=== PATIENT | female | born 1960 | race Caucasian/White ===

== ENCOUNTER → 2019-08-31 14:43 | Outpatient (BNVA) | payer MEDICARE, SELFPAY | PROVIDERS: Family Provider Registered Nurse; PCP Registered Nurse; Visit Provider Nurse Practitioner | DX: G89.29 Other chronic pain (principal); M47.812 Spondylosis without myelopathy or radiculopathy, cervical region; M47.897 Other spondylosis, lumbosacral region; M79.7 Fibromyalgia; F17.210 Nicotine dependence, cigarettes, uncomplicated; Z79.891 Long term (current) use of opiate analgesic | CPT/HCPCS: 99214 ==

== ENCOUNTER → 2019-09-08 10:35 | Outpatient (BNVA) | payer MEDICARE, SELFPAY | PROVIDERS: Family Provider Registered Nurse; PCP Registered Nurse; Referring Provider Registered Nurse; Visit Provider Otolaryngology | DX: R13.10 Dysphagia, unspecified (principal); R49.0 Dysphonia; R05 Cough; F17.210 Nicotine dependence, cigarettes, uncomplicated | CPT/HCPCS: 31575; 99214 ==

== ENCOUNTER 2019-09-13 06:22 | Day surgery (SDC) | payer MEDICARE, SELFPAY ==
[2019-09-10 13:58] VITALS: BMI 29.2
[2019-09-13] VITALS (8 sets, daily range): BP systolic 87–117; BP diastolic 39–74; PULSE 90–111; RESP 17–22; TEMP 36.3–37.2; O2SAT 92–99
--- NOTE | 2019-09-13 07:03 | PM.HPUD ---
H&P update H&P Update: DATE OF SURGERY/PROCEDURE: 09/13/19 DATE H&P PERFORMED: 08/31/19 H&P UPDATE INFORMATION: H&P completed within last 30 days and No changes to prior documentation PLANNED PROCEDURE: Operation Date: 09/13/19 08:00 Proposed Procedures p EGD(Not Applicable) - Terrell Mckeon MD s Bronchoscopy(Not Applicable) - Terrell Mckeon MD s Direct Laryngoscopy(Not Applicable) - Terrell Mckeon MD Full H&P Perinent History: Medical/Surgical History: Medical History (Updated 09/09/19 @ 08:29 by Terrell Mckeon MD) Chronic bilateral low back pain (Chronic) Fibromyalgia (Chronic) Long-term use of high-risk medication (Chronic) Neck pain (Chronic) Other spondylosis, lumbosacral region (Chronic) Smoker (Chronic) Spondylosis without myelopathy or radiculopathy, cervical region (Chronic) Family History: Family History (Updated 08/30/19 @ 14:50 by Bethanie Sanabria LPN) Other Diabetes Heart disease Denies family history of Anesthesia complication Bleeding disorder Social History: Social History Smoking and tobacco status: current every day smoker cigarettes Packs smoked per day: 1 Alcohol intake: never
[2019-09-13 07:07] LABS: Glucose Point of Care 99 mg/dL (70-110)
[2019-09-13] MEDS: sodium chloride 0.9% 1,000 ML 30 ML IV (07:26)
--- NOTE | 2019-09-13 08:36 | PM.OP ---
Operative Report Date of procedure: 09/13/19 Pre-op Diagnosis: Cough, dysphagia Post-op diagnosis: same Post-op Findings: Erosive distal esophagitis at 11:00 measuring 1.5 cm in length. Thick mucoid secretions all bronchopulmonary segments normal laryngeal exam Procedure Done: Esophagogastroduodenoscopy with biopsy, flexible fiberoptic bronchoscopy of the bronchioloalveolar lavage, dilation of esophagus to 58 [place] Specimens removed/disposition: The distal esophagus, bronchoalveolar lavage for lipid-laden macrophages Surgeon: Terrell Mckeon Anesthesia: General Estimated blood loss (mL): 0 Complications: None Condition: stable Disposition: PACU Brief History: Ms. De Luna is a 59-year-old female has a 3-month history of choking this primarily for solids occasionally for liquids. She has also had heartburn and reflux and has been treated with a PPI which she is currently taking but has not been successful in alleviating her symptoms. Procedure: The patient was taken to the operating room and under satisfactory general endotracheal anesthesia the bronchoscope was introduced into the trachea. Right and left bronchopulmonary segments 1 through 10 were examined. Thick mucoid secretions were noted throughout. A BAL was performed from her right lower lobe and a lipid-laden macrophage assessment was requested. No endobronchial lesions were identified. The gastroscope was introduced into the post cricoid area the AV esophagus stomach and duodenum were examined. The exam was significant for a 1.5 cm erosion at 11:00 in the distal esophagus. The valve, gastric mucosa, and duodenal mucosa were otherwise unremarkable. A stricture was noted in the proximal esophagus. The patient was dilated with a bougie dilator to 58 F. A second look of the esophagus was undertaken after dilation no perforations were noted. The patient tolerated the procedure well and was allowed to awaken and taken to the recovery room. Postoperative care instructions and counseling were given including detailed written and verbal instructions. Once the patient verbalized understanding of these instructions and met discharge criteria she was discharged in satisfactory and stable condition.
--- NOTE | 2019-09-13 08:51 | ANES.PREANES ---
Pre-Anesthetic Assessment Pre-Anesthetic Assessment: Height/Weight: Height 1.63 m Weight 77.111 kg Temp Pulse Resp BP Pulse Ox 97.4 F L 111 H 18 117/74 94 09/13/19 06:43 09/13/19 06:43 09/13/19 06:43 09/13/19 06:43 09/13/19 06:43 Preop Diagnosis: Cough, dysphagia Proposed Procedure: Operation Date: 09/13/19 08:00 Proposed Procedures p EGD(Not Applicable) - Terrell Mckeon MD s Bronchoscopy(Not Applicable) - Terrell Mckeon MD s Direct Laryngoscopy(Not Applicable) - Terrell Mckeon MD Last intake: Intake Last Liquid Date 09/13/19 Last Liquid Time 00:00 Last Solid Date 09/13/19 Last Solid Time 00:00 Social: Social History: Tobacco and No alcohol Exam: Pre-Anes Outpt Exam: alert, oriented x 3, clear to auscultation bilaterally and regular rate & rhythm Airway: Submandibular: WNL Cervical ROM: WNL MP: 2 Dentition: Full History/ROS: No significant history except as noted Pulmonary: Pulmonary: COPD and BRANDT CV/HEM: CV/HEM: HTN : : None reported Hepatic: Hepatic: None reported GI: GI: GERD (controlled) Metabolic: Metabolic: DM, Hyperlipidemia and Thyroid Musc/skel: Musc/skel: Lower Back Pain and OA/DJD Neuropsych: Neuropsych: Anxiety, CVA (no residual symp) and Depression Anesthetic Plan: ASA status: III Anesthesia: Anesthesia Evaluation and General Risk of > 500 ml blood loss (7ml/kg in children): No Meds/Allergies Current Medications: Current Medications Generic Name Dose Route Start Last Admin Trade Name Freq PRN Reason Stop Dose Admin Sodium Chloride 1,000 mls @ 30 ml s/hr 09/13/19 06:00 09/13/19 07:26 Sodium Chloride 0.9% IV 09/14/19 05:59 30 mls/hr .Q24H [place] Administration PFSH Anesthesia PFSH: Medical History Chronic bilateral low back pain (Chronic) Fibromyalgia (Chronic) Long-term use of high-risk medication (Chronic) Neck pain (Chronic) Other spondylosis, lumbosacral region (Chronic) Smoker (Chronic) Spondylosis without myelopathy or radiculopathy, cervical region (Chronic) Family History Other Diabetes Heart disease Denies family history of Anesthesia complication Bleeding disorder Social History Smoking and tobacco status: current every day smoker cigarettes Packs smoked per day: 1 Alcohol intake: never Data Anesthesia Other Labs: Laboratory Results - last 48 hr 09/13/19 07:05 POC Glucose 99 Cardiac Studies: No Data to Display
--- NOTE | 2019-09-13 09:48 | SUR.PHASEI ---
0950 pt awakes easily on ra trial, pt taking occ ice chips still coughing frequently and strongly, vss.
[2019-09-13 10:11] LABS: Glucose Point of Care 124 mg/dL (70-110)
== END 2019-09-13 10:47 | disposition home or self-care (01) ==
PROVIDERS: Family Provider Registered Nurse; PCP Registered Nurse; Visit Provider Otolaryngology
PROC: 0DJ08ZZ Inspection of Upper Intestinal Tract, Via Natural or Artificial Opening Endoscopic (ICD-10-PCS; CPT 43235; principal; 2019-09-13 08:00)
PROC: 0BJ08ZZ Inspection of Tracheobronchial Tree, Via Natural or Artificial Opening Endoscopic (ICD-10-PCS; CPT 31622; 2019-09-13 08:00)
PROC: 0CJS8ZZ Inspection of Larynx, Via Natural or Artificial Opening Endoscopic (ICD-10-PCS; CPT 31624; 2019-09-13 08:00)
DX: K20.9 Esophagitis, unspecified (principal); J44.9 Chronic obstructive pulmonary disease, unspecified; I10 Essential (primary) hypertension; E11.9 Type 2 diabetes mellitus without complications; E78.5 Hyperlipidemia, unspecified; M19.90 Unspecified osteoarthritis, unspecified site; Z86.73 Personal history of transient ischemic attack (TIA), and cerebral infarction without residual deficits; M79.7 Fibromyalgia; F17.210 Nicotine dependence, cigarettes, uncomplicated; Z79.82 Long term (current) use of aspirin
CPT/HCPCS: 31624; 43450; 12345; 36416; 80500; 82962; 88305; 96365; J1100; J2001; J2704; J3010; J3490; J7030

== ENCOUNTER → 2019-09-20 08:35 | Outpatient (BNVA) | payer MEDICARE, SELFPAY | PROVIDERS: Family Provider Registered Nurse; PCP Registered Nurse; Visit Provider Registered Nurse | DX: E11.9 Type 2 diabetes mellitus without complications (principal); E03.9 Hypothyroidism, unspecified | CPT/HCPCS: 80053; 80061; 83036; 84443; 85025 ==

== ENCOUNTER → 2019-09-21 15:18 | Outpatient (BNVA) | payer MEDICARE, SELFPAY | PROVIDERS: Family Provider Registered Nurse; PCP Registered Nurse; Visit Provider Registered Nurse | DX: E07.9 Disorder of thyroid, unspecified (principal); E03.9 Hypothyroidism, unspecified; N39.0 Urinary tract infection, site not specified | CPT/HCPCS: 81003; 87077; 87086; 87186 ==

== ENCOUNTER → 2019-09-24 15:24 | Outpatient (BNVA) | payer MEDICARE, SELFPAY | PROVIDERS: Family Provider Registered Nurse; PCP Registered Nurse; Visit Provider Anesthesiology | DX: G89.29 Other chronic pain (principal); M47.897 Other spondylosis, lumbosacral region; M54.2 Cervicalgia; M79.651 Pain in right thigh; M79.652 Pain in left thigh; F17.210 Nicotine dependence, cigarettes, uncomplicated; Z79.891 Long term (current) use of opiate analgesic | CPT/HCPCS: 99214 ==

== ENCOUNTER → 2019-10-04 09:16 | Outpatient (BNVA) | payer MEDICARE, SELFPAY | PROVIDERS: Family Provider Registered Nurse; PCP Registered Nurse; Visit Provider Otolaryngology | DX: Z48.89 Encounter for other specified surgical aftercare (principal); G89.29 Other chronic pain; M47.897 Other spondylosis, lumbosacral region; M54.2 Cervicalgia; F17.210 Nicotine dependence, cigarettes, uncomplicated; Z79.891 Long term (current) use of opiate analgesic | CPT/HCPCS: 99213; 99214 ==

== ENCOUNTER 2019-11-03 12:49 | Emergency (ER) | payer MEDICARE, SELFPAY ==
[2019-11-03] VITALS (35 sets, daily range): BP systolic 117–138; BP diastolic 86–110; PULSE 96–100; RESP 16–24; TEMP 36.9; O2SAT 89–99; BMI 29.2
--- NOTE | 2019-11-03 13:20 | W.ED.SOB ---
HPI - SOB/Dyspnea General: Chief Complaint: Shortness of Breath/Dyspnea Stated Complaint: sob Time Seen by Provider: 11/03/19 13:20 History of Present Illness: HPI Narrative: Patient is a 59-year-old female who comes into the ED with shortness of breath. Symptoms started on October 28. Patient has a past medical history of COPD. Her cough is mostly dry but every now and then productive. Patient has prescribed COPD meds and has been taking them accordingly. Patient does have increasing shortness of breath upon exertion. Patient is not on any oxygen at home. Patient denies any fever, chills, chest pain, palpitations, abdominal pain, nausea, vomiting, diarrhea, dysuria and hematuria. Patient does have some constipation she has been struggling with for the past couple weeks. Patient denies any recent travel outside of the [facility]. [place]ies travel to [facility] Associated symptoms: Deny abdominal pain, chest pain, fever(s), nausea, orthopnea, palpitations or vomiting Review of Systems Const: Denies: fever, chills or fatigue Eyes: Denies: change in vision or eye discomfort ENMT: Denies: throat pain, painful swallowing, nasal discharge or nasal congestion Card: Reports: shortness of breath on exertion; Denies: chest pain, palpitations, edema, swelling of feet/ankles or shortness of breath when lying down Resp: Reports: shortness of breath, productive cough, non-productive cough and wheezing GI: Denies: abdominal pain, nausea, vomiting, diarrhea, constipation or blood in stool : Denies: flank pain, painful urination or blood in urine Musc: Denies: neck pain, back pain or extremity swelling Skin/Breast: Denies: rash or new lesion Neuro: Denies: headache, numbness in extremities or weakness in extremities PFS ED PFSH: Medical History Chronic bilateral low back pain COPD (chronic obstructive pulmonary disease) Fibromyalgia Hypothyroidism (acquired) Long-term use of high-risk medication Neck pain Other spondylosis, lumbosacral region Smoker Spondylosis without myelopathy or radiculopathy, cervical region Type 2 diabetes mellitus Family History Other Diabetes Heart disease Denies family history of Anesthesia complication Bleeding disorder Social History Smoking and tobacco status: current every day smoker cigarettes Packs smoked per day: 1 Alcohol intake: never Physical Exam Narrative: EXAM NARRATIVE: Patient is a 59-year-old female who is sitting on the exam bed when I enter the room. She was coughing frequently throughout the history and physical exam. Const: COMMON NORMALS: oriented x3 HENMT: COMMON NORMALS: normocephalic HEAD & SCALP: normocephalic MOUTH: oral and palatal mucosa normal THROAT: posterior oropharynx normal and uvula midline Neck/C-Spine: COMMON NORMALS: supple GENERAL: Yes normal visual inspection Resp: COMMON NORMALS: normal respiratory effort, no retractions and no use of accessory muscles AUSCULTATION: wheezes expiratory wheezes and throughout Cardio: COMMON NORMALS: regular rate, regular rhythm, S1 normal heart sound, S2 normal heart sound, no gallops, no clicks, no murmurs and peripheral pulses 2+ throughout RATE: regular rate RHYTHM: regular rhythm HEART SOUNDS: S1 normal and S2 normal PERIPHERAL PULSES: pulses 2+ throughout GI: COMMON NORMALS: normal to inspection, nondistended, normoactive bowel sounds, soft to palpation, non-tender and no masses PALPATION: Yes soft : COMMON NORMALS: Yes no CVA tenderness BLADDER/KIDNEY EXAM: Yes no CVA tenderness Back/Pelvis: COMMON NORMALS: no CVA tenderness Extremity: COMMON NORMALS: normal to inspection Neuro: COMMON NORMALS: oriented x3 and moves all extremities Skin: COMMON NORMALS: no rashes or lesions noted GENERAL SKIN EXAM: no rashes or lesions noted and dry skin Course ED course: Patient was given a DuoNeb treatment here in the ED. Before DuoNeb treatment patient had extensive expiratory wheezing throughout her lungs. After DuoNeb treatment her wheezing did improve patient reported she felt better and that she was able to breathe better. Vital Signs: Vital signs: Vital Signs Temperature 98.4 F 11/03/19 17:16 Pulse Rate 97 11/03/19 17:16 Respiratory Rate 16 11/03/19 17:16 Blood Pressure 138/98 11/03/19 17:16 Pulse Oximetry 98 11/03/19 17:16 MDM - SOB/Dyspnea Lab Data: Attestation: I reviewed the patient's lab results. Labs: Lab Results 11/03/19 11/03/19 11/03/19 Range/Units 14:25 14:25 14:25 WBC 12.9 H (4.0-10.0) 10^3/ uL RBC 4.72 (4.1-5.3) 10^6/u L Hgb 11.3 L (11.5-15.3) g/dL Hct 37.1 (37.0-47.0) % MCV 78.6 L (81-99) fL MCH 23.9 L (28.0-34.0) pg MCHC 30.5 (30.0-36.0) g/dL RDW 16.0 H (12.1-15.1) % Plt Count 509 H (130-400) 10^3/c mm MPV 9.6 (7.4-10.4) fL Neut % (Auto) 76.9 % Lymph % (Auto) 16.1 % [place] % (Auto) 4.6 % Eos % (Auto) 1.2 % Baso % (Auto) 0.5 % Neut # (Auto) 9.9 H (1.8-7.7) 10^3/u L Lymph # (Auto) 2.1 (0.8-4.8) 10^3/u L [place] # (Auto) 0.6 (0.2-0.9) 10^3/u L Eos # (Auto) 0.2 (0.0-0.8) 10^3/u L Baso # (Auto) 0.1 (0.0-0.1) 10^3/u L Nucleated RBC % (a uto) 0 % Nucleated RBCs # 0.0 /100WBC Sodium 133 L (136-145) mmol/L Potassium 4.7 (3.5-5.1) mmol/L Chloride 95 L (98-107) mmol/L Carbon Dioxide 25 (22-29) mmol/L Anion Gap 17.7 (5-19) BUN 12 (8-23) mg/dL Creatinine 0.8 (0.5-0.9) mg/dL GFR Calculation 72.9 L (90-130) mL/min Glucose 93 (65-115) mg/dL Calculated Osmolal ity 272 L (285-295) mOsm/k g Calcium 9.6 (8.5-10.5) mg/dL Total Bilirubin 0.4 (0.15-1.2) mg/dL AST 11 (0-32) U/L ALT 10 (0-33) U/L Alkaline Phosphata se 96 (35-105) IU/L Troponin T Baselin e 22 H (0-10) ng/mL Troponin T 120 Min [place] (0-10) ng/mL Delta Troponin T (0-10) ABS# Total Protein 7.2 (6.6-8.7) g/dL Albumin 3.8 (3.5-5.2) g/dL Globulin 3.4 (1.3-4.6) g/dL Influenza Type A A g (Negative) POC Influenza B Ag (Negative) 11/03/19 11/03/19 Range/Units 14:26 16:34 WBC (4.0-10.0) 10^3/ uL RBC (4.1-5.3) 10^6/u L Hgb (11.5-15.3) g/dL Hct (37.0-47.0) % MCV (81-99) fL MCH (28.0-34.0) pg MCHC (30.0-36.0) g/dL RDW (12.1-15.1) % Plt Count (130-400) 10^3/c mm MPV (7.4-10.4) fL Neut % (Auto) % Lymph % (Auto) % [place] % (Auto) % Eos % (Auto) % Baso % (Auto) % Neut # (Auto) (1.8-7.7) 10^3/u L Lymph # (Auto) (0.8-4.8) 10^3/u L [place] # (Auto) (0.2-0.9) 10^3/u L Eos # (Auto) (0.0-0.8) 10^3/u L Baso # (Auto) (0.0-0.1) 10^3/u L Nucleated RBC % (a uto) % Nucleated RBCs # /100WBC Sodium (136-145) mmol/L Potassium (3.5-5.1) mmol/L Chloride (98-107) mmol/L Carbon Dioxide (22-29) mmol/L Anion Gap (5-19) BUN (8-23) mg/dL Creatinine (0.5-0.9) mg/dL GFR Calculation (90-130) mL/min Glucose (65-115) mg/dL Calculated Osmolal ity (285-295) mOsm/k g Calcium (8.5-10.5) mg/dL Total Bilirubin (0.15-1.2) mg/dL AST (0-32) U/L ALT (0-33) U/L Alkaline Phosphata se (35-105) IU/L Troponin T Baselin e (0-10) ng/mL Troponin T 120 Min [place] 20.55 H (0-10) ng/mL Delta Troponin T -1.45 L (0-10) ABS# Total Protein (6.6-8.7) g/dL Albumin (3.5-5.2) g/dL Globulin (1.3-4.6) g/dL Influenza Type A A g Negative (Negative) POC Influenza B Ag Negative (Negative) Imaging Data^: CXR: Attestation: I personally reviewed and interpreted this imaging study as follows: Radiologist's impression: [address] [address] XRay Report Signed Patient: Tiffany Glaser Unit #: [id number] : 1960 Age/Sex: 59 / F ADM Date: 11/03/19 Loc: ER Room/Bed: Attending Dr: Ordering Provider/Ordering MD: Valeriy Henson Date of Service: 11/03/19 Procedure(s): XR chest 1V portable [id number] Accession Number(s): [id number] Report Number: [id number] WS: [id number] XR chest 1V portable [id number] REASON FOR EXAM: sob and cough FINDINGS: The cardiac silhouette is not enlarged. A large hiatal hernia is noted. Plate atelectasis left lung base. There is no pneumonia, pleural effusion, pulmonary edema, or mass effect. The hilum and apices normal. XR/XR chest 1V portable [id number] IMPRESSION: Large hiatal hernia. Dictated By: Al Greene DO Signed By: Al Greene DO Signed Date/Time: 11/03/19 1351 DD/ 1349 Discharge Plan Discharge Patient Disposition: Home, Self-Care Clinical Impression: Atelectasis of left lung COPD (chronic obstructive pulmonary disease) Qualifiers: COPD type: COPD with acute exacerbation Qualified Code(s): J44.1 - Chronic obstructive pulmonary disease with (acute) exacerbation Condition: Stable Prescriptions: New azithromycin 250 mg tablet See Rx Instructions .ROUTE .COMPLEX Qty: 6 RF: 0 prednisone 50 mg tablet 50 mg PO DAILY 5 Days RF: 0 No Action albuterol sulfate 2.5 mg /3 mL (0.083 %) solution for nebulization 2.5 mg INHALATION QID PRN (Reason: Shortness Of Breath) RF: 0 aspirin 81 mg tablet,delayed release (DR/EC) 81 mg PO DAILY RF: 0 Biofreeze (menthol) 4 % gel 1 applic TOPICAL TID PRN (Reason: Pain) RF: 0 omega-3 fatty acids [Fish Oil Concentrate] 1,000 mg capsule 1,000 mg PO BID RF: 0 fluticasone propionate [Flonase Allergy Relief] 50 mcg/actuation spray,suspension 1 spray INTRANASAL BID RF: 0 glipizide 5 mg tablet 5 mg PO BID RF: 0 metformin 500 mg tablet 500 mg PO BID RF: 0 meloxicam [Mobic] 15 mg tablet 15 mg PO DAILY RF: 0 Complete Multivitamin Tablet 1 tab PO QAM RF: 0 nystatin 100,000 unit/gram cream 1 applic TOPICAL BID PRN (Reason: Vaginal Irritation) RF: 0 tizanidine 4 mg tablet 8 mg PO Q8H PRN (Reason: Muscle Spasm) RF: 0 Tresiba FlexTouch U-100 100 unit/mL (3 mL) insulin pen 40 unit SUBCUT .HS RF: 0 triamcinolone acetonide 0.1 % ointment 1 applic TOPICAL TID RF: 0 cholecalciferol (vitamin D3) 1,000 unit capsule 1,000 unit PO DAILY RF: 0 tumeric 1 tab PO DAILY RF: 0 hydrocodone-acetaminophen 7.5-325 mg tablet 1 tab PO TID PRN (Reason: pain) 30 Days Qty: 90 RF: 0 levothyroxine 137 mcg tablet 137 mcg PO DAILY Qty: 90 RF: 3 omeprazole 20 mg capsule,delayed release(DR/EC) 20 mg PO DAILY Qty: 90 RF: 0 gabapentin 300 mg capsule 300 mg PO TID Qty: 270 RF: 0 venlafaxine 150 mg capsule,extended release 24hr 150 mg PO QAM Qty: 90 RF: 1 potassium chloride [Klor-Con M20] 20 mEq tablet,ER particles/crystals 20 meq PO DAILY Qty: 30 RF: 2 Ozempic 0.25 mg or 0.5 mg(2 mg/1.5 mL) pen injector 0.25 mg SUBCUT .WEEKLY Qty: 1.5 RF: 0 atorvastatin 20 mg tablet 20 mg PO DAILY RF: 0 clopidogrel 75 mg tablet 75 mg PO DAILY RF: 0 nortriptyline 75 mg capsule 75 mg PO DAILY RF: 0 lisinopril 30 mg tablet 30 mg PO DAILY RF: 0 montelukast 10 mg tablet 10 mg PO DAILY RF: 0 folic acid 1 mg Tablet 1 mg PO DAILY RF: 0 Discharge Orders: Discharge Order (Routine); Ordered 11/03/19 Ordered By: Valeriy Henson Referrals: Yoel Gandhi FNP [Primary Care Provider] - Discharge Diet: Regular Discharge Activity: Resume usual activity and Increase activity as tolerated Patient Instructions: Chronic Obstructive Pulmonary Disease (ED) Activity Restrictions/Additional Instructions: Follow-up with your PCP in 2 to 4 days for reevaluation. Take full course of antibiotics and steroids as prescribed. Drink plenty of fluids and stay hydrated. You can also take a Tylenol or ibuprofen for any fevers. Use all other inhalers as previously prescribed. Continue all other home meds. 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
--- NOTE | 2019-11-03 13:35 | XR_ITS ---
WS: [id number] XR chest 1V portable [id number] REASON FOR EXAM: sob and cough FINDINGS: The cardiac silhouette is not enlarged. A large hiatal hernia is noted. Plate atelectasis left lung base. There is no pneumonia, pleural effusion, pulmonary edema, or mass effect. The hilum and apices normal. XR/XR chest 1V portable [id number] IMPRESSION: Large hiatal hernia.
--- NOTE | 2019-11-03 13:37 | ECG_ITS ---
Measurements Intervals [place] Rate: 102 P: 92 NC: 230 QRS: -44 QRSD: 138 T: 75 QT: 367 QTc: 479 SINUS TACHYCARDIA WITH FIRST DEGREE AV BLOCK MARKED LEFT AXIS DEVIATION [QRS AXIS < -30] INTRAVENTRICULAR CONDUCTION DELAY [130+ ms QRS DURATION] POSSIBLE ANTERIOR MYOCARDIAL INFARCTION [30 ms Q WAVE IN V3/V4, OR R < 0.2 mV IN V4 V4 V4 V4], OF INDETERMINATE AGE No previous ECG available for comparison Electronically Signed On 11-04-2019 12:41:27 CDT by Reggie Rodrigues [email or web address] f
[2019-11-03] MEDS: ipratropium-albuterol 3 mL Neb INHALATION (14:17)
[2019-11-03 14:32] LABS: Basophils # 0.1 10^3/uL (0.0-0.1); Basophils % 0.5 %; Eosinophils # 0.2 10^3/uL (0.0-0.8); Eosinophils % 1.2 %; Hematocrit 37.1 % (37.0-47.0); Hemoglobin 11.3 g/dL (11.5-15.3); Lymphocytes # 2.1 10^3/uL (0.8-4.8); Lymphocytes % 16.1 %; Mean Corpuscular HGB Conc 30.5 g/dL (30.0-36.0); Mean Corpuscular Hemoglobin 23.9 pg (28.0-34.0); Mean Corpuscular Volume 78.6 fL (81-99); Mean Platelet Volume 9.6 fL (7.4-10.4); Monocytes # 0.6 10^3/uL (0.2-0.9); Monocytes % 4.6 %; Neutrophils # 9.9 10^3/uL (1.8-7.7); Neutrophils % 76.9 %; Nucleated Red Blood Cells % 0 %; Platelet Count 509 10^3/cmm (130-400); Red Blood Count 4.72 10^6/uL (4.1-5.3); White Blood Count 12.9 10^3/uL (4.0-10.0)
[2019-11-03 14:51] LABS: Albumin Level 3.8 g/dL (3.5-5.2); Alkaline Phosphatase 96 IU/L (35-105); Chloride 95 mmol/L (98-107); Potassium 4.7 mmol/L (3.5-5.1); Sodium 133 mmol/L (136-145); Troponin(5th) Baseline 22 ng/mL (0-10)
[2019-11-03 15:06] LABS: Influenza A by IFA Negative (Negative); Influenza B by IFA Negative (Negative)
[2019-11-03 15:10] LABS: Alanine Aminotransferase 10 U/L (0-33); Anion Gap 17.7 (5-19); Aspartate Amino Transferase 11 U/L (0-32); Blood Urea Nitrogen 12 mg/dL (8-23); Calcium 9.6 mg/dL (8.5-10.5); Carbon Dioxide 25 mmol/L (22-29); Globulin 3.4 g/dL (1.3-4.6); Glomerular Filtration Rate 72.9 mL/min (90-130); Glucose 93 mg/dL (65-115); Osmolality Calculated 272 mOsm/kg (285-295); Total Bilirubin 0.4 mg/dL (0.15-1.2); Total Protein 7.2 g/dL (6.6-8.7)
--- NOTE | 2019-11-03 15:37 | ECG_ITS ---
Measurements Intervals [place] Rate: 100 P: 83 NV: 234 QRS: -40 QRSD: 138 T: 79 QT: 377 QTc: 487 SINUS TACHYCARDIA WITH FIRST DEGREE AV BLOCK WITH OCCASIONAL VENTRICULAR PREMAT PREMATURE COMPLEXES LEFT AXIS DEVIATION [QRS AXIS < -30] INTRAVENTRICULAR CONDUCTION DELAY [130+ ms QRS DURATION] LEFT VENTRICULAR HYPERTROPHY AND ST-T CHANGE [VOLTAGE CRITERIA PLUS ST/T ABN ABNORMALITY] POSSIBLE ANTERIOR MYOCARDIAL INFARCTION , OF INDETERMINATE AGE [30 ms Q WAVE IN V3 V3/V4, OR R < 0.2 mV IN V4] No previous ECG available for comparison Electronically Signed On 11-04-2019 12:46:45 CDT by Reggie Rodrigues [id number]
[2019-11-03 16:58] LABS: Troponin 5 2HR 20.55 ng/mL (0-10)
[2019-11-03 17:04] LABS: Troponin 5 2HR Delta -1.45 ABS# (0-10)
== END 2019-11-03 17:18 | disposition home or self-care (01) ==
PROVIDERS: Emergency Provider Physician Assistant; Family Provider Registered Nurse; PCP Registered Nurse
DX: J44.9 Chronic obstructive pulmonary disease, unspecified (principal); J98.11 Atelectasis; E11.9 Type 2 diabetes mellitus without complications; E03.9 Hypothyroidism, unspecified; F17.210 Nicotine dependence, cigarettes, uncomplicated; Z79.51 Long term (current) use of inhaled steroids; Z79.84 Long term (current) use of oral hypoglycemic drugs
CPT/HCPCS: 12345; 36415; 71045; 80053; 84484; 85025; 87804; 93005; 93010; 94640; 96372; 99283; 99284; J2930

== ENCOUNTER 2019-11-17 11:18 | Inpatient (IN) | payer MEDICARE, SELFPAY ==
[2019-11-17] VITALS (10 sets, daily range): BP systolic 111–156; BP diastolic 69–106; PULSE 92–128; RESP 13–28; TEMP 36.4–37.1; O2SAT 85–96; BMI 30.9
--- NOTE | 2019-11-17 11:33 | ECG_ITS ---
Measurements Intervals [place] Rate: 96 P: 15 SC: 250 QRS: -37 QRSD: 144 T: 81 QT: 369 QTc: 469 SINUS RHYTHM WITH FIRST DEGREE AV BLOCK LEFT AXIS DEVIATION [QRS AXIS < -30] LEFT BUNDLE BRANCH BLOCK [120+ ms QRS DURATION, 80+ ms Q/S IN V1/V2, 85+ ms R IN I/aVL/V5/V6] Compared to ECG 11/03/2019 16:01:46 Left bundle-branch block now present Sinus tachycardia no longer present Intraventricular conduction delay no longer present Left ventricular hypertrophy no longer present ST (T wave) deviation no longer present Myocardial infarct finding no longer present Electronically Signed On 11-17-2019 14:02:29 CDT by Juany De Luna M.D. [email or web address]
--- NOTE | 2019-11-17 11:33 | XR_ITS ---
WS: [id number] PORTABLE CHEST HISTORY: sob COMPARISON: 11/03/2019 Hyperinflated lungs with changes of emphysema. Improved aeration since the prior study. Suspect pulmo nary fibrotic changes bilaterally. Blunting of the RIGHT costophrenic angle. Small pleural effusion o r pleural thickening. Cardiac size: Mildly enlarged cardiac silhouette. Mediastinum/Aorta: Normal mediastinum. No osseous abnormality seen. RIGHT axillary christopher dissection. XR/XR chest 1V portable [id number] IMPRESSION: 1. Chronic emphysema with slight improvement since the prior study and less in terstitial edema. 2. Small RIGHT pleural effusion versus pleural thickening.
--- NOTE | 2019-11-17 11:53 | ED_ITS ---
HPI - SOB/Dyspnea General: Chief Complaint: Shortness of Breath/Dyspnea Stated Complaint: sob Time Seen by Provider: 11/17/19 11:33 Source: patient Mode of arrival: ambulatory Limitations: no limitations History of Present Illness: HPI Narrative: 59-year-old female with a history of COPD states she was seen here 2 weeks ago and diagnosed with COPD exacerbation has been on steroids along with antibiotics. She states that she had worsening shortness of breath along with edema in her lower extremity. Patient states her dyspnea is worse with exertion. She denies any fevers or cough. Denies any vomiting or diarrhea. MD elicited complaint: shortness of breath Pertinent past history: COPD Associated symptoms: Deny abdominal pain, chest pain, fever(s), nausea or vomiting Review of Systems Const: Denies: fever, chills, body aches or change in appetite Eyes: Denies: blurry vision or eye discomfort ENMT: Denies: throat pain or dental pain Card: Denies: chest pain Resp: Reports: shortness of breath GI: Denies: abdominal pain, nausea, vomiting or diarrhea : Denies: painful urination Musc: Denies: neck pain or back pain Skin/Breast: Denies: rash Neuro: Denies: headache Psych: Denies: depression Reji/Lymph: Denies: easy bruising All/Imm: Denies: hives PFSH ED PFSH: Medical History Chronic bilateral low back pain COPD (chronic obstructive pulmonary disease) Fibromyalgia Hypothyroidism (acquired) Long-term use of high-risk medication Neck pain Other spondylosis, lumbosacral region Smoker Spondylosis without myelopathy or radiculopathy, cervical region Type 2 diabetes mellitus Family History Other Diabetes Heart disease Denies family history of Anesthesia complication Bleeding disorder Social History Smoking and tobacco status: current every day smoker cigarettes Packs smoked per day: 1 Alcohol intake: never Physical Exam Const: COMMON NORMALS: no apparent distress, oriented x3 and healthy appearing HENMT: COMMON NORMALS: normocephalic and head/scalp atraumatic HEAD & SCALP: normocephalic and atraumatic Eye: COMMON NORMALS: PERRL and EOMs intact bilaterally PUPIL: Yes PERRL Neck/C-Spine: COMMON NORMALS: full ROM and supple Chest: COMMONS NORMALS: inspection of chest normal and palpation of chest normal Resp: COMMON NORMALS: normal respiratory effort, no retractions, no use of accessory muscles and clear to auscultation bilaterally AUSCULTATION: clear to auscultation bilaterally Cardio: COMMON NORMALS: regular rate, regular rhythm and no murmurs RATE: regular rate RHYTHM: regular rhythm GI: COMMON NORMALS: normal to inspection, nondistended, normoactive bowel s ounds, soft to palpation, non-tender and no masses PALPATION: Yes soft Extremity: COMMON NORMALS: normal to inspection and full ROM OTHER: edema to bilateral extremities Neuro: COMMON NORMALS: oriented x3, moves all extremities and no focal motor deficits Psych: COMMON NORMALS: mental status grossly normal, thought process normal and cooperative THOUGHT PROCESS: normal thought process Skin: COMMON NORMALS: no rashes or lesions noted and no wounds GENERAL SKIN EXAM: no rashes or lesions noted Course Vital Signs: Vital signs: Vital Signs Temperature 97.5 F L 11/17/19 11:20 Pulse Rate 95 11/17/19 11:20 Respiratory Rate 18 11/17/19 11:20 Blood Pressure 111/70 11/17/19 11:20 Pulse Oximetry 96 11/17/19 11:20 MDM - SOB/Dyspnea MDM Narrative: Medical decision making narrative: Patient presents here with shortness of breath with edema along with elevated BNP. Patient has no known history of congestive heart failure and I spoke to hospitalist and will admit for further work-up and diuresis. Patient has been stable while here. Lab Data: Labs: Lab Results 11/17/19 11/17/19 11/17/19 Range/Units 11:58 11:58 11:58 WBC 14.4 H (4.0-10.0) 10^3/ uL RBC 4.55 (4.1-5.3) 10^6/u L Hgb 10.4 L (11.5-15.3) g/dL Hct 35.1 L (37.0-47.0) % MCV 77.1 L (81-99) fL MCH 22.9 L (28.0-34.0) pg MCHC 29.6 L (30.0-36.0) g/dL RDW 17.2 H (12.1-15.1) % Plt Count 433 H (130-400) 10^3/c mm MPV 9.8 (7.4-10.4) fL Neut % (Auto) 80.2 % Lymph % (Auto) 11.8 % Hickman % (Auto) 4.5 % Eos % (Auto) 2.2 % Baso % (Auto) 0.7 % Neut # (Auto) 11.5 H (1.8-7.7) 10^3/u L Lymph # (Auto) 1.7 (0.8-4.8) 10^3/u L Hickman # (Auto) 0.7 (0.2-0.9) 10^3/u L Eos # (Auto) 0.3 (0.0-0.8) 10^3/u L Baso # (Auto) 0.1 (0.0-0.1) 10^3/u L Nucleated RBC % (a uto) 0.2 % Nucleated RBCs # 0.0 /100WBC D-Dimer (0-0.59) ug/mIFE U Sodium 126 L (136-145) mmol/L Potassium 4.9 (3.5-5.1) mmol/L Chloride 91 L (98-107) mmol/L Carbon Dioxide 25 (22-29) mmol/L Anion Gap 14.9 (5-19) BUN 13 (8-23) mg/dL Creatinine 0.8 (0.5-0.9) mg/dL GFR Calculation 72.9 L (90-130) mL/min Glucose 198 H (65-115) mg/dL Calculated Osmolal ity 264 L (285-295) mOsm/k g Calcium 9.2 (8.5-10.5) mg/dL Total Bilirubin 0.4 (0.15-1.2) mg/dL AST 5 (0-32) U/L ALT 8 (0-33) U/L Alkaline Phosphata se 94 (35-105) IU/L Troponin T Baselin e 27 H (0-10) ng/mL Troponin T 120 Min [place] (0-10) ng/mL Delta Troponin T (0-10) ABS# NT-Pro-B Natriuret Pep 5367 H (0-125) pg/mL Total Protein 6.7 (6.6-8.7) g/dL Albumin 3.3 L (3.5-5.2) g/dL Globulin 3.4 (1.3-4.6) g/dL Procalcitonin (0-0.5) ng/mL Urine Color (Yellow) Urine Appearance (CLEAR) Urine pH (5-7) Ur Specific Gravit y (1.005-1.030) Urine Protein (Negative) Urine Glucose (UA) (Normal) Urine Ketones (Negative) Urine Blood (Negative) Urine Nitrate (Negative) Urine Bilirubin (NEGATIVE) Urine Urobilinogen (Negative) mg/dL Ur Leukocyte Lainey ase (Negative) 11/17/19 11/17/19 11/17/19 Range/Units 11:58 11:58 13:52 WBC (4.0-10.0) 10^3/ uL RBC (4.1-5.3) 10^6/u L Hgb (11.5-15.3) g/dL Hct (37.0-47.0) % MCV (81-99) fL MCH (28.0-34.0) pg MCHC (30.0-36.0) g/dL RDW (12.1-15.1) % Plt Count (130-400) 10^3/c mm MPV (7.4-10.4) fL Neut % (Auto) % Lymph % (Auto) % Hickman % (Auto) % Eos % (Auto) % Baso % (Auto) % Neut # (Auto) (1.8-7.7) 10^3/u L Lymph # (Auto) (0.8-4.8) 10^3/u L Hickman # (Auto) (0.2-0.9) 10^3/u L Eos # (Auto) (0.0-0.8) 10^3/u L Baso # (Auto) (0.0-0.1) 10^3/u L Nucleated RBC % (a uto) % Nucleated RBCs # /100WBC D-Dimer 1.18 H (0-0.59) ug/mIFE U Sodium (136-145) mmol/L Potassium (3.5-5.1) mmol/L Chloride (98-107) mmol/L Carbon Dioxide (22-29) mmol/L Anion Gap (5-19) BUN (8-23) mg/dL Creatinine (0.5-0.9) mg/dL GFR Calculation (90-130) mL/min Glucose (65-115) mg/dL Calculated Osmolal ity (285-295) mOsm/k g Calcium (8.5-10.5) mg/dL Total Bilirubin (0.15-1.2) mg/dL AST (0-32) U/L ALT (0-33) U/L Alkaline Phosphata se (35-105) IU/L Troponin T Baselin e (0-10) ng/mL Troponin T 120 Min [place] 23.98 H (0-10) ng/mL Delta Troponin T -3.02 L (0-10) ABS# NT-Pro-B Natriuret Pep (0-125) pg/mL Total Protein (6.6-8.7) g/dL Albumin (3.5-5.2) g/dL Globulin (1.3-4.6) g/dL Procalcitonin 0.07 (0-0.5) ng/mL Urine Color (Yellow) Urine Appearance (CLEAR) Urine pH (5-7) Ur Specific Gravit y (1.005-1.030) Urine Protein (Negative) Urine Glucose (UA) (Normal) Urine Ketones (Negative) Urine Blood (Negative) Urine Nitrate (Negative) Urine Bilirubin (NEGATIVE) Urine Urobilinogen (Negative) mg/dL Ur Leukocyte Lainey ase (Negative) 11/17/19 Range/Units 14:13 WBC (4.0-10.0) 10^3/ uL RBC (4.1-5.3) 10^6/u L Hgb (11.5-15.3) g/dL Hct (37.0-47.0) % MCV (81-99) fL MCH (28.0-34.0) pg MCHC (30.0-36.0) g/dL RDW (12.1-15.1) % Plt Count (130-400) 10^3/c mm MPV (7.4-10.4) fL Neut % (Auto) % Lymph % (Auto) % Hickman % (Auto) % Eos % (Auto) % Baso % (Auto) % Neut # (Auto) (1.8-7.7) 10^3/u L Lymph # (Auto) (0.8-4.8) 10^3/u L Hickman # (Auto) (0.2-0.9) 10^3/u L Eos # (Auto) (0.0-0.8) 10^3/u L Baso # (Auto) (0.0-0.1) 10^3/u L Nucleated RBC % (a uto) % Nucleated RBCs # /100WBC D-Dimer (0-0.59) ug/mIFE U Sodium (136-145) mmol/L Potassium (3.5-5.1) mmol/L Chloride (98-107) mmol/L Carbon Dioxide (22-29) mmol/L Anion Gap (5-19) BUN (8-23) mg/dL Creatinine (0.5-0.9) mg/dL GFR Calculation (90-130) mL/min Glucose (65-115) mg/dL Calculated Osmolal ity (285-295) mOsm/k g Calcium (8.5-10.5) mg/dL Total Bilirubin (0.15-1.2) mg/dL AST (0-32) U/L ALT (0-33) U/L Alkaline Phosphata se (35-105) IU/L Troponin T Baselin e (0-10) ng/mL Troponin T 120 Min [place] (0-10) ng/mL Delta Troponin T (0-10) ABS# NT-Pro-B Natriuret Pep (0-125) pg/mL Total Protein (6.6-8.7) g/dL Albumin (3.5-5.2) g/dL Globulin (1.3-4.6) g/dL Procalcitonin (0-0.5) ng/mL Urine Color Yellow (Yellow) Urine Appearance Clear (CLEAR) Urine pH 6 (5-7) Ur Specific Gravit y 1.005 (1.005-1.030) Urine Protein 1+ H (Negative) Urine Glucose (UA) Norm (Normal) Urine Ketones Negative (Negative) Urine Blood Neg (Negative) Urine Nitrate Negative (Negative) Urine Bilirubin Neg (NEGATIVE) Urine Urobilinogen 1 H (Negative) mg/dL Ur Leukocyte Lainey ase Negative (Negative) Imaging Data^: CXR: Attestation: I personally reviewed and interpreted this imaging study as follows: Radiologist's impression: [facility] [address] [address] XRay Report Signed Patient: Tiffany Glaser Unit #: [id number] : 1960 Age/Sex: 59 / F ADM Date: 11/17/19 Loc: ER Room/Bed: Attending Dr: Ordering Provider/Ordering MD: Nereida Zuniga MD Date of Service: 11/17/19 Procedure(s): XR chest 1V portable [id number] Accession Number(s): [id number] Report Number: [id number] WS: [id number] PORTABLE CHEST HISTORY: sob COMPARISON: 11/03/2019 Hyperinflated lungs with changes of emphysema. Improved aeration since the prior study. Suspect pulmonary fibrotic changes bilaterally. Blunting of the RIGHT costophrenic angle. Small pleural effusion or pleural thickening. Cardiac size: Mildly enlarged cardiac silhouette. Mediastinum/Aorta: Normal mediastinum. No osseous abnormality seen. RIGHT axillary christopher dissection. XR/XR chest 1V portable [id number] IMPRESSION: 1. Chronic emphysema with slight improvement since the prior study and less interstitial edema. 2. Small RIGHT pleural effusion versus pleural thickening. EKG Data^: EKG 1: Attestation: I personally reviewed and interpreted this EKG as follows: EKG Interpretation Date: 11/17/19 EKG interpretation time: 11:47 Interpretation: nsr hr [address] or t wave abnormalities qrs 142 qtc 433 Discharge Plan Discharge Patient Disposition: Admitted As Inpatient Clinical Impression: Congestive heart failure Qualifiers: Heart failure type: unspecified Heart failure chronicity: acute Qualified Code(s): I50.9 - Heart failure, unspecified Condition: Stable Referrals: Yoel Gandhi FNP [Primary Care Provider] - Coding Level of Care Code ED Staff Psychologist for Chg Fwd Exam Comprehensive
[2019-11-17 12:13] LABS: Basophils # 0.1 10^3/uL (0.0-0.1); Basophils % 0.7 %; Eosinophils # 0.3 10^3/uL (0.0-0.8); Eosinophils % 2.2 %; Hematocrit 35.1 % (37.0-47.0); Hemoglobin 10.4 g/dL (11.5-15.3); Lymphocytes # 1.7 10^3/uL (0.8-4.8); Lymphocytes % 11.8 %; Mean Corpuscular HGB Conc 29.6 g/dL (30.0-36.0); Mean Corpuscular Hemoglobin 22.9 pg (28.0-34.0); Mean Corpuscular Volume 77.1 fL (81-99); Mean Platelet Volume 9.8 fL (7.4-10.4); Monocytes # 0.7 10^3/uL (0.2-0.9); Monocytes % 4.5 %; Neutrophils # 11.5 10^3/uL (1.8-7.7); Neutrophils % 80.2 %; Nucleated Red Blood Cells % 0.2 %; Platelet Count 433 10^3/cmm (130-400); Red Blood Count 4.55 10^6/uL (4.1-5.3); Red Cell Distribution Width 17.2 % (12.1-15.1); White Blood Count 14.4 10^3/uL (4.0-10.0)
--- NOTE | 2019-11-17 12:35 | PC.NURSE ---
x ray to room around 1200
[2019-11-17 12:36] LABS: Alanine Aminotransferase 8 U/L (0-33); Albumin Level 3.3 g/dL (3.5-5.2); Alkaline Phosphatase 94 IU/L (35-105); Anion Gap 14.9 (5-19); Blood Urea Nitrogen 13 mg/dL (8-23); Calcium 9.2 mg/dL (8.5-10.5); Carbon Dioxide 25 mmol/L (22-29); Chloride 91 mmol/L (98-107); Globulin 3.4 g/dL (1.3-4.6); Glomerular Filtration Rate 72.9 mL/min (90-130); Glucose 198 mg/dL (65-115); NT Pro B Type Natriuretic Pept 5367 pg/mL (0-125); Osmolality Calculated 264 mOsm/kg (285-295); Potassium 4.9 mmol/L (3.5-5.1); Sodium 126 mmol/L (136-145); Total Bilirubin 0.4 mg/dL (0.15-1.2); Total Protein 6.7 g/dL (6.6-8.7)
[2019-11-17 12:44] LABS: Aspartate Amino Transferase 5 U/L (0-32)
--- NOTE | 2019-11-17 12:47 | ECG_ITS ---
Measurements Intervals [place] Rate: 96 P: 11 [place]: 251 QRS: -37 QRSD: 142 T: 84 QT: 380 QTc: 480 SINUS RHYTHM WITH FIRST DEGREE AV BLOCK MARKED LEFT AXIS DEVIATION LEFT BUNDLE BRANCH BLOCK Compared to ECG 11/03/2019 16:01:46 Left bundle-branch block now present Sinus tachycardia no longer present Intraventricular conduction delay no longer present Left ventricular hypertrophy no longer present ST (T wave) deviation no longer present Myocardial infarct finding no longer present Electronically Signed On 11-17-2019 22:01:58 CDT by Juany De Luna M.D. [email or web address]
--- NOTE | 2019-11-17 12:49 | USCV_ITS ---
Tiffany Glaser Age: 59 Gender: F : 1960 Exam Date: 11/17/2019 15:03 Ordering Phys: Nereida Zuniga MD Technologist: Edna Ibrahim [place] [facility] [place] sob BP: / HR: 91 Rhythm: Sinus Technical Quality: Adequate MEASUREMENTS (Male / Female) Normal Values 2D ECHO LV Diastolic Diameter PLAX 5.3 cm 4.2 - 5.9 / 3.9 - 5.3 cm LV Systolic Diameter PLAX 4.8 cm LV Chamber Size 3.7 cm IVS Diastolic Thickness 1.2 cm 0.6 - 1.0 / 0.6 - 0.9 cm IVS Systolic Thickness 1.3 cm LVPW Diastolic Thickness 1.5 cm 0.6 - 1.0 / 0.6 - 0.9 cm LVPW Systolic Thickness 2.2 cm RV Chamber Size 3.0 cm LVOT Diameter 2.0 cm LV Ejection Fraction 2D Teich 20.1 % LV Ejection Fraction MOD 2C 41.1 % LV Ejection Fraction 2C AL 39.6 % LA Diameter 4.2 cm LA Width 3.6 cm LA Height 5.6 cm RA Width 4.3 cm RA Height 5.5 cm Aorta at Sinotubular Diameter 2.7 cm M-MODE LV Diastolic Diameter MM 4.8 cm 4.2 - 5.9 / 3.9 - 5.3 cm LV Systolic Diameter MM 3.6 cm LV Ejection Fraction MM Teich 51.4 % IVS Diastolic Thickness MM 1.4 cm 0.6 - 1.0 / 0.6 - 0.9 cm IVS Systolic Thickness MM 1.6 cm LVPW Diastolic Thickness MM 1.6 cm 0.6 - 1.0 / 0.6 - 0.9 cm LVPW Systolic Thickness MM 2.2 cm RV Diastolic Diameter MM 2.5 cm Aortic Annulus Diameter 3.3 cm LA Ao Ratio MM 1.3 MV E Point Septal Separation 1.4 cm DOPPLER AV Peak Velocity 109.0 cm/s LVOT Peak Velocity 53.0 cm/s AV Area Cont Eq vti 2.2 cm squared AV Area Cont Eq pk 1.6 cm squared MV Area PHT 4.5 cm squared Mitral E to A Ratio 1.8 MV E' Velocity 11.0 cm/s Mitral E to MV E' Ratio 12.4 Mitral E to LV E' Lateral Ratio 10.5 Mitral E to LV E' Septal Ratio 15.0 TR Peak Velocity 227.8 cm/s TR Peak Gradient 20.7 mmHg TR Mean Velocity 147.4 cm/s TR Mean Gradient 10.6 mmHg TR Velocity Time Integral 57.1 cm TV Peak E Velocity 83.0 cm/s Right Atrial Pressure 3.0 mmHg Pulmonary Artery Systolic Pressu 23.8 mmHg PV Peak Velocity 69.0 cm/s RV Acceleration Time 0.1 s RV Ejection Time 0.3 s RV AcT/ET 0.3 FINDINGS Left Ventricle Moderately increased left ventricular cavity size. Severely decreased left ventricular systolic function. Global left ventricular hypokinesis. Left ventricular ejection fraction is estimated at 25 %. Grade III/IV diastolic dysfunction (restrictive filling pattern), severely elevated filling pressures. Right Ventricle The right ventricle is normal in size and function. Right Atrium The right atrium is normal in size. Left Atrium Moderately increased left atrial size. Mitral Valve Mildly thickened mitral valve. No mitral valve stenosis. Mild mitral valve regurgitation. Aortic Valve Structurally normal aortic valve without significant sclerosis or stenosis. There is no aortic regurgitation. Tricuspid Valve Moderate tricuspid valve regurgitation. Pulmonic Valve Structurally normal pulmonic valve without significant stenosis. There is no pulmonic regurgitation. Pericardium Normal pericardium without effusion. Aorta Normal ascending aorta dimension. CONCLUSIONS 1-Moderately increased left ventricular cavity size. Severely decreased left ventricular systolic function. Global left ventricular hypokinesis. Left ventricular ejection fraction is estimated at 25 %. Grade III/IV diastolic dysfunction (restrictive filling pattern), severely elevated filling pressures. 2-Moderately increased left atrial size. 3-Mildly thickened mitral valve. No mitral valve stenosis. Mild mitral valve regurgitation. 4-Moderate tricuspid valve regurgitation. 5-Right atrial pressure is around 5 mm of mercury. 6-when compared to the prior echocardiogram dated 06/20/2014, left ventricle function has reduced from normal 65% to severe 25% now. Milla Rodrigues MD (Electronically Signed) Final Date: 18 November 2019 11:33 S
[2019-11-17 13:13] LABS: Troponin(5th) Baseline 27 ng/mL (0-10)
[2019-11-17] MEDS: FUROsemide 10 mg/mL SDV 10mL 60 MG IVP (13:28)
--- NOTE | 2019-11-17 13:47 | CT_ITS ---
WS: [id number] CT CHEST ANGIOGRAPHY WITH REFORMATS HISTORY: r/o pe, COPD, PNA TECHNIQUE: Contiguous axial images are obtained through the chest during arterial injection of intrav enous contrast. Images are reconstructed to evaluate the pulmonary arteries. MIP imaging also reviewe d. All CT scans at [facility] use at least one of these dose optimization techniques: aut omated exposure control; mA and/or kV adjustment per patient size (includes targeted exams where dose is matched to clinical indication); or iterative reconstruction. CONTRAST: Omnipaque 350; 95 mL IV. DLP: 560.0 mGy.cm COMPARISON: None available. Very good opacification of the pulmonary arteries. No filling defects or pulmonary emboli. Pulmonary artery size is equal to the aorta. Normal size thoracic aorta. Moderate enlargement the heart. Most s ignificant enlargement involves the LEFT ventricle. No pericardial effusion. Small bilateral pleural effusions. Mild haziness and mosaic attenuation throughout the lungs. Probably due to fluid overload and emphysema. No discrete nodules. Subsegmental atelectasis in the RIGHT middle lobe. Mediastinal and hilar lymphadenopathy. The largest lymph nodes in the anterior mediastinum adjacent t o the aorta measures 4.7 x 1.8 cm. There is a central calcification. There are additional enlarged RI GHT paratracheal, aortopulmonary and subcarinal lymph nodes. RIGHT hilar lymph node measures 1.3 cm. Liver appears enlarged but incompletely visualized. Mild hepatic steatosis. LEFT adrenal nodule low-a ttenuation consistent with an adenoma. Mild diffuse anasarca. CT/CT angio chest PE protcl [id number] IMPRESSION: 1. No pulmonary embolism. 2. Small bilateral pleural effusions, RIGHT greater than LEFT. 3. Mediastinal and hilar adenopathy. May be reactive adenopathy or benign seco ndary to granulomatous disease. Metastatic adenopathy should also be considered . 4. Subsegmental atelectasis RIGHT middle lobe and mild interstitial edema. 5. Marked enlargement of the LEFT ventricle.
[2019-11-17] MEDS: iohexol 350 mg/mL 100 mL Btl IV (14:16)
[2019-11-17 14:18] LABS: Troponin 5 2HR 23.98 ng/mL (0-10)
[2019-11-17 14:24] LABS: Troponin 5 2HR Delta -3.02 ABS# (0-10)
[2019-11-17 14:26] LABS: D Dimer 1.18 ug/mIFEU (0-0.59)
[2019-11-17 14:42] LABS: Procalcitonin 0.07 ng/mL (0-0.5)
[2019-11-17 14:43] LABS: Add Urine Microscopic? YES; Bilirubin Urine Neg (NEGATIVE); Blood Urine Neg (Negative); Glucose Urine UA Norm (Normal); Ketones Urine Negative (Negative); Leukocyte Esterase Urine Negative (Negative); Nitrate Urine Negative (Negative); Protein Urine 1+ (Negative); Specific Gravity, Urine 1.005 (1.005-1.030); Urine Appearance Clear (CLEAR); Urine Color Yellow (Yellow); Urobilinogen Urine 1 mg/dL (Negative); pH Urine 6 (5-7)
[2019-11-17 14:47] LABS: Potassium, Radom Urine 28 mmol/L; Urine Random Chloride 60 mmol/L; Urine Random Sodium 44 mmol/L
--- NOTE | 2019-11-17 14:47 | ECG_ITS ---
Measurements Intervals [place] Rate: 96 P: 11 [place]: 251 QRS: -37 QRSD: 142 T: 84 QT: 380 QTc: 480 SINUS RHYTHM WITH FIRST DEGREE AV BLOCK WITH OCCASIONAL VENTRICULAR PREMATURE COMPLEXES MARKED LEFT AXIS DEVIATION [QRS AXIS < -30] LEFT BUNDLE BRANCH BLOCK Compared to ECG 11/03/2019 16:01:46 Left bundle-branch block now present Sinus tachycardia no longer present Intraventricular conduction delay no longer present Left ventricular hypertrophy no longer present ST (T wave) deviation no longer present Myocardial infarct finding no longer present Electronically Signed On 11-17-2019 22:07:12 CDT by Juany De Luna M.D. [email or web address]
[2019-11-17 14:53] LABS: Iron 19 ug/dL (37-145); Percent Saturation 5.4 % (20-50); Total Iron Binding Capacity 348 mcg/dl; Unsaturated Iron Binding 329 ug/dL (112-347)
[2019-11-17 14:57] LABS: WBC Urine 0-4 /hpf (0-5)
[2019-11-17 14:58] LABS: Add Urine Culture? No; Bacteria Urine TRACE; Squamous Epithelial Cell Urine 0-4 (0-5)
--- NOTE | 2019-11-17 15:56 | PC.NURSE ---
covid swab collected
[2019-11-17 16:35] LABS: Influenza A by IFA Negative (Negative); Influenza B by IFA Negative (Negative)
--- NOTE | 2019-11-17 17:35 | P.HP_ITS ---
Providers/Chief Complaint Primary Care Provider: JOSH Montes Chief Complaint: sob History of Present Illness Tiffany Glaser is a 59 year old female with past medical history of hypertension, hyperlipidemia, CVA in 2014, type 2 diabetes mellitus, hypothyroidism who presented to the ER today complaining of acute shortness of b reath which is been progressively getting worse over last 14 days. Shortness of breath gets worse on exertion and on lying down. Patient has been having orthopnea and PND for last 4 to 5 days. Symptoms are also associated with central chest pressure for last 2 days. Chest pressure does not get worse on exertion or on lying down. At baseline she is able to walk up to a block without having any difficulty in breathing or chest pain but has not been able to do it for last 2 weeks. Symptoms are associated with cough with mild expectoration. Sputum production is not foul-smelling or bloodstained. At present even going to the restroom makes her out of breath and she looks tachypneic at rest. Symptoms are all associated with lower limb swelling which has been increasing for last 1 month. Patient denies having any flulike symptoms, nausea, vomiting, fever, sick contacts or recent travels. She stays at home with her . In last 2 months she has been complaining of hoarseness of voice for which she has gone under work-up with Dr. Mckeon and she recently had EGD with biopsy done. Diagnostic work-up in the ER showed x-ray with cardiomegaly, EKG asked per my interpretation showed LBBB though normal sinus rhythm, blood work showed leukocytosis and an elevated proBNP. Review of Systems Const: Denies: fever, chills, body aches, change in appetite, malaise, night sweats, diaphoresis, change in sleep pattern, daytime sleepiness or snoring Eyes: Denies: change in vision, blurry vision, photophobia, eye discomfort or eye discharge ENMT: Reports: throat pain; Denies: enlarged tonsils, hoarseness, mouth pain, oral sores/lesions, dry mouth, tinnitus, nasal congestion or post nasal drip Card: Reports: edema, swelling of feet/ankles, shortness of breath on exertion and shortness of breath when lying down; Denies: chest pain, palpitations, irregular heart rhythm, lightheadedness, syncope, pre-syncope, leg pain with exertion or bluish discoloration of hands/f eet Resp: Reports: shortness of breath and productive cough; Denies: non-productive cough, wheezing, stridor, pain on inspiration, change in phlegm color, coughing up blood or chest congestion GI: Denies: abdominal pain, nausea, vomiting, vomiting blood, coffee grounds in vomit, difficulty swallowing, heartburn/indigestion, diarrhea, constipation, bloating, cramping, change in bowel habits, painful bowel movements, blood in stool or black tarry stool : Denies: flank pain, painful urination, urinary frequency, urinary urgency, urinary hesitancy, nighttime urination or blood in urine Musc: Denies: neck pain, back pain, extremity pain, joint pain, joint swelling, redness, joint stiffness or limited range of motion Neuro: Denies: headache, numbness in extremities, weakness in extremities, ch anges in sensation, lack of coordination, difficulty walking, frequent falls, dizziness, vertigo, confusion, slurred speech, difficulty communicating thoughts or seizure-like activity Psych: Denies: anxiety, depression, mood swings, panic attacks, hopelessness or irritability Endo: Denies: excessive urination, excessive thirst, tired all the time, cold intolerance, excessive sweating, flushing or heat intolerance Reji/Lymph: Denies: easy bruising or easy bleeding All/Imm: Denies: tongue swelling, facial swelling or acute wheezing Medications/Allergies Home Medications Medication Instructions Recorded Confirmed Last Taken Type budesonide-formoterol [Symbicort] 2 puff INHALATION BID 11/17/19 11/17/19 Unk nown History insulin degludec [Tresiba 40 unit SUBCUT BEDTIME 11/17/19 11/17/19 11/16/19 History FlexTouch U-100] 20 units Allergies Allergy/AdvReac Type Severity Reaction Status Date / Time No Known Allergies Allergy Verified 11/08/19 13:36 PFSH Acute PFSH: Medical History (Updated 11/17/19 @ 17:48 by Osamni Jamison MD) Breast cancer Chronic bilateral low back pain COPD (chronic obstructive pulmonary disease) Cough Dysphonia Fibromyalgia History of CVA (cerebrovascular accident) Hypertension Hypothyroidism (acquired) Long-term use of high-risk medication Neck pain Other spondylosis, lumbosacral region Smoker Spondylosis without myelopathy or radiculopathy, cervical region Type 2 diabetes mellitus Surgical History (Updated 11/17/19 @ 17:48 by Osmani Jamison MD) H/O mastectomy Family History Other Diabetes Heart disease Denies family history of Anesthesia complication Bleeding disorder Social History (Updated 11/17/19 @ 17:49 by Osmani Jamison MD) Smoking and tobacco status: current every day smoker cigarettes Packs smoked per day: 1 Alcohol intake: never Substance/Drug Use: never Household members: spouse Housing: House Vitals/I&O/Wt Last Vital Signs Temp 97.8 F 11/17/19 17:27 Pulse 94 11/17/19 17:27 Resp 16 11/17/19 17:27 BP 135/84 11/17/19 17:27 Pulse Ox 96 11/17/19 17:27 Weight last 48 hrs Weight 81.647 kg Physical Exam Narrative: EXAM NARRATIVE: General: No acute distress, AO x3 HEENT: PERRLA, pupils bilaterally equal and reactive Chest: Normal vesicular breath sounds bilaterally, bilateral fine crackles present up to the mid chest, rhonchi present in right lower lobe and middle zone, equal good air entry bilaterally CVS: S1-S2 regular, pansystolic murmur present in the apex, apex is misplaced down and out, PMI sixth intercostal space between midclavicular and anterior axillary line, S3 gallop, no rubs Abdomen: Soft, nontender, no organomegaly, bowel sounds present Neuro: No focal deficits, no facial deformity, AO x3, power 5/5 in all limbs Data : 11/17/19 11:58 11/17/19 11:58 Micro: Microbiology 11/17/19 14:15 Blood Culture - Preliminary Blood SPECIMEN COLLECTED 11/17/19 11:58 Blood Culture - Preliminary Blood SPECIMEN COLLECTED A&P Assessment and plan (1) Shortness of breath: Status: Acute (2) Congestive heart failure: Status: Acute Qualifiers: Heart failure chronicity: acute Heart failure type: unspecified Qualified Code(s): I50.9 - Heart failure, unspecified (3) Lower respiratory infection (e.g., bronchitis, pneumonia, pneumonitis, pulmonitis): Status: Acute (4) COPD (chronic obstructive pulmonary disease): Status: Chronic Qualifiers: COPD type: COPD with acute lower respiratory infection Qualified Code(s): J44.0 - Chronic obstructive pulmonary disease with (acute) lower respiratory infection (5) Type 2 diabetes mellitus: Status: Chronic (6) Hypothyroidism (acquired): Status: Chronic (7) Hypertension: Status: Acute Additional A&P Information Shortness of breath: Most likely due to acute decompensated heart failure of unknown type along with mild COPD exacerbation. Cannot rule out pneumonia given the localized lung examination along with leukocytosis. No definite consolidation on chest x-ray. Check procalcitonin, echocardiogram stat, d-dimer, CTA to rule out PE, TSH. Patient was given 60 mg IV Lasix in the ER. We will start patient on Lasix 40 mg twice daily IV. Daily weights, strict input with charting. Patricio catheter placement for strict urine output measurement. Given the localized symptoms cannot rule out consolidation. For now we will start patient on vancomycin and Zosyn at renal dosed. Patient was recently in hospital in last 1 month for endoscopic procedure. Sputum culture Gram stain, stat blood cultures. Will de-escalate antibiotics as per the culture results. If patient's white count resolves and patient remains afebrile can plan to discontinue antibiotics sooner. Patient has LBBB on the EKG which was not present on the last EKG available in the system from 2006. Cannot rule out recent ischemia or an old ischemia. Examination is concerning for cardiomegaly. Will await echocardiogram. Patient would most likely need ischemic work-up in this admission. Patient does have significant risk factors like hypertension, smoking, type 2 diabetes mellitus, history of CVA and family history of CAD. Type 2 diabetes mellitus: Start patient on insulin sliding scale at high protocol. We will convert Tresiba into glargine 4 nightly management inpatient. HbA1c. Lipid panel check tomorrow morning. Next hypothyroidism: Continue home medication of levothyroxine. Check TSH. History of CVA: Continue home medication of aspirin, Plavix, statins. COPD: Continue with duo nebs, budesonide, albuterol as needed, Flonase. Oxygen supplementation keeping saturation over 92%. No steroids as patient does not have extensive wheeze at present. Cardiac carb consistent diet. Lovenox for DVT prophylaxis Full code Attestations Medical Necessity Statement*: Admission for more than 2 midnights for shortness of breath most likely because of acute decompensated heart failure Time Spent in Patient Care: Greater than 35 minutes Coding Level of Care Code Acute Naval Architect Specialist for g Fwd Diagnoses Shortness of breath R06.02 Congestive heart failure I50.9 Heart failure chronicity: acute Heart failure type: unspecified Lower respiratory infection (e.g., bronchitis, pneumonia, pneumonitis, pulmonitis) J22 COPD (chronic obstructive pulmonary disease) J44.0 COPD type: COPD with acute lower respiratory infection Type 2 diabetes mellitus E11.9 Hypothyroidism (acquired) E03.9 Hypertension I10
[2019-11-17 18:36] LABS: Troponin 5 6HR 21.94 ng/mL (0-10)
[2019-11-17] MEDS: enoxaparin 40 mg/0.4 mL Syringe SUBCUT (18:36)
[2019-11-17] MEDS: famotidine 20 mg/2 mL INJ IVP (18:37)
[2019-11-17] MEDS: FUROsemide 10 mg/mL SDV 4mL 40 MG IVP (18:38)
[2019-11-17] MEDS: gabapentin 300 mg Capsule PO ×2 (18:38→21:20)
[2019-11-17] MEDS: fluticasone nasal spray 16gm Btl 1 SPRAY INTRANASAL (18:40)
[2019-11-17 18:45] LABS: Troponin 5 6HR Delta -5.06 ng/L (0-12)
[2019-11-17] MEDS: piperacillin-tazobactam 3.375 GM in sodium chloride 0.9% (plus) 50 ML IV (18:47)
[2019-11-17 18:52] LABS: Glucose Point of Care 102 mg/dL (70-110)
[2019-11-17 19:02] LABS: Thyroid Stimulating Hormone 5.27 uIU/mL (0.27-4.20)
[2019-11-17] MEDS: nortriptyline 25 mg Capsule 75 MG PO (20:10)
[2019-11-17 21:06] LABS: Glucose Point of Care 238 mg/dL (70-110)
[2019-11-17] MEDS: insulin glargine 100 units/1 mL 40 UNIT SUBCUT (21:20)
[2019-11-17] MEDS: ipratropium-albuterol 3 mL Neb INHALATION (21:45)
[2019-11-17] MEDS: budesonide 0.5 mg/2 mL Neb INHALATION (21:45)
[2019-11-17] MEDS: HYDROcodone-acetaminophen 7.5-325 mg Tablet 1 TAB PO (22:03)
--- NOTE | 2019-11-17 23:48 | PC.NURSE ---
Addendum entered by Tabatha Esparza RN 11/18/19 00:40: Dr. Slade ordered 5 mg Labetalol. Patient began complaining of chest pain right before Labetalol was given. At this time, patient states I am not cold anymore. Patient is no longer shakes and states I feel much better. Chest pain is gone. Heart rate is now 106 and blood pressure is 123/69. Will continue to monitor. Original Note: Dr. Slade notified of patient just receiving IV Vanc. Patient is shaking and complaining of feeling cold. Patient's heart rate is 120s ST, much higher than it was previously. Blood pressure is also higher than before at 156/106.
[2019-11-18] VITALS (14 sets, daily range): BP systolic 101–131; BP diastolic 47–84; PULSE 88–110; RESP 14–22; TEMP 36.7–37.5; O2SAT 90–96
[2019-11-18] MEDS: labetalol 5 mg/mL SDV 20mL IVP (00:03)
[2019-11-18] MEDS: piperacillin-tazobactam 3.375 GM in sodium chloride 0.9% (plus) 50 ML IV ×3 (03:07→18:13)
[2019-11-18] MEDS: ipratropium-albuterol 3 mL Neb INHALATION (03:39)
[2019-11-18 05:16] LABS: Basophils # 0.1 10^3/uL (0.0-0.1); Basophils % 0.5 %; Eosinophils # 0.1 10^3/uL (0.0-0.8); Eosinophils % 0.4 %; Hematocrit 34.1 % (37.0-47.0); Hemoglobin 10.2 g/dL (11.5-15.3); Lymphocytes # 0.6 10^3/uL (0.8-4.8); Lymphocytes % 2.8 %; Mean Corpuscular HGB Conc 29.9 g/dL (30.0-36.0); Mean Corpuscular Hemoglobin 22.5 pg (28.0-34.0); Mean Corpuscular Volume 75.3 fL (81-99); Mean Platelet Volume 9.8 fL (7.4-10.4); Monocytes # 0.3 10^3/uL (0.2-0.9); Monocytes % 1.7 %; Neutrophils # 18.5 10^3/uL (1.8-7.7); Neutrophils % 93.8 %; Nucleated Red Blood Cells % 0 %; Platelet Count 319 10^3/cmm (130-400); Red Blood Count 4.53 10^6/uL (4.1-5.3); Red Cell Distribution Width 17.2 % (12.1-15.1); White Blood Count 19.7 10^3/uL (4.0-10.0)
[2019-11-18 05:41] LABS: Alanine Aminotransferase 10 U/L (0-33); Albumin Level 3.3 g/dL (3.5-5.2); Alkaline Phosphatase 91 IU/L (35-105); Anion Gap 17.3 (5-19); Aspartate Amino Transferase 16 U/L (0-32); Blood Urea Nitrogen 15 mg/dL (8-23); Calcium 9.5 mg/dL (8.5-10.5); Carbon Dioxide 28 mmol/L (22-29); Chloride 91 mmol/L (98-107); Globulin 3.5 g/dL (1.3-4.6); Glomerular Filtration Rate 63.7 mL/min (90-130); Glucose 96 mg/dL (65-115); Osmolality Calculated 272 mOsm/kg (285-295); Potassium 3.3 mmol/L (3.5-5.1); Sodium 133 mmol/L (136-145); Total Bilirubin 0.5 mg/dL (0.15-1.2); Total Protein 6.8 g/dL (6.6-8.7)
[2019-11-18] MEDS: famotidine 20 mg/2 mL INJ IVP ×2 (05:49→18:13)
[2019-11-18] MEDS: FUROsemide 10 mg/mL SDV 4mL 40 MG IVP ×2 (05:49→18:13)
[2019-11-18] MEDS: venlafaxine ER (24HR) 150 mg Capsule PO (05:49)
[2019-11-18 05:55] LABS: Estmated Average Glucose 171; Hemoglobin A1C 7.6 % (4.0-6.0)
[2019-11-18 06:29] LABS: Glucose Point of Care 111 mg/dL (70-110)
[2019-11-18 06:29] LABS: Chol HDL Ratio 4.21 mg/dL (0.0-4.40); Cholesterol 101 mg/dL (0-200); HDL Cholesterol 24 mg/dL (60-100); LDL Cholesterol Calculated 61 mg/dL (50-129); Triglycerides 78 mg/dL (0-150); VLDL Cholestrol Calculation 16 mg/dL (0-30)
[2019-11-18 08:27] LABS: Free T4 Free Thyroxine 1.48 ng/dL (0.82-1.77); T3 Free 1.9 PG/ML (2.0-4.4)
--- NOTE | 2019-11-18 08:29 | PC.NURSE ---
Per Dr. Jamison, hold morning dose of lisinopril 30 mg for BP of 101/47.
[2019-11-18] MEDS: aspirin 81 mg EC Tablet PO (09:13)
[2019-11-18] MEDS: gabapentin 300 mg Capsule PO ×3 (09:13→21:21)
[2019-11-18] MEDS: montelukast sodium 10 mg Tablet PO (09:13)
[2019-11-18] MEDS: clopidogrel 75 mg Tablet PO (09:14)
[2019-11-18] MEDS: folic acid 1 mg Tablet PO (09:14)
[2019-11-18] MEDS: fluticasone nasal spray 16gm Btl 1 SPRAY INTRANASAL ×2 (09:14→18:14)
[2019-11-18] MEDS: ferrous gluconate 324 mg Tablet PO ×2 (09:14→18:13)
[2019-11-18] MEDS: atorvastatin 40 mg Tablet 20 MG PO (09:14)
[2019-11-18] MEDS: albuterol 8 gm MDI 2 PUFF INHALATION ×3 (10:52→20:51)
--- NOTE | 2019-11-18 11:13 | P.PN_ITS ---
Subjective Subjective: Interval history: No acute events overnight. Patient has remained hemodynamically stable, afebrile. On examination patient is little lethargic but AO x3. Have requested for a stat ABG. Labs noted. Documented net 4.5 L negative. Vitals/I&O/Wt Last Vital Signs Temp 98.0 F 11/18/19 10:55 Pulse 89 11/18/19 10:55 Resp 22 H 11/18/19 10:55 BP 123/72 11/18/19 10:55 Pulse Ox 92 11/18/19 10:55 11/17/19 11/18/19 11/18/19 22:59 06:59 14:59 Intake Total 50 / 50 320 / 370 50 / 50 Output Total 3450 / 3450 1000 / 4450 Balance -3400 / -3400 -680 / -4080 50 / 50 Weight last 48 hrs Weight 90.718 kg Weight 90.718 kg Weight 81.647 kg Physical Exam Narrative: EXAM NARRATIVE: General: No acute distress, AO x3 HEENT: PERRLA, pupils bilaterally equal and reactive Chest: Normal vesicular breath sounds bilaterally, bilateral fine crackles present up to the mid chest, rhonchi present in right lower lobe and middle zone, equal good air entry bilaterally CVS: S1-S2 regular, pansystolic murmur present in the apex, apex is misplaced down and out, PMI sixth intercostal space between midclavicular and anterior axillary line, S3 gallop, no rubs Abdomen: Soft, nontender, no organomegaly, bowel sounds present Neuro: No focal deficits, no facial deformity, AO x3, power 5/5 in all limbs Urinary Catheter Management^: Patricio: Cath Placed During This Visit: yes Reason for Continuing Indwelling Catheter: Other Urinary Catheter Date of Insertion: 11/17/19 Urinary Catheter Time of Insertion: 18:32 Data : 11/18/19 04:20 11/18/19 04:20 Micro: Microbiology 11/17/19 16:50 Gram Stain - Final Sputum - Expectorated Sputum 11/17/19 14:15 Blood Culture - Preliminary Blood SPECIMEN COLLECTED 11/17/19 11:58 Blood Culture - Preliminary Blood SPECIMEN COLLECTED A&P Assessment and plan (1) Shortness of breath: Status: Acute (2) Congestive heart failure: Status: Acute Qualifiers: Heart failure chronicity: acute Heart failure type: unspecified Qualified Code(s): I50.9 - Heart failure, unspecified (3) Lower respiratory infection (e.g., bronchitis, pneumonia, pneumonitis, pulmonitis): Status: Acute (4) COPD (chronic obstructive pulmonary disease): Status: Chronic Qualifiers: COPD type: COPD with acute lower respiratory infection Qualified Code(s): J44.0 - Chronic obstructive pulmonary disease with (acute) lower respiratory infection (5) Type 2 diabetes mellitus: Status: Chronic (6) Hypothyroidism (acquired): Status: Chronic (7) Hypertension: Status: Acute Additional A&P Information Shortness of breath: Most likely due to acute decompensated heart failure of unknown type along with mild COPD exacerbation. Cannot rule out pneumonia given the localized lung examination along with leukocytosis. No definite consolidation on chest x-ray. C/w Lasix 40 mg twice daily IV. Daily weights, strict input with charting. Echocardiogram results appreciated. Shows dilated LV with severe LV dysfunction EF of 25% and grade 3 diastolic dysfunction along with global hypokinesia and moderate TR. Given acute change in the echocardiogram since last time and new LBBB as comparing the EKG from 2006 along with patient significant risk factors of hypertension, smoking, type 2 diabetes mellitus, history of CVA and family history of CAD cannot rule out ischemic cardiomyopathy. Once patient stabilizes patient would most likely need ischemic work-up with a stress test. Given worsening leukocytosis will continue on vancomycin and Zosyn both at renal dose. Will de-escalate as per the blood culture and sputum culture results. If patient's leukocytosis continues to worsen will have to think about possible empyema given the pleural effusion. For now pleural effusion is most likely secondary to congestive heart failure. Type 2 diabetes mellitus: Blood sugars well controlled. Continue with glargine at 40 units nightly and insulin sliding scale at high- dose protocol. HbA1c and lipid panel results appreciated. Hypothyroidism: Continue home medication of levothyroxine. TSH elevated will check free T3 and T4. History of CVA: Continue home medication of aspirin, Plavix, statins. COPD: Continue with duo nebs, budesonide, albuterol as needed, Flonase. Oxygen supplementation keeping saturation over 92%. No steroids as patient does not have extensive wheeze at present. Stat ABG results not suggestive of hypercapnia. Potassium repleted. Cardiac carb consistent diet. Lovenox for DVT prophylaxis Full code Attestations Medical Necessity Statement*: CHF, POssible ischemic cardiomyopathy Time Spent in Patient Care: Greater than 35 minutes Coding Level of Care Code Acute Dulite Machine Bluer for Chg Fwd Diagnoses Shortness of breath R06.02 Congestive heart failure I50.9 Heart failure chronicity: acute Heart failure type: unspecified Lower respiratory infection (e.g., bronchitis, pneumonia, pneumonitis, pulmonitis) J22 COPD (chronic obstructive pulmonary disease) J44.0 COPD type: COPD with acute lower respiratory infection Type 2 diabetes mellitus E11.9 Hypothyroidism (acquired) E03.9 Hypertension I10
[2019-11-18 11:27] LABS: Glucose Point of Care 160 mg/dL (70-110)
[2019-11-18 13:42] LABS: ABG PCO2 47.9 mmHg (35-45); ABG PH Result 7.44 (7.35-7.45); Arterial Blood Gas Hematocrit 30.7 % (37-47); Base Excess ABG 7.6 mmol/L (-2.0-2.0); Blood Gas Allen Test Pos; Blood Gas Sample Site Radial, left; Blood Gas Sample Type Arterial; Carboxyhemoglobin 0.7 %THgb (0.4-20.1); HCO3 ABG 32.7 mmol/L (22-26); HGB O2 Sat 93.9 % (95-100); Ionized Calcium Level - ABG 1.2 mmol/L (1.1-1.4); Methemoglobin 0.9 % (0.4-1.5); Oxygen Device NC; Oxygen Saturation ABG 95.4; PO2 ABG 94.5 mmHg (80.0-100.0); Potassium Level - ABG 3.2 mmol/L (3.5-5.0)
[2019-11-18 17:38] LABS: Glucose Point of Care 131 mg/dL (70-110)
--- NOTE | 2019-11-18 18:15 | CTR_ITS ---
PROCEDURE INFORMATION: Exam: CT Head Without Contrast Exam date and time: 11/18/2019 6:22 PM Age: 59 years old Clinical indication: Altered mental status/memory loss and weakness, facial; Additional info: R/O stroke, h/o stroke TECHNIQUE: Imaging protocol: Computed tomography of the head without contrast. Total DLP: 715.28 mGy-cm Radiation optimization: All CT scans at this facility use at least one of these dose optimization techniques: automated exposure control; mA and/or kV adjustment per patient size (includes targeted exams where dose is matched to clinical indication); or iterative reconstruction. COMPARISON: CT head wo con* [id number] 06/19/2014 6:46 PM FINDINGS: Brain: There are global involutional changes of the brain which are in keeping with the patient's age. Periventricular hypodensities are nonspecific but most likely reflect chronic microvascular ischemic disease. Old lacunar infarcts bilaterally, stable. There is no evidence of intracranial hemorrhage. No abnormal extra-axial fluid collections are identified. No mass effect or midline shift is seen. Ventricles: Normal. No ventriculomegaly. Bones/joints: Unremarkable. No acute fracture. Sinuses: The visualized sinuses are unremarkable. Mastoid air cells: There is no mastoid effusion detected. Soft tissues: Unremarkable. CT/CT head wo con* [id number] IMPRESSION: No acute intracranial pathology demonstrated by CT. Radiation Dose CTDIVOL = (mGy): DLP = 715.28 (mGy-cm)
[2019-11-18] MEDS: enoxaparin 40 mg/0.4 mL Syringe SUBCUT (18:18)
--- NOTE | 2019-11-18 21:12 | PC.NURSE ---
Patient transferred to [facility] room 258 at 1930 due to decreased census on CSU. Patient agreeable to move. No distress observed.
[2019-11-18] MEDS: nortriptyline 25 mg Capsule 75 MG PO (21:21)
[2019-11-18] MEDS: insulin glargine 100 units/1 mL 40 UNIT SUBCUT (21:22)
[2019-11-18 21:25] LABS: Glucose Point of Care 218 mg/dL (70-110)
[2019-11-18] MEDS: HYDROcodone-acetaminophen 7.5-325 mg Tablet 1 TAB PO (22:27)
[2019-11-19] VITALS (13 sets, daily range): BP systolic 125–153; BP diastolic 72–85; PULSE 85–105; RESP 16–20; TEMP 36.4–37.4; O2SAT 90–97
--- NOTE | 2019-11-19 01:33 | PC.NURSE ---
Patient reports feeling much better. Patient is currently on room air with no c/o of increased SOB. Patient is able to ambulate with standby assist. No other distresses observed. Instructed patient regarding need for continued diuretics and antibiotics. Patient verbalized complete understanding.
[2019-11-19] MEDS: piperacillin-tazobactam 3.375 GM in sodium chloride 0.9% (plus) 50 ML IV ×3 (02:41→17:55)
[2019-11-19] MEDS: albuterol 8 gm MDI 2 PUFF INHALATION ×4 (04:11→21:10)
[2019-11-19] MEDS: FUROsemide 10 mg/mL SDV 4mL 40 MG IVP ×2 (05:19→17:55)
[2019-11-19] MEDS: famotidine 20 mg/2 mL INJ IVP ×2 (05:19→17:55)
[2019-11-19] MEDS: venlafaxine ER (24HR) 150 mg Capsule PO (05:19)
[2019-11-19 06:49] LABS: Glucose Point of Care 114 mg/dL (70-110)
[2019-11-19 07:40] LABS: Coronavirus Lab Test PTC SEE COMMENTS
[2019-11-19] MEDS: ferrous gluconate 324 mg Tablet PO ×2 (09:35→17:55)
[2019-11-19] MEDS: atorvastatin 40 mg Tablet 20 MG PO (09:36)
[2019-11-19] MEDS: clopidogrel 75 mg Tablet PO (09:36)
[2019-11-19] MEDS: aspirin 81 mg EC Tablet PO (09:36)
[2019-11-19] MEDS: folic acid 1 mg Tablet PO (09:37)
[2019-11-19] MEDS: fluticasone nasal spray 16gm Btl 1 SPRAY INTRANASAL ×2 (09:37→17:56)
[2019-11-19] MEDS: gabapentin 300 mg Capsule PO ×3 (09:51→22:04)
[2019-11-19] MEDS: montelukast sodium 10 mg Tablet PO (09:52)
[2019-11-19 10:20] LABS: Coronavirus Lab Test PTC NOT DETECTED
[2019-11-19 10:40] LABS: Basophils # 0.1 10^3/uL (0.0-0.1); Basophils % 0.9 %; Eosinophils # 0.2 10^3/uL (0.0-0.8); Eosinophils % 2.8 %; Hematocrit 41.6 % (37.0-47.0); Hemoglobin 12.5 g/dL (11.5-15.3); Lymphocytes % 13.6 %; Mean Corpuscular Hemoglobin 22.6 pg (28.0-34.0); Mean Corpuscular Volume 75.4 fL (81-99); Mean Platelet Volume 10.4 fL (7.4-10.4); Monocytes # 0.6 10^3/uL (0.2-0.9); Monocytes % 7.4 %; Neutrophils # 5.6 10^3/uL (1.8-7.7); Neutrophils % 74.5 %; Nucleated Red Blood Cells % 0 %; Platelet Count 289 10^3/cmm (130-400); Red Blood Count 5.52 10^6/uL (4.1-5.3); White Blood Count 7.5 10^3/uL (4.0-10.0)
[2019-11-19 10:57] LABS: Glucose Point of Care 211 mg/dL (70-110)
[2019-11-19 11:03] LABS: Alanine Aminotransferase 13 U/L (0-33); Albumin Level 3.7 g/dL (3.5-5.2); Alkaline Phosphatase 100 IU/L (35-105); Anion Gap 21.7 (5-19); Blood Urea Nitrogen 10 mg/dL (8-23); Calcium 10.4 mg/dL (8.5-10.5); Carbon Dioxide 28 mmol/L (22-29); Chloride 89 mmol/L (98-107); Globulin 3.8 g/dL (1.3-4.6); Glomerular Filtration Rate 56.4 mL/min (90-130); Glucose 188 mg/dL (65-115); Osmolality Calculated 281 mOsm/kg (285-295); Potassium 3.7 mmol/L (3.5-5.1); Sodium 135 mmol/L (136-145); Total Bilirubin 0.6 mg/dL (0.15-1.2); Total Protein 7.5 g/dL (6.6-8.7)
[2019-11-19 11:05] LABS: Aspartate Amino Transferase 27 U/L (0-32)
--- NOTE | 2019-11-19 13:17 | PM.PN ---
Subjective Subjective: Interval history: She says she is coughing more, but is now able to cough up more phlegm. Overall is feeling perhaps tiny bit better compared to admission. Vitals/I&O/Wt Last Vital Signs Temp 99.3 F 11/19/19 08:00 Pulse 92 11/19/19 08:20 Resp 18 11/19/19 08:15 BP 132/79 11/19/19 08:00 Pulse Ox 97 11/19/19 08:15 11/18/19 11/19/19 11/19/19 22:59 06:59 14:59 Intake Total 907.708 / 1197.708 92.292 / 1290.000 Output Total 1700 / 2700 950 / 3650 1550 / 1550 Balance -792.292 / -1502.292 -857.708 / -2360.000 -1550 / -1550 Weight last 48 hrs Weight 84.731 kg Weight 90.718 kg Weight 90.718 kg Physical Exam Const: COMMON NORMALS: no apparent distress and oriented x3 HENMT: COMMON NORMALS: oropharynx normal Neck/C-Spine: COMMON NORMALS: no JVD Resp: COMMON NORMALS: normal respiratory effort AUSCULTATION: rhonchi Cardio: COMMON NORMALS: no JVD, regular rhythm, S1 normal heart sound, S2 normal heart sound and no murmurs RHYTHM: regular rhythm HEART SOUNDS: S1 normal and S2 normal GI: COMMON NORMALS: normal to inspection, nondistended, normoactive bowel sounds, soft to palpation and non-tender PALPATION: Yes soft Extremity: COMMON NORMALS: no joint enlargement GENERAL: Yes edema (2+) Neuro: COMMON NORMALS: oriented x3 and moves all extremities Skin: COMMON NORMALS: no rashes or lesions noted GENERAL SKIN EXAM: no rashes or lesions noted Urinary Catheter Management^: Patricio: Cath Placed During This Visit: yes Reason for Continuing Indwelling Catheter: Other Urinary Catheter Date of Insertion: 11/17/19 Urinary Catheter Time of Insertion: 18:32 Data : 11/19/19 10:00 11/19/19 10:00 Micro: Microbiology 11/17/19 16:50 Gram Stain - Final Sputum - Expectorated Sputum Sputum Culture - Preliminary 11/17/19 14:15 Blood Culture - Preliminary Blood NEGATIVE TO DATE 11/17/19 11:58 Blood Culture - Preliminary Blood NEGATIVE TO DATE 11/17/19 15:55 MRSA Culture - Final Nose A&P Assessment and plan (1) Shortness of breath: Intermittently on 2 L nasal cannula. Was not wearing it while I was in the room. Saturations in the low 90s. Subjectively reports is feeling perhaps a tiny bit better compared to admission. COVID-19 testing negative. She is coughing, currently bringing up more phlegm. Suspected secondary to pneumonia. Overall shortness of breath due to pneumonia, acute systolic and diastolic CHF. Also noted lymphadenopathy in the chest, which she says several years ago had a biopsy done for in [place]. Reports no malignancy was found at that time. At this time continue antibiotics, continue diuretic. Discussed with her that given acute decline in ejection fraction, and risk factors would benefit from risk stratification for coronary disease which may be considered on inpatient or outpatient basis depending on how she is feeling. Discussed with her it is unavailable over the weekend. She is agreeable with plan for medical treatment at this time with further stress testing depending on her condition within the next few days. Status: Acute (2) Congestive heart failure: Continue diuresis. Is in negative balance. EF 25%. Would benefit from additional evaluation by stress testing. Assessment for [employer]. Status: Acute Qualifiers: Heart failure chronicity: acute Heart failure type: unspecified Qualified Code(s): I50.9 - Heart failure, unspecified (3) Lower respiratory infection (e.g., bronchitis, pneumonia, pneumonitis, pulmonitis): Conitnue antibiotic at this time. MRSA PCR negative. Leukocytosis resolved. Status: Acute (4) COPD (chronic obstructive pulmonary disease): Mild exacerbation, with cough, productive of phlegm. Continue inhaled steroids. Not currently receiving systemic steroid. Antibiotic as above. Continue breathing treatments. Monitor for symptoms of wheezing. Does have some rhonchi on exam. Status: Chronic Qualifiers: COPD type: COPD with acute lower respiratory infection Qualified Code(s): J44.0 - Chronic obstructive pulmonary disease with (acute) lower respiratory infection (5) Type 2 diabetes mellitus: Continue insulin at this time. Status: Chronic (6) Hypothyroidism (acquired): Go up slightly to 150 mcg on levothyroxine dose. Outpatient TSH follow-up will be needed. Status: Chronic (7) Hypertension: Blood pressures variable, mostly at goal. Status: Acute Additional A&P Information History of CVA: Continue home medication of aspirin, Plavix, statins. Hypokalemia repleted. Hyponatremia improved. Attestations Medical Necessity Statement*: Continue admission for management of hypoxia, pneumonia, acute systolic and diastolic CHF, with underlying coronary disease. Coding Level of Care Code Acute Unarmed Security Officer for [facility] Fwd Exam Comprehensive Diagnoses Shortness of breath R06.02 Congestive heart failure I50.9 Heart failure chronicity: acute Heart failure type: unspecified Lower respiratory infection (e.g., bronchitis, pneumonia, pneumonitis, pulmonitis) J22 COPD (chronic obstructive pulmonary disease) J44.0 COPD type: COPD with acute lower respiratory infection Type 2 diabetes mellitus E11.9 Hypothyroidism (acquired) E03.9 Hypertension I10
[2019-11-19] MEDS: HYDROcodone-acetaminophen 7.5-325 mg Tablet 1 TAB PO ×2 (13:25→22:04)
[2019-11-19 17:10] LABS: Glucose Point of Care 145 mg/dL (70-110)
[2019-11-19] MEDS: enoxaparin 40 mg/0.4 mL Syringe SUBCUT (17:55)
--- NOTE | 2019-11-19 18:44 | PM.CONSULT ---
Providers/Reason For Consult Consulting Physican/Specialty*: Cardiology Reason for Consult*: New onset of systolic heart failure Shortness of breath Abnormal EKG Attending Physician: Sudarshan Aldrich Primary Care Provider: JOSH Montes History of Present Illness History of Present Illness Tiffany Glaser is a 59 year old female Past medical history significant for continuous tobacco abuse hypertension hyperlipidemia diabetes mellitus presented to the hospital with worsening of shortness of breath cough sputum PND orthopnea lower extremity edema. She was treated for COPD exacerbation and heart failure with IV Lasix. In the last couple of days she has diuresed more than 8 L started feeling much better. Covid 19 test was negative. Echocardiogram showed severely depressed LV function which is new and 25% with global hypokinesis. There was moderate tricuspid valve regurgitation and mild mitral valve regurgitation. It is the reason we have been asked to come and see patient. Patient denies any history of Coronary artery disease stress test or angiogram. Currently she thinks she is breathing better still has some chest tightness. Review of Systems Const: Denies: fever, chills, body aches, change in appetite, malaise, night sweats, diaphoresis, change in sleep pattern, daytime sleepiness or snoring Eyes: Denies: change in vision, blurry vision, photophobia, eye discomfort or eye discharge ENMT: Reports: throat pain; Denies: enlarged tonsils, hoarseness, mouth pain, oral sores/lesions, dental pain, dry mouth, tinnitus, nasal congestion or post nasal drip Card: Reports: edema, swelling of feet/ankles, shortness of breath on exertion and shortness of breath when lying down; Denies: chest pain, palpitations, irregular heart rhythm, lightheadedness, syncope, pre-syncope, leg pain with exertion or bluish discoloration of hands/feet Resp: Reports: shortness of breath and productive cough; Denies: non-productive cough, wheezing, stridor, pain on inspiration, change in phlegm color, coughing up blood or chest congestion GI: Denies: abdominal pain, nausea, vomiting, vomiting blood, coffee grounds in vomit, difficulty swallowing, heartburn/indigestion, diarrhea, constipation, bloating, cramping, change in bowel habits, painful bowel movements, blood in stool or black tarry stool : Denies: flank pain, painful urination, urinary frequency, urinary urgency, urinary hesitancy, nighttime urination or blood in urine Musc: Denies: neck pain, back pain, extremity pain, joint pain, joint swelling, redness, joint stiffness or limited range of motion Skin/Breast: Denies: rash Neuro: Denies: headache, numbness in extremities, weakness in extremities, changes in sensation, lack of coordination, difficulty walking, frequent falls, dizziness, vertigo, confusion, slurred speech, difficulty communicating thoughts or seizure-like activity Psych: Denies: anxiety, depression, mood swings, panic attacks, hopelessness or irritability Endo: Denies: excessive urination, excessive thirst, tired all the time, cold intolerance, excessive sweating, flushing or heat intolerance Reji/Lymph: Denies: easy bruising or easy bleeding All/Imm: Denies: hives, tongue swelling, facial swelling or acute wheezing Meds/Allergies Home Medications and Allergies Home Medications Medication Instructions Recorded Confirmed Type albuterol sulfate 2.5 mg INHALATION QID PRN 08/30/19 11/17/19 History aspirin 81 mg tablet,delayed 81 mg PO DAILY 08/30/19 11/17/19 History release fluticasone propionate 50 1 spray INTRANASAL BID 08/30/19 11/17/19 History mcg/actuation nasal spray,suspension glipizide 5 mg tablet 5 mg PO BID 08/30/19 11/17/19 History meloxicam 15 mg tablet 15 mg PO DAILY 08/30/19 11/17/19 History menthol 4 % topical gel 1 applic TOPICAL TID PRN 08/30/19 11/17/19 History metformin 500 mg tablet 500 mg PO BID 08/30/19 11/17/19 History multivitamin,[id number]-dtua-[id number] 1 tab PO QAM 08/30/19 11/17/19 History nystatin 100,000 unit/gram topical 1 applic TOPICAL BID PRN 08/30/19 11/17/19 History cream omega-3 fatty acids 1,000 mg 1,000 mg PO BID 08/30/19 11/17/19 History capsule tizanidine 4 mg tablet 8 mg PO Q8H PRN tab 08/30/19 11/17/19 History triamcinolone acetonide 0.1 % 1 applic TOPICAL TID PRN 08/30/19 11/17/19 History topical ointment omeprazole 20 mg capsule,delayed 20 mg PO DAILY #90 cap 09/06/19 11/17/19 Rx release tumeric 1 tab PO DAILY 09/08/19 11/17/19 History folic acid 1 mg PO DAILY 09/13/19 11/17/19 History gabapentin 300 mg capsule 300 mg PO TID #270 cap 09/16/19 11/17/19 Rx levothyroxine 137 mcg tablet 137 mcg PO DAILY #90 tab 09/21/19 11/17/19 Rx hydrocodone 7.5 mg-acetaminophen 1 tab PO TID PRN 30 Days #90 tab 09/24/19 11/17/19 Rx 325 mg tablet venlafaxine 150 mg 150 mg PO QAM #90 cap 09/27/19 11/17/19 Rx capsule,extended release 24 hr potassium chloride 20 mEq 20 meq PO DAILY #30 tab 10/11/19 11/17/19 Rx tablet,extended release(part/cryst) atorvastatin 20 mg PO DAILY 11/03/19 11/17/19 History clopidogrel 75 mg PO DAILY 11/03/19 11/17/19 History lisinopril 30 mg PO DAILY 11/03/19 11/17/19 History montelukast 10 mg PO DAILY 11/03/19 11/17/19 History nortriptyline 75 mg PO BEDTIME 11/03/19 11/17/19 History semaglutide 0.25 mg SUBCUT .WEEKLY #1.5 ml 11/15/19 11/17/19 Rx budesonide-formoterol [Symbicort] 2 puff INHALATION BID 11/17/19 11/17/19 History insulin degludec [Tresiba 40 unit SUBCUT BEDTIME 11/17/19 11/17/19 History FlexTouch U-100] Allergies Allergy/AdvReac Type Severity Reaction Status Date / Time No Known Allergies Allergy Verified 11/08/19 13:36 Current Medications Current Medications Generic Name Dose Route Start Last Admin Trade Name Freq PRN Reason Stop Dose Admin Hydrocodone Bitart/Acetaminophen 1 tab 11/18/19 08:46 11/19/19 13:25 Empire 7.5-325 Mg PO 1 tab TID PRN Administration pain Albuterol Sulfate 2 puff 11/18/19 09:00 11/19/19 14:44 Ventolin INHALATION 2 puff Q6H.RESPIRATORY [place] Administration Aspirin 81 mg 11/18/19 09:00 11/19/19 09:36 Aspirin Ec PO 81 mg DAILY [place] Administration Atorvastatin Calcium 20 mg 11/18/19 09:00 11/19/19 09:36 Lipitor PO 20 mg DAILY [place] Administration Clopidogrel Bisulfate 75 mg 11/18/19 09:00 11/19/19 09:36 Plavix PO 75 mg DAILY [place] Administration Enoxaparin Sodium 40 mg 11/19/19 17:55 11/19/19 17:55 Lovenox SUBCUT 40 mg Q24H [place] Administration Famotidine 20 mg 11/18/19 18:00 11/19/19 17:55 Pepcid Inj IVP 20 mg Q12H [place] Administration Ferrous Gluconate 324 mg 11/18/19 09:00 11/19/19 17:55 Ferrous Gluconate PO 324 mg BIDWM [place] Administration Fluticasone Propionate 1 spray 11/18/19 09:00 11/19/19 17:56 Flonase INTRANASAL 1 spray BID [place] Administration Folic Acid 1 mg 11/18/19 09:00 11/19/19 09:37 Folic Acid PO 1 mg DAILY [place] Administration Furosemide 40 mg 11/18/19 18:00 11/19/19 17:55 Lasix IVP 40 mg Q12H [place] Administration Gabapentin 300 mg 11/18/19 09:00 11/19/19 15:57 Neurontin PO 300 mg TID [place] Administration Piperacillin Sod/Tazobactam 50 mls @ 12.5 mls/hr 11/18/19 11:00 11/19/19 17:55 Sod 3.375 gm/ Sodium Chloride IV 12.5 mls/hr Q8H [place] Administration Insulin Aspart 0 unit 11/18/19 12:00 11/19/19 17:56 Novolog SUBCUT 6 unit WM&BEDTIME [facility] Administration Protocol Insulin Glargine 40 unit 11/17/19 21:00 11/18/19 21:22 Lantus SUBCUT 40 unit BEDTIME [place] Administration Lisinopril 30 mg 11/18/19 09:00 11/18/19 08:58 Prinivil PO Not Given DAILY [place] Montelukast Sodium 10 mg 11/18/19 09:00 11/19/19 09:52 Singulair PO 10 mg DAILY [place] Administration Nortriptyline HCl 75 mg 11/18/19 21:00 11/18/19 21:21 Pamelor PO 75 mg BEDTIME [place] Administration Potassium Chloride 40 meq 11/18/19 18:15 11/19/19 09:52 Klor-Con 10 PO 40 meq DAILY [place] Administration Venlafaxine HCl 150 mg 11/18/19 06:00 11/19/19 05:19 Effexor Xr PO 150 mg QAM [place] Administration PFSH Acute PFSH: Medical History (Updated 11/19/19 @ 18:59 by Milla Rodrigues MD) Breast cancer Chronic bilateral low back pain COPD (chronic obstructive pulmonary disease) Cough Dysphonia Fibromyalgia History of CVA (cerebrovascular accident) Hypertension Hypothyroidism (acquired) Long-term use of high-risk medication Neck pain Other spondylosis, lumbosacral region Spondylosis without myelopathy or radiculopathy, cervical region Type 2 diabetes mellitus Surgical History H/O mastectomy Family History Other Diabetes Heart disease Denies family history of Anesthesia complication Bleeding disorder Social History Smoking and tobacco status: current every day smoker cigarettes Packs smoked per day: 1 Alcohol intake: never Substance/Drug Use: never Household members: spouse Housing: House Dietary Habits: Current diet type/program: regular Caffeine: No Vitals/I&O/Wt Last Vital Signs Temp 98.4 F 11/19/19 15:41 Pulse 102 H 11/19/19 15:41 Resp 18 11/19/19 15:41 BP 125/72 11/19/19 15:41 Pulse Ox 94 11/19/19 15:41 11/19/19 11/19/19 11/19/19 06:59 14:59 22:59 Intake Total 92.292 / 1290.000 840 / 840 410 / 1250 Output Total 950 / 3650 3000 / 3000 Balance -857.708 / -2360.000 -2160 / -2160 410 / -1750 Weight last 48 hrs Weight 186 lb 12.8 oz Weight 200 lb Weight 200 lb Physical Exam Narrative: EXAM NARRATIVE: GENERAL: Patient is alert, awake and oriented x3. NECK: No jugular vein distension. HEENT: No cyanosis. No icterus. No pallor. HEART: Regular S1 and S2 with gallop. LUNGS: Clear to auscultate bilaterally. CENTRAL NERVOUS SYSTEM: Grossly nonfocal. EXTREMITIES: Lower extremities with 1+ edema bilaterally. Pulses palpable in the lower extremities, both dorsalis pedis and posterior tibial. Urinary Catheter Management^: Patricio: Cath Placed During This Visit: yes Reason for Continuing Indwelling Catheter: Other Urinary Catheter Date of Insertion: 11/17/19 Urinary Catheter Time of Insertion: 18:32 Data Labs: Other Labs: SINUS RHYTHM WITH FIRST DEGREE AV BLOCK WITH OCCASIONAL VENTRICULAR PREMATURE COMPLEXES MARKED LEFT AXIS DEVIATION [QRS AXIS < -30] LEFT BUNDLE BRANCH BLOCK Compared to ECG 11/03/2019 16:01:46 Left bundle-branch block now present Sinus tachycardia no longer present Intraventricular conduction delay no longer present Left ventricular hypertrophy no longer present ST (T wave) deviation no longer present Myocardial infarct finding no longer present Micro: Micro: Microbiology 11/17/19 16:50 Gram Stain - Final Sputum - Expector ated Sputum Sputum Culture - P reliminary 11/17/19 14:15 Blood Culture - Pr eliminary Blood NEGATIVE TO RACHEL E 11/17/19 11:58 Blood Culture - Pr eliminary Blood NEGATIVE TO RACHEL E A&P Assessment and plan (1) Congestive heart failure: Patient has new onset of systolic heart failure with severe LV dysfunction. She has been diuresed adequately however still has some decompensated complain. Continue IV Lasix 40 mg twice a day with goal of -1.5 L. Once euvolemic we'll switch her to by mouth Lasix.. Aldactone will also be added.Carvedilol to the regimen will be added. Once euvolemic we will decide regarding left heart catheterization versus stress test since nowadays due to COVID elective angiograms and procedures has been postponed. She may will be needing lifevest. We willAssessment for that. Status: Acute Qualifiers: Heart failure chronicity: acute Heart failure type: systolic Qualified Code(s): I50.21 - Acute systolic (congestive) heart failure (2) Hypertension: Well controlled, With the addition of Coreg and Aldactone it will further improved Status: Acute Qualifiers: Hypertension type: essential hypertension Qualified Code(s): I10 - Essential (primary) hypertension (3) Type 2 diabetes mellitus: As per medicine Status: Chronic (4) Lower respiratory infection (e.g., bronchitis, pneumonia, pneumonitis, pulmonitis): As per medicine continue antibiotics Status: Acute (5) LV dysfunction: Patient has new LV dysfunction with severely depressed ejection fraction etiology ischemic versus nonischemic, as an outpatient will ask for left heart catheterization or stress test. Status: Acute Consult Attestations Medical Necessity Statement: Patient Requires continuation of hospitalization for above defined. 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
[2019-11-19 21:00] LABS: Glucose Point of Care 134 mg/dL (70-110)
[2019-11-19] MEDS: budesonide 0.5 mg/2 mL Neb 0.25 MG INHALATION (21:09)
[2019-11-19] MEDS: nortriptyline 25 mg Capsule 75 MG PO (22:03)
[2019-11-20] VITALS (12 sets, daily range): BP systolic 112–140; BP diastolic 67–89; PULSE 85–103; RESP 12–23; TEMP 36.4–37.1; O2SAT 90–98
--- NOTE | 2019-11-20 00:47 | PC.NURSE ---
Late entry: at 2200 patient refused her Lantus 40units due to her blood glucose was 134. Will continue to monitor.
[2019-11-20] MEDS: piperacillin-tazobactam 3.375 GM in sodium chloride 0.9% (plus) 50 ML IV (02:56)
[2019-11-20] MEDS: albuterol 8 gm MDI 2 PUFF INHALATION ×4 (03:05→20:10)
[2019-11-20 05:09] LABS: Basophils # 0.1 10^3/uL (0.0-0.1); Basophils % 0.7 %; Eosinophils # 0.2 10^3/uL (0.0-0.8); Eosinophils % 2.4 %; Hematocrit 35.2 % (37.0-47.0); Hemoglobin 10.8 g/dL (11.5-15.3); Lymphocytes # 1.5 10^3/uL (0.8-4.8); Lymphocytes % 20.5 %; Mean Corpuscular HGB Conc 30.7 g/dL (30.0-36.0); Mean Corpuscular Hemoglobin 22.9 pg (28.0-34.0); Mean Corpuscular Volume 74.6 fL (81-99); Mean Platelet Volume 10.5 fL (7.4-10.4); Monocytes # 0.9 10^3/uL (0.2-0.9); Monocytes % 11.3 %; Neutrophils # 4.8 10^3/uL (1.8-7.7); Neutrophils % 64.4 %; Nucleated Red Blood Cells % 0 %; Platelet Count 244 10^3/cmm (130-400); Red Blood Count 4.72 10^6/uL (4.1-5.3); Red Cell Distribution Width 17.4 % (12.1-15.1); White Blood Count 7.5 10^3/uL (4.0-10.0)
[2019-11-20 05:12] LABS: Anion Gap 16.2 (5-19); Blood Urea Nitrogen 12 mg/dL (8-23); Calcium 9.8 mg/dL (8.5-10.5); Carbon Dioxide 30 mmol/L (22-29); Chloride 90 mmol/L (98-107); Glomerular Filtration Rate 45.7 mL/min (90-130); Glucose 148 mg/dL (65-115); Osmolality Calculated 275 mOsm/kg (285-295); Potassium 3.2 mmol/L (3.5-5.1); Sodium 133 mmol/L (136-145)
[2019-11-20] MEDS: FUROsemide 10 mg/mL SDV 4mL 40 MG IVP ×2 (06:08→17:52)
[2019-11-20] MEDS: famotidine 20 mg/2 mL INJ IVP ×2 (06:09→17:52)
[2019-11-20] MEDS: venlafaxine ER (24HR) 150 mg Capsule PO (06:09)
[2019-11-20 06:18] LABS: Glucose Point of Care 152 mg/dL (70-110)
[2019-11-20] MEDS: montelukast sodium 10 mg Tablet PO (08:43)
[2019-11-20] MEDS: gabapentin 300 mg Capsule PO ×3 (08:43→20:33)
[2019-11-20] MEDS: carvedilol 3.125 mg Tablet PO ×2 (08:43→17:52)
[2019-11-20] MEDS: clopidogrel 75 mg Tablet PO (08:43)
[2019-11-20] MEDS: spironolactone 25 mg Tablet 12.5 MG PO (08:43)
[2019-11-20] MEDS: atorvastatin 40 mg Tablet 20 MG PO (08:43)
[2019-11-20] MEDS: ferrous gluconate 324 mg Tablet PO ×2 (08:43→17:52)
[2019-11-20] MEDS: aspirin 81 mg EC Tablet PO (08:43)
[2019-11-20] MEDS: folic acid 1 mg Tablet PO (08:44)
[2019-11-20] MEDS: levothyroxine 150 mcg Tablet PO (08:44)
[2019-11-20] MEDS: fluticasone nasal spray 16gm Btl 1 SPRAY INTRANASAL ×2 (08:44→17:51)
[2019-11-20] MEDS: budesonide 0.5 mg/2 mL Neb 0.25 MG INHALATION ×2 (09:10→20:10)
--- NOTE | 2019-11-20 09:57 | PC.SOCIAL ---
Pg 2 IMM Called pt & explained to her via phone, Pg 2 IMM. Pt verbally understands. No questions voiced. Signed, dated, & timed then place a copy in the chart.
[2019-11-20 11:41] LABS: Glucose Point of Care 180 mg/dL (70-110)
--- NOTE | 2019-11-20 13:15 | P.PN_ITS ---
Subjective Subjective: Interval history: She is doing all right, feeling about the same. Denies any new changes. Denies any chest pain. Vitals/I&O/Wt Last Vital Signs Temp 98.7 F 11/20/19 12:00 Pulse 101 H 11/20/19 12:00 Resp 17 11/20/19 12:00 BP 112/67 11/20/19 12:00 Pulse Ox 97 11/20/19 12:00 11/19/19 11/20/19 11/20/19 22:59 06:59 14:59 Intake Total 410 / 1250 550 / 1800 360 / 360 Output Total 1850 / 4850 1950 / 1950 Balance 410 / -1750 -1300 / -3050 -1590 / -1590 Weight last 48 hrs Weight 79.379 kg Weight 84.731 kg Physical Exam Const: COMMON NORMALS: no apparent distress and oriented x3 HENMT: COMMON NORMALS: oropharynx normal Neck/C-Spine: COMMON NORMALS: no JVD Resp: COMMON NORMALS: normal respiratory effort AUSCULTATION: rhonchi (Better) Cardio: COMMON NORMALS: no JVD, regular rhythm, S1 normal heart sound, S2 normal heart sound and no murmurs RHYTHM: regular rhythm HEART SOUNDS: S1 normal and S2 normal GI: COMMON NORMALS: normal to inspection, nondistended, normoactive bowel sounds, soft to palpation and non-tender PALPATION: Yes soft Extremity: COMMON NORMALS: no joint enlargement GENERAL: Yes edema (1+, improving) Neuro: COMMON NORMALS: oriented x3 and moves all extremities Skin: COMMON NORMALS: no rashes or lesions noted GENERAL SKIN EXAM: no rashes or lesions noted Urinary Catheter Management^: Patricio: Cath Placed During This Visit: yes Reason for Continuing Indwelling Catheter: Other Urinary Catheter Date of Insertion: 11/17/19 Urinary Catheter Time of Insertion: 18:32 Data : 11/20/19 04:36 11/20/19 04:36 Micro: Microbiology 11/17/19 16:50 Gram Stain - Final Sputum - Expectorated Sputum Sputum Culture - Final A&P Assessment and plan (1) Shortness of breath: Dyspnea with hypoxia due to multifactorial reasons. Appears to be improving. Objectively has been able to wean down to room air, at least at rest. Will need home O2 evaluation prior to discharge. Diuresing well. Appreciate cardiology changes to diuretics. Plans for additio nal evaluation by coronary angiography per cardiology depending on diuresis and her overall condition. COVID-19 testing negative. She is coughing, currently bringing up more phlegm. Suspected secondary to pneumonia. Overall shortness of breath due to pneumonia, acute systolic and diastolic CHF. Also noted lymphadenopathy in the chest, which she says several years ago had a biopsy done for in [place]. Reports no malignancy was found at that time. Switch antibiotic to PO levaquin. Status: Acute (2) Congestive heart failure: Diuresing well. Edema improving. Coming down to room air. EF 25%. Would benefit from additional evaluation by stress testing vs angiography. Assessment for LifeVest. Status: Acute Qualifiers: Heart failure chronicity: acute Heart failure type: systolic Qualified Code(s): I50.21 - Acute systolic (congestive) heart failure (3) Lower respiratory infection (e.g., bronchitis, pneumonia, pneumonitis, pulmonitis): Conitnue antibiotic at this time. MRSA PCR negative. Leukocytosis resolved. Status: Acute (4) COPD (chronic obstructive pulmonary disease): Mild exacerbation, with cough, productive of phlegm. Continue inhaled steroids. Not currently receiving systemic steroid. Antibiotic as above. Continue breathing treatments. Monitor for symptoms of wheezing. Does have some rhonchi on exam which are improving. Status: Chronic Qualifiers: COPD type: COPD with acute lower respiratory infection Qualified Co de(s): J44.0 - Chronic obstructive pulmonary disease with (acute) lower respiratory infection (5) Type 2 diabetes mellitus: Continue insulin at this time. Status: Chronic (6) Hypothyroidism (acquired): Go up slightly to 150 mcg on levothyroxine dose. Outpatient TSH follow-up will be needed. Status: Chronic (7) Hypertension: Blood pressures variable, mostly at goal. Status: Acute Qualifiers: Hypertension type: essential hypertension Qualified Code(s): I10 - Essential (primary) hypertension Additional A&P Information History of CVA: Continue home medication of aspirin, Plavix, statins. Hypokalemia repleted. Hyponatremia improved. Attestations Medical Necessity Statement*: Continue admission for assessment of management of CHF, suspected CAD, pneumonia. 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
--- NOTE | 2019-11-20 15:54 | P.PN_ITS ---
Subjective Subjective: Interval history: Patient says she continues to feel better. She continues to diurese better Vitals/I&O/Wt Last Vital Signs Temp 98.7 F 11/20/19 12:00 Pulse 87 11/20/19 14:37 Resp 18 11/20/19 14:37 BP 112/67 11/20/19 12:00 Pulse Ox 91 11/20/19 14:37 11/20/19 11/20/19 11/20/19 06:59 14:59 22:59 Intake Total 550 / 1800 360 / 360 Output Total 1850 / 4850 1950 / 1950 Balance -1300 / -3050 -1590 / -1590 Weight last 48 hrs Weight 175 lb Weight 186 lb 12.8 oz Physical Exam Narrative: EXAM NARRATIVE: GENERAL: Patient is alert, awake and oriented x3. NECK: No jugular vein distension. HEENT: No cyanosis. No icterus. No pallor. HEART: Regular S1 and S2 with gallop. LUNGS: Clear to auscultate bilaterally. CENTRAL NERVOUS SYSTEM: Grossly nonfocal. EXTREMITIES: Lower extremities without edema bilaterally. Urinary Catheter Management^: Patricio: Cath Placed During This Visit: yes Reason for Continuing Indwelling Catheter: Other Urinary Catheter Date of Insertion: 11/17/19 Urinary Catheter Time of Insertion: 18:32 Data : 11/20/19 04:36 11/20/19 04:36 Micro: Microbiology 11/17/19 16:50 Gram Stain - Final Sputum - Expectorated Sputum Sputum Culture - Final A&P Assessment and plan (1) Congestive heart failure: Patient continues to diurese well. Started on Coreg and eelectron. Continue IV diuresis still in decompensated state Status: Acute Qualifiers: Heart failure chronicity: acute Heart failure type: systolic Qualified Code(s): I50.21 - Acute systolic (congestive) heart failure (2) Hypertension: Well controlled, Continue current regimen Status: Acute Qualifiers: Hypertension type: essential hypertension Qualified Code(s): I10 - Essential (primary) hypertension (3) Type 2 diabetes mellitus: As per medicine Status: Chronic (4) Lower respiratory infection (e.g., bronchitis, pneumonia, pneumonitis, pulmonitis): As per medicine continue antibiotics Status: Acute (5) LV dysfunction: Patient has new LV dysfunction with severely depressed ejection fraction etiology ischemic versus nonischemic, as an outpatient will ask for left heart catheterization or stress test. 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
[2019-11-20 16:38] LABS: Glucose Point of Care 158 mg/dL (70-110)
[2019-11-20] MEDS: enoxaparin 40 mg/0.4 mL Syringe SUBCUT (17:52)
[2019-11-20 20:16] LABS: Glucose Point of Care 124 mg/dL (70-110)
[2019-11-20] MEDS: nortriptyline 25 mg Capsule 75 MG PO (20:33)
[2019-11-20] MEDS: HYDROcodone-acetaminophen 7.5-325 mg Tablet 1 TAB PO (20:33)
--- NOTE | 2019-11-20 21:39 | PC.NURSE ---
Patient blood sugar was 124. Patient refused her Lantus 40units. Will continue to monitor.
[2019-11-21] VITALS (11 sets, daily range): BP systolic 93–129; BP diastolic 60–83; PULSE 82–100; RESP 13–20; TEMP 36.2–37.1; O2SAT 92–99; BMI 29.2
[2019-11-21] MEDS: albuterol 8 gm MDI 2 PUFF INHALATION ×4 (03:26→20:03)
[2019-11-21 05:20] LABS: Anion Gap 17.3 (5-19); Blood Urea Nitrogen 21 mg/dL (8-23); Calcium 9.9 mg/dL (8.5-10.5); Carbon Dioxide 30 mmol/L (22-29); Chloride 90 mmol/L (98-107); Glomerular Filtration Rate 56.4 mL/min (90-130); Glucose 134 mg/dL (65-115); Osmolality Calculated 277 mOsm/kg (285-295); Potassium 3.3 mmol/L (3.5-5.1); Sodium 134 mmol/L (136-145)
[2019-11-21] MEDS: levoFLOXacin 750 mg Tablet PO (05:35)
[2019-11-21] MEDS: venlafaxine ER (24HR) 150 mg Capsule PO (05:36)
[2019-11-21] MEDS: FUROsemide 10 mg/mL SDV 4mL 40 MG IVP (05:36)
[2019-11-21 05:38] LABS: Basophils # 0.1 10^3/uL (0.0-0.1); Eosinophils # 0.3 10^3/uL (0.0-0.8); Eosinophils % 3.7 %; Hematocrit 37.5 % (37.0-47.0); Hemoglobin 11.3 g/dL (11.5-15.3); Lymphocytes # 2.1 10^3/uL (0.8-4.8); Lymphocytes % 27.1 %; Mean Corpuscular HGB Conc 30.1 g/dL (30.0-36.0); Mean Corpuscular Hemoglobin 22.4 pg (28.0-34.0); Mean Corpuscular Volume 74.4 fL (81-99); Mean Platelet Volume 10.6 fL (7.4-10.4); Monocytes # 0.7 10^3/uL (0.2-0.9); Monocytes % 8.9 %; Neutrophils # 4.6 10^3/uL (1.8-7.7); Neutrophils % 58.5 %; Nucleated Red Blood Cells % 0 %; Platelet Count 260 10^3/cmm (130-400); Red Blood Count 5.04 10^6/uL (4.1-5.3); Red Cell Distribution Width 17.6 % (12.1-15.1); White Blood Count 7.9 10^3/uL (4.0-10.0)
[2019-11-21 06:21] LABS: Glucose Point of Care 125 mg/dL (70-110)
[2019-11-21] MEDS: budesonide 0.5 mg/2 mL Neb 0.25 MG INHALATION ×2 (08:18→20:05)
--- NOTE | 2019-11-21 08:20 | PC.NURSE ---
Katarina blanco for breathing treatment
[2019-11-21] MEDS: aspirin 81 mg EC Tablet PO (08:59)
[2019-11-21] MEDS: clopidogrel 75 mg Tablet PO (09:00)
[2019-11-21] MEDS: levothyroxine 150 mcg Tablet PO (09:00)
[2019-11-21] MEDS: spironolactone 25 mg Tablet 12.5 MG PO (09:00)
[2019-11-21] MEDS: gabapentin 300 mg Capsule PO ×3 (09:00→21:15)
[2019-11-21] MEDS: atorvastatin 40 mg Tablet 20 MG PO (09:00)
[2019-11-21] MEDS: carvedilol 3.125 mg Tablet PO ×2 (09:00→17:08)
[2019-11-21] MEDS: famotidine 20 mg Tablet PO ×2 (09:00→17:07)
[2019-11-21] MEDS: montelukast sodium 10 mg Tablet PO (09:00)
[2019-11-21] MEDS: ferrous gluconate 324 mg Tablet PO ×2 (09:01→17:07)
[2019-11-21] MEDS: folic acid 1 mg Tablet PO (09:01)
[2019-11-21] MEDS: fluticasone nasal spray 16gm Btl 1 SPRAY INTRANASAL ×2 (09:06→17:08)
[2019-11-21 11:47] LABS: Glucose Point of Care 173 mg/dL (70-110)
[2019-11-21] MEDS: HYDROcodone-acetaminophen 7.5-325 mg Tablet 1 TAB PO ×2 (13:35→21:15)
--- NOTE | 2019-11-21 16:36 | P.PN_ITS ---
Subjective Subjective: Interval history: She says she is feeling very well. Denies any chest pain. Edema continues to improve and is almost gone. Vitals/I&O/Wt Last Vital Signs Temp 98.2 F 11/21/19 16:00 Pulse 94 11/21/19 16:00 Resp 18 11/21/19 16:00 BP 113/75 11/21/19 16:00 Pulse Ox 95 11/21/19 16:00 11/21/19 11/21/19 11/21/19 06:59 14:59 22:59 Intake Total 400 / 1120 480 / 480 Output Total 2000 / 4550 1300 / 1300 200 / 1500 Balance -1600 / -3430 -820 / -820 -200 / -1020 Weight last 48 hrs Weight 77.111 kg Weight 79.379 kg Physical Exam Const: COMMON NORMALS: no apparent distress and oriented x3 HENMT: COMMON NORMALS: oropharynx normal Neck/C-Spine: COMMON NORMALS: no JVD Resp: COMMON NORMALS: normal respiratory effort AUSCULTATION: rhonchi (Resolved) Cardio: COMMON NORMALS: no JVD, regular rhythm, S1 normal heart sound, S2 normal heart sound and no murmurs RHYTHM: regular rhythm HEART SOUNDS: S1 normal and S2 normal GI: COMMON NORMALS: normal to inspection, nondistended, normoactive bowel sounds, soft to palpation and non-tender PALPATION: Yes soft Extremity: COMMON NORMALS: no joint enlargement GENERAL: Yes edema (Resolving) Neuro: COMMON NORMALS: oriented x3 and moves all extremities Skin: COMMON NORMALS: no rashes or lesions noted GENERAL SKIN EXAM: no rashes or lesions noted Urinary Catheter Management^: Patricio: Cath Placed During This Visit: yes, but has since been removed by the nurse Reason for Continuing Indwelling Catheter: Accurate Measurement of Urinary Output in Critically Ill Patients Urinary Catheter Date of Insertion: 11/17/19 Urinary Catheter Time of Insertion: 18:32 Date Urinary Catheter Removed: 11/21/19 Time Urinary Catheter Discontinued: 16:10 Data : 11/21/19 04:18 11/21/19 04:18 A&P Assessment and plan (1) Shortness of breath: She is breathing better. Requiring 1 L of oxygen. Rhonchi sound better. Peripheral edema is resolving. We can remove the catheter as she would like to ambulate. We will can to transition her to oral Lasix. Plan is for likely assessment by coronary angiography tomorrow due to suspicion of coronary disease and ischemic cardiomyopathy. Dyspnea with hypoxia due to multifactorial reasons. Appears to be improving. Objectively has been able to wean down to room air, at least at rest. Will need home O2 evaluation prior to discharge. Diuresing well. Appreciate cardiology changes to diuretics. Plans for add itional evaluation by coronary angiography per cardiology depending on diuresis and her overall condition. COVID-19 testing negative. She is coughing, currently bringing up more phlegm. Suspected secondary to pneumonia. Overall shortness of breath due to pneumonia, acute systolic and diastolic CHF. Also noted lymphadenopathy in the chest, which she says several years ago had a biopsy done for in [place]. Reports no malignancy was found at that time. Switched antibiotic to PO levaquin. Status: Acute (2) Congestive heart failure: Diuresing well. Edema improving. Coming down to room air. EF 25%. Would benefit from additional evaluation by stress testing vs angiography. Fitting and education for LifeVest which cannot be done today. Status: Acute Qualifiers: Heart failure chronicity: acute Heart failure type: systolic Qualified Code(s): I50.21 - Acute systolic (congestive) heart failure (3) Lower respiratory infection (e.g., bronchitis, pneumonia, pneumonitis, pulmonitis): Conitnue antibiotic at this time. MRSA PCR negative. Leukocytosis resolved. Status: Acute (4) COPD (chronic obstructive pulmonary disease): Mild exacerbation, with cough, productive of phlegm. Continue inhaled s teroids. Not currently receiving systemic steroid. Antibiotic as above. Continue breathing treatments. Monitor for symptoms of wheezing. Rhonchi resolved. She is feeling much better. Status: Chronic Qualifiers: COPD type: COPD with acute lower respiratory infection Qualified Code(s): J44.0 - Chronic obstructive pulmonary disease with (acute) lower respiratory infection (5) Type 2 diabetes mellitus: Continue insulin at this time. Status: Chronic (6) Hypothyroidism (acquired): Go up slightly to 150 mcg on levothyroxine dose. Outpatient TSH follow-up will be needed. Status: Chronic (7) Hypertension: Blood pressures variable, mostly at goal. Status: Acute Qualifiers: Hypertension type: essential hypertension Qualified Code(s): I10 - Essential (primary) hypertension Additional A&P Information History of CVA: Continue home medication of aspirin, Plavix, statins. Hypokalemia repleted. Hyponatremia improved. Attestations Medical Necessity Statement*: Continue admission for assessment management of coronary disease, suspected ischemic cardiomyopathy, CHF exacerbation, pneumonia, mild exacerbation of COPD. Arrangements for LifeVest. 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
[2019-11-21 16:45] LABS: Glucose Point of Care 119 mg/dL (70-110)
[2019-11-21] MEDS: FUROsemide 40 mg Tablet PO (17:07)
[2019-11-21] MEDS: enoxaparin 40 mg/0.4 mL Syringe SUBCUT (17:08)
--- NOTE | 2019-11-21 18:34 | PM.PN ---
Subjective Subjective: Interval history: Continues to feel better she is happy her leg swelling has gone away. Denies any more chest pain. Breathing better. She is able to lay flat in the bed as well Vitals/I&O/Wt Last Vital Signs Temp 98.2 F 11/21/19 16:00 Pulse 94 11/21/19 16:00 Resp 18 11/21/19 16:00 BP 113/75 11/21/19 16:00 Pulse Ox 95 11/21/19 16:00 11/21/19 11/21/19 11/21/19 06:59 14:59 22:59 Intake Total 400 / 1120 480 / 480 Output Total 2000 / 4550 1300 / 1300 200 / 1500 Balance -1600 / -3430 -820 / -820 -200 / -1020 Weight last 48 hrs Weight 170 lb Weight 175 lb Physical Exam Narrative: EXAM NARRATIVE: GENERAL: Patient is alert, awake and oriented x3. NECK: No jugular vein distension. HEENT: No cyanosis. No icterus. No pallor. HEART: Regular S1 and S2 with gallop. LUNGS: Clear to auscultate bilaterally. CENTRAL NERVOUS SYSTEM: Grossly nonfocal. EXTREMITIES: Lower extremities without edema bilaterally. Urinary Catheter Management^: Patricio: Cath Placed During This Visit: yes, but has since been removed by the nurse Reason for Continuing Indwelling Catheter: Accurate Measurement of Urinary Output in Critically Ill Patients Urinary Catheter Date of Insertion: 11/17/19 Urinary Catheter Time of Insertion: 18:32 Date Urinary Catheter Removed: 11/21/19 Time Urinary Catheter Discontinued: 16:10 Data : 11/21/19 04:18 11/21/19 04:18 Other Labs: CONCLUSIONS 1-Moderately increased left ventricular cavity size. Severely decreased left ventricular systolic function. Global left ventricular hypokinesis. Left ventricular ejection fraction is estimated at 25 %. Grade III/IV diastolic dysfunction (restrictive filling pattern), severely elevated filling pressures. 2-Moderately increased left atrial size. 3-Mildly thickened mitral valve. No mitral valve stenosis. Mild mitral valve regurgitation. 4-Moderate tricuspid valve regurgitation. 5-Right atrial pressure is around 5 mm of mercury. 6-when compared to the prior echocardiogram dated 06/20/2014, left ventricle function has reduced from normal 65% to severe 25% now. Milla Rodrigues MD (Electronically Signed) Final Date: 18 November 2019 11:33 A&P Assessment and plan (1) Congestive heart failure: Well compensated now we will switch patient to by mouth Lasix from tomorrow 40 mg once a day and Aldactone will be increased to 25 mg by mouth daily. For new onset of heart failure she may require left and right heart catheterization we will discuss tomorrow timings of it may be will bring her back In few weeks once COVID pandemic will over Status: Acute Qualifiers: Heart failure chronicity: acute Heart failure type: systolic Qualified Code(s): I50.21 - Acute systolic (congestive) heart failure (2) Hypertension: Well controlled, Continue current regimen Status: Acute Qualifiers: Hypertension type: essential hypertension Qualified Code(s): I10 - Essential (primary) hypertension (3) Type 2 diabetes mellitus: As per medicine Status: Chronic (4) Lower respiratory infection (e.g., bronchitis, pneumonia, pneumonitis, pulmonitis): As per medicine continue antibiotics Status: Acute (5) LV dysfunction: Patient has new LV dysfunction with severely depressed ejection fraction etiology ischemic versus nonischemic, It will be sorted out through either stress test or left heart catheterization, we will use LifeVest and recommend lifevest for 3 months, left ventricle ejection fraction be assessed on optimal medical regimen after that in order to decide ICD placement if needed in the future. 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
[2019-11-21 20:44] LABS: Glucose Point of Care 196 mg/dL (70-110)
[2019-11-21] MEDS: nortriptyline 25 mg Capsule 75 MG PO (21:15)
[2019-11-22] VITALS (11 sets, daily range): BP systolic 105–139; BP diastolic 71–79; PULSE 82–90; RESP 16–20; TEMP 36.7–37.1; O2SAT 93–98
[2019-11-22] MEDS: albuterol 8 gm MDI 2 PUFF INHALATION ×3 (02:26→14:17)
[2019-11-22 05:35] LABS: Basophils # 0.1 10^3/uL (0.0-0.1); Basophils % 0.9 %; Eosinophils # 0.3 10^3/uL (0.0-0.8); Eosinophils % 3.6 %; Hematocrit 37.3 % (37.0-47.0); Hemoglobin 11.2 g/dL (11.5-15.3); Lymphocytes # 2.4 10^3/uL (0.8-4.8); Lymphocytes % 28.3 %; Mean Corpuscular Hemoglobin 22.6 pg (28.0-34.0); Mean Corpuscular Volume 75.4 fL (81-99); Monocytes # 0.7 10^3/uL (0.2-0.9); Monocytes % 8.3 %; Neutrophils % 58.1 %; Nucleated Red Blood Cells % 0 %; Platelet Count 257 10^3/cmm (130-400); Red Blood Count 4.95 10^6/uL (4.1-5.3); Red Cell Distribution Width 17.4 % (12.1-15.1); White Blood Count 8.6 10^3/uL (4.0-10.0)
[2019-11-22 05:52] LABS: Anion Gap 13.4 (5-19); Blood Urea Nitrogen 28 mg/dL (8-23); Calcium 9.8 mg/dL (8.5-10.5); Carbon Dioxide 31 mmol/L (22-29); Chloride 92 mmol/L (98-107); Glomerular Filtration Rate 56.4 mL/min (90-130); Glucose 138 mg/dL (65-115); Osmolality Calculated 275 mOsm/kg (285-295); Potassium 3.4 mmol/L (3.5-5.1); Sodium 133 mmol/L (136-145)
[2019-11-22] MEDS: levoFLOXacin 750 mg Tablet PO (06:31)
[2019-11-22] MEDS: venlafaxine ER (24HR) 150 mg Capsule PO (06:31)
[2019-11-22 06:37] LABS: Glucose Point of Care 139 mg/dL (70-110)
[2019-11-22] MEDS: budesonide 0.5 mg/2 mL Neb 0.25 MG INHALATION (08:09)
[2019-11-22] MEDS: famotidine 20 mg Tablet PO ×2 (09:13→18:24)
[2019-11-22] MEDS: montelukast sodium 10 mg Tablet PO (09:13)
[2019-11-22] MEDS: gabapentin 300 mg Capsule PO ×2 (09:13→14:43)
[2019-11-22] MEDS: fluticasone nasal spray 16gm Btl 1 SPRAY INTRANASAL ×2 (09:13→18:25)
[2019-11-22] MEDS: ferrous gluconate 324 mg Tablet PO ×2 (09:14→18:24)
[2019-11-22] MEDS: atorvastatin 40 mg Tablet 20 MG PO (09:14)
[2019-11-22] MEDS: carvedilol 3.125 mg Tablet PO ×2 (09:14→18:24)
[2019-11-22] MEDS: aspirin 81 mg EC Tablet PO (09:14)
[2019-11-22] MEDS: levothyroxine 150 mcg Tablet PO (09:14)
[2019-11-22] MEDS: FUROsemide 40 mg Tablet PO (09:14)
[2019-11-22] MEDS: folic acid 1 mg Tablet PO (09:14)
[2019-11-22] MEDS: spironolactone 25 mg Tablet 12.5 MG PO (09:15)
[2019-11-22] MEDS: clopidogrel 75 mg Tablet PO (09:15)
--- NOTE | 2019-11-22 10:06 | PC.SOCIAL ---
IMM Update Pg 2 of IMM updated and copy provided to patient.
[2019-11-22 11:12] LABS: Glucose Point of Care 147 mg/dL (70-110)
--- NOTE | 2019-11-22 14:55 | PM.DCS ---
Discharge Providers Date of Admission: 11/17/19 14:15 Date of Discharge: November 22, 2019 Attending Provider at Admission: Osmani Jamison MD Attending Provider at Discharge: Sudarshan Aldrich Primary Care Provider: JOSH Montes Diagnoses at Discharge Discharge Diagnosis (1) Congestive heart failure: Status: Acute Qualifiers: Heart failure chronicity: acute Heart failure type: systolic Qualified Code(s): I50.21 - Acute systolic (congestive) heart failure (2) Hypertension: Status: Acute Qualifiers: Hypertension type: essential hypertension Qualified Code(s): I10 - Essential (primary) hypertension (3) Type 2 diabetes mellitus: Status: Chronic (4) Lower respiratory infection (e.g., bronchitis, pneumonia, pneumonitis, pulmonitis): Status: Acute (5) LV dysfunction: Status: Acute (6) Pneumonia: Status: Acute (7) Hypothyroidism (acquired): Status: Chronic Reason for Visit Reason for Visit: Reason For Visit: sob Physical Exam Urinary Catheter Management^: Patricio: Cath Placed During This Visit: yes, but has since been removed by the nurse Reason for Continuing Indwelling Catheter: Accurate Measurement of Urinary Output in Critically Ill Patients Urinary Catheter Date of Insertion: 11/17/19 Urinary Catheter Time of Insertion: 18:32 Date Urinary Catheter Removed: 11/21/19 Time Urinary Catheter Discontinued: 16:10 Discharge Data Data Completed and Pending: Completed Studies During Hospitalization Category Date Time Status CT angio chest PE protcl [id number] Urge nt Cat Scan 11/17/19 13:[address] head wo con* 7 0450 Routine Cat Scan 11/18/19 18:15 Completed XR chest 1V [place] [id number] Urgent Exams 11/17/19 11:33 Completed CV echo complete* [id number] Urgent Ultrasound 11/17/19 12:49 Completed Pending at discharge Category Date Time Status Arterial Blood Ga s Full Routine Lab 11/18/19 13:30 Results Labs from last 24 hours 11/22/19 11/22/19 11/22/19 11:07 06:26 05:17 WBC RBC Hgb Hct MCV MCH MCHC RDW Plt Count MPV Neut % (Auto) Lymph % (Auto) [place] % (Auto) Eos % (Auto) Baso % (Auto) Neut # (Auto) Lymph # (Auto) [place] # (Auto) Eos # (Auto) Baso # (Auto) Nucleated RBC % (a uto) Nucleated RBCs # Sodium 133 L Potassium 3.4 L Chloride 92 L Carbon Dioxide 31 H Anion Gap 13.4 BUN 28 H Creatinine 1.0 H GFR Calculation 56.4 L Glucose 138 H POC Glucose 147 139 Calculated Osmolal ity 275 L Calcium 9.8 11/22/19 11/21/19 11/21/19 05:17 20:36 16:40 WBC 8.6 RBC 4.95 Hgb 11.2 L Hct 37.3 MCV 75.4 L MCH 22.6 L MCHC 30.0 RDW 17.4 H Plt Count 257 MPV 10.0 Neut % (Auto) 58.1 Lymph % (Auto) 28.3 [place] % (Auto) 8.3 Eos % (Auto) 3.6 Baso % (Auto) 0.9 Neut # (Auto) 5.0 Lymph # (Auto) 2.4 [place] # (Auto) 0.7 Eos # (Auto) 0.3 Baso # (Auto) 0.1 Nucleated RBC % (a uto) 0 Nucleated RBCs # 0.0 Sodium Potassium Chloride Carbon Dioxide Anion Gap BUN Creatinine GFR Calculation Glucose POC Glucose 196 119 Calculated Osmolal ity Calcium Vitals: Last Vital Signs Temp 98.8 F 11/22/19 11:04 Pulse 89 11/22/19 14:19 Resp 16 11/22/19 14:19 BP 116/79 11/22/19 11:04 Pulse Ox 96 11/22/19 14:19 Discharge Plan Discharge Patient Disposition: Home, Self-Care Condition: Stable Prescriptions: New spironolactone 25 mg Tablet 25 mg PO DAILY Qty: 30 RF: 0 ferrous sulfate 325 mg (65 mg iron) tablet 325 mg PO EVERY OTHER DAY Qty: 15 RF: 0 levothyroxine 150 mcg Tablet 150 mcg PO DAILY Qty: 30 RF: 0 carvedilol 3.125 mg Tablet 3.125 mg PO BID Qty: 60 RF: 0 levofloxacin 750 mg Tablet 750 mg PO DAILY@0600 Qty: 3 RF: 0 furosemide 40 mg Tablet 40 mg PO DAILY Qty: 30 RF: 0 Continued albuterol sulfate 2.5 mg /3 mL (0.083 %) solution for nebulization 2.5 mg INHALATION QID PRN (Reason: Shortness Of Breath) RF: 0 aspirin 81 mg tablet,delayed release (DR/EC) 81 mg PO DAILY RF: 0 Biofreeze (menthol) 4 % gel 1 applic TOPICAL TID PRN (Reason: Pain) RF: 0 omega-3 fatty acids [Fish Oil Concentrate] 1,000 mg capsule 1,000 mg PO BID RF: 0 fluticasone propionate [Flonase Allergy Relief] 50 mcg/actuation spray,suspension 1 spray INTRANASAL BID RF: 0 glipizide 5 mg tablet 5 mg PO BID RF: 0 metformin 500 mg tablet 500 mg PO BID RF: 0 Complete Multivitamin Tablet 1 tab PO QAM RF: 0 nystatin 100,000 unit/gram cream 1 applic TOPICAL BID PRN (Reason: Vaginal Irritation) RF: 0 tizanidine 4 mg tablet 8 mg PO Q8H PRN (Reason: Muscle Spasm) RF: 0 triamcinolone acetonide 0.1 % ointment 1 applic TOPICAL TID PRN (Reason: unknown) RF: 0 tumeric 1 tab PO DAILY RF: 0 hydrocodone-acetaminophen 7.5-325 mg tablet 1 tab PO TID PRN (Reason: pain) 30 Days Qty: 90 RF: 0 omeprazole 20 mg capsule,delayed release(DR/EC) 20 mg PO DAILY Qty: 90 RF: 0 gabapentin 300 mg capsule 300 mg PO TID Qty: 270 RF: 0 venlafaxine 150 mg capsule,extended release 24hr 150 mg PO QAM Qty: 90 RF: 1 potassium chloride [Klor-Con M20] 20 mEq tablet,ER particles/crystals 20 meq PO DAILY Qty: 30 RF: 2 Ozempic 0.25 mg or 0.5 mg(2 mg/1.5 mL) pen injector 0.25 mg SUBCUT .WEEKLY Qty: 1.5 RF: 0 atorvastatin 20 mg tablet 20 mg PO DAILY RF: 0 clopidogrel 75 mg tablet 75 mg PO DAILY RF: 0 nortriptyline 75 mg capsule 75 mg PO BEDTIME RF: 0 lisinopril 30 mg tablet 30 mg PO DAILY RF: 0 montelukast 10 mg tablet 10 mg PO DAILY RF: 0 folic acid 1 mg Tablet 1 mg PO DAILY RF: 0 Tresiba FlexTouch U-100 100 unit/mL (3 mL) insulin pen 40 unit SUBCUT BEDTIME RF: 0 Symbicort 160-4.5 mcg/actuation HFA aerosol inhaler 2 puff INHALATION BID RF: 0 Discontinued meloxicam [Mobic] 15 mg tablet 15 mg PO DAILY RF: 0 levothyroxine 137 mcg tablet 137 mcg PO DAILY Qty: 90 RF: 3 Discharge Orders: Discharge Order (Routine); Ordered 11/22/19 Ordered By: Sudarshan Aldrich Referrals: Milla Rodrigues MD [Physician] - 1 week Yoel Gandhi FNP [Primary Care Provider] - 4-7 days Discharge Diet: Cardiac and Diabetic Activity Restrictions/Additional Instructions: Please await LifeVest arrangements prior to leaving the hospital. Please follow-up with Dr. Rodrigues's office regarding further investigations for the underlying cause of your heart failure as discussed with him. Please continue to maintain low-sodium cardiac diet. Continue diuretics as prescribed. If you experience worsening edema, gain more than 3 pounds in 2 days, take an extra dose of Lasix. If you start becoming dehydrated, with dry mucous membranes, dry skin, and no edema, skip Lasix dose. Follow-up with your primary care provider and Dr. Rodrigues's office regarding adjustment to diuretic therapy. Continue to monitor your blood pressures, blood glucose. Record values to discuss during your appointment. At this time you are not requiring any oxygen, however, complete the remaining days of antibiotic for pneumonia. If you experience severe shortness of breath, chest pain, or other abnormal symptoms please seek medical attention without delay. Please discuss with your primary care provider follow-up thyroid testing as your thyroid medication dose is increased slightly to 150 mcg/day. Please discuss with your primary care provider follow-up endoscopic evaluation for iron deficiency anemia which should be sought once it can be safely performed with regards to currently ongoing pandemic. Please discuss again with your primary care provider regarding lymph node enlargement in your chest to compare with prior imaging and discuss whether any repeat biopsy is necessary or not. 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
--- NOTE | 2019-11-22 15:09 | PM.PN ---
Subjective Subjective: Interval history: She denies any pain. Breathing continues to improve. She is worried to returning home with unexplained new onset congestive heart failure. Prefers to pursue additional work-up without delay. Vitals/I&O/Wt Last Vital Signs Temp 98.8 F 11/22/19 11:04 Pulse 89 11/22/19 14:19 Resp 16 11/22/19 14:19 BP 116/79 11/22/19 11:04 Pulse Ox 96 11/22/19 14:19 11/22/19 11/22/19 11/22/19 06:59 14:59 22:59 Intake Total 240 / 240 Balance 240 / 240 Weight last 48 hrs Weight 80.399 kg Weight 77.111 kg Physical Exam Const: COMMON NORMALS: no apparent distress and oriented x3 HENMT: COMMON NORMALS: oropharynx normal Neck/C-Spine: COMMON NORMALS: no JVD Resp: COMMON NORMALS: normal respiratory effort AUSCULTATION: rhonchi (Resolved) Cardio: COMMON NORMALS: no JVD, regular rhythm, S1 normal heart sound, S2 normal heart sound and no murmurs RHYTHM: regular rhythm HEART SOUNDS: S1 normal and S2 normal GI: COMMON NORMALS: normal to inspection, nondistended, normoactive bowel sounds, soft to palpation and non-tender PALPATION: Yes soft Extremity: COMMON NORMALS: no joint enlargement GENERAL: Yes edema (Resolving) Neuro: COMMON NORMALS: oriented x3 and moves all extremities Skin: COMMON NORMALS: no rashes or lesions noted GENERAL SKIN EXAM: no rashes or lesions noted Urinary Catheter Management^: Patricio: Cath Placed During This Visit: yes, but has since been removed by the nurse Reason for Continuing Indwelling Catheter: Accurate Measurement of Urinary Output in Critically Ill Patients Urinary Catheter Date of Insertion: 11/17/19 Urinary Catheter Time of Insertion: 18:32 Date Urinary Catheter Removed: 11/21/19 Time Urinary Catheter Discontinued: 16:10 Data : 11/22/19 05:17 11/22/19 05:17 Micro: Microbiology 11/17/19 14:15 Blood Culture - Final Blood NO GROWTH AFTER 5 DAYS 11/17/19 11:58 Blood Culture - Final Blood NO GROWTH AFTER 5 DAYS A&P Assessment and plan (1) Congestive heart failure: Decrease Lasix dose to daily and spironolactone dose to 25 mg as per cardiology recommendations. Diuresing well. Edema improving. Coming down to room air. EF 25%. Has had multiple discussions with cardiology regarding subsequent assessment. Given new onset severe congestive heart failure they have come to consensus that pursuing additional assessment without delay will be of benefit, currently with planned coronary geography for tomorrow. She is being set up for a LifeVest as well. Status: Acute Qualifiers: Heart failure chronicity: acute Heart failure type: systolic Qualified Code(s): I50.21 - Acute systolic (congestive) heart failure (2) Hypertension: Blood pressures variable, mostly at goal. Status: Acute Qualifiers: Hypertension type: essential hypertension Qualified Code(s): I10 - Essential (primary) hypertension (3) Type 2 diabetes mellitus: Continue insulin at this time. Status: Chronic (4) Lower respiratory infection (e.g., bronchitis, pneumonia, pneumonitis, pulmonitis): Complete antibiotic for pneumonia. MRSA PCR negative. Leukocytosis resolved. Status: Acute (5) LV dysfunction: Status: Acute (6) Pneumonia: As above. Status: Acute (7) Hypothyroidism (acquired): Increased to 150 mcg on levothyroxine dose. Outpatient TSH follow-up will be needed. Status: Chronic Additional A&P Information History of CVA: Continue home medication of aspirin, Plavix, statins. Hypokalemia repleted. Hyponatremia improved. Attestations Medical Necessity Statement*: Requires additional inpatient assessment of new onset cardiomyopathy. 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
--- NOTE | 2019-11-22 16:19 | PM.PN ---
Subjective Subjective: Interval history: Patient is doing much better she has diuresed well she is walking around leg swelling has gone down. She would like to go home. She is being fitted with lifevest Vitals/I&O/Wt Last Vital Signs Temp 98.8 F 11/22/19 11:04 Pulse 88 11/22/19 15:11 Resp 20 H 11/22/19 15:11 BP 105/71 11/22/19 15:11 Pulse Ox 98 11/22/19 15:11 11/22/19 11/22/19 11/22/19 06:59 14:59 22:59 Intake Total 240 / 240 Balance 240 / 240 Weight last 48 hrs Weight 177 lb 4 oz Weight 170 lb Physical Exam Narrative: EXAM NARRATIVE: GENERAL: Patient is alert, awake and oriented x3. NECK: No jugular vein distension. HEENT: No cyanosis. No icterus. No pallor. HEART: Regular S1 and S2 with gallop. LUNGS: Clear to auscultate bilaterally. CENTRAL NERVOUS SYSTEM: Grossly nonfocal. EXTREMITIES: Lower extremities without edema bilaterally. Urinary Catheter Management^: Patricio: Cath Placed During This Visit: yes, but has since been removed by the nurse Reason for Continuing Indwelling Catheter: Accurate Measurement of Urinary Output in Critically Ill Patients Urinary Catheter Date of Insertion: 11/17/19 Urinary Catheter Time of Insertion: 18:32 Date Urinary Catheter Removed: 11/21/19 Time Urinary Catheter Discontinued: 16:10 Data : 11/22/19 05:17 11/22/19 05:17 Micro: Microbiology 11/17/19 14:15 Blood Culture - Final Blood NO GROWTH AFTER 5 DAYS 11/17/19 11:58 Blood Culture - Final Blood NO GROWTH AFTER 5 DAYS A&P Assessment and plan (1) Congestive heart failure: Well compensated now we will switch patient to by mouth Lasix from tomorrow 40 mg once a day and Aldactone will be increased to 25 mg by mouth daily. For new onset of heart failure she may require left and right heart catheterization we will discuss tomorrow timings of it may be will bring her back In few weeks once COVID pandemic will over Patient is discharged to by mouth Lasix. She will be brought back for left and right heart catheterization after 4 weeks. We will install lifevest for dilated cardiomyopathy and 40 ejection fraction below 35% for 3 months. Optimization of medicine will be performed after which we will reassess ejection fraction. Further plan will be advised Status: Acute Qualifiers: Heart failure chronicity: acute Heart failure type: systolic Qualified Code(s): I50.21 - Acute systolic (congestive) heart failure (2) Hypertension: Well controlled, Continue current regimen Status: Acute Qualifiers: Hypertension type: essential hypertension Qualified Code(s): I10 - Essential (primary) hypertension (3) Type 2 diabetes mellitus: As per medicine Status: Chronic (4) Lower respiratory infection (e.g., bronchitis, pneumonia, pneumonitis, pulmonitis): As per medicine continue antibiotics Status: Acute (5) LV dysfunction: Patient has new LV dysfunction with severely depressed ejection fraction etiology ischemic versus nonischemic, It will be sorted out through either stress test or left heart catheterization, we will use LifeVest and recommend lifevest for 3 months, left ventricle ejection fraction be assessed on optimal medical regimen after that in order to decide ICD placement if needed in the future. Status: Acute Attestations Medical Necessity Statement*: Patient can be discharged home. Follow-up with Dr. Rodrigues in one week Coding Level of Care Code Established Pt Acute Back Digger Operator for Chg Fwd Patient Type Established History Expanded Problem Focused Exam Expanded Problem Focused Medical Decision Making Moderate Complexity Diagnoses Congestive heart failure I50.21 Heart failure chronicity: acute Heart failure type: systolic Hypertension I10 Hypertension type: essential hypertension Type 2 diabetes mellitus E11.9 Lower respiratory infection (e.g., bronchitis, pneumonia, pneumonitis, pulmonitis) J22 LV dysfunction I51.9
[2019-11-22 16:39] LABS: Glucose Point of Care 117 mg/dL (70-110)
--- NOTE | 2019-11-22 16:51 | PM.DCS ---
Discharge Providers Date of Admission: 11/17/19 14:15 Date of Discharge: November 22, 2019 Attending Provider at Admission: Osmani Jamison MD Attending Provider at Discharge: Sudarshan Aldrich Primary Care Provider: JOSH Montes Diagnoses at Discharge Discharge Diagnosis (1) Congestive heart failure: Status: Acute Qualifiers: Heart failure chronicity: acute Heart failure type: systolic Qualified Code(s): I50.21 - Acute systolic (congestive) heart failure (2) Hypertension: Status: Acute Qualifiers: Hypertension type: essential hypertension Qualified Code(s): I10 - Essential (primary) hypertension (3) Type 2 diabetes mellitus: Status: Chronic (4) Lower respiratory infection (e.g., bronchitis, pneumonia, pneumonitis, pulmonitis): Status: Acute (5) LV dysfunction: Status: Acute (6) Pneumonia: Status: Acute (7) Hypothyroidism (acquired): Status: Chronic Reason for Visit Reason for Visit: Reason For Visit: sob Hospital Course Hospital Course: Very pleasant 59-year-old lady with history of HTN, HLD, CVA in 2013, DM 2, hypothyroidism, COPD, not normally on oxygen, was admitted after presenting with shortness of breath progressing over the past 2 weeks, both on exertion as well as when lying down, with cough and mild expectoration. On assessment was found to have acute congestive heart failure and mild aspiration of COPD. Was treated with IV diuretics, inhalers, oxygen support. Zosyn and vancomycin initially, later transitioned to Levaquin for pneumonia. Was assessed for COVID-19 with testing negative. Her breathing continued to improve with treatment. On TTE found to have new diminished ejection fraction cardiomyopathy, with EF 25%, grade 3 diastolic dysfunction. Global left ventricular hypokinesis. Mild MR, moderate TR. CTA with noted marked enlargement of left ventricle, without PE, with mediastinal and hilar lymphadenopathy, subsegmental atelectasis right middle lobe and mild interstitial edema on 11/16. On discussion with her she reports lymphadenopathy is not new, previously biopsied and not found to have malignancy. This was done in [facility], and extent of lymphadenopathy at the time is not known. Discussed with her to follow-up with primary care provider regarding comparison to prior, and consideration whether repeat biopsy is necessary. Her volume status significantly improved with diuresis. She is breathing much better. Rhonchi resolved. She is no longer coughing. She is feeling much better and is eager to return home. She was assessed by cardiology, and is set up for LifeVest. Additional investigation by coronary geography to exclude ischemic cardiomyopathy was considered by cardiology, however, in light of pandemic and deferred elective procedures decision was made to follow-up with additional outpatient assessment instead while optimizing medical therapy at this time. Please continue to help her optimize risk factors for coronary disease including hypertension, diabetes, hyperlipidemia. Of note levothyroxine dose is increased slightly to 150 mcg. Please follow-up thyroid function and adjust as appropriate. Physical Exam Const: COMMON NORMALS: no apparent distress and oriented x3 HENMT: COMMON NORMALS: oropharynx normal Neck/C-Spine: COMMON NORMALS: no JVD Resp: COMMON NORMALS: normal respiratory effort AUSCULTATION: rhonchi (Resolved) Cardio: COMMON NORMALS: no JVD, regular rhythm, S1 normal heart sound, S2 normal heart sound and no murmurs RHYTHM: regular rhythm HEART SOUNDS: S1 normal and S2 normal GI: COMMON NORMALS: normal to inspection, nondistended, normoactive bowel sounds, soft to palpation and non-tender PALPATION: Yes soft Extremity: COMMON NORMALS: no joint enlargement GENERAL: Yes edema (Resolving) Neuro: COMMON NORMALS: oriented x3 and moves all extremities Skin: COMMON NORMALS: no rashes or lesions noted GENERAL SKIN EXAM: no rashes or lesions noted Urinary Catheter Management^: Patricio: Cath Placed During This Visit: yes, but has since been removed by the nurse Reason for Continuing Indwelling Catheter: Accurate Measurement of Urinary Output in Critically Ill Patients Urinary Catheter Date of Insertion: 11/17/19 Urinary Catheter Time of Insertion: 18:32 Date Urinary Catheter Removed: 11/21/19 Time Urinary Catheter Discontinued: 16:10 Discharge Data Data Completed and Pending: Completed Studies During Hospitalization Category Date Time Status CT angio chest PE protcl 13674 Urge nt Cat Scan 11/17/19 13:[address] head wo con* 7 0450 Routine Cat Scan 11/18/19 18:15 Completed XR chest 1V chacha ble 60151 Urgent Exams 11/17/19 11:33 Completed CV echo complete* [id number] Urgent Ultrasound 11/17/19 12:49 Completed Pending at discharge Category Date Time Status Arterial Blood Ga s Full Routine Lab 11/18/19 13:30 Results Labs from last 24 hours 11/22/19 11/22/19 11/22/19 16:35 11:07 06:26 WBC RBC Hgb Hct MCV MCH MCHC RDW Plt Count MPV Neut % (Auto) Lymph % (Auto) [place] % (Auto) Eos % (Auto) Baso % (Auto) Neut # (Auto) Lymph # (Auto) [place] # (Auto) Eos # (Auto) Baso # (Auto) Nucleated RBC % (a uto) Nucleated RBCs # Sodium Potassium Chloride Carbon Dioxide Anion Gap BUN Creatinine GFR Calculation Glucose POC Glucose 117 147 139 Calculated Osmolal ity Calcium 11/22/19 11/22/19 11/21/19 05:17 05:17 20:36 WBC 8.6 RBC 4.95 Hgb 11.2 L Hct 37.3 MCV 75.4 L MCH 22.6 L MCHC 30.0 RDW 17.4 H Plt Count 257 MPV 10.0 Neut % (Auto) 58.1 Lymph % (Auto) 28.3 [place] % (Auto) 8.3 Eos % (Auto) 3.6 Baso % (Auto) 0.9 Neut # (Auto) 5.0 Lymph # (Auto) 2.4 [place] # (Auto) 0.7 Eos # (Auto) 0.3 Baso # (Auto) 0.1 Nucleated RBC % (a uto) 0 Nucleated RBCs # 0.0 Sodium 133 L Potassium 3.4 L Chloride 92 L Carbon Dioxide 31 H Anion Gap 13.4 BUN 28 H Creatinine 1.0 H GFR Calculation 56.4 L Glucose 138 H POC Glucose 196 Calculated Osmolal ity 275 L Calcium 9.8 Vitals: Last Vital Signs Temp 98.8 F 11/22/19 11:04 Pulse 88 11/22/19 15:11 Resp 20 H 11/22/19 15:11 BP 105/71 11/22/19 15:11 Pulse Ox 98 11/22/19 15:11 Discharge Plan Discharge Patient Disposition: Home, Self-Care Condition: Stable Prescriptions: New spironolactone 25 mg Tablet 25 mg PO DAILY Qty: 30 RF: 0 carvedilol 3.125 mg Tablet 3.125 mg PO BID Qty: 60 RF: 0 levothyroxine 150 mcg Tablet 150 mcg PO DAILY Qty: 30 RF: 0 levofloxacin 750 mg Tablet 750 mg PO DAILY@0600 Qty: 3 RF: 0 furosemide 40 mg Tablet 40 mg PO DAILY Qty: 30 RF: 0 ferrous sulfate 325 mg (65 mg iron) tablet 325 mg PO EVERY OTHER DAY Qty: 15 RF: 0 Continued albuterol sulfate 2.5 mg /3 mL (0.083 %) solution for nebulization 2.5 mg INHALATION QID PRN (Reason: Shortness Of Breath) RF: 0 aspirin 81 mg tablet,delayed release (DR/EC) 81 mg PO DAILY RF: 0 Biofreeze (menthol) 4 % gel 1 applic TOPICAL TID PRN (Reason: Pain) RF: 0 omega-3 fatty acids [Fish Oil Concentrate] 1,000 mg capsule 1,000 mg PO BID RF: 0 fluticasone propionate [Flonase Allergy Relief] 50 mcg/actuation spray,suspension 1 spray INTRANASAL BID RF: 0 glipizide 5 mg tablet 5 mg PO BID RF: 0 metformin 500 mg tablet 500 mg PO BID RF: 0 Complete Multivitamin Tablet 1 tab PO QAM RF: 0 nystatin 100,000 unit/gram cream 1 applic TOPICAL BID PRN (Reason: Vaginal Irritation) RF: 0 tizanidine 4 mg tablet 8 mg PO Q8H PRN (Reason: Muscle Spasm) RF: 0 triamcinolone acetonide 0.1 % ointment 1 applic TOPICAL TID PRN (Reason: unknown) RF: 0 tumeric 1 tab PO DAILY RF: 0 hydrocodone-acetaminophen 7.5-325 mg tablet 1 tab PO TID PRN (Reason: pain) 30 Days Qty: 90 RF: 0 omeprazole 20 mg capsule,delayed release(DR/EC) 20 mg PO DAILY Qty: 90 RF: 0 gabapentin 300 mg capsule 300 mg PO TID Qty: 270 RF: 0 venlafaxine 150 mg capsule,extended release 24hr 150 mg PO QAM Qty: 90 RF: 1 potassium chloride [Klor-Con M20] 20 mEq tablet,ER particles/crystals 20 meq PO DAILY Qty: 30 RF: 2 Ozempic 0.25 mg or 0.5 mg(2 mg/1.5 mL) pen injector 0.25 mg SUBCUT .WEEKLY Qty: 1.5 RF: 0 atorvastatin 20 mg tablet 20 mg PO DAILY RF: 0 clopidogrel 75 mg tablet 75 mg PO DAILY RF: 0 nortriptyline 75 mg capsule 75 mg PO BEDTIME RF: 0 lisinopril 30 mg tablet 30 mg PO DAILY RF: 0 montelukast 10 mg tablet 10 mg PO DAILY RF: 0 folic acid 1 mg Tablet 1 mg PO DAILY RF: 0 Tresiba FlexTouch U-100 100 unit/mL (3 mL) insulin pen 40 unit SUBCUT BEDTIME RF: 0 Symbicort 160-4.5 mcg/actuation HFA aerosol inhaler 2 puff INHALATION BID RF: 0 Discontinued meloxicam [Mobic] 15 mg tablet 15 mg PO DAILY RF: 0 levothyroxine 137 mcg tablet 137 mcg PO DAILY Qty: 90 RF: 3 Discharge Orders: Discharge Order (Routine); Ordered 11/22/19 Ordered By: Sudarshan Aldrich Referrals: Milla Rodrigues MD [Physician] - 12/08/19 1:30 pm Yoel Gandhi FNP [Primary Care Provider] - 12/13/19 10:00 am Discharge Diet: Cardiac and Diabetic Discharge Activity: Increase activity as tolerated Patient Instructions: COPD, Type 2 Diabetes, Spironolactone (By mouth), Furosemide (By mouth), Levofloxacin (By mouth), Carvedilol (By mouth), Ascorbic Acid/Cyanocobalamin/Ferrous Fumarate (By mouth), Congestive Heart Failure, Hypertension, Community-acquired Pneumonia (DC), Dyspnea (GEN), COPD Stoplight Activity Restrictions/Additional Instructions: Please await LifeVest arrangements prior to leaving the hospital. Please follow-up with Dr. Rodrigues's office regarding further investigations for the underlying cause of your heart failure as discussed with him. Please continue to maintain low-sodium cardiac diet. Continue diuretics as prescribed. If you experience worsening edema, gain more than 3 pounds in 2 days, take an extra dose of Lasix. If you start becoming dehydrated, with dry mucous membranes, dry skin, and no edema, skip Lasix dose. Follow-up with your primary care provider and Dr. Rodrigues's office regarding adjustment to diuretic therapy. Continue to monitor your blood pressures, blood glucose. Record values to discuss during your appointment. At this time you are not requiring any oxygen, however, complete the remaining days of antibiotic for pneumonia. If you experience severe shortness of breath, chest pain, or other abnormal symptoms please seek medical attention without delay. Please discuss with your primary care provider follow-up thyroid testing as your thyroid medication dose is increased slightly to 150 mcg/day. Please discuss with your primary care provider follow-up endoscopic evaluation for iron deficiency anemia which should be sought once it can be safely performed with regards to currently ongoing pandemic. Please discuss again with your primary care provider regarding lymph node enlargement in your chest to compare with prior imaging and discuss whether any repeat biopsy is necessary or not. Discharge Attestations Time Spent in Discharge Care*: greater than 30 min Quality Metrics Clinical Quality Measures During this hospital stay, did patient experience: None Coding Level of Care Code Acute Renal Dietitian for Chg Fwd Diagnoses Congestive heart failure I50.21 Heart failure chronicity: acute Heart failure type: systolic Hypertension I10 Hypertension type: essential hypertension Type 2 diabetes mellitus E11.9 Lower respiratory infection (e.g., bronchitis, pneumonia, pneumonitis, pulmonitis) J22 LV dysfunction I51.9 Pneumonia J18.9 Hypothyroidism (acquired) E03.9
== END 2019-11-22 19:00 | disposition home or self-care (01) | DRG 291 ==
LOC: ER 14:52 → CSU 17:35 → MEDSURG 11-18 20:03 → CSU 11-19 19:21 → MEDSURG 11-21 10:57
PROVIDERS: Admitting Provider Student in an Organized Health Care Education/Training Program; Emergency Provider Emergency Medicine; Family Provider Registered Nurse; PCP Registered Nurse; Visit Provider Internal Medicine
DX: I11.0 Hypertensive heart disease with heart failure (principal); J18.9 Pneumonia, unspecified organism; I50.21 Acute systolic (congestive) heart failure; J44.1 Chronic obstructive pulmonary disease with (acute) exacerbation; J44.0 Chronic obstructive pulmonary disease with (acute) lower respiratory infection; E11.9 Type 2 diabetes mellitus without complications; E03.9 Hypothyroidism, unspecified; Z86.73 Personal history of transient ischemic attack (TIA), and cerebral infarction without residual deficits; Z79.82 Long term (current) use of aspirin; Z79.84 Long term (current) use of oral hypoglycemic drugs; Z79.02 Long term (current) use of antithrombotics/antiplatelets; G89.29 Other chronic pain; M54.5 Low back pain; Z85.3 Personal history of malignant neoplasm of breast; M79.7 Fibromyalgia; F17.210 Nicotine dependence, cigarettes, uncomplicated; I44.7 Left bundle-branch block, unspecified; E78.5 Hyperlipidemia, unspecified; I07.1 Rheumatic tricuspid insufficiency; I34.0 Nonrheumatic mitral (valve) insufficiency
CPT/HCPCS: 12345; 36415; 36416; 36600; 51702; 70450; 71045; 71275; 80048; 80051; 80053; 80061; 81001; 82436; 82810; 82962; 83036; 83540; 83550; 83880; 83986; 84133; 84145; 84300; 84439; 84443; 84481; 84484; 85025; 85378; 87040; 87070; 87205; 87635; 87641; 87804; 93005; 93306; 94640; 94664; 96372; 96375; 99284; J1650; J1815; J1940; J2543; J3370; J3490; J3535; J7050; J7626; Q9967

== ENCOUNTER 2019-12-27 17:26 | Observation (INO) | payer MEDICARE, SELFPAY ==
[2019-12-27] VITALS (12 sets, daily range): BP systolic 116–134; BP diastolic 76–95; PULSE 84–97; RESP 16–20; TEMP 36.6–36.8; O2SAT 91–96; BMI 30.5
--- NOTE | 2019-12-27 08:30 | XACV_ITS ---
Ht: 163 cm Wt: 81 kg BSA: 1.94 m2 Gender: Female : 1960 Any Known Allergies: No known allergies Exam Priority: Routine Procedure(s): Procedure Description: Diagnostic procedure Procedure Description: Left Heart Catheterization Procedure Description: Left ventriculography Procedure Description: Coronary Angiography Diagnostic Cath Status: Elective Diagnostic Findings LM has 0% stenosis. LAD has 0% stenosis. CX has 0% stenosis. mRCA: Mild 30% stenosis, CLAY: 3 flow. Coronary angiography shows right dominance. Conclusions There is mild coronary artery disease with one vessel disease. All winston are hypokinetic. Moderate left ventricular systolic dysfunction. Ejection fraction of 30%. Indication for left heart cath: New onset of heart failure , LV dysfunction , severely depressed LV function. Recommendations Continue current medical management and risk factor modification. Diagnostic RX Recommendation: medical therapy and/or counseling Ventriculography Ejection Fraction: 30.0 % Pressures Phase:Rest AO : 120 mmHg / 67 mmHg ( 86 mmHg ) @ 5:20:00 AM 146 mmHg / 84 mmHg ( 107 mmHg ) @ 5:30:00 AM 142 mmHg / 82 mmHg ( 103 mmHg ) @ 5:30:00 AM LV : 132 mmHg / 7 mmHg / @ 5:29:00 AM 137 mmHg / 13 mmHg / @ 5:30:00 AM 139 mmHg / 14 mmHg / @ 5:30:00 AM Valves Phase:DefaultPhase AV : 0.0 mmHg @ 10:53:56 AM AV Mean Gradient: 0.0 mmHg @ 10:53:56 AM Clinical Evaluation EBL: 5mL-10mL Procedural Details Procedure Consent Obtained. Current Diagnosis : Chest Pain. Pre-Procedure Time Out. Identified patient by full name and date of as verbalized by the patient/guarantor. Does the consent match the physician's order: Yes. Accurate & Complete Informed Consent: Yes. Inpatient/Outpatient History & Physical on Chart: Yes. If H&P is completed, is and addenduem needed: No; If yes, is the addendum complete: N/A. Visualize and Verify Site with Patient/Guarantor: N/A. Relevant Radiology Images available: Yes. Pre-op teaching completed and patient verbalized understanding. The risks, benefits, and alternatives of sedation and/or procedure were discussed by physician. The patient agrees to continue. Procedure started. [facility] Clinical Fraility Score: 3: Managing Well. Correct patient, site and procedure confirmed by cath team. PERRLA. Strong, equal hand automation qtp tester bilaterally. Lungs clear x 5 lobes. IV Site on Arrival: 20 gauge in the left anticubital. IV Fluids: 0.9% NaCl at KVO. 0 mL infused prior to laborer sawmill. Oxygen started at 2liters/min via nasal canula. bilateral groins was prepped with chloroprep then draped in the usual sterile fashion. Baseline sample Acquired. HR: 92 BPM. Pre Procedural Pulses: bilateral dorsalis pedis was Doppled. Pre Procedural Pulses: bilateral posterior tibial was Doppled. Physician notified. Physician arrived. Patient's family unavailable. Agriculture Extension Specialist Indications: LV Dysfunction. Chest Pain Symptom Assessment: Typical Angina Symptoms. Physician scrubbed in. Immediate Pre-Procedure Time Out. Correct Patient: Yes; Correct Procedure: Yes; Correct Site: Yes; Correct Patient Position: Yes; Correct Supplies: Yes; Dried Flammable Prep: Yes; Blood Products Available: N/A;. Lidocaine 1% infiltrated to the right groin. Arterial access obtained. A 5 bengali JL4 catheter in over wire. Multiple views taken of left coronary artery. Catheter removed over the standard wire. A 5 bengali JR4 catheter in over wire. Multiple views taken of right coronary artery. A 5 bengali Angled Pig catheter in over wire. EDP Sample taken: LV Off; HR: 89 BPM; SpO2: 99%. EDP Sample taken: LV 132/7,24; HR: 88 BPM; SpO2: 99%. EDP Sample taken: LV 137/13,27; HR: 89 BPM; SpO2: 99%. Pullback taken: LV 139/14,28; AO 146/84(107); Mean: 0mmHg, Peak to Peak: 0mmHg, SEP: 6sec/min; HR: 81 BPM; SpO2: 99%. LV gram performed in FREEMAN @ 10 mL/second for a total of 30 mL. A Right femoral angiogram was performed to determine safe placement of closure device. Physician scrubbed out. Sheath(s) removed and manual pressure held until hemostasis was achieved. Sterile 4x4 and Op-site applied to the puncture site. No oozing or hematoma noted. Post sheath removal instructions were given and the patient verbalized understanding. Post Procedure: Pulses reassessed and unchanged. PERRLA. Strong, equal hand automation qtp tester bilaterally. No VTE prophylaxis required. Medication's Wasted: Lidocaine 1% = 10 mL. Medication's Wasted: Heparin = 1000 units. Medication's Wasted: Fentanyl = 50 mg. Total IV fluids: 37.9 mL. Contrast type used: Visipaque 320 mgI/mL, 500 mL bottle. Post-op diagnosis: Normal Coronaries. Complications: None. Estimated blood loss: 5mL-10mL. Procedure completed. Patient transferred by stretcher to CPRU. A Manual Compression was successful obtaining hemostatsis at the Right Femoral artery insertion site. Vital chart was stopped. Site: Right Femoral artery Sheath Size: 6 Fr Hemostasis Method: Manual Compression Hemostasis Success: Successful Procedure Medications Start: 10:06 AM Stop: 10:06 AM Medication: Versed Amount: 1 mg Route: I.V. Start: 10:07 AM Stop: 10:07 AM Medication: Fentanyl Amount: 50 mcg Route: I.V. Start: 10:17 AM Stop: 10:17 AM Medication: Versed Amount: 1 mg Route: I.V. I, the attending physician, have reviewed and verified all procedure medications. Yes, all medications given per verbal order History/Risk Factors Hypertension: Yes Dyslipidemia: Yes Diabetic Therapy: Oral Peripheral Arterial Disease (PAD): No Myocardial Infarction (NV): Yes Obesity: No Renal Disease: No Tobacco Use: Current/Recent(w/in 1 year) Prior Interventions PCI: No CABG: No Valve Surgery: No Report Signatures Finalized by:Milla Rodrigues MD on 01/08/2020 6:36:06 PM
[2019-12-27] MEDS: diphenhydrAMINE 50 mg Capsule PO (08:53)
[2019-12-27 09:24] LABS: Basophils # 0.1 10^3/uL (0.0-0.1); Basophils % 0.7 %; Eosinophils # 0.4 10^3/uL (0.0-0.8); Eosinophils % 2.6 %; Hematocrit 44.2 % (37.0-47.0); Hemoglobin 13.2 g/dL (11.5-15.3); Lymphocytes # 2.4 10^3/uL (0.8-4.8); Mean Corpuscular HGB Conc 29.9 g/dL (30.0-36.0); Mean Corpuscular Hemoglobin 23.3 pg (28.0-34.0); Mean Platelet Volume 9.9 fL (7.4-10.4); Monocytes # 0.8 10^3/uL (0.2-0.9); Monocytes % 4.9 %; Neutrophils # 12.2 10^3/uL (1.8-7.7); Neutrophils % 76.1 %; Nucleated Red Blood Cells % 0 %; Platelet Count 393 10^3/cmm (130-400); Red Blood Count 5.67 10^6/uL (4.1-5.3); Red Cell Distribution Width 23.3 % (12.1-15.1)
--- NOTE | 2019-12-27 09:38 | SUR.PREOP ---
WBC WBC ELEVATION AT 16. DR PRADO NOTIFIED. NO NEW ORDERS AT THIS TIME. AWAITING BMP.
[2019-12-27 09:39] LABS: Anion Gap 18.3 (5-19); Blood Urea Nitrogen 18 mg/dL (8-23); Calcium 9.8 mg/dL (8.5-10.5); Carbon Dioxide 25 mmol/L (22-29); Chloride 93 mmol/L (98-107); Glomerular Filtration Rate 63.7 mL/min (90-130); Glucose 125 mg/dL (65-115); INR 0.99 (0.8-1.2); Osmolality Calculated 272 mOsm/kg (285-295); Potassium 4.3 mmol/L (3.5-5.1); Sodium 132 mmol/L (136-145)
[2019-12-27] MEDS: sodium chloride 0.9% 1,000 ML 75 ML IV (11:00)
--- NOTE | 2019-12-27 11:00 | SUR.PHASEI ---
POST CATH NOTE Patient returned from labor expediter status post cardiac catheterization via the right femoral approach. See post cath flowsheet for details of assessment. Call light withing easy reach. IV patent- 0.9% NS as 75 ml/hr as ordered. Informed to call for needs.
--- NOTE | 2019-12-27 14:36 | SUR.PHASEI ---
TRANSFER/REPORT OFF Patient transferred to [address] [place] [address] at this time via bed. Report off to Zhanna DIOR. No change in right groin assessment from initial assessment.
--- NOTE | 2019-12-27 14:45 | PC.NURSE ---
PATIENT TRANSFERRED TO ROOM VIA BED WITH CCL RN ; VSS ; PATIENT IV PATENT ; RIGHT GROIN SITE DRESSING CLEAN DRY INTACT WITH NO BLEEDING OR HEMATOMA NOTED ; DISTAL PULSES PRESENT
--- NOTE | 2019-12-27 16:46 | ECG_ITS ---
Measurements Intervals Newman Rate: 96 P: -26 MS: 253 QRS: -46 QRSD: 125 T: 83 QT: 377 QTc: 478 SINUS RHYTHM WITH FIRST DEGREE AV BLOCK Left atrial enlargement MARKED LEFT AXIS DEVIATION [QRS AXIS < -30] POSSIBLE ANTERIOR MYOCARDIAL INFARCTION [30 ms Q WAVE IN V3/V4, OR R < 0.2 mV IN V4], OF INDETERMINATE AGE Compared to ECG 11/17/2019 13:21:12 Myocardial infarct finding now present Left bundle-branch block no longer present Electronically Signed On 12-27-2019 18:47:52 CDT by Dewayne Muller M.D. [email or web address]
[2019-12-27] MEDS: carvedilol 3.125 mg Tablet PO (17:54)
--- NOTE | 2019-12-27 18:28 | PC.NURSE ---
PATIENT GIVEN DISCHARGE INSTRUCTIONS AND VERBALIZED UNDERSTANDING ; VSS ; RIGHT GROIN SITE DRESSING C/D/I WITH DISTAL PULSES PRESENT ; PATIENT DENIES ANY CP OR SOB AT THIS TIME ; PATIENT TO POV VIA WHEELCHAIR
--- NOTE | 2020-01-19 18:25 | W.PM.OPSUD ---
Surgery/Procedure H&P Update DATE OF PROCEDURE: 12/27/19 DATE H&P PERFORMED: 12/08/19 H&P UPDATE INFORMATION: I have reviewed H&P completed within last 30 days, I have examined patient prior to procedure and No changes to prior documentation PREOP DIAGNOSIS: Cough, dysphagia PLANNED PROCEDURE: Operation Date: 12/27/19 08:30 Proposed Procedures p Cardiac Catheterization(Left) - Milla Rodrigues MD PATIENT REASSESSED PRIOR TO SEDATION, WITH NO CHANGE NOTED: Yes PHYSICAL EXAM: alert, oriented x 3, clear to auscultation bilaterally and regular rate & rhythm AIRWAY EVAL/ANESTHESIA PLAN: normal airway, see other exam findings and ASA II
== END 2019-12-27 18:33 | disposition home or self-care (01) ==
LOC: MEDSURG 17:26
PROVIDERS: Admitting Provider Internal Medicine Cardiovascular Disease; Family Provider Registered Nurse; PCP Registered Nurse; Visit Provider Internal Medicine Cardiovascular Disease
DX: I44.0 Atrioventricular block, first degree (principal); E78.5 Hyperlipidemia, unspecified; Z79.82 Long term (current) use of aspirin; J44.9 Chronic obstructive pulmonary disease, unspecified; Z86.73 Personal history of transient ischemic attack (TIA), and cerebral infarction without residual deficits; I25.2 Old myocardial infarction; Z79.899 Other long term (current) drug therapy; E11.9 Type 2 diabetes mellitus without complications; Z79.4 Long term (current) use of insulin; Z82.49 Family history of ischemic heart disease and other diseases of the circulatory system; Z83.3 Family history of diabetes mellitus; F17.210 Nicotine dependence, cigarettes, uncomplicated; I11.0 Hypertensive heart disease with heart failure; I50.9 Heart failure, unspecified
CPT/HCPCS: 12345; 36415; 80048; 85025; 85610; 93005; 93452; 96360; 96361; C1769; C1887; C1894; G0378; J1644; J2001; J2250; J3010; J7030; Q0163; Q9967

== ENCOUNTER → 2020-01-04 10:16 | Outpatient (BNVA) | payer MEDICARE, SELFPAY | PROVIDERS: Family Provider Registered Nurse; PCP Registered Nurse; Visit Provider Nurse Practitioner Family | DX: I51.9 Heart disease, unspecified (principal); I50.21 Acute systolic (congestive) heart failure | CPT/HCPCS: 80048 ==

== ENCOUNTER → 2020-01-28 09:47 | Outpatient (BNVA) | payer MEDICARE, SELFPAY | PROVIDERS: Family Provider Registered Nurse; PCP Registered Nurse; Visit Provider Nurse Practitioner | DX: G89.29 Other chronic pain (principal); M54.5 Low back pain; M54.2 Cervicalgia; M79.7 Fibromyalgia; F17.210 Nicotine dependence, cigarettes, uncomplicated; Z79.891 Long term (current) use of opiate analgesic; Z71.6 Tobacco abuse counseling | CPT/HCPCS: 99214 ==

== ENCOUNTER 2020-03-06 12:41 | Outpatient (CLI) | payer MEDICARE, SELFPAY ==
--- NOTE | 2020-03-06 12:45 | USCV_ITS ---
Tiffany Glaser Age: 59 Gender: F : 1960 Exam Date: 03/06/2020 13:17 Ordering Phys: Melissa Painter Technologist: Edna Ibrahim Exam Location: [facility] – [place] Indication: CARDIOMYOPATHY BP: / HR: 88 Rhythm: Technical Quality: Adequate MEASUREMENTS (Male / Female) Normal Values 2D ECHO LV Diastolic Diameter PLAX 5.1 cm 4.2 - 5.9 / 3.9 - 5.3 cm LV Systolic Diameter PLAX 5.1 cm LV Chamber Size 4.4 cm IVS Diastolic Thickness 1.2 cm 0.6 - 1.0 / 0.6 - 0.9 cm IVS Systolic Thickness 1.2 cm LVPW Diastolic Thickness 1.3 cm 0.6 - 1.0 / 0.6 - 0.9 cm LVPW Systolic Thickness 1.6 cm RV Chamber Size 2.1 cm LVOT Diameter 2.0 cm LV Ejection Fraction 2D Teich 0.4 % LV Ejection Fraction MOD 2C 27.5 % LV Ejection Fraction 2C AL 28.1 % LA Diameter 3.6 cm LA Width 2.5 cm LA Height 3.9 cm RA Width 2.3 cm RA Height 3.6 cm Aorta at Sinotubular Diameter 2.8 cm M-MODE LV Diastolic Diameter MM 5.7 cm 4.2 - 5.9 / 3.9 - 5.3 cm LV Systolic Diameter MM 5.1 cm LV Ejection Fraction MM Teich 22.2 % IVS Diastolic Thickness MM 1.1 cm 0.6 - 1.0 / 0.6 - 0.9 cm IVS Systolic Thickness MM 1.1 cm LVPW Diastolic Thickness MM 1.1 cm 0.6 - 1.0 / 0.6 - 0.9 cm LVPW Systolic Thickness MM 1.4 cm RV Diastolic Diameter MM 1.8 cm Aortic Annulus Diameter 2.8 cm LA Ao Ratio MM 1.3 MV E Point Septal Separation 1.5 cm DOPPLER AV Peak Velocity 109.0 cm/s LVOT Peak Velocity 46.0 cm/s AV Area Cont Eq vti 1.4 cm squared AV Area Cont Eq pk 1.4 cm squared MV Area PHT 10.5 cm squared MV E' Velocity 7.0 cm/s Mitral E to MV E' Ratio 11.7 Mitral E to LV E' Lateral Ratio 12.4 Mitral E to LV E' Septal Ratio 11.3 TR Peak Velocity 189.6 cm/s TR Peak Gradient 14.4 mmHg TR Mean Velocity 118.8 cm/s TR Mean Gradient 6.5 mmHg TR Velocity Time Integral 37.1 cm TV Peak E Velocity 64.0 cm/s Right Atrial Pressure 3.0 mmHg Pulmonary Artery Systolic Pressu 17.4 mmHg PV Peak Velocity 53.0 cm/s RV Acceleration Time 0.1 s RV Ejection Time 0.3 s RV AcT/ET 0.4 FINDINGS Left Ventricle Severely increased left ventricular cavity size. Severely decreased left ventricular systolic function. Left ventricular ejection fraction is estimated at 25 %. Grade III/IV diastolic dysfunction (restrictive filling pattern), severely elevated filling pressures. Right Ventricle The right ventricle is normal in size and function. Right Atrium The right atrium is normal in size. Left Atrium Moderately increased left atrial size. Mitral Valve Moderately thickened mitral valve. No mitral valve stenosis. No mitral valve regurgitation. Aortic Valve Aortic valve sclerosis without stenosis or regurgitation. Tricuspid Valve Structurally normal tricuspid valve without significant stenosis or regurgitation. Pulmonary artery systolic pressure is normal. Pulmonic Valve Structurally normal pulmonic valve without significant stenosis. There is no pulmonic regurgitation. Pericardium Normal pericardium without effusion. Aorta Normal ascending aorta dimension. CONCLUSIONS 1-Severely increased left ventricular cavity size. Severely decreased left ventricular systolic function. Left ventricular ejection fraction is estimated at 25 %. Grade III/IV diastolic dysfunction (restrictive filling pattern), severely elevated filling pressures. 2-Moderately increased left atrial size. 3-Moderately thickened mitral valve. No mitral valve stenosis. No mitral valve regurgitation. 4-Aortic valve sclerosis without stenosis or regurgitation. 5-Structurally normal tricuspid valve without significant stenosis or regurgitation. Pulmonary artery systolic pressure is normal. 6-There is no pericardial effusion. 7-Pulmonary artery systolic pressure is within normal limits. 8-When compared to the prior echocardiogram dated 11/16/2013 there is no significant change. Milla Rodrigues MD (Electronically Signed) Final Date: 09 March 2020 20:54 S
== END 2020-03-06 12:42 | disposition home or self-care (01) ==
LOC: RAD 12:45
PROVIDERS: PCP Registered Nurse; Visit Provider Nurse Practitioner Family
DX: I42.9 Cardiomyopathy, unspecified (principal); I05.9 Rheumatic mitral valve disease, unspecified; I35.8 Other nonrheumatic aortic valve disorders
CPT/HCPCS: 93306

== ENCOUNTER → 2020-03-21 14:01 | Outpatient (BNVA) | payer MEDICARE, SELFPAY | PROVIDERS: PCP Registered Nurse; Visit Provider Registered Nurse | DX: D64.9 Anemia, unspecified (principal); R29.6 Repeated falls; F17.200 Nicotine dependence, unspecified, uncomplicated; I67.9 Cerebrovascular disease, unspecified; M54.2 Cervicalgia; R42 Dizziness and giddiness; W19.XXXA Unspecified fall, initial encounter; Z86.73 Personal history of transient ischemic attack (TIA), and cerebral infarction without residual deficits | CPT/HCPCS: 81000 ==

== ENCOUNTER → 2020-04-14 10:21 | Outpatient (BNVA) | payer MEDICARE, SELFPAY | PROVIDERS: Family Provider Registered Nurse; PCP Registered Nurse; Visit Provider Anesthesiology | DX: G89.29 Other chronic pain (principal); M54.41 Lumbago with sciatica, right side; M54.42 Lumbago with sciatica, left side; M47.897 Other spondylosis, lumbosacral region; M47.812 Spondylosis without myelopathy or radiculopathy, cervical region; F17.210 Nicotine dependence, cigarettes, uncomplicated; Z79.891 Long term (current) use of opiate analgesic; Z71.6 Tobacco abuse counseling | CPT/HCPCS: 99214 ==

== ENCOUNTER 2020-04-19 11:49 | Observation (INO) | payer MEDICARE, SELFPAY ==
[2020-04-17 11:45] LABS: Basophils # 0.1 10^3/uL (0.0-0.1); Basophils % 0.9 %; Eosinophils # 0.3 10^3/uL (0.0-0.8); Eosinophils % 2.4 %; Hematocrit 44.7 % (37.0-47.0); Hemoglobin 14.4 g/dL (11.5-15.3); Lymphocytes # 2.3 10^3/uL (0.8-4.8); Lymphocytes % 16.4 %; Mean Corpuscular HGB Conc 32.2 g/dL (30.0-36.0); Mean Corpuscular Hemoglobin 27.6 pg (28.0-34.0); Mean Corpuscular Volume 85.8 fL (81-99); Mean Platelet Volume 10.5 fL (7.4-10.4); Monocytes # 0.7 10^3/uL (0.2-0.9); Monocytes % 5.3 %; Neutrophils # 10.04 10^3/uL (1.8-7.7); Nucleated Red Blood Cells % 0 %; Platelet Count 319 10^3/cmm (130-400); Red Blood Count 5.21 10^6/uL (4.1-5.3); White Blood Count 13.8 10^3/uL (4.0-10.0)
--- NOTE | 2020-04-17 11:49 | P.ANESASSM_ITS ---
Pre-Anesthetic Assessment Pre-Anesthetic Assessment: Height/Weight: Height 1.63 m Weight 79.379 kg Preop Diagnosis: Cardiomyopathy Proposed Procedure: Operation Date: 04/19/20 07:00 Proposed Procedures p Defibrillator Placement(Not Applicable) - Zac Arguello MD Familial anesthetic complications: None Social: Social History: Tobacco Exam: Pre-Anes Outpt Exam: alert, oriented x 3, clear to auscultation bilaterally and regular rate & rhythm Airway: Cervical ROM: WNL MP: 4 Dentition: False Pulmonary: Pulmonary: Asthma and COPD (Unable to tell me how much she wears (flow rate)) CV/HEM: CV/HEM: HTN and SC Comments: cardiomyopathy GI: GI: GERD Musc/skel: Musc/skel: Fibromyalgia Neuropsych: Neuropsych: CVA (6 months ago) Anesthetic Plan: ASA status: 4 Anesthesia: MAC Risk of > 500 ml blood loss (7ml/kg in children): No PFSH Anesthesia PFSH: Medical History Breast cancer CHF (congestive heart failure) Chronic bilateral low back pain COPD (chronic obstructive pulmonary disease) Cough Dysphonia Fibromyalgia History of CVA (cerebrovascular accident) History of SC (myocardial infarction) Hypertension Hypotension Hypothyroidism (acquired) Long-term use of high-risk medication Neck pain Other spondylosis, lumbosacral region Pneumonia Recurrent falls Spondylosis without myelopathy or radiculopathy, cervical region Type 2 diabetes mellitus Surgical History H/O mastectomy S/P cholecystectomy S/P hernia surgery S/P hysterectomy S/P knee surgery Bilateral Family History Other Diabetes Heart disease Denies family history of Anesthesia complication Bleeding disorder Social History Smoking and tobacco status: current every day smoker cigarettes Packs smoked per day: 0.5 Years cigarettes smoked: 30 Alcohol intake: never Household members: spouse Housing: House Data Anesthesia CBC & Chem 7: 04/17/20 11:23 04/17/20 11:23 Other Labs: Laboratory Results - last 48 hr 04/17/20 11:23 WBC 13.8 H RBC 5.21 Hgb 14.4 Hct 44.7 MCV 85.8 MCH 27.6 L MCHC 32.2 RDW 17.0 H Plt Count 319 MPV 10.5 H Neut % (Auto) 73.0 Lymph % (Auto) 16.4 Nicholas % (Auto) 5.3 Eos % (Auto) 2.4 Baso % (Auto) 0.9 Neut # (Auto) 10.04 H Lymph # (Auto) 2.3 Nicholas # (Auto) 0.7 Eos # (Auto) 0.3 Baso # (Auto) 0.1 Nucleated RBC % (auto) 0 Nucleated RBCs # 0.0 Cardiac Studies: 2 No Data to Display
[2020-04-17 13:16] LABS: Anion Gap 16.4 (5-19); Blood Urea Nitrogen 19 mg/dL (8-23); Calcium 10.3 mg/dL (8.5-10.5); Carbon Dioxide 25 mmol/L (22-29); Chloride 94 mmol/L (98-107); Glomerular Filtration Rate 56.4 mL/min (90-130); Glucose 242 mg/dL (65-115); Osmolality Calculated 274 mOsm/kg (285-295); Potassium 5.4 mmol/L (3.5-5.1); Sodium 130 mmol/L (136-145)
[2020-04-17 15:17] LABS: Add Urine Microscopic? YES; Bilirubin Urine Neg (NEGATIVE); Blood Urine Neg (Negative); Glucose Urine UA Norm (Normal); Ketones Urine Negative (Negative); Leukocyte Esterase Urine 1+ (Negative); Nitrate Urine Negative (Negative); Protein Urine Neg (Negative); Specific Gravity, Urine 1.015 (1.005-1.030); Urine Appearance Hazy (CLEAR); Urine Color Yellow (Yellow); Urobilinogen Urine Norm (Negative); pH Urine 5 (5-7)
[2020-04-17 15:18] LABS: Add Urine Culture? Yes; Bacteria Urine 4+; RBC Urine 0-4 /hpf (0-2); Squamous Epithelial Cell Urine 0-4 (0-5)
[2020-04-18 15:25] LABS: Coronavirus Lab Test PTC Negative
[2020-04-19] VITALS (21 sets, daily range): BP systolic 114–171; BP diastolic 72–142; PULSE 75–106; RESP 10–25; TEMP 36.3–36.8; O2SAT 91–98
--- NOTE | 2020-04-19 | SCC_ITS ---
Procedure Done: Single-lead AICD implantation 66.3 seconds of fluoroscopic guidance, for a cumulative dose of 15.39 mGy, was provided to Dr. Arguello by the radiology department. C-arm images of the chest were saved for the patient's permanent record. [facility]
--- NOTE | 2020-04-19 07:43 | SC_ITS ---
WS: [id number] C-ARM RADIOGRAPHS CHEST; 2 IMAGES HISTORY: AICD implantation COMPARISON: None available. Intraoperative imaging during cardiac pacer placement. SC/C-arm FL for Pacemaker IMPRESSION: Intraoperative imaging during cardiac pacer placement.
[2020-04-19] MEDS: sodium chloride 0.9% 1,000 ML 30 ML IV (08:04)
--- NOTE | 2020-04-19 08:21 | P.ANESUD_ITS ---
Pre-Anesthetic Update Pre-Anesthetic Assessment: Date of Surgery/Procedure: 04/19/20 Preop Rocío gnosis: Cough, dysphagia Proposed Procedure: Operation Date: 04/19/20 09:00 Proposed Procedures p Defibrillator Placement(Not Applicable) - Zac Arguello MD Any changes to Pre-Anesthetic Assessment?: No Last Intake: Intake Last Liquid Date 04/18/20 Last Liquid Time 23:00 Last Solid Date 04/18/20 Last Solid Time 20:00 Labs Last 48hrs: Laboratory Results - last 48 hr 04/17/20 04/17/20 04/17/20 10:46 11:23 11:23 WBC 13.8 H RBC 5.21 Hgb 14.4 Hct 44.7 MCV 85.8 MCH 27.6 L MCHC 32.2 RDW 17.0 H Plt Count 319 MPV 10.5 H Neut % (Auto) 73.0 Lymph % (Auto) 16.4 Dubois % (Auto) 5.3 Eos % (Auto) 2.4 Baso % (Auto) 0.9 Neut # (Auto) 10.04 H Lymph # (Auto) 2.3 Dubois # (Auto) 0.7 Eos # (Auto) 0.3 Baso # (Auto) 0.1 Nucleated RBC % (a uto) 0 Nucleated RBCs # 0.0 PT 12.40 INR 0.90 Sodium Potassium Chloride Carbon Dioxide Anion Gap BUN Creatinine GFR Calculation Glucose Calculated Osmolal ity Calcium Urine Color Yellow Urine Appearance Hazy A Urine pH 5 Ur Specific Gravit y 1.015 Urine Protein Neg Urine Glucose (UA) Norm Urine Ketones Negative Urine Blood Neg Urine Nitrate Negative Urine Bilirubin Neg Urine Urobilinogen Norm Ur Leukocyte Lainey ase 1+ H Urine RBC 0-4 H Urine WBC 10-15 H Ur Squamous Epith Cells 0-4 H Amorphous Sediment Not Reportable Urine Bacteria 4+ H Nasal/Oral COVID-1 9 PCR Blood Type Rho(D) Type Antibody Screen 04/17/20 04/17/20 04/17/20 11:23 11:23 11:23 WBC RBC Hgb Hct MCV MCH MCHC RDW Plt Count MPV Neut % (Auto) Lymph % (Auto) Dubois % (Auto) Eos % (Auto) Baso % (Auto) Neut # (Auto) Lymph # (Auto) Dubois # (Auto) Eos # (Auto) Baso # (Auto) Nucleated RBC % (a uto) Nucleated RBCs # PT INR Sodium 130 L Potassium 5.4 H Chloride 94 L Carbon Dioxide 25 Anion Gap 16.4 BUN 19 Creatinine 1.0 H GFR Calculation 56.4 L Glucose 242 H Calculated Osmolal ity 274 L Calcium 10.3 Urine Color Urine Appearance Urine pH Ur Specific Gravit y Urine Protein Urine Glucose (UA) Urine Ketones Urine Blood Urine Nitrate Urine Bilirubin Urine Urobilinogen Ur Leukocyte Lainey ase Urine RBC Urine WBC Ur Squamous Epith Cells Amorphous Sediment Urine Bacteria Nasal/Oral COVID-1 9 PCR Negative Blood Type A Positive Rho(D) Type Positive Antibody Screen Negative Vitals: Temperature 97.4 F L 04/19/20 07:44 Temperature Source Temporal Artery S can 04/19/20 07:44 Pulse Rate 106 H 04/19/20 07:44 Respiratory Rate 18 04/19/20 07:44 Blood Pressure 114/72 04/19/20 07:44 Blood Pressure Ofe n 86 04/19/20 07:44 Pulse Oximetry 97 04/19/20 07:44 Oxygen Delivery Me thod 04/19/20 07:44 Exam: Pre-Anes Outpt Exam: alert, oriented x 3, clear to auscultation bilaterally and regular rate & rhythm Additional Exam Findings (including area of procedure): B/L wheezes - will give albuterol preop Other Pertinent Information: Other Pertinent Information: Echo shows Ejection fraction of 25-30%. Cath shows minimal CAD Cardiac Studies: No Data to Display
--- NOTE | 2020-04-19 08:38 | W.PM.OPSUD ---
Surgery/Procedure H&P Update DATE OF PROCEDURE: April 19, 2020 DATE H&P PERFORMED: 03/30/20 H&P UPDATE INFORMATION: I have reviewed H&P completed within last 30 days, I have examined patient prior to procedure and No changes to prior documentation PREOP DIAGNOSIS: Cardiomyopathy, ejection fraction 25% PRIMARY INDICATION FOR PROCEDURE: Cardiomyopathy with reduced ejection fraction of 25% PLANNED PROCEDURE: Operation Date: 04/19/20 09:00 Proposed Procedures p Defibrillator Placement(Not Applicable) - Zac Arguello MD
[2020-04-19] MEDS: lidocaine 1% INJ 20 mL SUBCUT (09:33)
[2020-04-19] MEDS: ceFAZolin 1,000 mg SDV 1000 MG IRRIGATION (09:36)
--- NOTE | 2020-04-19 09:48 | SUR.OPER ---
Called and notified him of start of surgery.
--- NOTE | 2020-04-19 10:58 | SUR.PHASEI ---
1056 PATIENT TO PACU FROM OR. RR EVEN AND UNLABORED. PRESSURE DRESSING TO LEFT CHEST, CDI.
[2020-04-19] MEDS: fentaNYL 50 mcg/mL INJ 2mL IVP ×2 (11:05→11:26)
--- NOTE | 2020-04-19 11:10 | PM.OP ---
Operative Report Date of procedure: April 19, 2020 Pre-op Diagnosis: Cardiomyopathy, ejection fraction 25% Post-op diagnosis: same Procedure Done: Single-lead AICD implantation Specimens removed/disposition: None Pathology: none sent Surgeon: Zac Arguello Anesthesia: MAC and Local Complications: None Condition: stable Disposition: PACU Brief History: 59-year-old female with a severe cardiomyopathy with a ejection fraction of 25%. Single-lead AICD implantation is been recommended by cardiology as prophylaxis from arrhythmia. Rationale, details risk of the procedure were carefully discussed with Ms. Glaser. Appropriate consents have been provided for review and signature. Procedure: Procedure: Ms. Glaser was taken to the OR suite and placed in the supine position over a shoulder roll. She received conscious sedation with continuous anesthesia monitoring. Her entire chest was sterilely prepped and draped. 1% lidocaine was infiltrated in the left subclavicular region. Due to her substantial anterior chest wall tissue, I elected to use a hand-held ultrasound to assess for location of the left subclavian vein given her prior history of Port-A-Cath. The vein easily collapse with inspiration and therefore we provided volume loading with 500 cc saline. Utilizing handheld ultrasound, introducer needle was inserted into the subclavian vein while in Trendelenburg position, utilizing modified seldinger technique, a guidewire was placed in the left subclavian vein. This was confirmed in position by fluoroscopy. Next, after infiltration with lidocaine, a subcutaneous pocket was created beginning from the exit point of the guidewire and extending laterally and inferiorly. Cautery was utilized to create the pocket just above the pectoralis musculature. Hemostasis was confirmed. An antibiotic-soaked sponge was placed in the wound. A dilator and tear-away sheath was placed over the guidewire and advanced under fluoroscopy. Guidewire and dilator were removed. Next using a combination of curved and straight stylettes, the right ventricular lead was placed in position by fluoroscopy. The distal screw was extended. Interrogation was then performed confirming appropriate parameters. The tear-away sheath was then removed and the ventricular lead was sewn to the floor of the subcutaneous pocket. Pacing generator was brought into the field, and after confirmation of hemostasis in the subcutaneous pocket, the lead was connected to the generator with appropriate capture. The entire system was interrogated by fluoroscopy. Lead and generator were secured in the pocket. Sponge and needle count was correct. The wound was then closed in 2 layers of 3-0 Vicryl suture. Skin was reapproximated in a subcuticular manner with 4-0 Monocryl suture. A pressure dressing was applied. The left arm was placed in a sling. Ms. Glaser had equal breath sounds bilaterally. She was then transferred to the PACU, where chest x-ray was performed and revealed appropriate lead placement and no evidence for pneumothorax. She will be transferred to the [facility] as outpatient in a bed for observation overnight and reinterrogation of her system tomorrow morning. Following are the specifics of this system: Right ventricular lead is 55 cm and model 6935M. Serial number [id number] Ventricular lead had sensing of 5.5 mV with an impedance of 513 ohms. Threshold was 0.75 V [place] ([employer]) AICD generator: Model # [id number] Serial #[id number]
--- NOTE | 2020-04-19 11:13 | XRR_ITS ---
PROCEDURE INFORMATION: Exam: XR Chest, 1 View Exam date and time: 04/19/2020 11:19 AM Age: 59 years old Clinical indication: Device placement; Cardiac defibrillator placementor adjustment; Patient HX: Defib placement; Additional info: Def placement TECHNIQUE: Imaging protocol: XR of the chest Views: 1 view. COMPARISON: CR XR chest 1V portable [id number] 11/17/2019 11:58 AM FINDINGS: Tubes, catheters and devices: Cardiac defibrillator in the left anterior chest . Lungs: Left lower lobe interstitial congestion. No consolidation. Pleural space: Unremarkable. No pleural effusion. No pneumothorax. Heart/Mediastinum: Unremarkable. No cardiomegaly. Bones/joints: Unremarkable. Soft tissues: Metallic surgical clips seen in the right axilla soft tissues and in the right lower lobe. XR/XR chest 1V portable [id number] IMPRESSION: 1. No acute findings. 2. Cardiac defibrillator in the chest as noted 3. Surgical clips right axilla and chest wall
--- NOTE | 2020-04-19 11:17 | PM.PACU ---
PACU note Post-Anesthesia Exam: awake and vital signs stable (On 2 L NC) Disposition: admitted (TO CSU)
[2020-04-19] MEDS: labetalol 5 mg/mL SDV 20mL 10 MG IVP (11:28)
[2020-04-19] MEDS: labetalol 5 mg/mL SDV 20mL IVP (11:38)
--- NOTE | 2020-04-19 11:54 | SUR.PHASEI ---
1145 PATIENT TO CSU. PAIN IMPROVED. DENIES NAUSEA, TOLERATING ICE CHIPS. PRESSURE DRESSING TO LEFT CHEST, CDI WITH IMMOBILIZER IN PLACE. PATIENT AMBULATORY FROM [facility] TO BED. GAIT STEADY.
--- NOTE | 2020-04-19 12:00 | PC.NURSE ---
patient to unit from Pacu patient alert oriented and in stable condition pressure dressing in place as well as immobilizer
[2020-04-19 12:15] LABS: Glucose Point of Care 195 mg/dL (70-110)
[2020-04-19] MEDS: spironolactone 25 mg Tablet PO (12:57)
--- NOTE | 2020-04-19 13:00 | PC.NURSE ---
Dr Arguello at bedside to check on patient, immobilizer removed with instructions given to maintain arm below a 45 degree angle for the next few days patient verbalized understanding.
[2020-04-19] MEDS: gabapentin 300 mg Capsule PO ×2 (14:05→21:33)
[2020-04-19] MEDS: potassium chloride ER 10 mEq Tablet 20 MEQ PO (14:05)
[2020-04-19] MEDS: ferrous sulfate EC 325 mg Tablet PO (14:05)
[2020-04-19 16:26] LABS: Glucose Point of Care 187 mg/dL (70-110)
[2020-04-19] MEDS: HYDROcodone-acetaminophen 7.5-325 mg Tablet 1 TAB PO (18:24)
--- NOTE | 2020-04-19 20:06 | PC.NURSE ---
Patient does not have any complaints at this time. Patient educated on post-pacemaker activity restrictions and verbalized understanding. Patient educated to ask for pain mediation when needed. Left chest dressing/site WNL. Will monitior.
[2020-04-19 21:10] LABS: Glucose Point of Care 182 mg/dL (70-110)
[2020-04-19] MEDS: montelukast sodium 10 mg Tablet PO (21:33)
[2020-04-19] MEDS: nortriptyline 25 mg Capsule 75 MG PO (21:33)
--- NOTE | 2020-04-19 21:37 | PC.NURSE ---
Patient is refusing to wear SCDs at this time. Patient states that they make her legs cramps. Patient education on need/use for SCDs.
[2020-04-19] MEDS: oxyCODONE-APAP 5-325 mg Tablet 1 TAB PO (23:56)
--- NOTE | 2020-04-20 00:15 | PC.NURSE ---
Left chest site WNL. VSS. PRN pain medication given per patient request. Will monitor.
--- NOTE | 2020-04-20 02:00 | PC.NURSE ---
Patient is currently resting with eyes closed. Will monitor.
[2020-04-20 04:07] VITALS: BP 136/92; PULSE 120; RESP 22; TEMP 36.8; O2SAT 91
--- NOTE | 2020-04-20 05:54 | P.DS_ITS ---
Discharge Providers Date of Admission: 04/19/20 11:49 Date of Discharge: April 20, 2020 Attending Provider at Admission: Zac Arguello MD Attending Provider at Discharge: Zac Arguello MD Primary Care Provider: JOSH Montes Diagnoses at Discharge Discharge Diagnosis (1) Status post internal cardiac defibrillator procedure: Status: Acute Reason for Visit Reason for Visit: defibrillator placement Hospital Course Discharge Summary: Ms. Glaser is a 59-year-old female referred to our service by Dr. Rodrigues due to severe cardiomyopathy with ejection fraction of 25%. AICD implantation was recommended for prophylaxis for malignant arrhythmia. She was initially evaluated as an outpatient electively admitted on April 19 where she underwent single lead AICD implantation. Postop day, she is done very well. Device interrogation this morning is normal. Surgical site is clean and dry. No substantial swelling. Minimal discomfort. She is eager for discharge to home. She will be discharged today in stable condition with scheduled follow-up in the heart care clinic in 1 week. At the time of discharge she is stable. Physical Exam Chest: COMMONS NORMALS: normal inspection of the chest (No substantial swelling at defibrillator insertion site. Surgical dressings clean and dry. Only mild incisional discomfort.) Resp: COMMON NORMALS: normal respiratory effort and clear to auscultation bilaterally EFFORT & INSPECTION: Yes able to speak in complete sentences and Yes symmetric chest movement AUSCULTATION: clear to auscultation bilaterally Cardio: COMMON NORMALS: regular rate, regular rhythm and No murmurs present (Cardio) RATE: regular rate RHYTHM: regular rhythm Extremity: COMMON NORMALS: no clubbing, cyanosis or edema Discharge Data Data Completed and Pending: Completed Studies During Hospitalization Category Date Time Status XR chest 1V chacha ble [id number] Routine Exams 04/19/20 11:13 Completed Labs from last 24 hours 04/19/20 04/19/20 04/19/20 19:53 16:12 12:11 POC Glucose 182 187 195 Vitals: Last Vital Signs Temp 98.2 F 04/20/20 04:07 Pulse 120 H 04/20/20 04:07 Resp 22 H 04/20/20 04:07 BP 136/92 04/20/20 04:07 Pulse Ox 91 04/20/20 04:07 Discharge Plan Discharge Patient Disposition: Home Condition: Stable Prescriptions: Continued hydrocodone-acetaminophen 7.5-325 mg tablet 1 tab PO TID PRN (Reason: pain) 30 Days Qty: 90 RF: 0 albuterol sulfate 2.5 mg /3 mL (0.083 %) solution for nebulization 2.5 mg INHALATION QID PRN (Reason: Shortness Of Breath) RF: 0 aspirin 81 mg tablet,delayed release (DR/EC) 81 mg PO DAILY RF: 0 Biofreeze (menthol) 4 % gel 1 applic TOPICAL TID PRN (Reason: Pain) RF: 0 omega-3 fatty acids [Fish Oil Concentrate] 1,000 mg capsule 1,000 mg PO BID RF: 0 fluticasone propionate [Flonase Allergy Relief] 50 mcg/actuation spray,suspension 1 spray INTRANASAL BID RF: 0 Complete Multivitamin Tablet 1 tab PO QAM RF: 0 nystatin 100,000 unit/gram cream 1 applic TOPICAL BID PRN (Reason: Vaginal Irritation) RF: 0 tumeric capsule 1 tab PO DAILY RF: 0 tizanidine 4 mg tablet 8 mg PO Q8H PRN (Reason: Muscle Spasm) Qty: 180 RF: 1 nortriptyline 75 mg capsule 75 mg PO BEDTIME Qty: 90 RF: 1 ferrous sulfate 325 mg (65 mg iron) tablet See Rx Instructions .ROUTE .COMPLEX Qty: 15 RF: 5 clopidogrel 75 mg tablet 75 mg PO DAILY Qty: 90 RF: 1 furosemide 40 mg tablet 40 mg PO DAILY Qty: 90 RF: 3 levothyroxine 150 mcg tablet See Rx Instructions .ROUTE .COMPLEX Qty: 90 RF: 0 triamcinolone acetonide 0.1 % ointment 1 applic TOPICAL TID PRN (Reason: unknown) Qty: 30 RF: 0 atorvastatin 20 mg tablet 20 mg PO DAILY Qty: 90 RF: 0 semaglutide [Ozempic] 0.25 mg or 0.5 mg(2 mg/1.5 mL) pen injector See Rx Instructions .ROUTE .COMPLEX Qty: 1.5 RF: 0 omeprazole 20 mg capsule,delayed release(DR/EC) See Rx Instructions .ROUTE .COMPLEX Qty: 90 RF: 0 gabapentin 300 mg capsule See Rx Instructions .ROUTE .COMPLEX Qty: 270 RF: 0 spironolactone 25 mg tablet See Rx Instructions .ROUTE .COMPLEX Qty: 90 RF: 0 lisinopril 10 mg tablet 10 mg PO DAILY Qty: 90 RF: 3 venlafaxine 150 mg capsule,extended release 24hr See Rx Instructions .ROUTE .COMPLEX Qty: 90 RF: 0 potassium chloride 20 mEq tablet,ER particles/crystals See Rx Instructions .ROUTE .COMPLEX Qty: 90 RF: 0 metformin 500 mg tablet See Rx Instructions .ROUTE .COMPLEX Qty: 120 RF: 0 glipizide 5 mg tablet See Rx Instructions .ROUTE .COMPLEX Qty: 120 RF: 0 montelukast 10 mg tablet See Rx Instructions .ROUTE .COMPLEX Qty: 90 RF: 0 insulin degludec [Tresiba FlexTouch U-100] 100 unit/mL (3 mL) insulin pen See Rx Instructions .ROUTE .COMPLEX 60 Days Qty: 3 RF: 0 folic acid 1 mg Tablet 1 mg PO DAILY RF: 0 budesonide-formoterol [Symbicort] 160-4.5 mcg/actuation HFA aerosol inhaler 2 puff INHALATION BID RF: 0 levofloxacin [Levaquin] 500 mg tablet 500 mg PO DAILY Qty: 5 RF: 0 Discharge Orders: Discharge Order (Routine); Ordered 04/20/20 Ordered By: Zac Arguello Referrals: [facility] [Provider Group] - 04/28/20 (Pacemaker clinic) Discharge Diet: Usual diet Discharge Activity: Limit activity as instructed Activity Restrictions/Additional Instructions: Right raise left hand above eye level for 5 days May remove bandage tomorrow or Friday, then begin daily showers. No swimming or tub baths x2 weeks. May cover incision to prevent irritation from clothing or bra strap. Report any redness, swelling, drainage, increased pain, or fever. Discharge Attestations Time Spent in Discharge Care*: less than 30 min Specific Discharge Activities: Specific discharge activities: educating patient, discussing with pcp/other providers, discussing with watch case polisher/social workers/dc planners, documenting/other paperwork and evaluating patient/reviewing data Status at Discharge: Cognitive status at discharge: cognitively intact , Functional status at discharge: independent ambulation Overall status at discharge: patient is back to baseline Quality Metrics Clinical Quality Measures During this hospital stay, did patient experience: None Coding Level of Care Code Acute [employer] Team Member for Zaki Mares Diagnoses Status post internal cardiac defibrillator procedure Z95.810
[2020-04-20 06:46] LABS: Glucose Point of Care 258 mg/dL (70-110)
[2020-04-20 07:13] VITALS: BP 119/71; PULSE 96; RESP 15; TEMP 36.8; O2SAT 90
[2020-04-20] MEDS: lisinopril 10 mg Tablet PO (08:18)
[2020-04-20] MEDS: pantoprazole DR 40 mg Tablet PO (08:18)
[2020-04-20] MEDS: levothyroxine 150 mcg Tablet PO (08:18)
[2020-04-20] MEDS: multivitamin therapeutic Tablet 1 TAB PO (08:18)
[2020-04-20] MEDS: FUROsemide 40 mg Tablet PO (08:18)
[2020-04-20] MEDS: levoFLOXacin 500 mg Tablet PO (08:18)
[2020-04-20] MEDS: gabapentin 300 mg Capsule PO (08:19)
[2020-04-20] MEDS: atorvastatin 40 mg Tablet 20 MG PO (08:19)
[2020-04-20] MEDS: spironolactone 25 mg Tablet PO (08:19)
[2020-04-20] MEDS: venlafaxine ER (24HR) 150 mg Capsule PO (08:19)
[2020-04-20] MEDS: folic acid 1 mg Tablet PO (08:19)
[2020-04-20 08:39] VITALS: PULSE 90; RESP 18; O2SAT 95
--- NOTE | 2020-04-20 08:57 | ANE.PACU2 ---
Inpatient post-anesthesia follow up: Airway intact: Yes Vital signs: Temperature 98.3 F Pulse Rate 90 Respiratory Rate 18 Blood Pressure 119/71 Pulse Oximetry 95 Oxygen Delivery Me thod [ Nasal Cannula Current Rate & Del erin] Oxygen Delivery Me thod Room Air Oxygen Flow Rate [ Current Rate 2 & Delivery] Oxygen Flow Rate 2 Fraction of Inspir ed Oxygen Hydration adequate: Yes Nausea and vomiting: No Pain level: 6 Mental status: Baseline
[2020-04-20 09:10] VITALS: BP 119/71; PULSE 90; RESP 18; TEMP 36.8; O2SAT 95
--- NOTE | 2020-04-20 09:32 | PC.NURSE ---
discharge instructions provided and explained, patient educated on new medications as well as activity restrictions. Patient informed of follow up appointment and educated on the importance to follow up with providers for continued care. Patient verbalized understanding of all instructions and education provided. Iv discontinued cath in tact min bleeding noted, bandage placed. Patient educated on s/s of infection in both iv site as well as surgical incision, understanding verbalized. Patient sitting up in chair awaiting family to arrive to take her home.
--- NOTE | 2020-04-20 09:47 | PC.NURSE ---
patient discharged home at this time self care, discharge instructions and all belongings in hand patient assisted to wheel chair and accompanied by staff to private vehicle to meet spouse. patient alert oriented and in stable condition.
== END 2020-04-20 09:49 | disposition home or self-care (01) ==
LOC: CSU 11:50
PROVIDERS: Admitting Provider Thoracic Surgery (Cardiothoracic Vascular Surgery); PCP Registered Nurse; Visit Provider Thoracic Surgery (Cardiothoracic Vascular Surgery)
PROC: 0JH608Z Insertion of Defibrillator Generator into Chest Subcutaneous Tissue and Fascia, Open Approach (ICD-10-PCS; CPT 33249; principal; 2020-04-19 09:00)
DX: I42.8 Other cardiomyopathies (principal); I11.0 Hypertensive heart disease with heart failure; I50.21 Acute systolic (congestive) heart failure; J44.9 Chronic obstructive pulmonary disease, unspecified; I25.2 Old myocardial infarction; E11.9 Type 2 diabetes mellitus without complications; Z79.891 Long term (current) use of opiate analgesic; F17.210 Nicotine dependence, cigarettes, uncomplicated; Z79.82 Long term (current) use of aspirin; Z79.84 Long term (current) use of oral hypoglycemic drugs; Z86.73 Personal history of transient ischemic attack (TIA), and cerebral infarction without residual deficits
CPT/HCPCS: 33249; 12345; 36415; 36416; 71045; 76000; 80048; 81001; 82962; 85025; 85610; 86850; 86900; 87077; 87086; 87186; 87635; 94640; 96365; 96366; 96372; C1722; G0378; J0690; J1815; J2250; J2704; J3010; J3490; J7030; J7611

== ENCOUNTER → 2020-04-26 10:36 | Outpatient (BNVA) | payer MEDICARE, SELFPAY | PROVIDERS: PCP Registered Nurse; Visit Provider Registered Nurse | DX: E78.5 Hyperlipidemia, unspecified (principal); I10 Essential (primary) hypertension; E03.9 Hypothyroidism, unspecified; E11.9 Type 2 diabetes mellitus without complications; Z79.899 Other long term (current) drug therapy | CPT/HCPCS: 80053; 80061; 81000; 83036; 84443; 85025 ==

== ENCOUNTER 2020-04-27 12:02 | Observation (INO) | payer MEDICARE, SELFPAY ==
[2020-04-27] VITALS (19 sets, daily range): BP systolic 66–179; BP diastolic 35–87; PULSE 72–90; RESP 12–18; TEMP 36.6–36.8; O2SAT 90–97; BMI 30.5
--- NOTE | 2020-04-27 12:06 | XR_ITS ---
WS: [id number] Portable AP upright chest, 04/27/2020 Clinical Data: chest pain Comparison: Portable chest, 04/19/2020. Findings: No nodules, masses or effusions are seen. The heart is normal. The pulmonary vascularity is not increased. No pneumonia or pneumothorax is seen. The pacemaker and generator are in good positio n. There is a left pleural pericardial fat pad or cyst. There are clips in the right axilla and right hilum from surgery. Monitor leads are on the chest wall. XR/XR chest 1V portable [id number] Impression: No acute cardiopulmonary disease is seen.
[2020-04-27 12:59] LABS: Basophils # 0.2 10^3/uL (0.0-0.1); Basophils % 1.1 %; Eosinophils # 0.4 10^3/uL (0.0-0.8); Eosinophils % 2.9 %; Hematocrit 46.1 % (37.0-47.0); Lymphocytes # 2.3 10^3/uL (0.8-4.8); Lymphocytes % 15.7 %; Mean Corpuscular HGB Conc 32.5 g/dL (30.0-36.0); Mean Corpuscular Hemoglobin 28.7 pg (28.0-34.0); Mean Corpuscular Volume 88.1 fL (81-99); Monocytes # 0.8 10^3/uL (0.2-0.9); Monocytes % 5.2 %; Neutrophils # 10.54 10^3/uL (1.8-7.7); Neutrophils % 71.6 %; Nucleated Red Blood Cells % 0 %; Platelet Count 284 10^3/cmm (130-400); Red Blood Count 5.23 10^6/uL (4.1-5.3); Red Cell Distribution Width 16.7 % (12.1-15.1); White Blood Count 14.7 10^3/uL (4.0-10.0)
[2020-04-27 13:02] LABS: INR 0.87 (0.8-1.2)
[2020-04-27 13:05] LABS: D Dimer 1.21 ug/mIFEU (0-0.59)
[2020-04-27 13:17] LABS: Lipase 14 U/L (13-60); Magnesium 1.7 mg/dL (1.7-2.3); NT Pro B Type Natriuretic Pept 1160 pg/mL (0-125)
[2020-04-27 13:41] LABS: Procalcitonin 0.05 ng/mL (0-0.5)
[2020-04-27] MEDS: sodium chloride 0.9% 1,000 ML 999 ML IV (13:51)
--- NOTE | 2020-04-27 14:02 | PC.NURSE ---
Patient drowsy with blood pressure of 66/45, not able to get urine sample at this time.
[2020-04-27 14:03] LABS: Glucose Point of Care 130 mg/dL (70-110)
[2020-04-27 15:10] LABS: Add Urine Microscopic? NO
[2020-04-27 15:14] LABS: Bilirubin Urine Neg (Negative); Blood Urine Neg (Negative); Glucose Urine UA Norm (Normal); Ketones Urine Negative (Negative); Leukocyte Esterase Urine Negative (Negative); Nitrate Urine Negative (Negative); Protein Urine Neg (Negative); Urine Appearance Clear (CLEAR); Urine Color Straw (Yellow); Urobilinogen Urine Norm (Negative)
[2020-04-27 16:14] LABS: Alanine Aminotransferase 14 U/L (0-33); Albumin Level 3.9 g/dL (3.5-5.2); Alkaline Phosphatase 96 IU/L (35-105); Anion Gap 15.6 (5-19); Aspartate Amino Transferase 18 U/L (0-32); Blood Urea Nitrogen 29 mg/dL (8-23); Calcium 9.8 mg/dL (8.5-10.5); Carbon Dioxide 24 mmol/L (22-29); Chloride 99 mmol/L (98-107); Globulin 3.5 g/dL (1.3-4.6); Glomerular Filtration Rate 38.2 mL/min (90-130); Glucose 94 mg/dL (65-115); Osmolality Calculated 273 mOsm/kg (285-295); Potassium 5.6 mmol/L (3.5-5.1); Sodium 133 mmol/L (136-145); Total Bilirubin 0.2 mg/dL (0.15-1.2); Total Protein 7.4 g/dL (6.6-8.7)
[2020-04-27 16:18] LABS: Creatinine Clr Calc Pharmacy 43.3781
--- NOTE | 2020-04-27 16:27 | CTR_ITS ---
PROCEDURE INFORMATION: Exam: CT Angiography Chest With Contrast Exam date and time: 04/27/2020 4:47 PM Age: 59 years old Clinical indication: Shortness of breath; Prior surgery; Surgery type: Mastectomy, pacemaker, gb; Additional info: Syncope, SOB TECHNIQUE: Imaging protocol: Computed tomographic angiography of the chest with intravenous contrast. 3D rendering (Not supervised by radiologist): MIP and/or 3D reconstructed images were created by the technologist. Radiation optimization: All CT scans at this facility use at least one of these dose optimization techniques: automated exposure control; mA and/or kV adjustment per patient size (includes targeted exams where dose is matched to clinical indication); or iterative reconstruction. Contrast material: VISI 320; Contrast volume: 68 ml; Contrast route: INTRAVENOUS (IV); COMPARISON: CT angio chest PE protcl [id number] 11/17/2019 2:11 PM RADIATION DOSE METRICS: Total DLP (mGy-cm): 648.28 FINDINGS: Pulmonary arteries: Normal. No pulmonary emboli. Aorta: Unremarkable. No aortic aneurysm. No aortic dissection. Lungs: Calcified granulomas in both lungs. Centrilobular emphysema. Mild dependent atelectasis. No lung consolidation. Pleural space: Unremarkable. No pneumothorax. No pleural effusion. Heart: Unremarkable. No cardiomegaly. No pericardial effusion. Lymph nodes: Bulky mediastinal and bilateral hilar lymph nodes are unchanged. Multiple calcified mediastinal and hilar lymph nodes. Calcified retroperitoneal lymph nodes. Gallbladder and bile ducts: Cholecystectomy. Spleen: Calcified granulomas in the spleen. Bones/joints: Unremarkable. No acute fracture. Soft tissues: Unremarkable. CT/CT angio chest PE protcl [id number] IMPRESSION: 1. No evidence for pulmonary embolus. 2. Stable enlarged mediastinal and hilar lymph nodes are most likely reactive or inflammatory. A neoplastic process cannot be excluded. 3. Old granulomatous disease. Radiation Dose CTDIVOL = (mGy): DLP = 648.28 (mGy-cm)
[2020-04-27] MEDS: iodixanol 320 mg/mL 100mL Btl IV (16:59)
--- NOTE | 2020-04-27 19:48 | ED_ITS ---
HPI - Weakness General: Chief complaint: Weakness Stated complaint: low bp Time Seen by Provider: 04/27/20 12:06 History of Present Illness: HPI Narrative: This patient is a 59-year-old female who presents today with dizziness and low blood pressure. She has been feeling this way for the past several days. She feels very lightheaded and her notes that she seems confused and slow to answer questions. She had a pacemaker and defibrillator placed earlier this week and has felt like this to some degree since then. She saw her doctor yesterday and said she was doing okay at that time. Her doctor had decreased her blood pressure medicine because of low blood pressure previously. She said she has not had any increase in her Lasix. She feels like she is urinating as much as normal. She also has a history of diabetes and hypothyroidism. They defibrillator was placed due to poor function of her left ventricle, per the patient. She had a near syncopal episode today and her said she has had several like that. She denies chest pain. She has not had much shortness of breath and denies orthopnea. MD Complaint: generalized weakness and lack of energy Onset (ago): day(s) (3) Duration: intermittent and progressively worsening Location: generalized Associated symptoms: Reports syncope (Near syncope); Denies chills, easy bruising, fever(s), headache(s), nausea or vomiting Review of Systems General: Reports: 10 or more systems reviewed and unremarkable except in HPI and below Const: Reports: fatigue; Denies: fever(s), chills or malaise Eyes: Denies: change in vision ENMT: Denies: odynophagia Card: Reports: syncope (Near syncope) Resp: Denies: dyspnea, productive cough or non-productive cough GI: Denies: abdominal pain, nausea or vomiting : Denies: flank pain or difficulty voiding Musc: Denies: neck pain or back pain Skin/Breast: Denies: rash Neuro: Denies: headache(s), numbness in extremities or weakness in extremities Reji/Lymph: Denies: easy bruising or easy bleeding [facility] ED PFSH: Medical History Breast cancer CHF (congestive heart failure) Chronic bilateral low back pain COPD (chronic obstructive pulmonary disease) Cough Dysphonia Fibromyalgia History of CVA (cerebrovascular accident) History of VT (myocardial infarction) Hypertension Hypotension Hypothyroidism (acquired) Long-term use of high-risk medication Neck pain Other spondylosis, lumbosacral region Pneumonia Recurrent falls Spondylosis without myelopathy or radiculopathy, cervical region Type 2 diabetes mellitus Surgical History H/O mastectomy S/P cholecystectomy S/P hernia surgery S/P hysterectomy S/P knee surgery Bilateral Status post internal cardiac defibrillator procedure -done on 04/19/[address] Arguello Family History Other Diabetes Heart disease Denies family history of Anesthesia complication Bleeding disorder Social History Smoking and tobacco status: current every day smoker cigarettes Packs smoked per day: 0.5 Years cigarettes smoked: 30 Alcohol intake: never Household members: spouse Housing: House Physical Exam Const: COMMON NORMALS: patient oriented x3 and no limitations GENERAL APPEARANCE: cooperative and lethargic ORIENTATION/CONSCIOUSNESS: Yes lethargic HENMT: HEAD & SCALP: normal to inspection FACE & SINUS: normal facial exam Eye: GENERAL EYE: appearance normal, both eyes and all related structures Neck/C-Spine: COMMON NORMALS: supple, no meningeal signs and no JVD Chest: COMMONS NORMALS: normal inspection of the chest Resp: COMMON NORMALS: normal respiratory effort, No use of accessory muscles and clear to auscultation bilaterally AUSCULTATION: clear to auscultation bilaterally Cardio: COMMON NORMALS: no JVD, regular rate, regular rhythm and No murmurs present (Cardio) RATE: regular rate RHYTHM: regular rhythm GI: COMMON NORMALS: Normal to inspection, nondistended, normoactive bowel sounds present, Soft to palpation and non-tender INSPECTION: Yes normal to inspection AUSCULTATION: Yes normoactive bowel sounds PALPATION: Yes Soft to palpation Back/Pelvis: COMMON NORMALS: thoracic and lumbar spine normal to inspection Extremity: COMMON NORMALS: normal to inspection Neuro: COMMON NORMALS: patient oriented x3, moves all extremities, no focal motor deficits and no sensory deficits noted SENSORIUM/ORIENTATION: Yes lethargic MENINGEAL SIGNS: Yes no meningeal signs Psych: COMMON NORMALS: cooperative and normal affect APPEARANCE: Yes grossly normal MOOD & AFFECT: Yes euthymic mood THOUGHT CONTENT: Yes Normal thought content present Skin: COMMON NORMALS: no rashes or lesions noted and turgor normal GENERAL SKIN EXAM: no rashes or lesions noted and turgor normal Course ED course: This patient was fairly hypotensive and we had quite a bit of difficulty starting an IV. Once an IV was started and some fluids were given her blood pressure almost immediately normalized. She said she felt better but was still quite washed out looking and weak. She will be admitted to the hospital for further management and evaluation as well as possible adjustment of medications. Vital Signs: Vital signs: Vital Signs Temperature 98.7 F 04/28/20 13:25 Pulse Rate 99 04/28/20 14:10 Respiratory Rate 17 04/28/20 13:25 Blood Pressure 128/72 04/28/20 14:10 Pulse Oximetry 92 04/28/20 14:10 MDM - Weakness Lab Data: Labs: Lab Results 04/27/20 04/27/20 04/27/20 Range/Units 11:30 11:30 11:30 WBC 14.7 H (4.0-10.0) 10^3/ uL RBC 5.23 (4.1-5.3) 10^6/u L Hgb 15.0 (11.5-15.3) g/dL Hct 46.1 (37.0-47.0) % MCV 88.1 (81-99) fL MCH 28.7 (28.0-34.0) pg MCHC 32.5 (30.0-36.0) g/dL RDW 16.7 H (12.1-15.1) % Plt Count 284 (130-400) 10^3/c mm MPV 11.0 H (7.4-10.4) fL Neut % (Auto) 71.6 % Lymph % (Auto) 15.7 % [place] % (Auto) 5.2 % Eos % (Auto) 2.9 % Baso % (Auto) 1.1 % Neut # (Auto) 10.54 H (1.8-7.7) 10^3/u L Lymph # (Auto) 2.3 (0.8-4.8) 10^3/u L [place] # (Auto) 0.8 (0.2-0.9) 10^3/u L Eos # (Auto) 0.4 (0.0-0.8) 10^3/u L Baso # (Auto) 0.2 H (0.0-0.1) 10^3/u L Nucleated RBC % (a uto) 0 % Nucleated RBCs # 0.0 /100WBC PT 12.10 (12.1-14.9) SECO NDS INR 0.87 (0.8-1.2) D-Dimer 1.21 H (0-0.59) ug/mIFE U Sodium (136-145) mmol/L Potassium (3.5-5.1) mmol/L Chloride (98-107) mmol/L Carbon Dioxide (22-29) mmol/L Anion Gap (5-19) BUN (8-23) mg/dL Creatinine (0.5-0.9) mg/dL GFR Calculation (90-130) mL/min Glucose (65-115) mg/dL POC Glucose (70-110) mg/dL Calculated Osmolal ity (285-295) mOsm/k g Lactic Acid (0.5-2.2) mmol/L Calcium (8.5-10.5) mg/dL Magnesium 1.7 (1.7-2.3) mg/dL Total Bilirubin (0.15-1.2) mg/dL AST (0-32) U/L ALT (0-33) U/L Alkaline Phosphata se (35-105) IU/L NT-Pro-B Natriuret Pep 1160 H (0-125) pg/mL Total Protein (6.6-8.7) g/dL Albumin (3.5-5.2) g/dL Globulin (1.3-4.6) g/dL Lipase 14 (13-60) U/L Procalcitonin 0.05 (0-0.5) ng/mL Urine Color (Yellow) Urine Appearance (CLEAR) Urine pH (5-7) Ur Specific Gravit y (1.005-1.030) Urine Protein (Negative) Urine Glucose (UA) (Normal) Urine Ketones (Negative) Urine Blood (Negative) Urine Nitrate (Negative) Urine Bilirubin (Negative) Urine Urobilinogen (Negative) mg/dL Ur Leukocyte Lainey ase (Negative) Blood Type Rho(D) Type Antibody Screen 04/27/20 04/27/20 04/27/20 Range/Units 12:25 12:25 13:59 WBC (4.0-10.0) 10^3/ uL RBC (4.1-5.3) 10^6/u L Hgb (11.5-15.3) g/dL Hct (37.0-47.0) % MCV (81-99) fL MCH (28.0-34.0) pg MCHC (30.0-36.0) g/dL RDW (12.1-15.1) % Plt Count (130-400) 10^3/c mm MPV (7.4-10.4) fL Neut % (Auto) % Lymph % (Auto) % [place] % (Auto) % Eos % (Auto) % Baso % (Auto) % Neut # (Auto) (1.8-7.7) 10^3/u L Lymph # (Auto) (0.8-4.8) 10^3/u L [place] # (Auto) (0.2-0.9) 10^3/u L Eos # (Auto) (0.0-0.8) 10^3/u L Baso # (Auto) (0.0-0.1) 10^3/u L Nucleated RBC % (a uto) % Nucleated RBCs # /100WBC PT (12.1-14.9) SECO NDS INR (0.8-1.2) D-Dimer (0-0.59) ug/mIFE U Sodium (136-145) mmol/L Potassium (3.5-5.1) mmol/L Chloride (98-107) mmol/L Carbon Dioxide (22-29) mmol/L Anion Gap (5-19) BUN (8-23) mg/dL Creatinine (0.5-0.9) mg/dL GFR Calculation (90-130) mL/min Glucose (65-115) mg/dL POC Glucose 130 (70-110) mg/dL Calculated Osmolal ity (285-295) mOsm/k g Lactic Acid 2.0 (0.5-2.2) mmol/L Calcium (8.5-10.5) mg/dL Magnesium (1.7-2.3) mg/dL Total Bilirubin (0.15-1.2) mg/dL AST (0-32) U/L ALT (0-33) U/L Alkaline Phosphata se (35-105) IU/L NT-Pro-B Natriuret Pep (0-125) pg/mL Total Protein (6.6-8.7) g/dL Albumin (3.5-5.2) g/dL Globulin (1.3-4.6) g/dL Lipase (13-60) U/L Procalcitonin (0-0.5) ng/mL Urine Color (Yellow) Urine Appearance (CLEAR) Urine pH (5-7) Ur Specific Gravit y (1.005-1.030) Urine Protein (Negative) Urine Glucose (UA) (Normal) Urine Ketones (Negative) Urine Blood (Negative) Urine Nitrate (Negative) Urine Bilirubin (Negative) Urine Urobilinogen (Negative) mg/dL Ur Leukocyte Lainey ase (Negative) Blood Type A Positive Rho(D) Type Positive Antibody Screen Negative 04/27/20 04/27/20 Range/Units 15:02 15:18 WBC (4.0-10.0) 10^3/ uL RBC (4.1-5.3) 10^6/u L Hgb (11.5-15.3) g/dL Hct (37.0-47.0) % MCV (81-99) fL MCH (28.0-34.0) pg MCHC (30.0-36.0) g/dL RDW (12.1-15.1) % Plt Count (130-400) 10^3/c mm MPV (7.4-10.4) fL Neut % (Auto) % Lymph % (Auto) % [place] % (Auto) % Eos % (Auto) % Baso % (Auto) % Neut # (Auto) (1.8-7.7) 10^3/u L Lymph # (Auto) (0.8-4.8) 10^3/u L [place] # (Auto) (0.2-0.9) 10^3/u L Eos # (Auto) (0.0-0.8) 10^3/u L Baso # (Auto) (0.0-0.1) 10^3/u L Nucleated RBC % (a uto) % Nucleated RBCs # /100WBC PT (12.1-14.9) SECO NDS INR (0.8-1.2) D-Dimer (0-0.59) ug/mIFE U Sodium 133 L (136-145) mmol/L Potassium 5.6 H (3.5-5.1) mmol/L Chloride 99 (98-107) mmol/L Carbon Dioxide 24 (22-29) mmol/L Anion Gap 15.6 (5-19) BUN 29 H (8-23) mg/dL Creatinine 1.4 H (0.5-0.9) mg/dL GFR Calculation 38.2 L (90-130) mL/min Glucose 94 (65-115) mg/dL POC Glucose (70-110) mg/dL Calculated Osmolal ity 273 L (285-295) mOsm/k g Lactic Acid (0.5-2.2) mmol/L Calcium 9.8 (8.5-10.5) mg/dL Magnesium (1.7-2.3) mg/dL Total Bilirubin 0.2 (0.15-1.2) mg/dL AST 18 (0-32) U/L ALT 14 (0-33) U/L Alkaline Phosphata se 96 (35-105) IU/L NT-Pro-B Natriuret Pep (0-125) pg/mL Total Protein 7.4 (6.6-8.7) g/dL Albumin 3.9 (3.5-5.2) g/dL Globulin 3.5 (1.3-4.6) g/dL Lipase (13-60) U/L Procalcitonin (0-0.5) ng/mL Urine Color Straw (Yellow) Urine Appearance Clear (CLEAR) Urine pH 5.0 (5-7) Ur Specific Gravit y 1.010 (1.005-1.030) Urine Protein Neg (Negative) Urine Glucose (UA) Norm (Normal) Urine Ketones Negative (Negative) Urine Blood Neg (Negative) Urine Nitrate Negative (Negative) Urine Bilirubin Neg (Negative) Urine Urobilinogen Norm (Negative) mg/dL Ur Leukocyte Lainey ase Negative (Negative) Blood Type Rho(D) Type Antibody Screen Discharge Plan Discharge Admit Provider: Ke Torres Condition: Stable Discharge Orders: Discharge Order (Routine); Ordered 04/28/20 Ordered By: Jose Francois Discharge Diet: Cardiac and Diabetic Discharge Activity: Resume usual activity Discharge Date/Time: 04/27/20 21:52 Coding Level of Care Code ED [employer] Equipment [employer] for Chg Fwd Exam Comprehensive
--- NOTE | 2020-04-27 20:12 | P.HP_ITS ---
Providers/Chief Complaint Admitting Physician: Rubi Abernathy MD Primary Care Provider: JOSH Montes Chief Complaint: low bp History of Present Illness Tiffany Glaser is a 59 year old female with PMHx noted below presents from [facility] where she presented today for follow-up due to recent AICD implantation on 04/19 secondary to severe cardiomyopathy with ejection fraction of 25%. Patient reports that she has had several episodes of lightheadedness, pre- syncope, fatigue including during her appointment [facility]. She was noted to be hypotensive with blood pressure In the 90s over 50s. She continued to be hypotensive so was referred to the ER for further evaluation. During her recent admission she was treated for UTI with Levaquin and repeat urinalysis here is negative. AICD was interrogated during her visit at [facility] with no noted events. She reports having no episodes of device firing. She has had some minimal tenderness at the site of implantation but otherwise no drainage, redness, rash, fever/chills. She denies any chest discomfort or pain, increased shortness of breath, cough, changes in her urination, changes in her appetite or oral intake. She reports that she is on multiple medications for her diabetes and blood sugar typically runs below 150. She is quite somnolent during my evaluation in the ER, is present at bedside and states that she has not had anything to eat for about 29 hours. Requested Accu-Chek which is 55. Patient has just received a sandwich so we will recheck after she has had something to eat. She has received a liter of normal saline with blood pressure of 115/69 currently. Work-up shows white count of 14.7 with otherwise normal CBC, hyperkalemia with a potassium of 5.6, BUN of 29, creatinine of 1.4, BNP of 1160, chest x-ray which is unremarkable, CTA which is negative for PE, done due to noted d-dimer 1.21, the is some lymphadenopathy noted which appears to be stable though there is question of inability to exclude possible malignancy. She is currently on room air and does not appear to be in any distress. Due to recent implantation of defibrillator will request cardiology evaluation and she will require admission for telemetry monitoring and continued monitoring of her hemodynamic status. Review of Systems Const: Reports: fatigue; Denies: fever(s) or chills Eyes: Denies: change in vision ENMT: Reports: dry mouth Card: Reports: lightheadedness and pre-syncope (multiple episodes); Denies: chest pain or swelling of feet/ankles Resp: Denies: dyspnea, productive cough or non-productive cough GI: Reports: constipation (intermittent); Denies: abdominal pain, nausea, vomiting, hematemesis or hematochezia : Denies: difficulty voiding, dysuria, urinary frequency or hematuria Musc: Denies: back pain Skin/Breast: Denies: rash Neuro: Denies: numbness in extremities or weakness in extremities Psych: Denies: anxiety Medications/Allergies Home Medications Medication Instructions Recorded Confirmed Last Taken Type albuterol sulfate 2.5 mg INHALATION QID PRN 08/30/19 04/27/20 12/26/19 09:00 History aspirin 81 mg tablet,delayed 81 mg PO DAILY 08/30/19 04/27/20 04/26/20 History release multivitamin,kf-nvks-tfnryyph 1 tab PO DAILY 08/30/19 04/27/20 04/26/20 History omega-3 fatty acids 1,000 mg 1,000 mg PO BID 08/30/19 04/27/20 04/27/20 History capsule tumeric 1 tab PO DAILY 09/08/19 04/27/20 04/27/20 History folic acid 1 mg PO DAILY 09/13/19 04/27/20 04/27/20 History budesonide-formoterol [Symbicort] 2 puff INHALATION BID 11/17/19 04/27/20 04/26/20 History tizanidine 4 mg tablet 8 mg PO Q8H PRN #180 tab 01/03/20 04/27/20 04/27/20 Rx nortriptyline 75 mg capsule 75 mg PO BEDTIME #90 cap 01/28/20 04/27/20 04/26/20 Rx clopidogrel 75 mg tablet 75 mg PO DAILY #90 tab 03/21/20 04/27/20 04/27/20 Rx ferrous sulfate 325 mg (65 mg See Rx Instructions .ROUTE 03/21/20 04/27/20 04/26/20 Rx iron) tablet .COMPLEX #15 tab lisinopril 10 mg tablet 10 mg PO DAILY #90 tab 03/23/20 04/27/20 04/27/20 Rx hydrocodone 7.5 mg-acetaminophen 1 tab PO TID PRN 30 Days #90 tab 04/14/20 04/27/20 04/27/20 Rx 325 mg tablet atorvastatin 40 mg tablet 40 mg PO DAILY #90 tab 04/27/20 04/27/20 04/27/20 Rx furosemide 40 mg tablet 20 mg PO DAILY #90 tab 04/27/20 04/27/20 04/27/20 Rx gabapentin 300 mg PO TID 04/27/20 04/27/20 04/27/20 History glipizide 5 mg PO DAILY 04/27/20 04/27/20 04/27/20 History insulin degludec 100 unit/mL (3 See Rx Instructions .ROUTE 04/27/20 04/27/20 04/26/20 Rx mL) subcutaneous pen .COMPLEX #3 ml levothyroxine 150 mcg PO DAILY 04/27/20 04/27/20 04/27/20 History metformin 500 mg PO BID 04/27/20 04/27/20 04/27/20 History montelukast 10 mg PO DAILY 04/27/20 04/27/20 04/27/20 History omeprazole 20 mg PO DAILY 04/27/20 04/27/20 04/27/20 History potassium chloride 20 meq PO Q2D 04/27/20 04/27/20 04/26/20 History semaglutide 0.5 mg SUBCUT .once a week 90 Days 04/27/20 04/27/20 04/19/20 Rx #1.5 ml spironolactone 25 mg PO DAILY 04/27/20 04/27/20 04/27/20 History venlafaxine 150 mg PO DAILY 04/27/20 04/27/20 04/27/20 History Allergies Allergy/AdvReac Type Severity Reaction Status Date / Time No Known Allergies Allergy Verified 04/27/20 14:48 PFSH Acute PFSH: Medical History (Updated 04/27/20 @ 21:08 by Rubi Abernathy MD) Breast cancer CHF (congestive heart failure) Chronic bilateral low back pain COPD (chronic obstructive pulmonary disease) Cough Dysphonia Fibromyalgia History of CVA (cerebrovascular accident) History of [place] (myocardial infarction) Hypertension Hypotension Hypothyroidism (acquired) Long-term use of high-risk medication Neck pain Other spondylosis, lumbosacral region Pneumonia Recurrent falls Spondylosis without myelopathy or radiculopathy, cervical region Type 2 diabetes mellitus Surgical History (Updated 04/27/20 @ 20:59 by Rubi Abernathy MD) H/O mastectomy S/P cholecystectomy S/P hernia surgery S/P hysterectomy S/P knee surgery Bilateral Status post internal cardiac defibrillator procedure -done on 04/19/[address] Arguello Family History Other Diabetes Heart disease Denies family history of Anesthesia complication Bleeding disorder Social History Smoking and tobacco status: current every day smoker cigarettes Packs smoked per day: 0.5 Years cigarettes smoked: 30 Alcohol intake: never Household members: spouse Housing: House Vitals/I&O/Wt Last Vital Signs Pulse 78 04/27/20 19:30 Resp 13 04/27/20 19:30 BP 115/69 04/27/20 19:30 Pulse Ox 94 04/27/20 19:30 Weight last 48 hrs Weight 80.739 kg Physical Exam Const: COMMON NORMALS: no acute distress and patient oriented x3 GENERAL APPEARANCE: cooperative and comfortable NUTRITIONAL APPEARANCE: overweight OTHER: -somnolent and appears fatigued HENMT: COMMON NORMALS: normocephalic, atraumatic, hearing grossly normal bilaterally and moist oral mucous membranes HEAD & SCALP: normocephalic and atraumatic Eye: COMMON NORMALS: Equal, round and reactive pupils present, EOMs intact bilaterally and conjunctivae normal CONJUNCTIVA: Yes conjunctivae normal PUPIL: Yes Equal, round and reactive pupils present Neck/C-Spine: COMMON NORMALS: full ROM GENERAL: Yes normal visual inspection and Yes trachea midline Chest: OTHER: -Site of defibrillator (L chest wall) with noted well approximated and closed incision, no noted erythema, minimal tenderness to palpation Resp: COMMON NORMALS: normal respiratory effort, No retractions, No use of accessory muscles and clear to auscultation bilaterally EFFORT & INSPECTION: Yes able to speak in complete sentences, Yes symmetric chest movement and No tachypneic AUSCULTATION: clear to auscultation bilaterally OTHER: -on RA Cardio: COMMON NORMALS: regular rate, regular rhythm, S1 normal heart sound present, S2 normal heart sound present and No murmurs present (Cardio) RATE: regular rate RHYTHM: regular rhythm HEART SOUNDS: S1 normal heart sound present and S2 normal heart sound present GI: COMMON NORMALS: Normal to inspection, nondistended, normoactive bowel sounds present, Soft to palpation and non-tender INSPECTION: Yes central obesity PALPATION: Yes Soft to palpation Extremity: COMMON NORMALS: normal to inspection, full ROM and no clubbing, cyanosis or edema; negative for no pedal edema Neuro: COMMON NORMALS: patient oriented x3, moves all extremities, no focal motor deficits and no sensory deficits noted SENSORIUM/ORIENTATION: Yes so mnolent Psych: COMMON NORMALS: mental status grossly normal, Normal thought process present, cooperative, normal affect and speech normal SPEECH: Yes normal speech THOUGHT PROCESS: Normal thought process present Skin: COMMON NORMALS: no rashes or lesions noted, no jaundice, no petechiae and no mottling GENERAL SKIN EXAM: no rashes or lesions noted Data : 04/27/20 11:30 04/27/20 15:18 A&P Assessment and plan (1) Pre-syncope: -Noted multiple events of pre-syncope even prior to placement of AICD -Device interrogated at [facility] earlier today, no events noted -Noted to be hypotensive, fluid responsive with improvement in blood pressure following 1 L normal saline bolus. We will continue very cautious hydration with close monitoring of vital signs -Telemetry monitoring -Fall precautions -Check orthostatics -Hold oral antihypertensives -Noted to be hypoglycemic with blood sugar of 55 which is likely contributing to her symptoms. Accu-Cheks, hypoglycemia precautions -Echo (02/2020): EF=25%, G3DD, moderate LA enlargement -cardiology evaluation requested given recent AICD implantation -noted leukocytosis with WBC-14.7, no clear infectious source given unremarkable CXR, UA negative, afebrile. Was treated for UTI during last admission, urine culture grew E.coli. Follow up blood cx -check baseline troponin, ECG Status: Acute (2) Status post internal cardiac defibrillator procedure: -Device interrogated at [facility] earlier today, no events noted Status: Chronic (3) Hypotension: -BP improved with IVF -close monitoring of vital signs -cautious IVF hydration due to underlying cardiomyopathy Status: Acute Qualifiers: Hypotension type: unspecified hypotension type Qualified Code(s): I95.9 - Hypotension, unspecified (4) Hypothyroidism (acquired): -TSH-8.22 -resume levothyroxine Status: Chronic (5) Type 2 diabetes mellitus: -A1c-8.9 -due to noted hypoglycemia, hold oral hypoglycemic agents and scheduled insulin -accucheks, hypoglycemia precautions, ISS -consistent carb diet as tolerated -reports BG at home runs < 150 and is on multiple meds including insulin Status: Chronic Qualifiers: 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 Diabetes mellitus complication status: with kidney complications Diabetes mellitus complication detail: with chronic kidney disease Chronic kidney disease stage: stage 3 (moderate) Qualified Code(s): E11.22 - Type 2 diabetes mellitus with diabetic chronic kidney disease; N18.3 - Chronic kidney disease, stage 3 ( moderate); Z79.4 - correction (current) use of insulin (6) COPD (chronic obstructive pulmonary disease): -on oxygen qhs -no acute exacerbation currently -continue to monitor respiratory status -supplemental oxygen as needed -CXR unremarkable -CTA negative for PE, noted stable enlarged mediastinal and hilar lymph nodes; will need f/u due to noted inability to exclude neoplastic process Status: Chronic Qualifiers: COPD type: unspecified COPD Qualified Code(s): J44.9 - Chronic obstructive pulmonary disease, unspecified (7) Congestive heart failure: -severe cardiomyopathy, EF=25%, recent AICD implantation -no acute exacerbation, monitor for this due to need for gentle IVF hydration Status: Chronic Qualifiers: Heart failure chronicity: acute Heart failure type: systolic Qualified Code(s): I50.21 - Acute systolic (congestive) heart failure (8) Hypertension: -hold oral antihypertensives due to noted hypotension -monitor vital signs Status: Chronic Qualifiers: Hypertension type: essential hypertension Qualified Code(s): I10 - Essential (primary) hypertension Additional A&P Information -YOJANA on CKD stage 3; baseline Cr less than 1; gentle IVF hydration, repeat labs in AM -Obesity: BMI-31 kg/m2 -Constipation; bowel regimen -Chronic pain, on chronic narcotics -GERD; resume PPI -Hyperkalemia; is on KCl supplementation, hold for now, repeat labs in AM -GI ppx with PPI -low risk for DVT -Dispo: home -Code status: FULL code Attestations Medical Necessity Statement*: Tiffany Glaser's hospital stay will be less than 2 midnights for telemetry monitoring, hemodynamic status monitoring given presyncope, IV fluid hydration given acute kidney injury, monitoring of blood sugar given hypoglycemia. Time Spent in Patient Care: Greater than 35 minutes (>than 50% of time spent in counselling and/or direct pt care on unit) . 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
[2020-04-27 20:35] LABS: Glucose Point of Care 55 mg/dL (70-110)
--- NOTE | 2020-04-27 21:03 | ECG_ITS ---
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 Measurements Intervals [place] Rate: 80 P: 57 DC: 247 QRS: -33 QRSD: 131 T: 59 QT: 411 QTc: 476 Interpretive Statements SINUS RHYTHM WITH FIRST DEGREE AV BLOCK POSSIBLE LEFT ATRIAL ENLARGEMENT [-0.1mV P WAVE IN V1/V2] LEFT AXIS DEVIATION [QRS AXIS < -30] INTRAVENTRICULAR CONDUCTION DELAY [130+ ms QRS DURATION] POSSIBLE LEFT VENTRICULAR HYPERTROPHY [VOLTAGE CRITERIA PLUS LAE OR QRS WIDENING] POSSIBLE ANTERIOR MYOCARDIAL INFARCTION , PROBABLY OLD [30 ms Q WAVE IN V3/V4, OR R < 0.2 mV IN V4] Compared to ECG 12/27/2019 16:53:07 Intraventricular conduction delay now present Myocardial infarct finding still present Electronically Signed On 04-28-2020 15:20:32 CDT by Ke Torres M.D. [email or web address] hospitalNeuraltus Pharmaceuticalsohio[facility].[employer]/store/[id number]
[2020-04-27 21:31] LABS: Glucose Point of Care 38 mg/dL (70-110)
[2020-04-27] MEDS: dextrose 50% syringe 50 mL 25 ML IVP (21:50)
[2020-04-27 22:12] LABS: Glucose Point of Care 47 mg/dL (70-110)
--- NOTE | 2020-04-27 22:19 | PC.NURSE ---
Patient arrived to the floor from the ED after report was received via phone. Patient is awake, alert and oriented and ambulatory. Patient's blood sugar upon arrival to room is 47. Patient was provided orange juice. Will recheck. Patient has been oriented to her room and has call light within reach. Will monitor.
[2020-04-27] MEDS: sodium chloride 0.9% 1,000 ML 50 ML IV (22:41)
[2020-04-27] MEDS: gabapentin 300 mg Capsule PO (22:41)
[2020-04-27 22:54] LABS: Troponin T (5th) Once 15 ng/L (0-10)
--- NOTE | 2020-04-28 00:01 | PC.NURSE ---
Dr. Abernathy notified me that she changed NS to dextrose fluids due to patient having low blood sugars earlier. Doctor notified that at this time patient's blood sugar is 260. Ordered to continue NS. Will monitor.
[2020-04-28 00:02] LABS: Glucose Point of Care 260 mg/dL (70-110)
--- NOTE | 2020-04-28 01:49 | PC.NURSE ---
Patient is currently resting with eyes closed. Will monitor.
--- NOTE | 2020-04-28 03:45 | PC.NURSE ---
NS currently running at 75 ml/hr per order.
[2020-04-28 04:00] VITALS: BP 105/74; PULSE 94; RESP 17; TEMP 36.8; O2SAT 97
[2020-04-28 05:47] LABS: Basophils # 0.1 10^3/uL (0.0-0.1); Basophils % 0.7 %; Eosinophils # 0.2 10^3/uL (0.0-0.8); Hematocrit 38.6 % (37.0-47.0); Hemoglobin 12.5 g/dL (11.5-15.3); Lymphocytes # 2.5 10^3/uL (0.8-4.8); Lymphocytes % 20.1 %; Mean Corpuscular HGB Conc 32.4 g/dL (30.0-36.0); Mean Corpuscular Hemoglobin 28.1 pg (28.0-34.0); Mean Corpuscular Volume 86.7 fL (81-99); Mean Platelet Volume 10.3 fL (7.4-10.4); Monocytes # 0.9 10^3/uL (0.2-0.9); Monocytes % 7.1 %; Neutrophils # 8.27 10^3/uL (1.8-7.7); Neutrophils % 67.8 %; Nucleated Red Blood Cells % 0 %; Platelet Count 213 10^3/cmm (130-400); Red Blood Count 4.45 10^6/uL (4.1-5.3); Red Cell Distribution Width 16.4 % (12.1-15.1); White Blood Count 12.2 10^3/uL (4.0-10.0)
[2020-04-28 06:08] LABS: Anion Gap 14.3 (5-19); Blood Urea Nitrogen 27 mg/dL (8-23); Calcium 9.4 mg/dL (8.5-10.5); Carbon Dioxide 23 mmol/L (22-29); Chloride 99 mmol/L (98-107); Glomerular Filtration Rate 50.5 mL/min (90-130); Glucose 113 mg/dL (65-115); Osmolality Calculated 272 mOsm/kg (285-295); Potassium 4.3 mmol/L (3.5-5.1); Sodium 132 mmol/L (136-145)
[2020-04-28 06:33] LABS: Glucose Point of Care 99 mg/dL (70-110)
--- NOTE | 2020-04-28 06:33 | PC.NURSE ---
Dr. Abernathy notified of blood glucose of 99 at this time.
[2020-04-28 08:00] VITALS: BP 138/92; PULSE 99; RESP 18; TEMP 35.6; O2SAT 94
[2020-04-28] MEDS: omega-3 fatty acids 1,000 mg Capsule 1000 MG PO (09:04)
[2020-04-28] MEDS: venlafaxine ER (24HR) 150 mg Capsule PO (09:04)
[2020-04-28] MEDS: sennosides-docusate Tablet 2 TAB PO (09:04)
[2020-04-28] MEDS: levothyroxine 150 mcg Tablet PO (09:04)
[2020-04-28] MEDS: clopidogrel 75 mg Tablet PO (09:05)
[2020-04-28] MEDS: gabapentin 300 mg Capsule PO (09:05)
[2020-04-28] MEDS: pantoprazole DR 40 mg Tablet PO (09:05)
[2020-04-28] MEDS: folic acid 1 mg Tablet PO (09:05)
[2020-04-28] MEDS: atorvastatin 40 mg Tablet PO (09:05)
[2020-04-28] MEDS: FUROsemide 20 mg Tablet PO (09:05)
--- NOTE | 2020-04-28 09:05 | PM.CONSULT ---
Providers/Reason For Consult Consulting Physican/Specialty*: Ke Torres MD/ Cardiology Reason for Consult*: Hypotension Attending Physician: Jose Francois MD Primary Care Provider: JOSH Montes History of Present Illness History of Present Illness Tiffany Glaser is a 59 year old female with PMH of HFrEF,DM,HTN, smoking, recent ICD placement was admitted after being seen in cardiology clinic. Patient complained of lightheadedness, presyncope and fatigu and was found to be hypotensive. In the ER she received IV fluids and BP improved. Her creatinine was also elevated at 1.4 on presentation that decreased to 1.1 today. Patient is on Lasix at home and her fluid intake has been low for the last few days. Patient denies any complaints of chest pain, shortness of breath or palpitations. Her blood pressure on presentation was in 90s/50s. Review of Systems General: Reports: 10 or more systems reviewed and unremarkable except in HPI and below Meds/Allergies Home Medications and Allergies Home Medications Medication Instructions Recorded Confirmed Last Taken Type albuterol sulfate 2.5 mg INHALATION QID PRN 08/30/19 04/27/20 12/26/19 09:00 History aspirin 81 mg tablet,delayed 81 mg PO DAILY 08/30/19 04/27/20 04/26/20 History release multivitamin,zd-jtmm-[id number] 1 tab PO DAILY 08/30/19 04/27/20 04/26/20 History omega-3 fatty acids 1,000 mg 1,000 mg PO BID 08/30/19 04/27/20 04/27/20 History capsule tumeric 1 tab PO DAILY 09/08/19 04/27/20 04/27/20 History folic acid 1 mg PO DAILY 09/13/19 04/27/20 04/27/20 History budesonide-formoterol [Symbicort] 2 puff INHALATION BID 11/17/19 04/27/20 04/26/20 History tizanidine 4 mg tablet 8 mg PO Q8H PRN #180 tab 01/03/20 04/27/20 04/27/20 Rx nortriptyline 75 mg capsule 75 mg PO BEDTIME #90 cap 01/28/20 04/27/20 04/26/20 Rx clopidogrel 75 mg tablet 75 mg PO DAILY #90 tab 03/21/20 04/27/20 04/27/20 Rx ferrous sulfate 325 mg (65 mg See Rx Instructions .ROUTE 03/21/20 04/27/20 04/26/20 Rx iron) tablet .COMPLEX #15 tab lisinopril 10 mg tablet 10 mg PO DAILY #90 tab 03/23/20 04/27/20 04/27/20 Rx hydrocodone 7.5 mg-acetaminophen 1 tab PO TID PRN 30 Days #90 tab 04/14/20 04/27/20 04/27/20 Rx 325 mg tablet atorvastatin 40 mg tablet 40 mg PO DAILY #90 tab 04/27/20 04/27/20 04/27/20 Rx furosemide 40 mg tablet 20 mg PO DAILY #90 tab 04/27/20 04/27/20 04/27/20 Rx gabapentin 300 mg PO TID 04/27/20 04/27/20 04/27/20 History glipizide 5 mg PO DAILY 04/27/20 04/27/20 04/27/20 History insulin degludec 100 unit/mL (3 See Rx Instructions .ROUTE 04/27/20 04/27/20 04/26/20 Rx mL) subcutaneous pen .COMPLEX #3 ml levothyroxine 150 mcg PO DAILY 04/27/20 04/27/20 04/27/20 History metformin 500 mg PO BID 04/27/20 04/27/20 04/27/20 History montelukast 10 mg PO DAILY 04/27/20 04/27/20 04/27/20 History omeprazole 20 mg PO DAILY 04/27/20 04/27/20 04/27/20 History potassium chloride 20 meq PO Q2D 04/27/20 04/27/20 04/26/20 History semaglutide 0.5 mg SUBCUT .once a week 90 Days 04/27/20 04/27/20 04/19/20 Rx #1.5 ml spironolactone 25 mg PO DAILY 04/27/20 04/27/20 04/27/20 History venlafaxine 150 mg PO DAILY 04/27/20 04/27/20 04/27/20 History Allergies Allergy/AdvReac Type Severity Reaction Status Date / Time No Known Allergies Allergy Verified 04/27/20 22:03 Current Medications Current Medications Generic Name Dose Route Start Last Admin Trade Name Freq PRN Reason Stop Dose Admin Gabapentin 300 mg 04/27/20 21:58 04/27/20 22:41 Neurontin PO 300 mg TID DAKOTA Administration Insulin Aspart 0 unit 04/27/20 21:58 04/28/20 08:34 Novolog SUBCUT Not Given WM&BEDTIME DAKOTA Protocol PFSH Acute PFSH: Medical History Breast cancer CHF (congestive heart failure) Chronic bilateral low back pain COPD (chronic obstructive pulmonary disease) Cough Dysphonia Fibromyalgia History of CVA (cerebrovascular accident) History of [place] (myocardial infarction) Hypertension Hypotension Hypothyroidism (acquired) Long-term use of high-risk medication Neck pain Other spondylosis, lumbosacral region Pneumonia Recurrent falls Spondylosis without myelopathy or radiculopathy, cervical region Type 2 diabetes mellitus Surgical History H/O mastectomy S/P cholecystectomy S/P hernia surgery S/P hysterectomy S/P knee surgery Bilateral Status post internal cardiac defibrillator procedure -done on 04/19/[address] Arguello Family History Other Diabetes Heart disease Denies family history of Anesthesia complication Bleeding disorder Social History Smoking and tobacco status: current every day smoker cigarettes Packs smoked per day: 0.5 Years cigarettes smoked: 30 Alcohol intake: never Household members: spouse Housing: House Vitals/I&O/Wt Last Vital Signs Temp 96.1 F L 04/28/20 08:00 Pulse 99 04/28/20 08:00 Resp 18 04/28/20 08:00 BP 138/92 04/28/20 08:00 Pulse Ox 94 04/28/20 08:00 04/27/20 04/28/20 04/28/20 22:59 06:59 14:59 Intake Total 656.667 / 656.667 340 / 340 Balance 656.667 / 656.667 340 / 340 Weight last 48 hrs Weight 186 lb 9.6 oz Weight 178 lb Physical Exam Const: COMMON NORMALS: patient oriented x3 HENMT: COMMON NORMALS: normocephalic, atraumatic, hearing grossly normal bilaterally and external ears normal HEAD & SCALP: normocephalic and atraumatic EXTERNAL EAR: Yes external ears normal Eye: COMMON NORMALS: no scleral icterus GENERAL EYE: appearance normal, both eyes and all related structures Chest: COMMONS NORMALS: normal inspection of the chest and normal palpation of entire chest wall CHEST: Yes Symmetrical chest wall rise Resp: COMMON NORMALS: normal respiratory effort, No retractions, No use of accessory muscles and clear to auscultation bilaterally EFFORT & INSPECTION: Yes symmetric chest movement AUSCULTATION: clear to auscultation bilaterally Cardio: COMMON NORMALS: regular rate, regular rhythm, S1 normal heart sound present, S2 normal heart sound present, No gallops present (Cardio), No murmurs present (Cardio), No rub (Cardio) and Peripheral pulses 2+ throughout RATE: regular rate RHYTHM: regular rhythm HEART SOUNDS: S1 normal heart sound present and S2 normal heart sound present PERIPHERAL PULSES: Peripheral pulses 2+ throughout GI: COMMON NORMALS: Normal to inspection, nondistended, normoactive bowel sounds present, Soft to palpation, non-tender, No hepatosplenomegaly present and no masses AUSCULTATION: Yes normoactive bowel sounds PALPATION: Yes Soft to palpation and Yes No hepatosplenomegaly present RECTAL EXAM: deferred : COMMON NORMALS: Yes no CVA tenderness BLADDER/KIDNEY EXAM: Yes no CVA tenderness Back/Pelvis: COMMON NORMALS: no CVA tenderness Extremity: COMMON NORMALS: no clubbing, cyanosis or edema and no pedal edema Neuro: COMMON NORMALS: patient oriented x3 A&P Assessment and plan (1) Hypotension: Status: Acute Qualifiers: Hypotension type: unspecified hypotension type Qualified Code(s): I95.9 - Hypotension, unspecified (2) CHF (congestive heart failure): Status: Acute (3) Pre-syncope: Status: Resolved Patient presented with hypotension, presyncopal symptoms with elevated creatinine. It is likely secondary to dehydration as IV fluids improved patient's symptoms, blood pressure and creatinine. I have discussed with patient, need to weigh herself daily and keep herself hydrated. Continue current medications with holding parameters if systolic BP is less than 100mmHg.Patient verbalized understanding. She is stable to be discharged from cardiology standpoint. Follow up with cardiology clinic. Thank you for involving us with the care of this patient. 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
[2020-04-28] MEDS: aspirin 81 mg EC Tablet PO (09:06)
[2020-04-28] MEDS: montelukast sodium 10 mg Tablet PO (09:07)
[2020-04-28] MEDS: ferrous sulfate EC 325 mg Tablet PO (09:07)
[2020-04-28] MEDS: pneumococcal (23 valent) SDV 0.5 mL IM (11:06)
--- NOTE | 2020-04-28 11:41 | PC.CHAP ---
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 Relational/Emotional Strength [] Patient feels connected with others/family/visitors/staff [] Distress [] Loneliness/isolation [] Abandonment Spirituality of Patient [] Person of Doris [] Attends Baptism of their Doris [] Believes in Prayer [] Reads Bible or Temple materials [] There are Spiritual issues to be addressed Laundry Routeman Interventions [] Prayer [] Active listening [] Non-anxious presence [] Spiritual/emotional support [] Crisis/trauma care [] Spiritual counseling [] Bereavement support [] Provided bereavement packet [] Provided Bible/devotional materials [] Provided toy/stuffed animal, coloring book to patient or family member [] Provided Communion [] Anointing/[place] [] Salvation [] Completed spiritual assessment [] Other: Impact on Illness or Injury [] Angry [] Fearful [] Anxious [] Often cries [] Exhaustion [] Unable to work [] Unable to attend islam [] Unable to walk/stand [] Unable to read [] Unable to drive [] Unable to eat/drink [] Unable to sleep [] Unable to be with family [] Patient intubated [] Other: Summary Staff was present assessing need for care elsewhere. Possible discharge soon to other care or facility. Time spent with patient 2 minutes Laundry Routeman Anne Marie Dickens
[2020-04-28 11:43] LABS: Glucose Point of Care 242 mg/dL (70-110)
[2020-04-28 12:00] VITALS: BP 155/94; PULSE 101; RESP 17; O2SAT 92
--- NOTE | 2020-04-28 13:10 | P.DS_ITS ---
Discharge Providers Date of Admission: 04/27/20 20:11 Date of Discharge: April 28, 2020 Attending Provider at Admission: Ke Torres M.D Attending Provider at Discharge: Jose Francois MD Primary Care Provider: JOSH Montes Diagnoses at Discharge Discharge Diagnosis (1) Pre-syncope: Status: Resolved (2) Status post internal cardiac defibrillator procedure: Status: Chronic Problem details: -done on 04/19/[address] Arguello (3) Hypotension: Status: Acute Qualifiers: Hypotension type: unspecified hypotension type Qualified Code(s): I95.9 - Hypotension, unspecified (4) Hypothyroidism (acquired): Status: Chronic (5) Type 2 diabetes mellitus: Status: Chronic Qualifiers: Chronic kidney disease stage: stage 3 (moderate) Diabetes mellitus complication detail: with chronic kidney disease Diabetes mellitus complication status: with kidney complications Diabetes mellitus chcf insulin use: with chcf use Qualified Code(s): E11.22 - Type 2 diabetes mellitus with diabetic chronic kidney disease; N18.3 - Chronic kidney disease, stage 3 (moderate); 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 (6) COPD (chronic obstructive pulmonary disease): Status: Chronic Qualifiers: COPD type: unspecified COPD Qualified Code(s): J44.9 - Chronic obstructive pulmonary disease, unspecified (7) Congestive heart failure: Status: Chronic Problem details: -severe cardiomyopathy, EF=25% Qualifiers: Heart failure chronicity: acute Heart failure type: systolic Qualified Code(s): I50.21 - Acute systolic (congestive) heart failure (8) Hypertension: Status: Chronic Qualifiers: Hypertension type: essential hypertension Qualified Code(s): I10 - Essential (primary) hypertension Reason for Visit Reason for Visit: low bp Hospital Course Hospital Course: Tiffany Glaser is a 59 year old female with PMHx of DM , HTN, hypothyroidism, COPD, status post ICD for cardiomyopathy Came in with chief complaint of lightheadedness and dizziness, at [facility] where she presented today for follow-up due to recent AICD implantation on 04/19 secondary to severe cardiomyopathy with ejection fraction of 25%. Patient reports that she has had several episodes of lighth eadedness, pre-syncope, fatigue including during her appointment [facility]. She was noted to be hypotensive with blood pressure In the 90s over 50s. She continued to be hypotensive so was referred to the ER for further evaluation. AICD was interrogated during her visit at [facility] with no noted events. She reports that she is on multiple medications for her diabetes and blood sugar typically runs below 150. Accu-Chek in ER showed blood glucose of 55 likely contributing to her presyncope. She received dextrose for. During this hospital stay she was adequately hydrated. Cardiology is on board. According to cardiology no acute intervention is needed at this time. She has been asked to stop 1 of her oral anti-diabetic medication (glipizide) so we will continue with insulin and metformin. She has also asked to follow with endocrine as an outpatient. She is being discharged home and comfortably condition. She will also follow cardiology as outpatient. Physical Exam Const: COMMON NORMALS: patient oriented x3 HENMT: COMMON NORMALS: normocephalic, atraumatic, hearing grossly normal bilaterally and external ears normal HEAD & SCALP: normocephalic and atraumatic EXTERNAL EAR: Yes external ears normal Eye: COMMON NORMALS: no scleral icterus GENERAL EYE: appearance normal, both eyes and all related structures Chest: COMMONS NORMALS: normal inspection of the chest and normal palpation of entire chest wall CHEST: Yes Symmetrical chest wall rise Resp: COMMON NORMALS: normal respiratory effort, No retractions, No use of accessory muscles and clear to auscultation bilaterally EFFORT & INSPECTION: Yes symmetric chest movement AUSCULTATION: clear to auscultation bilaterally Cardio: COMMON NORMALS: regular rate, regular rhythm, S1 normal heart sound present, S2 normal heart sound present, No gallops present (Cardio), No murmurs present (Cardio), No rub (Cardio) and Peripheral pulses 2+ throughout RATE: regular rate RHYTHM: regular rhythm HEART SOUNDS: S1 normal heart sound present and S2 normal heart sound present PERIPHERAL PULSES: Peripheral pulses 2+ throughout GI: COMMON NORMALS: Normal to inspection, nondistended, normoactive bowel sounds present, Soft to palpation, non-tender, No hepatosplenomegaly present and no masses AUSCULTATION: Yes normoactive bowel sounds PALPATION: Yes Soft to palpation and Yes No hepatosplenomegaly present RECTAL EXAM: deferred : COMMON NORMALS: Yes no CVA tenderness BLADDER/KIDNEY EXAM: Yes no CVA tenderness Back/Pelvis: COMMON NORMALS: no CVA tenderness Extremity: COMMON NORMALS: no clubbing, cyanosis or edema and no pedal edema Neuro: COMMON NORMALS: patient oriented x3 Discharge Data Data Completed and Pending: Completed Studies During Hospitalization Category Date Time Status CT angio chest PE protcl [id number] Urge nt Cat Scan 04/27/20 16:27 Completed XR chest 1V chacha ble [id number] Stat Exams 04/27/20 12:06 Completed Labs from last 24 hours 04/28/20 04/28/20 04/28/20 11:39 06:30 05:33 WBC RBC Hgb Hct MCV MCH MCHC RDW Plt Count MPV Neut % (Auto) Lymph % (Auto) Mcintosh % (Auto) Eos % (Auto) Baso % (Auto) Neut # (Auto) Lymph # (Auto) Mcintosh # (Auto) Eos # (Auto) Baso # (Auto) Nucleated RBC % (a uto) Nucleated RBCs # Sodium 132 L Potassium 4.3 Chloride 99 Carbon Dioxide 23 Anion Gap 14.3 BUN 27 H Creatinine 1.1 H GFR Calculation 50.5 L Glucose 113 POC Glucose 242 99 Calculated Osmolal ity 272 L Calcium 9.4 Magnesium Total Bilirubin AST ALT Alkaline Phosphata se Troponin T Gen 5 n g/L NT-Pro-B Natriuret Pep Total Protein Albumin Globulin Lipase Procalcitonin Urine Color Urine Appearance Urine pH Ur Specific Gravit y Urine Protein Urine Glucose (UA) Urine Ketones Urine Blood Urine Nitrate Urine Bilirubin Urine Urobilinogen Ur Leukocyte Aliney ase Blood Type Rho(D) Type Antibody Screen 04/28/20 04/27/20 04/27/20 05:33 23:59 22:22 WBC 12.2 H RBC 4.45 Hgb 12.5 Hct 38.6 MCV 86.7 MCH 28.1 MCHC 32.4 RDW 16.4 H Plt Count 213 MPV 10.3 Neut % (Auto) 67.8 Lymph % (Auto) 20.1 Mcintosh % (Auto) 7.1 Eos % (Auto) 2.0 Baso % (Auto) 0.7 Neut # (Auto) 8.27 H Lymph # (Auto) 2.5 Mcintosh # (Auto) 0.9 Eos # (Auto) 0.2 Baso # (Auto) 0.1 Nucleated RBC % (a uto) 0 Nucleated RBCs # 0.0 Sodium Potassium Chloride Carbon Dioxide Anion Gap BUN Creatinine GFR Calculation Glucose POC Glucose 260 Calculated Osmolal ity Calcium Magnesium Total Bilirubin AST ALT Alkaline Phosphata se Troponin T Gen 5 n g/L 15 H NT-Pro-B Natriuret Pep Total Protein Albumin Globulin Lipase Procalcitonin Urine Color Urine Appearance Urine pH Ur Specific Gravit y Urine Protein Urine Glucose (UA) Urine Ketones Urine Blood Urine Nitrate Urine Bilirubin Urine Urobilinogen Ur Leukocyte Lainey ase Blood Type Rho(D) Type Antibody Screen 04/27/20 04/27/20 04/27/20 22:06 21:28 20:33 WBC RBC Hgb Hct MCV MCH MCHC RDW Plt Count MPV Neut % (Auto) Lymph % (Auto) Mcintosh % (Auto) Eos % (Auto) Baso % (Auto) Neut # (Auto) Lymph # (Auto) Mcintosh # (Auto) Eos # (Auto) Baso # (Auto) Nucleated RBC % (a uto) Nucleated RBCs # Sodium Potassium Chloride Carbon Dioxide Anion Gap BUN Creatinine GFR Calculation Glucose POC Glucose 47 38 55 Calculated Osmolal ity Calcium Magnesium Total Bilirubin AST ALT Alkaline Phosphata se Troponin T Gen 5 n g/L NT-Pro-B Natriuret Pep Total Protein Albumin Globulin Lipase Procalcitonin Urine Color Urine Appearance Urine pH Ur Specific Gravit y Urine Protein Urine Glucose (UA) Urine Ketones Urine Blood Urine Nitrate Urine Bilirubin Urine Urobilinogen Ur Leukocyte Lainey ase Blood Type Rho(D) Type Antibody Screen 04/27/20 04/27/20 04/27/20 15:18 15:02 13:59 WBC RBC Hgb Hct MCV MCH MCHC RDW Plt Count MPV Neut % (Auto) Lymph % (Auto) Mcintosh % (Auto) Eos % (Auto) Baso % (Auto) Neut # (Auto) Lymph # (Auto) Mcintosh # (Auto) Eos # (Auto) Baso # (Auto) Nucleated RBC % (a uto) Nucleated RBCs # Sodium 133 L Potassium 5.6 H Chloride 99 Carbon Dioxide 24 Anion Gap 15.6 BUN 29 H Creatinine 1.4 H GFR Calculation 38.2 L Glucose 94 POC Glucose 130 Calculated Osmolal ity 273 L Calcium 9.8 Magnesium Total Bilirubin 0.2 AST 18 ALT 14 Alkaline Phosphata se 96 Troponin T Gen 5 n g/L NT-Pro-B Natriuret Pep Total Protein 7.4 Albumin 3.9 Globulin 3.5 Lipase Procalcitonin Urine Color Straw Urine Appearance Clear Urine pH 5.0 Ur Specific Gravit y 1.010 Urine Protein Neg Urine Glucose (UA) Norm Urine Ketones Negative Urine Blood Neg Urine Nitrate Negative Urine Bilirubin Neg Urine Urobilinogen Norm Ur Leukocyte Lainey ase Negative Blood Type Rho(D) Type Antibody Screen 04/27/20 04/27/20 12:25 11:30 WBC RBC Hgb Hct MCV MCH MCHC RDW Plt Count MPV Neut % (Auto) Lymph % (Auto) Mcintosh % (Auto) Eos % (Auto) Baso % (Auto) Neut # (Auto) Lymph # (Auto) Mcintosh # (Auto) Eos # (Auto) Baso # (Auto) Nucleated RBC % (a uto) Nucleated RBCs # Sodium Potassium Chloride Carbon Dioxide Anion Gap BUN Creatinine GFR Calculation Glucose POC Glucose Calculated Osmolal ity Calcium Magnesium 1.7 Total Bilirubin AST ALT Alkaline Phosphata se Troponin T Gen 5 n g/L NT-Pro-B Natriuret Pep 1160 H Total Protein Albumin Globulin Lipase 14 Procalcitonin 0.05 Urine Color Urine Appearance Urine pH Ur Specific Gravit y Urine Protein Urine Glucose (UA) Urine Ketones Urine Blood Urine Nitrate Urine Bilirubin Urine Urobilinogen Ur Leukocyte Lainey ase Blood Type A Positive Rho(D) Type Positive Antibody Screen Negative Vitals: Last Vital Signs Temp 96.1 F L 04/28/20 08:00 Pulse 101 H 04/28/20 12:00 Resp 17 04/28/20 12:00 BP 155/94 04/28/20 12:00 Pulse Ox 92 04/28/20 12:00 Discharge Plan Discharge Patient Disposition: Home Condition: Stable Prescriptions: Continued hydrocodone-acetaminophen 7.5-325 mg tablet 1 tab PO TID PRN (Reason: pain) 30 Days Qty: 90 RF: 0 albuterol sulfate 2.5 mg /3 mL (0.083 %) solution for nebulization 2.5 mg INHALATION QID PRN (Reason: Shortness Of Breath) RF: 0 aspirin 81 mg tablet,delayed release (DR/EC) 81 mg PO DAILY RF: 0 omega-3 fatty acids [Fish Oil Concentrate] 1,000 mg capsule 1,000 mg PO BID RF: 0 Complete Multivitamin Tablet 1 tab PO DAILY RF: 0 tumeric capsule 1 tab PO DAILY RF: 0 tizanidine 4 mg tablet 8 mg PO Q8H PRN (Reason: Muscle Spasm) Qty: 180 RF: 1 nortriptyline 75 mg capsule 75 mg PO BEDTIME Qty: 90 RF: 1 ferrous sulfate 325 mg (65 mg iron) tablet See Rx Instructions .ROUTE .COMPLEX Qty: 15 RF: 5 clopidogrel 75 mg tablet 75 mg PO DAILY Qty: 90 RF: 1 lisinopril 10 mg tablet 10 mg PO DAILY Qty: 90 RF: 3 insulin degludec [Tresiba FlexTouch U-100] 100 unit/mL (3 mL) insulin pen See Rx Instructions .ROUTE .COMPLEX Qty: 3 RF: 0 atorvastatin 40 mg tablet 40 mg PO DAILY Qty: 90 RF: 0 furosemide 40 mg tablet 20 mg PO DAILY Qty: 90 RF: 3 Ozempic 0.25 mg or 0.5 mg(2 mg/1.5 mL) pen injector 0.5 mg SUBCUT .once a week 90 Days Qty: 1.5 RF: 2 folic acid 1 mg Tablet 1 mg PO DAILY RF: 0 budesonide-formoterol [Symbicort] 160-4.5 mcg/actuation HFA aerosol inhaler 2 puff INHALATION BID RF: 0 metformin 500 mg tablet 500 mg PO BID RF: 0 venlafaxine 150 mg capsule,extended release 24hr 150 mg PO DAILY RF: 0 spironolactone 25 mg tablet 25 mg PO DAILY RF: 0 potassium chloride 20 mEq tablet,ER particles/crystals 20 meq PO Q2D RF: 0 levothyroxine 150 mcg tablet 150 mcg PO DAILY RF: 0 gabapentin 300 mg capsule 300 mg PO TID RF: 0 omeprazole 20 mg capsule,delayed release(DR/EC) 20 mg PO DAILY RF: 0 montelukast 10 mg tablet 10 mg PO DAILY RF: 0 Held glipizide 5 mg tablet 5 mg PO DAILY RF: 0 Hold Instructions: Resume on 05/05/20. Discharge Orders: Discharge Order (Routine); Ordered 04/28/20 Ordered By: Jose Francois Referrals: Yoel Gandhi FNP [Primary Care Provider] - 1 week (You have a follow up appointment with JOSH Montes on may 04 at 11:00. If you are not able to keep this appointment please call and reschedual. ) Richard Bustamante MD [Physician] - 1 week (You have an appointment with Dr Ramos on May 05 at 9:00 am If you are not able to keep this appointment please call and reschedule. ) Discharge Diet: Cardiac and Diabetic Discharge Activity: Resume usual activity Patient Instructions: Type 2 Diabetes, Syncope, Hypotension (DC) Activity Restrictions/Additional Instructions: Please follow up with endocrine provider as outpatient. Discharge Attestations Time Spent in Discharge Care*: greater than 30 min Specific Discharge Activities: Specific discharge activities: educating patient, discussing with caseworker/social workers/dc planners, documenting/other paperwork and evaluating patient/reviewing data Status at Discharge: Cognitive status at discharge: cognitively intact , Behavioral status at discharge: cooperative , Functional status at discharge: independent ambulation Quality Metrics Clinical Quality Measures During this hospital stay, did patient experience: None Coding Level of Care Code Acute Scientific Programmer Analyst for g Fwd Exam Comprehensive Diagnoses Pre-syncope R55 Status post internal cardiac defibrillator procedure Z95.810 Hypotension I95.9 Hypotension type: unspecified hypotension type Hypothyroidism (acquired) E03.9 Type 2 diabetes mellitus E11.22; N18.3; Z79.4 Chronic kidney disease stage: stage 3 (moderate) Diabetes mellitus complication detail: with chronic kidney disease Diabetes mellitus complication status: with kidney complications Diabetes mellitus chcf insulin use: with chcf use COPD (chronic obstructive pulmonary disease) J44.9 COPD type: unspecified COPD Congestive heart failure I50.21 Heart failure chronicity: acute Heart failure type: systolic Hypertension I10 Hypertension type: essential hypertension
[2020-04-28 13:25] VITALS: BP 155/94; PULSE 101; RESP 17; TEMP 37.1; O2SAT 92
--- NOTE | 2020-04-28 13:49 | PC.RESP ---
Smoking Cessation and Pulmonary rehab information to patient.
[2020-04-28 14:10] VITALS: BP 128/72; PULSE 99; O2SAT 92
--- NOTE | 2020-04-28 14:56 | PC.NURSE ---
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 Pt stated she only takes oxygen at night. Informed pt on no new meds and to continue home meds except to hold her glipizide per doctor instruction. Pt verbalizes understanding.
== END 2020-04-28 14:29 | disposition home or self-care (01) ==
LOC: ER 12:53 → CSU 20:53
PROVIDERS: Emergency Medicine; Family Medicine; Admitting Provider Internal Medicine; PCP Registered Nurse; Visit Provider Internal Medicine
DX: R55 Syncope and collapse (principal); I95.9 Hypotension, unspecified; E03.9 Hypothyroidism, unspecified; Z95.0 Presence of cardiac pacemaker; I11.0 Hypertensive heart disease with heart failure; I50.9 Heart failure, unspecified; J44.9 Chronic obstructive pulmonary disease, unspecified; Z86.73 Personal history of transient ischemic attack (TIA), and cerebral infarction without residual deficits; I25.2 Old myocardial infarction; F17.210 Nicotine dependence, cigarettes, uncomplicated; Z95.810 Presence of automatic (implantable) cardiac defibrillator; I13.0 Hypertensive heart and chronic kidney disease with heart failure and stage 1 through stage 4 chronic kidney disease, or unspecified chronic kidney disease; E11.22 Type 2 diabetes mellitus with diabetic chronic kidney disease; N18.3 Chronic kidney disease, stage 3 (moderate); Z79.4 Long term (current) use of insulin; I50.21 Acute systolic (congestive) heart failure; E66.9 Obesity, unspecified; Z68.31 Body mass index [BMI] 31.0-31.9, adult; K59.00 Constipation, unspecified; G89.29 Other chronic pain; Z79.891 Long term (current) use of opiate analgesic; K21.9 Gastro-esophageal reflux disease without esophagitis; E87.5 Hyperkalemia
CPT/HCPCS: 12345; 36415; 36416; 71045; 71275; 80048; 80053; 81003; 82962; 83605; 83690; 83735; 83880; 84145; 84484; 85025; 85378; 85610; 86850; 86900; 87040; 90471; 90732; 93005; 96365; 96366; 96372; 96375; 97110; 97161; 99283; 99285; G0378; J1815; J7030; Q9967

== ENCOUNTER → 2020-05-05 08:59 | Outpatient (BNVA) | payer MEDICARE, SELFPAY | PROVIDERS: PCP Registered Nurse; Referring Provider Internal Medicine; Visit Provider Internal Medicine | DX: E03.9 Hypothyroidism, unspecified (principal); E11.22 Type 2 diabetes mellitus with diabetic chronic kidney disease; N18.3 Chronic kidney disease, stage 3 (moderate); E11.42 Type 2 diabetes mellitus with diabetic polyneuropathy; E11.59 Type 2 diabetes mellitus with other circulatory complications; I25.10 Atherosclerotic heart disease of native coronary artery without angina pectoris; I10 Essential (primary) hypertension; E11.65 Type 2 diabetes mellitus with hyperglycemia; E78.5 Hyperlipidemia, unspecified | CPT/HCPCS: 99204 ==

== ENCOUNTER 2020-05-30 13:50 | Outpatient (CLI) | payer MEDICARE, SELFPAY | END 2020-05-30 13:51 | disposition home or self-care (01) | LOC: WOUND 13:51 | PROVIDERS: PCP Registered Nurse; Visit Provider Thoracic Surgery (Cardiothoracic Vascular Surgery) | DX: T81.31XA Disruption of external operation (surgical) wound, not elsewhere classified, initial encounter (principal); Y83.8 Other surgical procedures as the cause of abnormal reaction of the patient, or of later complication, without mention of misadventure at the time of the procedure | CPT/HCPCS: 11042; G0463 ==

== ENCOUNTER 2020-06-06 14:22 | Outpatient (CLI) | payer MEDICARE, SELFPAY | END 2020-06-06 14:23 | disposition home or self-care (01) | LOC: WOUND 14:23 | PROVIDERS: PCP Registered Nurse; Visit Provider Thoracic Surgery (Cardiothoracic Vascular Surgery) | DX: T81.31XA Disruption of external operation (surgical) wound, not elsewhere classified, initial encounter (principal); Y83.8 Other surgical procedures as the cause of abnormal reaction of the patient, or of later complication, without mention of misadventure at the time of the procedure | CPT/HCPCS: 11042; 97605 ==

== ENCOUNTER 2020-06-09 10:43 | Outpatient (CLI) | payer MEDICARE, SELFPAY | END 2020-06-09 10:44 | disposition home or self-care (01) | LOC: WOUND 10:44 | PROVIDERS: PCP Registered Nurse; Visit Provider Surgery | DX: E11.622 Type 2 diabetes mellitus with other skin ulcer (principal); L98.499 Non-pressure chronic ulcer of skin of other sites with unspecified severity | CPT/HCPCS: G0463 ==

== ENCOUNTER → 2020-06-13 12:52 | Outpatient (BNVA) | payer MEDICARE, SELFPAY | PROVIDERS: Family Provider Registered Nurse; PCP Registered Nurse; Visit Provider Anesthesiology | DX: G89.29 Other chronic pain (principal); M47.812 Spondylosis without myelopathy or radiculopathy, cervical region; M47.897 Other spondylosis, lumbosacral region; E11.42 Type 2 diabetes mellitus with diabetic polyneuropathy; F17.210 Nicotine dependence, cigarettes, uncomplicated; Z79.891 Long term (current) use of opiate analgesic | CPT/HCPCS: 99214 ==

== ENCOUNTER 2020-06-13 14:56 | Outpatient (CLI) | payer MEDICARE, SELFPAY | END 2020-06-13 14:57 | disposition home or self-care (01) | LOC: WOUND 14:57 | PROVIDERS: Family Provider Registered Nurse; PCP Registered Nurse; Visit Provider Thoracic Surgery (Cardiothoracic Vascular Surgery) | DX: T81.31XA Disruption of external operation (surgical) wound, not elsewhere classified, initial encounter (principal); Y83.8 Other surgical procedures as the cause of abnormal reaction of the patient, or of later complication, without mention of misadventure at the time of the procedure | CPT/HCPCS: 11042 ==

== ENCOUNTER 2020-06-16 13:17 | Outpatient (CLI) | payer MEDICARE, SELFPAY | END 2020-06-16 13:18 | disposition home or self-care (01) | LOC: WOUND 13:18 | PROVIDERS: Family Provider Registered Nurse; PCP Registered Nurse; Visit Provider Surgery | DX: E11.622 Type 2 diabetes mellitus with other skin ulcer (principal); L98.499 Non-pressure chronic ulcer of skin of other sites with unspecified severity | CPT/HCPCS: 97605 ==

== ENCOUNTER 2020-06-20 15:12 | Outpatient (CLI) | payer MEDICARE, SELFPAY | END 2020-06-20 15:13 | disposition home or self-care (01) | LOC: WOUND 15:13 | PROVIDERS: Family Provider Registered Nurse; PCP Registered Nurse; Visit Provider Thoracic Surgery (Cardiothoracic Vascular Surgery) | DX: T81.31XA Disruption of external operation (surgical) wound, not elsewhere classified, initial encounter (principal); Y83.8 Other surgical procedures as the cause of abnormal reaction of the patient, or of later complication, without mention of misadventure at the time of the procedure | CPT/HCPCS: 11042 ==

== ENCOUNTER 2020-06-23 15:01 | Outpatient (CLI) | payer MEDICARE, SELFPAY | END 2020-06-23 15:02 | disposition home or self-care (01) | LOC: WOUND 15:02 | PROVIDERS: Family Provider Registered Nurse; PCP Registered Nurse; Visit Provider Nurse Practitioner Family | DX: E11.622 Type 2 diabetes mellitus with other skin ulcer (principal); L98.492 Non-pressure chronic ulcer of skin of other sites with fat layer exposed | CPT/HCPCS: 97605 ==

== ENCOUNTER 2020-06-27 14:56 | Outpatient (CLI) | payer MEDICARE, SELFPAY | END 2020-06-27 14:57 | disposition home or self-care (01) | LOC: WOUND 14:57 | PROVIDERS: Family Provider Registered Nurse; PCP Registered Nurse; Visit Provider Thoracic Surgery (Cardiothoracic Vascular Surgery) | DX: T81.31XA Disruption of external operation (surgical) wound, not elsewhere classified, initial encounter (principal); Y83.8 Other surgical procedures as the cause of abnormal reaction of the patient, or of later complication, without mention of misadventure at the time of the procedure | CPT/HCPCS: 11042; 97605 ==

== ENCOUNTER 2020-06-30 10:57 | Outpatient (CLI) | payer MEDICARE, SELFPAY | END 2020-06-30 10:58 | disposition home or self-care (01) | LOC: WOUND 10:58 | PROVIDERS: Family Provider Registered Nurse; PCP Registered Nurse; Visit Provider Surgery | DX: E11.622 Type 2 diabetes mellitus with other skin ulcer (principal); L98.499 Non-pressure chronic ulcer of skin of other sites with unspecified severity | CPT/HCPCS: 97605 ==

== ENCOUNTER 2020-07-04 15:21 | Outpatient (CLI) | payer MEDICARE, SELFPAY | END 2020-07-04 15:22 | disposition home or self-care (01) | LOC: WOUND 15:22 | PROVIDERS: Family Provider Registered Nurse; PCP Registered Nurse; Visit Provider Nurse Practitioner Family | DX: T81.31XA Disruption of external operation (surgical) wound, not elsewhere classified, initial encounter (principal); Y83.8 Other surgical procedures as the cause of abnormal reaction of the patient, or of later complication, without mention of misadventure at the time of the procedure | CPT/HCPCS: 11042 ==

== ENCOUNTER 2020-07-07 08:03 | Outpatient (CLI) | payer MEDICARE, SELFPAY | END 2020-07-07 08:04 | disposition home or self-care (01) | LOC: WOUND 08:04 | PROVIDERS: Family Provider Registered Nurse; PCP Registered Nurse; Visit Provider Surgery | DX: G89.29 Other chronic pain (principal); M54.42 Lumbago with sciatica, left side; M54.41 Lumbago with sciatica, right side; M47.897 Other spondylosis, lumbosacral region; M47.812 Spondylosis without myelopathy or radiculopathy, cervical region; F17.210 Nicotine dependence, cigarettes, uncomplicated; Z79.891 Long term (current) use of opiate analgesic; Z71.6 Tobacco abuse counseling; E11.622 Type 2 diabetes mellitus with other skin ulcer; L98.499 Non-pressure chronic ulcer of skin of other sites with unspecified severity | CPT/HCPCS: 97605; 99214 ==

== ENCOUNTER 2020-07-11 15:11 | Outpatient (CLI) | payer MEDICARE, SELFPAY | END 2020-07-11 15:12 | disposition home or self-care (01) | LOC: WOUND 15:13 | PROVIDERS: Family Provider Registered Nurse; PCP Registered Nurse; Visit Provider Nurse Practitioner Family | DX: T81.31XA Disruption of external operation (surgical) wound, not elsewhere classified, initial encounter (principal); Y83.8 Other surgical procedures as the cause of abnormal reaction of the patient, or of later complication, without mention of misadventure at the time of the procedure | CPT/HCPCS: 11042 ==

== ENCOUNTER 2020-07-18 13:05 | Outpatient (CLI) | payer MEDICARE, SELFPAY | END 2020-07-18 13:06 | disposition home or self-care (01) | LOC: WOUND 13:06 | PROVIDERS: Family Provider Registered Nurse; PCP Registered Nurse; Visit Provider Thoracic Surgery (Cardiothoracic Vascular Surgery) | DX: E11.622 Type 2 diabetes mellitus with other skin ulcer (principal); L98.492 Non-pressure chronic ulcer of skin of other sites with fat layer exposed | CPT/HCPCS: 11042 ==

== ENCOUNTER → 2020-07-19 10:35 | Outpatient (BNVA) | payer MEDICARE, SELFPAY | PROVIDERS: Family Provider Registered Nurse; PCP Registered Nurse; Visit Provider Registered Nurse | DX: E11.65 Type 2 diabetes mellitus with hyperglycemia (principal) | CPT/HCPCS: 80053; 83036; 85025 ==

== ENCOUNTER 2020-07-21 08:09 | Outpatient (CLI) | payer MEDICARE, SELFPAY ==
--- NOTE | 2020-07-21 08:45 | USCV_ITS ---
Tiffany Glaser Age: 60 Gender: F : 1960 Exam Date: 07/21/2020 08:32 Ordering Phys: Melissa Painter Technologist: Edna Ibrahim Exam Location: [facility] [place]ication: PAIN RT CALF HISTORY: Pain in RT. Calf PROCEDURES: Venous duplex imaging was performed in bilateral lower extremities. The following venous structures were evaluated: common femoral vein, profunda vein, proximal portion of the greater saphenous vein, superficial femoral vein, and the popliteal vein. In addition, the posterior tibial and peroneal trunk were evaluated. Serial compression, augmentation maneuvers, and spectral Doppler flow evaluation were performed. FINDINGS: No DVT seen in any vessel examined CONCLUSIONS No evidence of right lower extremity DVT. No evidence of left lower extremity DVT. Minesh Boyd MD (Electronically Signed) Final Date: 21 July 2020 17:42 S
== END 2020-07-21 08:10 | disposition home or self-care (01) ==
PROVIDERS: PCP Registered Nurse; Visit Provider Nurse Practitioner Family
DX: Z86.73 Personal history of transient ischemic attack (TIA), and cerebral infarction without residual deficits (principal); M79.661 Pain in right lower leg
CPT/HCPCS: 93970

== ENCOUNTER 2020-07-25 10:13 | Outpatient (CLI) | payer MEDICARE, SELFPAY | END 2020-07-25 10:14 | disposition home or self-care (01) | LOC: WOUND 10:14 | PROVIDERS: PCP Registered Nurse; Visit Provider Thoracic Surgery (Cardiothoracic Vascular Surgery) | DX: T81.31XA Disruption of external operation (surgical) wound, not elsewhere classified, initial encounter (principal); Y83.8 Other surgical procedures as the cause of abnormal reaction of the patient, or of later complication, without mention of misadventure at the time of the procedure | CPT/HCPCS: 11042 ==

== ENCOUNTER 2020-08-02 14:15 | Outpatient (CLI) | payer MEDICARE, SELFPAY | END 2020-08-02 14:16 | disposition home or self-care (01) | LOC: WOUND 14:17 | PROVIDERS: PCP Registered Nurse; Visit Provider Thoracic Surgery (Cardiothoracic Vascular Surgery) | DX: Z09 Encounter for follow-up examination after completed treatment for conditions other than malignant neoplasm (principal) | CPT/HCPCS: 99211 ==

== ENCOUNTER 2020-08-15 09:55 | Outpatient (CLI) | payer MEDICARE, SELFPAY | END 2020-08-15 09:56 | disposition home or self-care (01) | LOC: ENDOOACUTE 05-11 13:40 | PROVIDERS: PCP Registered Nurse; Visit Provider Internal Medicine | DX: E03.9 Hypothyroidism, unspecified (principal); E11.22 Type 2 diabetes mellitus with diabetic chronic kidney disease; N18.30 Chronic kidney disease, stage 3 unspecified; E11.42 Type 2 diabetes mellitus with diabetic polyneuropathy; E11.59 Type 2 diabetes mellitus with other circulatory complications; I25.10 Atherosclerotic heart disease of native coronary artery without angina pectoris; E11.65 Type 2 diabetes mellitus with hyperglycemia; E78.49 Other hyperlipidemia; I10 Essential (primary) hypertension; R47.01 Aphasia | CPT/HCPCS: 99214 ==

== ENCOUNTER → 2020-08-21 10:11 | Outpatient (BNVA) | payer MEDICARE, SELFPAY | PROVIDERS: PCP Registered Nurse; Visit Provider Internal Medicine | DX: E03.9 Hypothyroidism, unspecified (principal) | CPT/HCPCS: 84439; 84443 ==

== ENCOUNTER → 2020-09-14 14:07 | Outpatient (BNVA) | payer MEDICARE, SELFPAY | PROVIDERS: PCP Registered Nurse; Visit Provider Anesthesiology | DX: G89.29 Other chronic pain (principal); M47.812 Spondylosis without myelopathy or radiculopathy, cervical region; M79.7 Fibromyalgia; M47.897 Other spondylosis, lumbosacral region; F17.210 Nicotine dependence, cigarettes, uncomplicated; Z79.899 Other long term (current) drug therapy; Z79.891 Long term (current) use of opiate analgesic | CPT/HCPCS: 99214 ==

== ENCOUNTER → 2020-11-07 13:19 | Outpatient (BNVA) | payer MEDICARE, SELFPAY | PROVIDERS: PCP Registered Nurse; Visit Provider Anesthesiology | DX: G89.29 Other chronic pain (principal); M47.812 Spondylosis without myelopathy or radiculopathy, cervical region; M47.897 Other spondylosis, lumbosacral region; M79.7 Fibromyalgia; F17.210 Nicotine dependence, cigarettes, uncomplicated; Z79.899 Other long term (current) drug therapy; Z79.891 Long term (current) use of opiate analgesic | CPT/HCPCS: 99214 ==

== ENCOUNTER → 2020-11-08 10:49 | Outpatient (BNVA) | payer MEDICARE, SELFPAY | PROVIDERS: PCP Registered Nurse; Visit Provider Registered Nurse | DX: I12.9 Hypertensive chronic kidney disease with stage 1 through stage 4 chronic kidney disease, or unspecified chronic kidney disease (principal); N18.30 Chronic kidney disease, stage 3 unspecified; E11.22 Type 2 diabetes mellitus with diabetic chronic kidney disease; E78.5 Hyperlipidemia, unspecified; Z79.4 Long term (current) use of insulin; N39.0 Urinary tract infection, site not specified; A49.9 Bacterial infection, unspecified | CPT/HCPCS: 80053; 80061; 81000; 83036; 85025; 87077; 87086; 87184 ==

== ENCOUNTER → 2020-11-13 14:07 | Outpatient (BNVA) | payer MEDICARE, SELFPAY | PROVIDERS: PCP Registered Nurse; Visit Provider Internal Medicine | DX: E03.9 Hypothyroidism, unspecified (principal); E11.22 Type 2 diabetes mellitus with diabetic chronic kidney disease; N18.30 Chronic kidney disease, stage 3 unspecified; E11.42 Type 2 diabetes mellitus with diabetic polyneuropathy; E11.59 Type 2 diabetes mellitus with other circulatory complications; I25.10 Atherosclerotic heart disease of native coronary artery without angina pectoris; E11.65 Type 2 diabetes mellitus with hyperglycemia; E78.5 Hyperlipidemia, unspecified; I10 Essential (primary) hypertension | CPT/HCPCS: 99214 ==

== ENCOUNTER → 2020-11-16 10:20 | Outpatient (BNVA) | payer MEDICARE, SELFPAY | PROVIDERS: PCP Registered Nurse; Visit Provider Internal Medicine | DX: N39.0 Urinary tract infection, site not specified (principal); A49.9 Bacterial infection, unspecified; E03.9 Hypothyroidism, unspecified | CPT/HCPCS: 81000; 84439; 84443 ==

== ENCOUNTER → 2020-12-26 15:15 | Outpatient (BNVA) | payer MEDICARE, SELFPAY | PROVIDERS: PCP Registered Nurse; Visit Provider Internal Medicine Cardiovascular Disease | DX: I51.9 Heart disease, unspecified (principal); E87.6 Hypokalemia; A49.9 Bacterial infection, unspecified; N39.0 Urinary tract infection, site not specified | CPT/HCPCS: 87077; 87086; 87184 ==

== ENCOUNTER → 2021-01-02 13:35 | Outpatient (BNVA) | payer MEDICARE, SELFPAY | PROVIDERS: PCP Registered Nurse; Visit Provider Registered Nurse | DX: A49.9 Bacterial infection, unspecified (principal); N39.0 Urinary tract infection, site not specified; E11.22 Type 2 diabetes mellitus with diabetic chronic kidney disease; Z79.4 Long term (current) use of insulin | CPT/HCPCS: 81000; 87086 ==

== ENCOUNTER → 2021-01-03 13:15 | Outpatient (BNVA) | payer MEDICARE, SELFPAY | PROVIDERS: PCP Registered Nurse; Visit Provider Nurse Practitioner | DX: G89.29 Other chronic pain (principal); M47.812 Spondylosis without myelopathy or radiculopathy, cervical region; M47.897 Other spondylosis, lumbosacral region; M79.661 Pain in right lower leg; E11.42 Type 2 diabetes mellitus with diabetic polyneuropathy; M79.7 Fibromyalgia; F17.210 Nicotine dependence, cigarettes, uncomplicated; Z79.891 Long term (current) use of opiate analgesic; Z71.6 Tobacco abuse counseling | CPT/HCPCS: 99213 ==

== ENCOUNTER → 2021-01-19 11:32 | Outpatient (BNVA) | payer MEDICARE, SELFPAY | PROVIDERS: PCP Registered Nurse; Visit Provider Registered Nurse | DX: E11.22 Type 2 diabetes mellitus with diabetic chronic kidney disease; J01.40 Acute pansinusitis, unspecified; E11.65 Type 2 diabetes mellitus with hyperglycemia; N39.0 Urinary tract infection, site not specified | CPT/HCPCS: 81000; 83036; 85025 ==

== ENCOUNTER → 2021-03-08 11:36 | Outpatient (BNVA) | payer MEDICARE, SELFPAY | PROVIDERS: PCP Registered Nurse; Visit Provider Registered Nurse | DX: R30.0 Dysuria (principal); N39.0 Urinary tract infection, site not specified; J22 Unspecified acute lower respiratory infection; E11.22 Type 2 diabetes mellitus with diabetic chronic kidney disease; N18.30 Chronic kidney disease, stage 3 unspecified; Z79.4 Long term (current) use of insulin | CPT/HCPCS: 81000; 87077; 87086; 87184 ==

== ENCOUNTER → 2021-03-26 15:20 | Outpatient (BNVA) | payer MEDICARE, SELFPAY | PROVIDERS: PCP Registered Nurse; Referring Provider Registered Nurse; Visit Provider Nurse Practitioner Family | DX: N39.0 Urinary tract infection, site not specified (principal) | CPT/HCPCS: 81003; 87077; 87086; 87184 ==

== ENCOUNTER → 2021-03-29 13:48 | Outpatient (BNVA) | payer MEDICARE, SELFPAY | PROVIDERS: PCP Registered Nurse; Visit Provider Nurse Practitioner | DX: G89.29 Other chronic pain (principal); M47.897 Other spondylosis, lumbosacral region; M79.7 Fibromyalgia; M47.812 Spondylosis without myelopathy or radiculopathy, cervical region; M79.661 Pain in right lower leg; R29.6 Repeated falls; E11.22 Type 2 diabetes mellitus with diabetic chronic kidney disease; F17.210 Nicotine dependence, cigarettes, uncomplicated; Z79.891 Long term (current) use of opiate analgesic; Z71.6 Tobacco abuse counseling | CPT/HCPCS: 99213; 99214 ==

== ENCOUNTER → 2021-05-08 14:05 | Outpatient (BNVA) | payer MEDICARE, SELFPAY | PROVIDERS: PCP Registered Nurse; Visit Provider Urology | DX: N39.0 Urinary tract infection, site not specified (principal) | CPT/HCPCS: 81003 ==

== ENCOUNTER → 2021-06-06 09:02 | Outpatient (BNVA) | payer MEDICARE, SELFPAY | PROVIDERS: PCP Registered Nurse; Visit Provider Registered Nurse | DX: E11.65 Type 2 diabetes mellitus with hyperglycemia (principal); E03.9 Hypothyroidism, unspecified | CPT/HCPCS: 80053; 80061; 83036; 84443 ==

== ENCOUNTER → 2021-06-07 13:09 | Outpatient (BNVA) | payer MEDICARE, SELFPAY | PROVIDERS: PCP Registered Nurse; Visit Provider Anesthesiology | DX: E11.65 Type 2 diabetes mellitus with hyperglycemia (principal); G89.29 Other chronic pain; M47.897 Other spondylosis, lumbosacral region; N39.0 Urinary tract infection, site not specified; E87.6 Hypokalemia; M47.812 Spondylosis without myelopathy or radiculopathy, cervical region; M79.7 Fibromyalgia; F17.210 Nicotine dependence, cigarettes, uncomplicated; Z79.891 Long term (current) use of opiate analgesic; Z71.6 Tobacco abuse counseling | CPT/HCPCS: 81000; 99214 ==

== ENCOUNTER → 2021-06-27 14:00 | Outpatient (BNVA) | payer MEDICARE, SELFPAY | PROVIDERS: PCP Registered Nurse; Visit Provider Urology | DX: N39.0 Urinary tract infection, site not specified (principal) | CPT/HCPCS: 81003 ==

== ENCOUNTER 2021-06-28 18:59 | Emergency (ER) | payer MEDICARE, SELFPAY ==
--- NOTE | 2021-06-28 19:26 | ECG_ITS ---
[facility] Test Date: 2021-06-28 Pat Name: Tiffany Glaser Department: Room: Gender: Female Estimator Binding: : 1960 Requested By: Nereida Zuniga Order Number: [id number] Gisela MD: Dewayne Muller M.D. Measurements Intervals [place] Rate: 100 P: -88 FL: 63 QRS: -60 QRSD: 146 T: 84 QT: 350 QTc: 452 Interpretive Statements Sinus rhythm with a first-degree AV block LEFT AXIS DEVIATION [QRS AXIS < -30] INTRAVENTRICULAR CONDUCTION DELAY [130+ ms QRS DURATION] Compared to ECG 04/27/2020 21:45:13 Junctional tachycardia now present Sinus rhythm no longer present First degree AV block no longer present Myocardial infarct finding no longer present Electronically Signed On 06-28-2021 22:48:47 CHILD CARE COUNSELOR by Dewayne Muller M.D. [email or web address]
[2021-06-28 19:48] VITALS: BP 88/57; PULSE 101; RESP 16; TEMP 36.4; O2SAT 96; BMI 30.9
--- NOTE | 2021-06-28 20:16 | W.ED.DIZZY ---
HPI - Dizziness General: Chief Complaint: Dizziness Stated Complaint: sent from Dr. bailey Time Seen by Provider: 06/28/21 20:02 Source: patient Mode of arrival: ambulatory Limitations: no limitations History of Present Illness: HPI Narrative: 61-year-old female who states she had blood drawn today was told that she was hyperkalemic. She states she was actually hypokalemic 2 weeks ago was started on a potassium replacement states that she was having a redraw they called her and told her potassium 6.7. States she is actually been feeling pretty fine she had some slight weakness but otherwise been feeling fine denies any pain where she had no vomiting no diarrhea denies any worsening improving factors. Associated symptoms: Denies chest pain, chills, headache(s), nausea or vomiting Review of Systems Const: Denies: fever(s), chills, body aches or change in appetite Eyes: Denies: blurry vision or eye discomfort ENMT: Denies: throat pain or dental pain Card: Denies: chest pain Resp: Denies: dyspnea GI: Denies: abdominal pain, nausea, vomiting or diarrhea : Denies: dysuria Musc: Denies: neck pain or back pain Skin/Breast: Denies: rash Neuro: Reports: weakness in extremities; Denies: headache(s) Psych: Denies: depression Reji/Lymph: Denies: easy bruising All/Imm: Denies: urticaria PFSH ED PFSH: Medical History Breast cancer CHF (congestive heart failure) Chronic bilateral low back pain Congestive heart failure -severe cardiomyopathy, EF=25% COPD (chronic obstructive pulmonary disease) Cough Dysphonia Fibromyalgia History of CVA (cerebrovascular accident) History of KS (myocardial infarction) Hypertension Hypotension Hypothyroidism (acquired) ICD (implantable cardioverter-defibrillator) in place Neck pain Nocturnal hypoxia Other spondylosis, lumbosacral region Pneumonia Recurrent falls Spondylosis without myelopathy or radiculopathy, cervical region Type 2 diabetes mellitus Surgical History H/O mastectomy S/P cholecystectomy S/P hernia surgery S/P hysterectomy S/P knee surgery Bilateral Status post internal cardiac defibrillator procedure -done on 04/19/[address] Arguello Family History Other Diabetes Heart disease Denies family history of Anesthesia complication Bleeding disorder Social History Smoking and tobacco status: current every day smoker cigarettes Packs smoked per day: 1 Years cigarettes smoked: 30 Alcohol intake: never Household members: spouse Housing: House History of recent travel: No Physical Exam Const: COMMON NORMALS: no acute distress, patient oriented x3 and healthy appearing HENMT: COMMON NORMALS: normocephalic and atraumatic HEAD & SCALP: normocephalic and atraumatic Eye: COMMON NORMALS: Equal, round and reactive pupils present and EOMs intact bilaterally PUPIL: Yes Equal, round and reactive pupils present Neck/C-Spine: COMMON NORMALS: full ROM and supple Chest: COMMONS NORMALS: normal inspection of the chest and normal palpation of entire chest wall Resp: COMMON NORMALS: normal respiratory effort, No retractions, No use of accessory muscles and clear to auscultation bilaterally AUSCULTATION: clear to auscultation bilaterally Cardio: COMMON NORMALS: regular rate, regular rhythm and No murmurs present (Cardio) RATE: regular rate RHYTHM: regular rhythm GI: COMMON NORMALS: Normal to inspection, nondistended, normoactive bowel sounds present, Soft to palpation, non-tender and no masses PALPATION: Yes Soft to palpation Extremity: COMMON NORMALS: normal to inspection and full ROM Neuro: COMMON NORMALS: patient oriented x3, moves all extremities and no focal motor deficits Psych: COMMON NORMALS: mental status grossly normal, Normal thought process present and cooperative THOUGHT PROCESS: Normal thought process present Skin: COMMON NORMALS: no rashes or lesions noted and no wounds GENERAL SKIN EXAM: no rashes or lesions noted Course Vital Signs: Vital signs: Vital Signs Temperature 97.6 F 06/28/21 19:48 Pulse Rate 82 06/28/21 23:23 Respiratory Rate 18 06/28/21 23:23 Blood Pressure 114/60 06/28/21 23:23 Pulse Oximetry 98 06/28/21 23:23 MDM - Dizziness MDM Narrative: Medical decision making narrative: Patient presents here with hyperkalemia since improved her potassium here is 5.8 she does have some hypotension as well likely due to her blood pressure medication and dehydration she feels much improved after IV fluids her blood pressure is improved. I did offer admission she states she like to go home I spoke to her physician Dr. Mckeon will stop her lisinopril Lasix and Coreg she is to follow-up with Dr. Renteria in 1 to 2 days return if worsening she understands agrees to plan. Lab Data: Labs: Lab Results 06/28/21 06/28/21 06/28/21 19:47 20:20 20:35 WBC 16.2 10^3/uL H 10 ^3/uL (4.0-10.0) RBC 4.66 10^6/uL 10^6 /uL (4.1-5.3) Hgb 14.4 g/dL g/dL (11.5-15.3) Hct 43.9 % % (37.0-47.0) MCV 94.2 fl fl (81-99) MCH 30.9 pg pg (28.0-34.0) MCHC 32.8 g/dL g/dL (30.0-36.0) RDW 14.1 % % (12.1-15.1) Plt Count 325 10^3/cmm 10^3 /cmm (130-400) MPV 11.3 fL H fL (7.4-10.4) Neut % (Auto) 77.6 % % Lymph % (Auto) 15.1 % % Jerauld % (Auto) 3.2 % % Eos % (Auto) 2.7 % % Baso % (Auto) 0.6 % % Neut # (Auto) 12.56 10^3/uL H 1 0^3/uL (1.8-7.7) Lymph # (Auto) 2.5 10^3/uL 10^3/ uL (0.8-4.8) Jerauld # (Auto) 0.5 10^3/uL 10^3/ uL (0.2-0.9) Eos # (Auto) 0.4 10^3/uL 10^3/ uL (0.0-0.8) Baso # (Auto) 0.1 10^3/uL 10^3/ uL (0.0-0.1) Nucleated RBC % (a uto) 0 % % Nucleated RBCs # 0.0 /100WBC /100W BC Sodium Potassium Chloride Carbon Dioxide Anion Gap BUN Creatinine GFR Calculation Glucose POC Glucose 170 mg/dL H mg/dL (70-110) Calculated Osmolal ity Lactate Calcium Total Bilirubin AST ALT Alkaline Phosphata se Total Protein Albumin Globulin Urine Color Yellow (Yellow) Urine Appearance Clear (CLEAR) Urine pH 5 (5-7) Ur Specific Gravit y 1.015 (1.005-1.030) Urine Protein Neg (Negative) Urine Glucose (UA) Norm (Normal) Urine Ketones Negative (Negative) Urine Blood Neg (Negative) Urine Nitrate Negative (Negative) Urine Bilirubin Neg (Negative) Urine Urobilinogen Norm mg/dL mg/dL (Negative) Ur Leukocyte Lainey ase Negative (Negative) 06/28/21 06/28/21 20:35 20:35 WBC RBC Hgb Hct MCV MCH MCHC RDW Plt Count MPV Neut % (Auto) Lymph % (Auto) Jerauld % (Auto) Eos % (Auto) Baso % (Auto) Neut # (Auto) Lymph # (Auto) Jerauld # (Auto) Eos # (Auto) Baso # (Auto) Nucleated RBC % (a uto) Nucleated RBCs # Sodium 130 mmol/L L mmol /L (136-145) Potassium 5.8 mmol/L H mmol /L (3.5-5.1) Chloride 95 mmol/L L mmol/ L (98-107) Carbon Dioxide 22 mmol/L mmol/L (22-29) Anion Gap 18.8 (5-19) BUN 40 mg/dL H mg/dL (8-23) Creatinine 1.6 mg/dL H mg/dL (0.5-0.9) GFR Calculation 32.6 mL/min L mL/ min (90-130) Glucose 146 mg/dL H mg/dL (65-115) POC Glucose Calculated Osmolal ity 282 mOsm/kg L mOs m/kg (285-295) Lactate 1.3 mmol/L mmol/L (0.5-2.2) Calcium 10.0 mg/dL mg/dL (8.5-10.5) Total Bilirubin 0.2 mg/dL mg/dL (0.15-1.2) AST 21 U/L U/L (0-32) ALT 21 U/L U/L (0-33) Alkaline Phosphata se 94 IU/L IU/L (35-105) Total Protein 7.7 g/dL g/dL (6.6-8.7) Albumin 4.3 g/dL g/dL (3.5-5.2) Globulin 3.4 g/dL g/dL (1.3-4.6) Urine Color Urine Appearance Urine pH Ur Specific Gravit y Urine Protein Urine Glucose (UA) Urine Ketones Urine Blood Urine Nitrate Urine Bilirubin Urine Urobilinogen Ur Leukocyte Lainey ase Imaging Data^: CXR: Attestation: I personally reviewed and interpreted this imaging study as follows: Radiologist's impression: [employer] [place] [address] XRay Report Signed Patient: Tiffany Glaser Unit #: [id number] : 1960 Age/Sex: 61 / F ADM Date: 06/28/21 Loc: ER Room/Bed: Attending Dr: Ordering Provider/Ordering MD: Nereida Zuniga MD Date of Service: 06/28/21 Procedure(s): XR chest 1V portable [id number] Accession Number(s): [id number] Report Number: [id number] PROCEDURE INFORMATION: Exam: XR Chest Exam date and time: 06/28/2021 8:53 PM Age: 61 years old Clinical indication: Cardiovascular condition or disease; Congestive heart failure (chf); Cause unknown; Type unknown; Prior surgery; Surgery date: 6+ months; Surgery type: Pacemaker; Additional info: Weakness TECHNIQUE: Imaging protocol: XR of the chest. Views: 1 view. Total images: 1 COMPARISON: CR XR chest 1V portable [id number] 04/27/2020 12:09 PM FINDINGS: Tubes, catheters and devices: Pacemaker defibrillator. Lungs: No visible active interstitial or alveolar airspace disease. Pleural spaces: No pleural effusion. No pneumothorax. Heart/Mediastinum: Cardiac structures and configuration without cardiomegaly and stable. Bones/joints: Unremarkable. Soft tissues: Right axilla surgical clips. Other findings: Obesity. XR/XR chest 1V portable [id number] IMPRESSION: Nonacute. Radiation Dose CTDIVOL = (mGy): DLP = (mGy-cm) Dictated By: Sandip Ibarra Signed By: Sandip Ibarra Signed Date/Time: 06/28/212122 DD/ 52 EKG Data^: EKG 1: Attestation: I personally reviewed and interpreted this EKG as follows: EKG interpretation date: 06/28/21 EKG interpretation time: 18:10 Interpretation: nsr hr [address] or t wave abnormalities qrs 149 qtc 491 Discharge Plan Discharge Patient Disposition: Home Clinical Impression: Dizziness, Hypotension, Hyperkalemia Condition: Stable Prescriptions: Discontinued carvedilol 3.125 mg tablet 3.125 mg PO BID Qty: 60 RF: 3 lisinopril 5 mg tablet 5 mg PO .HS Qty: 90 RF: 3 furosemide 20 mg tablet 20 mg PO BID 90 Days Qty: 180 RF: 3 Hold Instructions: Doctor's Order No Action tizanidine 4 mg tablet 4 mg PO Q8H PRN (Reason: Muscle Spasm) Qty: 90 RF: 2 hydrocodone-acetaminophen 7.5-325 mg tablet 1 tab PO TID PRN (Reason: pain) 30 Days Qty: 90 RF: 0 hydrocodone-acetaminophen 7.5-325 mg tablet 1 tab PO TID PRN (Reason: pain) 30 Days Qty: 90 RF: 0 nortriptyline 75 mg capsule 75 mg PO BEDTIME 30 Days Qty: 90 RF: 1 (DME) FreeStyle Tana 14 Day Sensor Kit See Rx Instructions .Route Qty: 2 RF: 3 (DME) FreeStyle Tana 14 Day [place] Misc See Rx Instructions .Route Qty: 1 RF: 0 albuterol sulfate 2.5 mg /3 mL (0.083 %) solution for nebulization 2.5 mg INHALATION QID PRN (Reason: Shortness Of Breath) RF: 0 aspirin 81 mg tablet,delayed release (DR/EC) 81 mg PO DAILY RF: 0 Complete Multivitamin Tablet 1 tab PO DAILY RF: 0 omega-3 fatty acids [Fish Oil Concentrate] 1,000 mg capsule 1,000 mg PO DAILY RF: 0 tumeric capsule 1 tab PO DAILY RF: 0 ferrous sulfate 325 mg (65 mg iron) tablet See Rx Instructions .ROUTE .COMPLEX Qty: 15 RF: 5 Tresiba FlexTouch U-100 100 unit/mL (3 mL) insulin pen 35 unit SUBCUT BID RF: 0 Ozempic 0.25 mg or 0.5 mg(2 mg/1.5 mL) pen injector 1 mg SUBCUT .once a week 90 Days Qty: 1.5 RF: 5 omeprazole 20 mg capsule,delayed release(DR/EC) 20 mg PO BID 90 Days Qty: 180 RF: 1 triamcinolone acetonide 0.1 % ointment See Rx Instructions .ROUTE .COMPLEX Qty: 30 RF: 0 potassium chloride [Klor-Con] 20 mEq packet 20 meq PO BID Qty: 100 RF: 0 nitroglycerin 0.4 mg tablet, sublingual 0.4 mg sublingual Q5M PRN (Reason: chest pain) Qty: 30 RF: 3 montelukast 10 mg tablet See Rx Instructions .ROUTE .COMPLEX Qty: 90 RF: 0 metformin 500 mg tablet See Rx Instructions .ROUTE .COMPLEX Qty: 180 RF: 0 atorvastatin 40 mg tablet See Rx Instructions .ROUTE .COMPLEX Qty: 90 RF: 0 (DME) OneTouch Ultra Test Strip See Rx Instructions .Route Qty: 100 RF: 0 clopidogrel 75 mg tablet See Rx Instructions .ROUTE .COMPLEX Qty: 90 RF: 0 (DME) OneTouch Ultra Blue Test Strip Strip See Rx Instructions .Route Qty: 100 RF: 0 spironolactone 25 mg tablet See Rx Instructions .ROUTE .COMPLEX Qty: 90 RF: 0 levothyroxine 137 mcg tablet See Rx Instructions .ROUTE .COMPLEX Qty: 90 RF: 0 glipizide 5 mg tablet See Rx Instructions .ROUTE .COMPLEX Qty: 90 RF: 0 Hold Instructions: Resume on 05/05/20. gabapentin 300 mg capsule See Rx Instructions .ROUTE .COMPLEX Qty: 270 RF: 0 pen needle, diabetic [BD Ultra-Fine Mini Pen Needle] 31 gauge x 3/16 needle See Rx Instructions .ROUTE .COMPLEX Qty: 100 RF: 0 venlafaxine 150 mg capsule,extended release 24hr See Rx Instructions .ROUTE .COMPLEX Qty: 90 RF: 0 cefuroxime axetil 500 mg tablet See Rx Instructions .ROUTE .COMPLEX Qty: 60 RF: 2 folic acid 1 mg Tablet 1 mg PO DAILY RF: 0 budesonide-formoterol [Symbicort] 160-4.5 mcg/actuation HFA aerosol inhaler 2 puff INHALATION BID PRNRF: 0 Discharge Orders: Discharge ED (Routine); Ordered 06/28/21 Ordered By: Nereida Zuniga Referrals: Milla Mercer MD [Physician] - 1-3 days Yoel Gandhi FNP [Primary Care Provider] - Discharge Diet: Advance as tolerated Discharge Activity: Resume usual activity Patient Instructions: Hyperkalemia (ED), Hypotension (ED) Activity Restrictions/Additional Instructions: stop taking your coreg, lisinopril and lasix follow up with dr. mercer in 1-2 days Coding Level of Care Code ED Labor Contract Analyst for Chg Fwd Exam Comprehensive
[2021-06-28 20:27] LABS: Glucose Point of Care 170 mg/dL (70-110)
[2021-06-28 20:42] LABS: Add Urine Microscopic? NO; Charge for UA Resulting for Rev
[2021-06-28 20:47] LABS: Bilirubin Urine Neg (Negative); Blood Urine Neg (Negative); Glucose Urine UA Norm (Normal); Ketones Urine Negative (Negative); Leukocyte Esterase Urine Negative (Negative); Nitrate Urine Negative (Negative); Protein Urine Neg (Negative); Specific Gravity, Urine 1.015 (1.005-1.030); Urine Appearance Clear (CLEAR); Urine Color Yellow (Yellow); Urobilinogen Urine Norm (Negative); pH Urine 5 (5-7)
[2021-06-28 20:50] VITALS: RESP 18
[2021-06-28] MEDS: ondansetron 2 mg/ML SDV 2 mL 4 MG IVP (20:50)
[2021-06-28] MEDS: morphine 4 mg/mL SDV 1 mL IVP (20:50)
[2021-06-28 20:51] LABS: Basophils # 0.1 10^3/uL (0.0-0.1); Basophils % 0.6 %; Eosinophils # 0.4 10^3/uL (0.0-0.8); Eosinophils % 2.7 %; Hematocrit 43.9 % (37.0-47.0); Hemoglobin 14.4 g/dL (11.5-15.3); Lymphocytes # 2.5 10^3/uL (0.8-4.8); Lymphocytes % 15.1 %; Mean Corpuscular HGB Conc 32.8 g/dL (30.0-36.0); Mean Corpuscular Hemoglobin 30.9 pg (28.0-34.0); Mean Corpuscular Volume 94.2 fl (81-99); Mean Platelet Volume 11.3 fL (7.4-10.4); Monocytes # 0.5 10^3/uL (0.2-0.9); Monocytes % 3.2 %; Neutrophils # 12.56 10^3/uL (1.8-7.7); Neutrophils % 77.6 %; Nucleated Red Blood Cells % 0 %; Platelet Count 325 10^3/cmm (130-400); Red Blood Count 4.66 10^6/uL (4.1-5.3); Red Cell Distribution Width 14.1 % (12.1-15.1); White Blood Count 16.2 10^3/uL (4.0-10.0)
--- NOTE | 2021-06-28 20:53 | XRR_ITS ---
PROCEDURE INFORMATION: Exam: XR Chest Exam date and time: 06/28/2021 8:53 PM Age: 61 years old Clinical indication: Cardiovascular condition or disease; Congestive heart failure (chf); Cause unknown; Type unknown; Prior surgery; Surgery date: 6+ months; Surgery type: Pacemaker; Additional info: Weakness TECHNIQUE: Imaging protocol: XR of the chest. Views: 1 view. Total images: 1 COMPARISON: CR XR chest 1V portable [id number] 04/27/2020 12:09 PM FINDINGS: Tubes, catheters and devices: Pacemaker defibrillator. Lungs: No visible active interstitial or alveolar airspace disease. Pleural spaces: No pleural effusion. No pneumothorax. Heart/Mediastinum: Cardiac structures and configuration without cardiomegaly and stable. Bones/joints: Unremarkable. Soft tissues: Right axilla surgical clips. Other findings: Obesity. XR/XR chest 1V portable [id number] IMPRESSION: Nonacute. Radiation Dose CTDIVOL = (mGy): DLP = (mGy-cm)
[2021-06-28 21:06] LABS: Alanine Aminotransferase 21 U/L (0-33); Albumin Level 4.3 g/dL (3.5-5.2); Alkaline Phosphatase 94 IU/L (35-105); Anion Gap 18.8 (5-19); Aspartate Amino Transferase 21 U/L (0-32); Blood Urea Nitrogen 40 mg/dL (8-23); Carbon Dioxide 22 mmol/L (22-29); Chloride 95 mmol/L (98-107); Globulin 3.4 g/dL (1.3-4.6); Glomerular Filtration Rate 32.6 mL/min (90-130); Glucose 146 mg/dL (65-115); Osmolality Calculated 282 mOsm/kg (285-295); Potassium 5.8 mmol/L (3.5-5.1); Sodium 130 mmol/L (136-145); Total Bilirubin 0.2 mg/dL (0.15-1.2); Total Protein 7.7 g/dL (6.6-8.7)
[2021-06-28 21:22] LABS: Lactate (Lactic Acid level) 1.3 mmol/L (0.5-2.2)
[2021-06-28] MEDS: sodium chloride 0.9% 1,000 ML 999 ML IV (21:37)
[2021-06-28 23:08] VITALS: BP 114/57; PULSE 88; RESP 16; O2SAT 96
[2021-06-28 23:23] VITALS: BP 114/60; PULSE 82; RESP 18; O2SAT 98
== END 2021-06-28 23:15 | disposition home or self-care (01) ==
PROVIDERS: Emergency Provider Emergency Medicine; PCP Registered Nurse
DX: I95.9 Hypotension, unspecified (principal); E87.5 Hyperkalemia; Z79.82 Long term (current) use of aspirin; Z79.84 Long term (current) use of oral hypoglycemic drugs; Z79.02 Long term (current) use of antithrombotics/antiplatelets; Z79.4 Long term (current) use of insulin; Z85.3 Personal history of malignant neoplasm of breast; I11.0 Hypertensive heart disease with heart failure; I50.9 Heart failure, unspecified; J44.9 Chronic obstructive pulmonary disease, unspecified; Z86.73 Personal history of transient ischemic attack (TIA), and cerebral infarction without residual deficits; I25.2 Old myocardial infarction; E11.9 Type 2 diabetes mellitus without complications; F17.210 Nicotine dependence, cigarettes, uncomplicated
CPT/HCPCS: 36416; 71045; 80048; 80053; 81003; 82962; 83605; 85025; 87040; 93005; 96361; 96374; 96375; 99284; J2270; J2405; J7030

== ENCOUNTER → 2021-07-05 11:16 | Outpatient (BNVA) | payer MEDICARE, SELFPAY | PROVIDERS: PCP Registered Nurse; Visit Provider Nurse Practitioner Family | DX: E87.5 Hyperkalemia (principal) | CPT/HCPCS: 80048 ==

== ENCOUNTER → 2021-08-28 09:15 | Outpatient (BNVA) | payer MEDICARE, SELFPAY | PROVIDERS: PCP Registered Nurse; Visit Provider Registered Nurse | DX: E11.22 Type 2 diabetes mellitus with diabetic chronic kidney disease (principal); Z79.4 Long term (current) use of insulin; N18.30 Chronic kidney disease, stage 3 unspecified | CPT/HCPCS: 80053; 83036 ==

== ENCOUNTER → 2021-09-11 11:00 | Outpatient (BNVA) | payer MEDICARE, SELFPAY | PROVIDERS: PCP Registered Nurse; Visit Provider Registered Nurse | DX: Z20.822 Contact with and (suspected) exposure to COVID-19 (principal) | CPT/HCPCS: 87635 ==

== ENCOUNTER → 2021-09-14 10:13 | Outpatient (BNVA) | payer MEDICARE, SELFPAY | PROVIDERS: PCP Registered Nurse; Visit Provider Registered Nurse | DX: E87.6 Hypokalemia (principal) | CPT/HCPCS: 80053 ==

== ENCOUNTER → 2021-10-08 14:34 | Outpatient (BNVA) | payer MEDICARE, SELFPAY | PROVIDERS: PCP Registered Nurse; Visit Provider Urology | DX: N39.0 Urinary tract infection, site not specified (principal) | CPT/HCPCS: 81003; 87086 ==

== ENCOUNTER → 2021-11-02 11:38 | Outpatient (BNVA) | payer MEDICARE, SELFPAY | PROVIDERS: PCP Registered Nurse; Visit Provider Internal Medicine Cardiovascular Disease | DX: Z95.810 Presence of automatic (implantable) cardiac defibrillator (principal) | CPT/HCPCS: 93282 ==

== ENCOUNTER → 2021-11-05 14:35 | Outpatient (BNVA) | payer MEDICARE, SELFPAY | PROVIDERS: PCP Registered Nurse; Visit Provider Internal Medicine Cardiovascular Disease | DX: E11.65 Type 2 diabetes mellitus with hyperglycemia (principal); I25.5 Ischemic cardiomyopathy | CPT/HCPCS: 99214; 99215 ==

== ENCOUNTER → 2021-11-22 09:45 | Outpatient (BNVA) | payer MEDICARE, SELFPAY | PROVIDERS: PCP Registered Nurse; Visit Provider Registered Nurse | DX: E11.65 Type 2 diabetes mellitus with hyperglycemia (principal); E87.6 Hypokalemia; E11.22 Type 2 diabetes mellitus with diabetic chronic kidney disease; Z79.4 Long term (current) use of insulin; E03.9 Hypothyroidism, unspecified; E86.0 Dehydration; I50.22 Chronic systolic (congestive) heart failure; I13.0 Hypertensive heart and chronic kidney disease with heart failure and stage 1 through stage 4 chronic kidney disease, or unspecified chronic kidney disease | CPT/HCPCS: 80048; 81000; 83036; 83880; 84443 ==

== ENCOUNTER → 2021-11-26 12:37 | Outpatient (BNVA) | payer MEDICARE, SELFPAY | PROVIDERS: PCP Registered Nurse; Visit Provider Nurse Practitioner Family | DX: I25.5 Ischemic cardiomyopathy (principal); F17.210 Nicotine dependence, cigarettes, uncomplicated; Z79.82 Long term (current) use of aspirin | CPT/HCPCS: 99213; 99214 ==

== ENCOUNTER → 2021-11-29 13:47 | Outpatient (BNVA) | payer MEDICARE, SELFPAY | PROVIDERS: PCP Registered Nurse; Visit Provider Family Medicine | DX: I50.20 Unspecified systolic (congestive) heart failure (principal); E11.22 Type 2 diabetes mellitus with diabetic chronic kidney disease; M47.812 Spondylosis without myelopathy or radiculopathy, cervical region | CPT/HCPCS: 80048 ==

== ENCOUNTER → 2021-12-11 11:12 | Outpatient (BNVA) | payer MEDICARE, SELFPAY | PROVIDERS: PCP Registered Nurse; Visit Provider Registered Nurse | DX: E87.6 Hypokalemia (principal); I25.5 Ischemic cardiomyopathy; M54.50 Low back pain, unspecified; G89.29 Other chronic pain; F32.A Depression, unspecified; E11.22 Type 2 diabetes mellitus with diabetic chronic kidney disease | CPT/HCPCS: 80048 ==

== ENCOUNTER → 2022-01-15 15:34 | Outpatient (BNVA) | payer MEDICARE, SELFPAY | PROVIDERS: PCP Registered Nurse; Visit Provider Urology | DX: N39.0 Urinary tract infection, site not specified (principal) | CPT/HCPCS: 81003; 87086; 99213 ==

== ENCOUNTER 2022-01-17 13:29 | Outpatient (CLI) | payer MEDICARE, SELFPAY ==
--- NOTE | 2022-01-17 13:40 | MM_ITS ---
WS: [id number] LEFT 3D TOMOSYNTHESIS DIGITAL MAMMOGRAPHY WITH CAD CLINICAL INFORMATION: HX OF BREAST CA; RT MAST HISTORY: Breast cancer RIGHT mastectomy COMPARISON: TECHNIQUE: 3 views of the left breast were obtained. FINDINGS: Scattered fibroglandular densities of the left breast. Cardiac pacer. Stable asymmetric density lower inner LEFT breast. No suspicious focal mass, asymmetry, calcifications, or architectural distortion. No evidence of jose gnancy. MM/[place] [id number] IMPRESSION: BI-RADS: 2-Benign FOLLOW UP: 1 Year Follow-up Recommend return to annual diagnostic mammography.
== END 2022-01-17 13:30 | disposition home or self-care (01) ==
PROVIDERS: PCP Registered Nurse; Visit Provider Registered Nurse
DX: Z85.3 Personal history of malignant neoplasm of breast (principal); Z90.11 Acquired absence of right breast and nipple
CPT/HCPCS: 77061

== ENCOUNTER → 2022-01-30 10:42 | Outpatient (BNVA) | payer MEDICARE, SELFPAY | PROVIDERS: PCP Registered Nurse; Visit Provider Internal Medicine Cardiovascular Disease | DX: I13.0 Hypertensive heart and chronic kidney disease with heart failure and stage 1 through stage 4 chronic kidney disease, or unspecified chronic kidney disease (principal); E11.22 Type 2 diabetes mellitus with diabetic chronic kidney disease; F17.210 Nicotine dependence, cigarettes, uncomplicated; N18.30 Chronic kidney disease, stage 3 unspecified; I50.33 Acute on chronic diastolic (congestive) heart failure; Z79.4 Long term (current) use of insulin; Z79.84 Long term (current) use of oral hypoglycemic drugs; I25.5 Ischemic cardiomyopathy; I42.0 Dilated cardiomyopathy; Z95.810 Presence of automatic (implantable) cardiac defibrillator; E11.59 Type 2 diabetes mellitus with other circulatory complications; I25.10 Atherosclerotic heart disease of native coronary artery without angina pectoris; E78.49 Other hyperlipidemia | CPT/HCPCS: 36415; 80048; 83880; 99214 ==

== ENCOUNTER → 2022-02-01 11:08 | Outpatient (BNVA) | payer MEDICARE, SELFPAY | PROVIDERS: PCP Registered Nurse; Visit Provider Internal Medicine Cardiovascular Disease | DX: Z45.02 Encounter for adjustment and management of automatic implantable cardiac defibrillator (principal) | CPT/HCPCS: 93282 ==

== ENCOUNTER → 2022-02-28 09:22 | Outpatient (BNVA) | payer MEDICARE, SELFPAY | PROVIDERS: PCP Registered Nurse; Visit Provider Registered Nurse | DX: E78.5 Hyperlipidemia, unspecified; E03.9 Hypothyroidism, unspecified; E11.22 Type 2 diabetes mellitus with diabetic chronic kidney disease; Z79.4 Long term (current) use of insulin; I50.22 Chronic systolic (congestive) heart failure; M79.7 Fibromyalgia; M47.897 Other spondylosis, lumbosacral region | CPT/HCPCS: 80053; 80061; 81000; 83036; 83880; 84443 ==

== ENCOUNTER → 2022-03-07 14:26 | Outpatient (BNVA) | payer MEDICARE, SELFPAY | PROVIDERS: PCP Registered Nurse; Visit Provider Urology | DX: N39.0 Urinary tract infection, site not specified (principal) | CPT/HCPCS: 81003; 99213 ==

== ENCOUNTER → 2022-05-03 11:31 | Outpatient (BNVA) | payer MEDICARE, SELFPAY | PROVIDERS: PCP Registered Nurse; Visit Provider Internal Medicine Cardiovascular Disease | DX: Z45.02 Encounter for adjustment and management of automatic implantable cardiac defibrillator (principal) | CPT/HCPCS: 93282 ==

== ENCOUNTER → 2022-05-28 11:33 | Outpatient (BNVA) | payer MEDICARE, SELFPAY | PROVIDERS: PCP Registered Nurse; Visit Provider Registered Nurse | DX: E11.22 Type 2 diabetes mellitus with diabetic chronic kidney disease (principal); E11.42 Type 2 diabetes mellitus with diabetic polyneuropathy; E03.9 Hypothyroidism, unspecified; Z79.4 Long term (current) use of insulin; Z23 Encounter for immunization | CPT/HCPCS: 80053; 83036 ==

== ENCOUNTER → 2022-06-06 15:38 | Outpatient (BNVA) | payer MEDICARE, SELFPAY | PROVIDERS: PCP Registered Nurse; Visit Provider Nurse Practitioner Family | DX: N39.0 Urinary tract infection, site not specified (principal) | CPT/HCPCS: 81003; 99213 ==

== ENCOUNTER → 2022-08-07 11:43 | Outpatient (BNVA) | payer MEDICARE, SELFPAY | PROVIDERS: PCP Registered Nurse; Visit Provider Internal Medicine Cardiovascular Disease | DX: R06.02 Shortness of breath (principal); I25.5 Ischemic cardiomyopathy; I42.0 Dilated cardiomyopathy | CPT/HCPCS: 80048; 83880; 99214 ==

== ENCOUNTER → 2022-08-20 09:24 | Outpatient (BNVA) | payer MEDICARE, SELFPAY | PROVIDERS: PCP Registered Nurse; Visit Provider Registered Nurse | DX: E11.22 Type 2 diabetes mellitus with diabetic chronic kidney disease (principal); Z79.4 Long term (current) use of insulin; N18.30 Chronic kidney disease, stage 3 unspecified; I50.9 Heart failure, unspecified; E11.65 Type 2 diabetes mellitus with hyperglycemia | CPT/HCPCS: 80053; 80061; 83036; 84443; 85025 ==

== ENCOUNTER → 2022-09-03 14:56 | Outpatient (BNVA) | payer MEDICARE, SELFPAY | PROVIDERS: PCP Registered Nurse; Visit Provider Urology | DX: Z87.442 Personal history of urinary calculi (principal); N20.9 Urinary calculus, unspecified | CPT/HCPCS: 81003; 99213 ==

== ENCOUNTER 2022-09-24 09:02 | Outpatient (CLI) | payer MEDICARE, SELFPAY ==
--- NOTE | 2022-09-24 09:15 | USCV_ITS ---
Tiffany Glaser Age: 62 Gender: F : 1960 Exam Date: 09/24/2022 09:34 Ordering Phys: Dewayne Muller MD ([email or web address]) Technologist: Exam Location: [facility] [place] Indication: CHF BP: 120 / 70 HR: 84 Rhythm: Sinus Technical Quality: Adequate MEASUREMENTS (Male / Female) Normal Values 2D ECHO LV Diastolic Diameter PLAX 4.5 cm 4.2 - 5.9 / 3.9 - 5.3 cm LV Systolic Diameter PLAX 3.3 cm IVS Diastolic Thickness 1.1 cm 0.6 - 1.0 / 0.6 - 0.9 cm IVS Systolic Thickness 1.6 cm LVPW Diastolic Thickness 1.4 cm 0.6 - 1.0 / 0.6 - 0.9 cm LVPW Systolic Thickness 1.4 cm LVOT Diameter 2.0 cm LV Ejection Fraction 2D Teich 16.1 % LA Diameter 2.9 cm Aorta at Sinotubular Diameter 2.0 cm IVC Diameter 1.3 cm FINDINGS Left Ventricle Diffuse hypokinesia of the left ventricle, more so of the septum and anteroseptal segments. Overall left ventricular ejection fraction was 45%. Right Ventricle Normal right ventricular size and systolic function. Right Atrium Possibly of normal size Left Atrium Appears to be of normal size Mitral Valve No gross morphology abnormality Aortic Valve Thickened aortic valve. Tricuspid Valve No gross abnormalities noted Pulmonic Valve Pulmonic valve not well visualized. Pericardium No pericardial effusion. Aorta Normal aortic annulus size. IVC Normal inferior vena cava. CONCLUSIONS Normal LV size with diminished ejection fraction of 45%. Mild diffuse hypokinesia left-ventricle, more so of the septum and the anteroseptal segments. Thickened aortic valve. There is no pericardial effusion. There are no intracardiac masses. Compared to the study from 03/06/2020, there is significant improvement of the left ventricular ejection fraction-from 25% to 45%. Dr Dewayne Muller MD [facility] (Electronically Signed) Final Date: 25 September 2022 12:11 S
== END 2022-09-24 09:03 | disposition home or self-care (01) ==
LOC: RAD 09:03
PROVIDERS: PCP Registered Nurse; Visit Provider Internal Medicine Cardiovascular Disease
DX: I25.5 Ischemic cardiomyopathy (principal); I42.0 Dilated cardiomyopathy; I42.9 Cardiomyopathy, unspecified
CPT/HCPCS: 93308

== ENCOUNTER → 2022-11-19 09:18 | Outpatient (BNVA) | payer MEDICARE, SELFPAY | PROVIDERS: PCP Registered Nurse; Visit Provider Registered Nurse | DX: E11.65 Type 2 diabetes mellitus with hyperglycemia (principal); E11.22 Type 2 diabetes mellitus with diabetic chronic kidney disease; Z79.4 Long term (current) use of insulin; F41.8 Other specified anxiety disorders | CPT/HCPCS: 80053; 83036 ==

== ENCOUNTER → 2022-11-26 09:40 | Outpatient (BNVA) | payer MEDICARE, SELFPAY | PROVIDERS: PCP Registered Nurse; Visit Provider Registered Nurse | DX: E87.6 Hypokalemia (principal) | CPT/HCPCS: 80053 ==

== ENCOUNTER → 2022-12-26 14:52 | Outpatient (BNVA) | payer MEDICARE, SELFPAY | PROVIDERS: PCP Registered Nurse; Visit Provider Urology | DX: N39.0 Urinary tract infection, site not specified (principal) | CPT/HCPCS: 81003; 99213 ==

== ENCOUNTER → 2023-02-11 11:23 | Outpatient (BNVA) | payer MEDICARE, SELFPAY | PROVIDERS: PCP Registered Nurse; Visit Provider Internal Medicine Cardiovascular Disease | DX: I25.5 Ischemic cardiomyopathy (principal); E78.49 Other hyperlipidemia; E11.59 Type 2 diabetes mellitus with other circulatory complications; I25.10 Atherosclerotic heart disease of native coronary artery without angina pectoris; Z95.810 Presence of automatic (implantable) cardiac defibrillator; I13.0 Hypertensive heart and chronic kidney disease with heart failure and stage 1 through stage 4 chronic kidney disease, or unspecified chronic kidney disease; E11.22 Type 2 diabetes mellitus with diabetic chronic kidney disease; N18.30 Chronic kidney disease, stage 3 unspecified; Z79.4 Long term (current) use of insulin; I50.20 Unspecified systolic (congestive) heart failure; F17.210 Nicotine dependence, cigarettes, uncomplicated | CPT/HCPCS: 99214 ==

== ENCOUNTER → 2023-02-27 09:56 | Outpatient (BNVA) | payer MEDICARE, SELFPAY | PROVIDERS: PCP Registered Nurse; Visit Provider Registered Nurse | DX: E11.22 Type 2 diabetes mellitus with diabetic chronic kidney disease (principal); N18.30 Chronic kidney disease, stage 3 unspecified; Z79.4 Long term (current) use of insulin | CPT/HCPCS: 80053; 83036 ==

== ENCOUNTER → 2023-03-21 10:44 | Outpatient (BNVA) | payer MEDICARE, SELFPAY | PROVIDERS: PCP Registered Nurse; Visit Provider Registered Nurse | DX: E11.22 Type 2 diabetes mellitus with diabetic chronic kidney disease (principal); N18.30 Chronic kidney disease, stage 3 unspecified | CPT/HCPCS: 80053 ==

== ENCOUNTER → 2023-03-31 08:38 | Outpatient (BNVA) | payer MEDICARE, SELFPAY | PROVIDERS: PCP Registered Nurse; Visit Provider Registered Nurse | DX: N39.0 Urinary tract infection, site not specified (principal) | CPT/HCPCS: 81000 ==

== ENCOUNTER 2023-04-09 12:15 | Inpatient (IN) | payer MEDICARE, SELFPAY ==
[2023-04-09] VITALS (24 sets, daily range): BP systolic 97–149; BP diastolic 57–88; PULSE 65–79; RESP 11–20; TEMP 37.1; O2SAT 89–98
--- NOTE | 2023-04-09 12:17 | CT_ITS ---
WS: [id number] CT HEAD TECHNIQUE: Noncontrast CT of the head obtained from the skullbase to the vertex. CLINICAL INFORMATION: Symptoms of acute stroke COMPARISON: 2019 DLP: [address] scans at [facility] use at least one of these dose optimization techniques: automated e xposure control; mA and/or kV adjustment per patient size (includes targeted exams where dose is matc hed to clinical indication); or iterative reconstruction. FINDINGS: No evidence of intracranial hemorrhage or mass effect. Ventricular system and basal cisterns are adkins nt. Moderate small vessel changes with moderate parenchymal volume loss. Tiny chronic lacunar infarct ion RIGHT thalamus. Chronic lacunar infarcts LEFT lateral basal ganglia. Intracranial vascular calcif ication. Normal posterior nasopharynx. Paranasal sinuses and mastoid air cells are well aerated. .Normal visualized soft tissues. IMPRESSION: 1. No evidence of intracranial hemorrhage or mass effect. 2. Moderate small vessel changes with moderate parenchymal volume loss. 3. Chronic lacunar infarcts RIGHT thalamus and LEFT lateral basal ganglia. 4. Intracranial vascular calcification. Notified Ollie Rizzo DO at 04/09/2023 12:34 PM.
--- NOTE | 2023-04-09 12:17 | ECG_ITS ---
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 Measurements Intervals [place] Rate: 76 P: 47 NH: 249 QRS: -38 QRSD: 157 T: 75 QT: 427 QTc: 483 Interpretive Statements SINUS RHYTHM WITH FIRST DEGREE AV BLOCK WITH OCCASIONAL SUPRAVENTRICULAR PREMATURE COMPLEXES LEFT AXIS DEVIATION [QRS AXIS < -30] LEFT BUNDLE BRANCH BLOCK [120+ ms QRS DURATION, 80+ ms Q/S IN V1/V2, 85+ ms R IN I/aVL/V5/V6] Compared to ECG 06/28/2021 19:33:52 First degree AV block now present Left bundle-branch block now present Intraventricular conduction delay no longer present Electronically Signed On 04-09-2023 20:04:38 CDT by Dewayne Muller M.D. [email or web address]
--- NOTE | 2023-04-09 12:17 | XR_ITS ---
WS: [id number] EXAMINATION: XR chest 1V portable [id number] REASON FOR EXAM: CVA COMPARISON: 06/28/2021 ORDER DATE: 04/09/2023 12:19 PM TECHNIQUE: A single, portable frontal chest x-ray was obtained. X-RAY FINDINGS: Lungs: No visible active interstitial or alveolar airspace disease. Pleural spaces: Vague opacity obscuring the left hemidiaphragm and left ventricular apex. No pneumoth orax. Heart/Mediastinum: Cardiac structures and configuration without cardiomegaly and stable. ICD on the left. Bones/joints: Unremarkable. Soft tissues: Right axilla surgical clips. IMPRESSION: Left basilar opacity most likely consistent with a combination of superimposed soft tissue from the b reast and a small pleural effusion. Further correlation may be obtained with a lateral chest view if clinically indicated.
--- NOTE | 2023-04-09 12:19 | W.ED.NEUROSD ---
HPI - Neuro Symptoms/Deficit General: Chief Complaint: Neuro Symptoms/Deficit Stated Complaint: stroke alert Time Seen by Provider: 04/09/23 12:17 Source: patient Mode of arrival: ambulatory History of Present Illness: 62-year-old female with sudden onset of symptoms an hour prior to arrival. She complaining of generalized weakness, dizziness and right-sided weakness. She has some ataxia in the right arm and leg as well. No nystagmus.. Her felt she had some drooping on the right side of her face. He states she has been passing out intermittently last couple weeks and he thought she had a couple of mini strokes . Immediate bedside exam patient appears to have good facial symmetry. When I raise her arms up both arms dropped equally. Patient has a history of cardiomyopathy with an ICD in place. Onset (ago): hour(s) (1) Time: 12:15 Last Observed Normal: 11:15 Timing confirmed by: spouse Location: speech and right face Severity: moderate Quality: weak, numb and tingling Relieving factors: none Associated symptoms: Deny chest pain Review of Systems Card: Denies: chest pain [facility] ED PFSH: Medical History Breast cancer CHF (congestive heart failure) Chronic bilateral low back pain Congestive heart failure -severe cardiomyopathy, EF=25% COPD (chronic obstructive pulmonary disease) Cough Depression with anxiety Dysphonia Fibromyalgia History of CVA (cerebrovascular accident) History of DC (myocardial infarction) Hypertension Hypotension Hypothyroidism (acquired) ICD (implantable cardioverter-defibrillator) in place Neck pain Nocturnal hypoxia Other spondylosis, lumbosacral region Pneumonia Recurrent falls Spondylosis without myelopathy or radiculopathy, cervical region Type 2 diabetes mellitus Surgical History H/O mastectomy S/P cholecystectomy S/P hernia surgery S/P hysterectomy S/P knee surgery Bilateral Status post internal cardiac defibrillator procedure -done on 04/19/[address] Arguello Family History Mother , AT AGE 56 CAD (coronary artery disease) Grandfather CAD (coronary artery disease) Grandmother CAD (coronary artery disease) Father , IN HIS 60'S Diabetes Other Heart disease Denies family history of Clotting disorder Dementia Chronic kidney disease (CKD) Suicide Anesthesia complication Bleeding disorder Lung disease Cancer Stroke Social History Smoking and tobacco status: current every day smoker cigarettes Packs smoked per day: 1 Years cigarettes smoked: 30 Alcohol intake: never Substance/Drug Use: never Household members: spouse Housing: House Marital status: Current occupational status: disabled NIH stroke score NIHSS: Level Of Consciousness - 1a: 0 Level Of Consciousness Questions - 1b: Both Correct Level Of Consciousness Commands - 1c: Both Correct Best Gaze - 2: Normal Visual [place] - 3: No Visual Loss Facial Palsy - 4: Normal Motor Arm Right - 5: No Drift Motor Arm Left - 5: No Drift Motor Leg Right - 6: No Drift Motor Leg Left - 6: No Drift Limb Ataxia - 7: Present In Two Limbs Sensory - 8: Mild To Moderate Loss Best Language - 9: Mild/Moderate Aphasia Dysarthia - 10: Mild/Moderate Dysarthia Extinction And Inattention - 11: 0 Score: Total Score: 5 Course Vital Signs: Vital signs: Vital Signs Temperature 98.7 F 04/10/23 08:00 Pulse Rate 74 04/10/23 16:00 Respiratory Rate 21 H 04/10/23 16:00 Blood Pressure 127/80 04/10/23 16:00 Pulse Oximetry 98 04/10/23 16:00 Oxygen Delivery Me thod Room Air 04/10/23 16:00 Oxygen Flow Rate 2 04/10/23 13:00 MDM - Neuro Symptoms/Deficit Medical Decision Making Dr. Singh at the bedside reviewed the patient with her concern the patient may be having a posterior stroke ultimately we decided to go ahead and proceed with tPA with the consent of the patient. We will admit for acute CVA post tPA care. Discussed with hospitalist. Medical Records I reviewed the patient's medical records. Lab Data I reviewed the patient's lab results. 04/10/23 05:00 04/10/23 06:37 Laboratory Results WBC 14.01 10^3/uL (3.29-11.43) H 04/09/23 12:33 RBC 4.65 10^6/uL (3.85-5.65) 04/09/23 12:33 Hgb 14.40 g/dL (11.27-16.99) 04/09/23 12:33 Hct 43.2 % (36-47) 04/09/23 12: MCV 92.9 fl (85-98) 04/09/23 12: MCH 31.0 pg (27-33) 04/09/23 12: MCHC 33.3 g/dL (30-55) 04/09/23 12: RDW 13.0 % (12.1-15.1) 04/09/23 12:33 Plt Count 263 10^3/cmm (157-399) 04/09/23 12: MPV 9.9 fL (7.4-10.4) 04/09/23 12: Neut % (Auto) 72.8 % 04/09/23 12: Lymph % (Auto) 17.3 % 04/09/23 12: Chase % (Auto) 5.0 % 04/09/23 12: Eos % (Auto) 2.4 % 04/09/23 12: Baso % (Auto) 0.9 % 04/09/23 12: Neut # (Auto) 10.19 10^3/uL (1.8-7.7) H 04/09/23 12: Lymph # (Auto) 2.4 10^3/uL (0.8-4.8) 04/09/23 12: Chase # (Auto) 0.7 10^3/uL (0.2-0.9) 04/09/23 12: Eos # (Auto) 0.3 10^3/uL (0.0-0.8) 04/09/23 12: Baso # (Auto) 0.1 10^3/uL (0.0-0.1) 04/09/23 12: Nucleated RBC % (auto) 0 % 04/09/23 12: Nucleated RBCs # 0.0 /100WBC 04/09/23 12: PT 12.80 SECONDS (12.1-14.9) 04/09/23 12:33 INR 0.93 (0.8-1.2) 04/09/23 12: APTT 33.3 SECONDS (23.9-36.7) 04/09/23 12:33 Sodium 135 mmol/L (136-145) L 04/09/23 12:33 Potassium 4.4 mmol/L (3.5-5.1) 04/09/23 12:33 Chloride 98 mmol/L (98-107) 04/09/23 12:33 Carbon Dioxide 25 mmol/L (22-29) 04/09/23 12:33 Anion Gap 16.4 (5-19) 04/09/23 12:33 BUN 30 mg/dL (8-23) H 04/09/23 12:33 Creatinine 1.3 mg/dL (0.5-0.9) H 04/09/23 12:33 GFR Calculation 41.2 mL/min (90-130) L 04/09/23 12:33 Glucose 182 mg/dL (65-115) H 04/09/23 12:33 POC Glucose 195 mg/dL (70-110) H 04/09/23 12:24 Calculated Osmolality 291 mOsm/kg (285-295) 04/09/23 12:33 Calcium 9.6 mg/dL (8.5-10.5) 04/09/23 12:33 Total Bilirubin 0.3 mg/dL (0.15-1.2) 04/09/23 12:33 AST 11 U/L (0-32) 04/09/23 12:33 ALT 15 U/L (0-33) 04/09/23 12:33 Alkaline Phosphatase 93 U/L (35-105) 04/09/23 12:33 Total Protein 6.7 g/dL (6.6-8.7) 04/09/23 12:33 Albumin 3.9 g/dL (3.5-5.2) 04/09/23 12:33 Globulin 2.8 g/dL (1.3-4.6) 04/09/23 12:33 Urine Color Yellow (Yellow) 04/09/23 12:31 Urine Appearance Clear (CLEAR) 04/09/23 12:31 Urine pH 5 (5-7) 04/09/23 12:31 Ur Specific [place] 1.015 (1.005-1.030) 04/09/23 12:31 Urine Protein Neg (Negative) 04/09/23 12:31 Urine Glucose (UA) 4+ (Normal) H 04/09/23 12:31 Urine Ketones Negative (Negative) 04/09/23 12:31 Urine Blood Neg (Negative) 04/09/23 12:31 Urine Nitrate Positive (Negative) H 04/09/23 12:31 Urine Bilirubin Neg (Negative) 04/09/23 12:31 Urine Urobilinogen Norm mg/dL (Negative) 04/09/23 12:31 Ur Leukocyte Esterase Negative (Negative) 04/09/23 12:31 Urine RBC 0-4 /hpf (0-2) H 04/09/23 12:31 Urine WBC 0-4 /hpf (0-5) H 04/09/23 12:31 Ur Squamous Epith Cells 0-4 /hpf (0-5) H 04/09/23 12:31 Amorphous Sediment Not Reportable 04/09/23 12:31 Urine Bacteria 4+ /hpf (NONE) H 04/09/23 12:31 Urine Mucus 1+ /hpf 04/09/23 12:31 Urine Opiates Screen Positive ng/mL (Negative) H 04/09/23 12:31 Ur Barbiturates Screen Negative ng/mL (Negative) 04/09/23 12:31 Ur Phencyclidine Scrn Negative ng/mL (Negative) 04/09/23 12:31 Ur Amphetamines Screen Negative ng/mL (Negative) 04/09/23 12:31 U Benzodiazepines Scrn Negative ng/mL (Negative) 04/09/23 12:31 Urine Cocaine Screen Negative ng/mL (Negative) 04/09/23 12:31 U Marijuana (THC) Screen Negative ng/mL (Negative) 04/09/23 12:31 Discharge Plan Discharge Patient Disposition: Admitted As Inpatient Admit Provider: Mitchell Day Clinical Impression: Posterior circulation stroke Condition: Stable Coding Level of Care Code ED Recruitment And Outreach Assistant for Zaki Mares
--- NOTE | 2023-04-09 12:26 | PC.NURSE ---
pt placed in gown at this time
[2023-04-09 12:48] LABS: Basophils # 0.1 10^3/uL (0.0-0.1); Basophils % 0.9 %; Eosinophils # 0.3 10^3/uL (0.0-0.8); Eosinophils % 2.4 %; Hematocrit 43.2 % (36-47); Lymphocytes # 2.4 10^3/uL (0.8-4.8); Lymphocytes % 17.3 %; Mean Corpuscular HGB Conc 33.3 g/dL (30-55); Mean Corpuscular Volume 92.9 fl (85-98); Mean Platelet Volume 9.9 fL (7.4-10.4); Monocytes # 0.7 10^3/uL (0.2-0.9); Neutrophils # 10.19 10^3/uL (1.8-7.7); Neutrophils % 72.8 %; Nucleated Red Blood Cells % 0 %; Platelet Count 263 10^3/cmm (157-399); Red Blood Count 4.65 10^6/uL (3.85-5.65); White Blood Count 14.01 10^3/uL (3.29-11.43)
[2023-04-09 12:54] LABS: Specific Gravity, Urine 1.015 (1.005-1.030); Urine Appearance Clear (CLEAR); Urine Color Yellow (Yellow); pH Urine 5 (5-7)
[2023-04-09 12:55] LABS: Add Urine Culture? Yes; Add Urine Microscopic? YES; Bacteria Urine 4+ /hpf; Bilirubin Urine Neg (Negative); Blood Urine Neg (Negative); Glucose Urine UA 4+ (Normal); Ketones Urine Negative (Negative); Leukocyte Esterase Urine Negative (Negative); Mucus Urine 1+ /hpf; Nitrate Urine Positive (Negative); Protein Urine Neg (Negative); RBC Urine 0-4 /hpf (0-2); Squamous Epithelial Cell Urine 0-4 /hpf (0-5); Urobilinogen Urine Norm (Negative); WBC Urine 0-4 /hpf (0-5)
[2023-04-09 12:56] LABS: Glucose Point of Care 195 mg/dL (70-110)
[2023-04-09 13:02] LABS: INR 0.93 (0.8-1.2)
[2023-04-09 13:03] LABS: Amphetamines Screen Urine Negative (Negative); Barbiturates Screen Urine Negative (Negative); Benzodiazepines Screen Urine Negative (Negative); Cocaine Screen Urine Negative (Negative); Opiate Screen Urine Positive (Negative); PCP Screen Urine Negative (Negative); THC Screen Urine Negative (Negative)
[2023-04-09 13:03] LABS: Partial Thromboplastin Time 33.3 SECONDS (23.9-36.7)
--- NOTE | 2023-04-09 13:07 | CT_ITS ---
WS: [id number] CTA HEAD AND NECK TECHNIQUE: Contrast enhanced CTA of the head and neck with coronal and sagittal reformatted images an d maximum intensity projection (MIP) images. NASCET criteria utilized. CLINICAL INFORMATION: posterior CVA COMPARISON: 2013 DLP: 547.[address] scans at [facility] use at least one of these dose optimization techniques: automated e xposure control; mA and/or kV adjustment per patient size (includes targeted exams where dose is matc hed to clinical indication); or iterative reconstruction. FINDINGS: RIGHT: RIGHT common carotid artery is patent. No significant RIGHT ICA stenosis. Mild atheromatous plaque RIGHT carotid bulb. Mild cavernous caroti d calcification. LEFT: LEFT common carotid artery is patent. Mild calcified atheromatous plaque LEFT bulb. No signific ant LEFT ICA stenosis. LEFT ICA is patent to the skull base. Mild cavernous carotid calcification. Moderate emphysematous changes in the lung apices. Calcified RIGHT hilar and subcarinal adenopathy. N ormal posterior nasopharynx and parapharyngeal fat. INTRACRANIAL CTA: Both ICAs patent at the skull base. Mild cavernous carotid calcification. Normal vascularity to the A CA and MCA territories bilaterally. No flow-limiting stenosis. LEFT dominant vertebral artery. Both vertebrals are patent. Basilar artery is patent. Persistent RIGH T [employer]ESS [employer] MECH[employer]IC. Normal vascularity to the [employer] MECH[employer]IC territories bilaterally. No evidence of flow-limiting sten osis. IMPRESSION: 1. No significant ICA stenosis. 2. No flow-limiting intracranial stenosis
[2023-04-09 13:08] LABS: Alanine Aminotransferase 15 U/L (0-33); Albumin Level 3.9 g/dL (3.5-5.2); Alkaline Phosphatase 93 U/L (35-105); Anion Gap 16.4 (5-19); Aspartate Amino Transferase 11 U/L (0-32); Blood Urea Nitrogen 30 mg/dL (8-23); Calcium 9.6 mg/dL (8.5-10.5); Carbon Dioxide 25 mmol/L (22-29); Chloride 98 mmol/L (98-107); Globulin 2.8 g/dL (1.3-4.6); Glomerular Filtration Rate 41.2 mL/min (90-130); Glucose 182 mg/dL (65-115); Osmolality Calculated 291 mOsm/kg (285-295); Potassium 4.4 mmol/L (3.5-5.1); Sodium 135 mmol/L (136-145); Total Bilirubin 0.3 mg/dL (0.15-1.2); Total Protein 6.7 g/dL (6.6-8.7)
--- NOTE | 2023-04-09 13:14 | PM.SAN ---
Stroke Alert Activation ED Arrival Date: 04/09/23 ED Arrival Time: 12:17 ED Physican at Bedside: 12:17 Last Known Normal/at Baseline: < 1 hour ago Other Last Known Well Infomation: Her brought her in with concern that she was having a stroke. Her symptoms began less than an hour ago. Normally the patient walks by herself without assistance. She does not require a walker. She has baseline of 30% ejection fraction from ischemic cardiomyopathy and she has an AICD. She has multiple risk factors for stroke. Her says I gave her tPA 2 years ago. On arrival the nursing staff had trouble getting her out of the car. She was not moving any of her 4 extremities well and she could not stand up. On neurologic exam she was not moving any of her 4 extremities well. She had full eye movements and her visual shah were full to confrontation. Her facial movements were weak bilaterally without focus. All 4 extremities were less than antigravity strength. Although there were suggestions based on this exam that her's symptoms could be functional, she has no functional strokelike history, she has severe pathology with a high risk of stroke and it was my impression that this could be a brainstem stroke. I conferred with Dr. Graf and the preventive maintenance coordinator and we all agreed that tPA was indicated for concern of posterior circulation stroke. She received a bolus at 1242. The patient and her gave informed consent and I explained the 6% risk of brain hemorrhage associated with tPA. With the luxury of time I have reviewed all of the notes from the last 3 years and I do not see a diagnosis of stroke nor are there any notes from me. I suspect its been longer than 3 years since she received tPA. She says she has been having episodic weakness over the course of the last several weeks. Weakness was generalized. She was still able to walk. Stroke Alert Activation Time: 12:15 Stroke MD @ Bedside Time: 12:15 NIH Stroke Scale Time: 12:25 NIH stroke score NIHSS: Level Of Consciousness - 1a: 0 Level Of Consciousness Questions - 1b: Both Correct Level Of Consciousness Commands - 1c: Both Correct Best Gaze - 2: Normal Visual [place] - 3: No Visual Loss Facial Palsy - 4: Minor Paralysis Motor Arm Right - 5: Effort Against [place] Motor Arm Left - 5: Effort [place] Motor Leg Right - 6: Effort Against [place] Motor Leg Left - 6: Effort Against [place] Limb Ataxia - 7: Absent Sensory - 8: Normal Best Language - 9: No Aphasia Dysarthia - 10: Mild/Moderate Dysarthia Stroke Alert Data/Treatment Time to CT of Head: 12:15 CT Results Date: 04/09/23 CT Results Time: 12:34 CT Impression: She has multiple lacunar infarcts right thalamus and left subcortical region. No acute changes. No blood. 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 She had some features of a functional disorder but she has a high level of stroke risk factors, no previous history of strokelike events and it is appropriate to err on the side of treatment. She had no she had no contraindication to tPA as her blood pressure was controlled, she was not on an anticoagulant. Timeout was held prior to the bolus with Dr. Graf, the preventive maintenance coordinator and myself. We obtained nformed consent from the patient and her . 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
[2023-04-09] MEDS: iohexol 350 mg/mL 500 mL Btl (per mL) IV (13:50)
[2023-04-09] MEDS: sodium chloride 0.9% 50 ML 200 ML IV (14:06)
--- NOTE | 2023-04-09 14:12 | PC.NURSE ---
Checked patient's neuro status post-TPA administration, patient will open her eyes to voice, pupils are equal and reactive, patient knows her name, , where she is at and what month it is. Patient can also wiggle her fingers and toes of both hands and feet.
--- NOTE | 2023-04-09 15:52 | PM.HP ---
Providers/Chief Complaint Admitting Physician: Mitchell Day MD Primary Care Provider: JOSH Montes Chief Complaint: stroke alert History of Present Illness Tiffany Glaser is a 62 year old female with a past medical history of insulin-dependent type 2 diabetes mellitus, history of CVAs in the past status post tPA, history of ischemic cardiomyopathy, history of systolic CHF, history of COPD, current smoker, hypothyroidism, history of recurrent UTIs, history of ICD who presents to [facility] due to productive aphasia, facial droop, bilateral arm paresthesias, bilateral lower extremity weakness. Currently patient is alert to person, to place, not to time, she can answer questions but she does have cognitive slowing, mental fogginess, she does have some degree of her right facial droop, more generalized weakness. According to daughter at bedside yesterday she had an episode of blacking out when she was at [facility], her was outside [facility], and was called back and that she blacked out, she is not exactly sure what happened at that time, and she refused to come to the hospital. This morning she woke at about 9 AM, she, fixed peanut butter sandwich, nothing out of the ordinary, they actually got in the car and went somewhere locally, on their way back, she started developing productive aphasia, word finding difficulty, right-sided facial droop, bilateral arm paresthesias, bilateral lower extremity weakness, she was brought to the [facility], her NIH stroke scale on admission was 5, stroke code was called, Dr. Singh was consulted, examined patient, patient received tPA, currently she is seen she still has some degree of her right facial droop, she more has generalized weakness, bilateral upper and lower extremities, but her tells me that roughly an hour ago she was unable to move bilateral legs now she is able to move her legs or arms, she is alert to person, to place she can follow commands she can answer questions, she does report that she took her insulin this morning, she does report smoking, denies any IV drug use, she is on antibiotics for UTI, she has had recurrent UTIs for the last year, she has been urinating quite frequently Review of Systems Const: Denies: fever(s) ENMT: Denies: throat pain Card: Denies: chest pain Resp: Denies: dyspnea GI: Denies: abdominal pain : Denies: flank pain Musc: Denies: neck pain or back pain Skin/Breast: Denies: rash Neuro: Reports: weakness in extremities; Denies: headache(s), numbness in extremities, dizziness or confusion Medications/Allergies Home Medications Medication Instructions Recorded Confirmed Last Taken Type albuterol sulfate 2.5 mg/3 mL 2.5 mg inhalation QID PRN 08/30/19 04/09/23 12/26/19 09:00 History (0.083 %) solution for nebulization Shortness Of Breath aspirin 81 mg tablet,delayed 81 mg PO DAILY 08/30/19 04/09/23 04/09/23 History release nitroglycerin 0.4 mg sublingual 0.4 mg sublingual Q5M PRN chest 09/06/20 04/09/23 Unknown Rx tablet pain #30 tabs blood sugar diagnostic (OneTouch #100 ea 07/16/21 04/09/23 Unknown Rx Ultra Test strips) blood sugar diagnostic #100 ea 08/28/21 04/09/23 Unknown Rx furosemide 20 mg tablet 20 mg PO BID 11/05/21 04/09/23 04/09/23 History flash glucose scanning reader #1 ea 01/10/22 04/09/23 Unknown Rx (FreeStyle Tana 14 Day Epsom) carvedilol 6.25 mg tablet 3.125 mg PO BID #180 tabs 08/26/22 04/09/23 04/09/23 Rx potassium chloride 20 mEq 20 meq PO DAILY #90 tabs 08/26/22 04/09/23 04/09/23 Rx tablet,extended release hydrocodone 7.5 mg-acetaminophen 1 tab PO Q8H PRN pain 30 days #90 12/16/22 04/09/23 Unknown Rx 325 mg tablet tabs pen needle, diabetic 29 gauge x #100 ea 02/27/23 04/09/23 Unknown Rx 1/2 (Lite Touch Insulin Pen Hancock) semaglutide 1 mg/dose (4 mg/3 mL) 1 mg (0.75 mL) SUBCUT .weekly #3 mL 02/27/23 04/09/23 04/09/23 Rx subcutaneous pen injector (Ozempic) flash glucose sensor (Avuxiyle #2 ea 03/11/23 04/09/23 Unknown Rx Tana 14 Day Sensor kit) atorvastatin 40 mg tablet 40 mg PO DAILY 04/09/23 04/09/23 04/09/23 History cholecalciferol (vitamin D3) 25 25 mcg PO DAILY 04/09/23 04/09/23 04/09/23 History mcg (1,000 unit) tablet (Vitamin D3) clopidogrel 75 mg tablet 75 mg PO DAILY 04/09/23 04/09/23 04/09/23 History empagliflozin 10 mg tablet 10 mg PO DAILY 04/09/23 04/09/23 04/09/23 History (Jardiance) ferrous sulfate 325 mg (65 mg 325 mg PO EVERY OTHER DAY 04/09/23 04/09/23 04/08/23 History iron) tablet gabapentin 300 mg capsule 300 mg PO TID 04/09/23 04/09/23 04/09/23 History insulin degludec 200 unit/mL (3 50 unit SUBCUT DAILY 04/09/23 04/09/23 04/09/23 History mL) subcutaneous pen levothyroxine 137 mcg tablet 137 mcg PO DAILY 04/09/23 04/09/23 04/09/23 History montelukast 10 mg tablet 10 mg PO DAILY 04/09/23 04/09/23 04/09/23 History kzbroeyz-iyh-ckofu ac 400 1 tab PO DAILY 04/09/23 04/09/23 04/09/23 History mcg-calcium carb 500 mg-vit K1 20 mcg tablet (Women's 50 Plus Multivitamin) nitrofurantoin 100 mg PO BID 04/09/23 04/09/23 04/09/23 History monohydrate/macrocrystals 100 mg capsule nortriptyline 75 mg capsule 75 mg PO BEDTIME 04/09/23 04/09/23 04/08/23 History pantoprazole 20 mg tablet,delayed 20 mg PO DAILY 04/09/23 04/09/23 04/09/23 History release sacubitril 49 mg-valsartan 51 mg 1 tab PO BID 04/09/23 04/09/23 04/09/23 History tablet (Entresto) tizanidine 4 mg tablet 4 mg PO Q8H PRN Muscle Spasm 04/09/23 04/09/23 Unknown History venlafaxine 150 mg 150 mg PO DAILY 04/09/23 04/09/23 04/09/23 History capsule,extended release 24 hr Allergies Allergy/AdvReac Type Severity Reaction Status Date / Time No Known Allergies Allergy Verified 04/09/23 13:23 PFSH Acute PFSH: Medical History Breast cancer CHF (congestive heart failure) Chronic bilateral low back pain Congestive heart failure -severe cardiomyopathy, EF=25% COPD (chronic obstructive pulmonary disease) Cough Depression with anxiety Dysphonia Fibromyalgia History of CVA (cerebrovascular accident) History of IA (myocardial infarction) Hypertension Hypotension Hypothyroidism (acquired) ICD (implantable cardioverter-defibrillator) in place Neck pain Nocturnal hypoxia Other spondylosis, lumbosacral region Pneumonia Recurrent falls Spondylosis without myelopathy or radiculopathy, cervical region Type 2 diabetes mellitus Surgical History H/O mastectomy S/P cholecystectomy S/P hernia surgery S/P hysterectomy S/P knee surgery Bilateral Status post internal cardiac defibrillator procedure -done on 04/19/[address] Arguello Family History Mother , AT AGE 56 CAD (coronary artery disease) Grandfather CAD (coronary artery disease) Grandmother CAD (coronary artery disease) Father , IN HIS 60'S Diabetes Other Heart disease Denies family history of Clotting disorder Dementia Chronic kidney disease (CKD) Suicide Anesthesia complication Bleeding disorder Lung disease Cancer Stroke Social History Smoking and tobacco status: current every day smoker cigarettes Packs smoked per day: 1 Years cigarettes smoked: 30 Alcohol intake: never Substance/Drug Use: never Household members: spouse Housing: House Marital status: Current occupational status: disabled Vitals/I&O/Wt Last Vital Signs Temp 98.8 F 04/09/23 12:25 Pulse 69 04/09/23 15:00 Resp 15 04/09/23 15:00 BP 112/86 04/09/23 15:00 Pulse Ox 95 04/09/23 15:00 O2 Del Method Nasal Cannula 04/09/23 12:45 O2 Flow Rate 3 04/09/23 12:45 04/09/23 04/09/23 04/09/23 06:59 14:59 22:59 Intake Total 63.8 / 63.8 Balance 63.8 / 63.8 Physical Exam Const: COMMON NORMALS: no acute distress and patient oriented x3 GENERAL APPEARANCE: cooperative, well kempt and well developed HENMT: COMMON NORMALS: normocephalic and Normal external nose present HEAD & SCALP: normocephalic NOSE: Normal external nose present Eye: COMMON NORMALS: Equal, round and reactive pupils present, EOMs intact bilaterally, conjunctivae normal and no scleral icterus CONJUNCTIVA: Yes conjunctivae normal PUPIL: Yes Equal, round and reactive pupils present Neck/C-Spine: COMMON NORMALS: full ROM, no lymphadenopathy, no JVD and Thyroid normal Chest: COMMONS NORMALS: normal inspection of the chest Resp: COMMON NORMALS: normal respiratory effort, No retractions, No use of accessory muscles and clear to auscultation bilaterally AUSCULTATION: clear to auscultation bilaterally Cardio: COMMON NORMALS: regular rate, regular rhythm, S1 normal heart sound present, S2 normal heart sound present, No murmurs present (Cardio) and Peripheral pulses 2+ throughout RATE: regular rate RHYTHM: regular rhythm HEART SOUNDS: S1 normal heart sound present and S2 normal heart sound present PERIPHERAL PULSES: Peripheral pulses 2+ throughout GI: COMMON NORMALS: Normal to inspection, nondistended, normoactive bowel sounds present, Soft to palpation and non-tender : BLADDER/KIDNEY EXAM: Yes no CVA tenderness Back/Pelvis: COMMON NORMALS: no CVA tenderness Extremity: COMMON NORMALS: normal to inspection, full ROM, no calf tenderness and no pedal edema Neuro: COMMON NORMALS: patient oriented x3 and CN's II-XII intact bilaterally OTHER: Right facial droop very mild ? Upper extremity strength bilateral upper extremity strength 3-5 bilaterally ? Bilateral lower extremity strength, 3 out of 5 bilaterally ? [id number] bilaterally positive Psych: COMMON NORMALS: mental status grossly normal, Normal thought process present and cooperative APPEARANCE: Yes well kempt Skin: COMMON NORMALS: turgor normal and no jaundice GENERAL SKIN EXAM: turgor normal Data 04/09/23 12:33 04/09/23 12:33 A&P Assessment and plan (1) Brainstem stroke: (2) Received intravenous tissue plasminogen activator (tPA) in emergency department: (3) Depression with anxiety: (4) Ischemic congestive cardiomyopathy: (5) COPD (chronic obstructive pulmonary disease): Qualifiers: COPD type: unspecified COPD Qualified Code(s): J44.9 - Chronic obstructive pulmonary disease, unspecified (6) Type 2 diabetes mellitus: Qualifiers: Diabetes mellitus shelter insulin use: 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 Diabetes mellitus complication status: with kidney complications Diabetes mellitus complication detail: with chronic kidney disease Chronic kidney disease stage: stage 3 (moderate) Qualified Code(s): E11.22 - Type 2 diabetes mellitus with diabetic chronic kidney disease; N18.3 - Chronic kidney disease, stage 3 (moderate); Z79.4 - watermelon inspector (current) use of insulin (7) LV dysfunction: (8) CHF (congestive heart failure): Qualifiers: Heart failure type: systolic Heart failure chronicity: chronic Qualified Code(s): I50.22 - Chronic systolic (congestive) heart failure (9) History of IA (myocardial infarction): (10) Smoking greater than 30 pack years: (11) Hypothyroidism: Qualifiers: Hypothyroidism type: acquired Qualified Code(s): E03.9 - Hypothyroidism, unspecified (12) Coronary artery disease due to type 2 diabetes mellitus: (13) Diabetic neuropathy: Qualifiers: Diabetes mellitus type: type 2 Diabetes mellitus complication detail: diabetic polyneuropathy Qualified Code(s): E11.42 - Type 2 diabetes mellitus with diabetic polyneuropathy (14) Stage 3 chronic kidney disease due to diabetes mellitus: (15) Hyperlipidemia: Qualifiers: Hyperlipidemia type: other hyperlipidemia Qualified Code(s): E78.49 - Other hyperlipidemia (16) ICD (implantable cardioverter-defibrillator) in place: (17) Recurrent UTI: Plan Posterior circulation stroke -Status post tPA -NIH stroke scale admission was 5 -Neurology was consulted -Currently alert, awake to person, to place, not to time, can move all 4 extremities, persistent right facial droop CT head IMPRESSION: 1.? No evidence of intracranial hemorrhage or mass effect. 2.? Moderate small vessel changes with moderate parenchymal volume loss. 3.? Chronic lacunar infarcts RIGHT thalamus and LEFT lateral basal ganglia. 4.? Intracranial vascular calcification. CTA head and neck IMPRESSION: 1.? No significant ICA stenosis. 2.? No flow-limiting intracranial stenosis Plan -Admit to ICU -Neurochecks, NIH stroke scale, aspiration precautions -Keep n.p.o. -IV fluids -Allow for permissive hypertension, treat systolic of greater than 180, diastolic is greater than 105 -Telemetry monitoring -Cardiac echo -Smoking cessation counseling -PT OT, speech therapy eval -We will start aspirin, Plavix, tomorrow -We will Lovenox for DVT prophylaxis tomorrow -Repeat CT of the head tomorrow 24 hours -Patient has a UTI start Rocephin -Type 2 diabetes mellitus, low-dose sliding scale, hold off on Lantus therapy -Full code -SCDs for DVT prophylaxis Attestations Medical Necessity Statement*: Patient requires hospitalization, inpatient, greater than 2 midnights, for acute posterior circulation stroke, status post tPA, with UTI Coding Level of Care Code Critical Care >/= 30 minutes Critical care time (in minutes): 45 The high probability of a clinically significant, sudden or life threatening deterioration, as referenced in this documentation, required my full and direct attention, intervention and personal management. The critical care time shown is in addition to time spent performing any reported separately billable procedures and includes the following: [x] Data and vital sign review and interpretation [x] Patient assessment, examination and intervention [x] Medication orders and management [x] Patient/Family updates as able [x] Care Coordination and Documentation. Diagnoses Brainstem stroke I63.9 Received intravenous tissue plasminogen activator (tPA) in emergency department Z92.82 Depression with anxiety F41.8 Ischemic congestive cardiomyopathy I25.5; I42.0 COPD (chronic obstructive pulmonary disease) J44.9 COPD type: unspecified COPD Type 2 diabetes mellitus E11.22; N18.3; Z79.4 Diabetes mellitus shelter insulin use: 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 Diabetes mellitus complication status: with kidney complications Diabetes mellitus complication detail: with chronic kidney disease Chronic kidney disease stage: stage 3 (moderate) LV dysfunction I51.9 CHF (congestive heart failure) I50.22 Heart failure type: systolic Heart failure chronicity: chronic History of IA (myocardial infarction) I25.2 Smoking greater than 30 pack years F17.210 Hypothyroidism E03.9 Hypothyroidism type: acquired Coronary artery disease due to type 2 diabetes mellitus E11.59; I25.10 Diabetic neuropathy E11.42 Diabetes mellitus type: type 2 Diabetes mellitus complication detail: diabetic polyneuropathy Stage 3 chronic kidney disease due to diabetes mellitus E11.22; N18.3 Hyperlipidemia E78.49 Hyperlipidemia type: other hyperlipidemia ICD (implantable cardioverter-defibrillator) in place Z95.810 Recurrent UTI N39.0
--- NOTE | 2023-04-09 16:48 | PC.NURSE ---
Arrived from ED, able to move all extremities BLE equal weakness, AO x4
[2023-04-09 17:02] LABS: Glucose Point of Care 135 mg/dL (70-110)
[2023-04-09] MEDS: sodium chloride 0.9% 1,000 ML 100 ML IV (17:19)
[2023-04-09] MEDS: pantoprazole 40 mg SDV IVP (17:20)
[2023-04-09] MEDS: cefTRIAXone 1,000 MG in sodium chloride 0.9% (plus) 50 ML 100 MG IV (17:20)
[2023-04-09 22:54] LABS: Glucose Point of Care 81 mg/dL (70-110)
[2023-04-10] VITALS (24 sets, daily range): BP systolic 119–157; BP diastolic 60–105; PULSE 64–75; RESP 11–21; TEMP 36.5–37.1; O2SAT 90–99
[2023-04-10] MEDS: sodium chloride 0.9% 1,000 ML 100 ML IV ×2 (04:54→21:06)
[2023-04-10 05:33] LABS: Basophils # 0.1 10^3/uL (0.0-0.1); Basophils % 0.7 %; Eosinophils # 0.4 10^3/uL (0.0-0.8); Eosinophils % 2.6 %; Hematocrit 41.4 % (36-47); Lymphocytes # 2.3 10^3/uL (0.8-4.8); Lymphocytes % 17.2 %; Mean Corpuscular HGB Conc 31.9 g/dL (30-55); Mean Corpuscular Hemoglobin 30.2 pg (27-33); Mean Corpuscular Volume 94.7 fl (85-98); Mean Platelet Volume 10.6 fL (7.4-10.4); Monocytes # 0.8 10^3/uL (0.2-0.9); Monocytes % 5.7 %; Neutrophils # 9.91 10^3/uL (1.8-7.7); Neutrophils % 73.1 %; Nucleated Red Blood Cells % 0 %; Platelet Count 257 10^3/cmm (157-399); Red Blood Count 4.37 10^6/uL (3.85-5.65); Red Cell Distribution Width 12.8 % (12.1-15.1); White Blood Count 13.56 10^3/uL (3.29-11.43)
[2023-04-10 05:56] LABS: Estmated Average Glucose 174; Hemoglobin A1C 7.7 % (4.0-6.0)
--- NOTE | 2023-04-10 07:00 | PC.NURSE ---
NIH scale completed at shift change with BARBY Muhammad.
[2023-04-10 07:34] LABS: Fibrinogen 215 mg/dL (174-498)
[2023-04-10 07:43] LABS: Alanine Aminotransferase 12 U/L (0-33); Albumin Level 3.4 g/dL (3.5-5.2); Alkaline Phosphatase 82 U/L (35-105); Anion Gap 11.2 (5-19); Aspartate Amino Transferase 12 U/L (0-32); Blood Urea Nitrogen 23 mg/dL (8-23); Calcium 8.7 mg/dL (8.5-10.5); Carbon Dioxide 28 mmol/L (22-29); Chloride 98 mmol/L (98-107); Chol HDL Ratio 5.21 mg/dL (0.0-4.40); Cholesterol 146 mg/dL (0-200); D Dimer 4.83 ug/mLFEU (0-0.59); Globulin 2.8 g/dL (1.3-4.6); Glomerular Filtration Rate 55.8 mL/min (90-130); Glucose 111 mg/dL (65-115); HDL Cholesterol 28 mg/dL (60-100); LDL Cholesterol Calculated 55 mg/dL (50-129); LDL HDL Ratio 1.96 RATIO (0.00-3.22); Magnesium 1.8 mg/dL (1.7-2.3); Osmolality Calculated 280 mOsm/kg (285-295); Phosphorus 3.4 mg/dL (2.5-4.5); Potassium 4.2 mmol/L (3.5-5.1); Sodium 133 mmol/L (136-145); Thyroid Stimulating Hormone 0.43 uIU/mL (0.27-4.20); Total Bilirubin 0.3 mg/dL (0.15-1.2); Total Protein 6.2 g/dL (6.6-8.7); Triglycerides 313 mg/dL (0-150)
[2023-04-10 08:15] LABS: Glucose Point of Care 91 mg/dL (70-110)
[2023-04-10] MEDS: venlafaxine ER (24HR) 150 mg Capsule PO (08:38)
[2023-04-10] MEDS: levothyroxine 137 mcg Tablet PO (08:38)
[2023-04-10] MEDS: atorvastatin 40 mg Tablet PO (08:38)
[2023-04-10 09:29] LABS: Glucose Point of Care 103 mg/dL (70-110)
--- NOTE | 2023-04-10 09:57 | CT_ITS ---
WS: [id number] CT HEAD TECHNIQUE: Noncontrast CT of the head obtained from the skullbase to the vertex. CLINICAL INFORMATION: neuro changes COMPARISON: CT 04/09/2023 DLP: 1034.[address] scans at [facility] use at least one of these dose optimization techniques: automated e xposure control; mA and/or kV adjustment per patient size (includes targeted exams where dose is matc hed to clinical indication); or iterative reconstruction. FINDINGS: No evidence of intracranial hemorrhage or mass effect. Ventricular system and basal cisterns are adkins nt. Moderate small vessel changes with moderate parenchymal volume loss. Chronic lacunar infarcts RIG HT thalamus. Chronic appearing tiny lacunar infarcts in the caudate. Tiny chronic lacunar infarcts in the bilateral basal ganglia. Findings are unchanged compared to 04/08/2023. Intracranial vascular calcification. Mastoid air cells are well aerated. Fluid within the sphenoid si nuses and nasal turbinates. IMPRESSION: 1. No evidence of intracranial hemorrhage or mass effect. 2. No significant changes since 04/09/2023. 3. No acute intracranial findings.
[2023-04-10] MEDS: valproic acid inj 500 MG in sodium chloride 0.9% 50 ML 55 MG IV (11:28)
[2023-04-10 11:48] LABS: Glucose Point of Care 85 mg/dL (70-110)
--- NOTE | 2023-04-10 16:32 | USCV_ITS ---
Tiffany Glaser Age: 62 Gender: F : 1960 Exam Date: 04/10/2023 09:46 Ordering Phys: Mitchell Day MD Technologist: Elio Ratliff Exam Location: [facility] [place] Indication: cva BP: 147 / 95 HR: 64 Rhythm: Sinus Technical Quality: Adequate MEASUREMENTS (Male / Female) Normal Values 2D ECHO LV Diastolic Diameter PLAX 4.3 cm 4.2 - 5.9 / 3.9 - 5.3 cm LV Systolic Diameter PLAX 3.0 cm IVS Diastolic Thickness 1.1 cm 0.6 - 1.0 / 0.6 - 0.9 cm IVS Systolic Thickness 1.2 cm LVPW Diastolic Thickness 1.1 cm 0.6 - 1.0 / 0.6 - 0.9 cm LVPW Systolic Thickness 1.5 cm LVOT Diameter 2.1 cm LV Ejection Fraction 2D Teich 59.7 % LV Ejection Fraction MOD 2C 44.0 % LV Ejection Fraction 2C AL 44.2 % LA Diameter 3.6 cm LA Width 5.9 cm IVC Diameter 2.0 cm M-MODE Aortic Annulus Diameter 2.8 cm LA Ao Ratio MM 1.3 MV E Point Septal Separation 1.4 cm DOPPLER AV Peak Velocity 109.0 cm/s LVOT Peak Velocity 66.0 cm/s AV Area Cont Eq vti 2.1 cm squared AV Area Cont Eq pk 2.0 cm squared MV Area PHT 3.0 cm squared Mitral E to A Ratio 0.7 MV E' Velocity 31.5 cm/s Mitral E to MV E' Ratio 13.1 Mitral E to LV E' Lateral Ratio 11.6 Mitral E to LV E' Septal Ratio 15.2 TR Peak Velocity 97.0 cm/s TR Peak Gradient 3.8 mmHg Right Atrial Pressure 3.0 mmHg Pulmonary Artery Systolic Pressu 6.8 mmHg RV Acceleration Time 0.1 s FINDINGS Left Ventricle Mild diffuse hypokinesia of the septum, anteroseptum and inferior wall segments. The LV ejection fraction to 44%.Grade I/IV diastolic dysfunction (abnormal relaxation filling pattern), normal to mildly elevated filling pressures. Right Ventricle The right ventricle is normal in size and function. Right Atrium The right atrium is normal in size. Left Atrium The left atrium is normal in size. Mitral Valve Thickened mitral valve. Aortic Valve No gross abnormalities noted Tricuspid Valve No gross abnormalities noted Pulmonic Valve Pulmonic valve not well visualized. Pericardium Normal pericardium without effusion. Aorta Normal ascending aorta dimension. IVC Normal inferior vena cava. CONCLUSIONS Mild diffuse hypokinesia of the septum, anteroseptum and inferior wall segments. The LV ejection fraction to 44%.Grade I/IV diastolic dysfunction (abnormal relaxation filling pattern), normal to mildly elevated filling pressures. The right ventricle is normal in size and function. Thickened mitral valve. There is no pericardial effusion. There are no intracardiac masses. Technically difficult study because of the poor ultrasonic window. Dr Dewayne Muller MD FACC (Electronically Signed) Final Date: 10 April 2023 12:46 S
--- NOTE | 2023-04-10 16:57 | PC.NURSE ---
0940: Pt complained of numb lips and not being able to move her arms. Dr Guzman on the unit, notified.. 1000: Pt to CT stat. Dr Singh notified of event. 1030: NIH scale completed score of 18. Regarding the dysarthia portion of testing pt stated she wasn't unable to read the MAMA Tip-TOP portion. But she could immediately, clearly articulate the events occurring in the kitchen picture. Then when I asked her to repeat after me Mama , TIp Top, etc. Her speech became slightly more slurred. 1040: Pt stated she needed to urinate, she remained continent and used the bedpan without difficulty. 1140: valproic acid admin 1240: No deficits. NIH 0. Speech very clear
--- NOTE | 2023-04-10 17:40 | PC.NURSE ---
1346: Pt sitting up in chair, PT was to be working with her. ( Pt had been in chair since 1330, within 10 minutes she had requested to go back to bed and this nurse stated she needed to sit up a little longer as it had been less than 15 minutes) This nurse was called into room, pt stated she was having symptoms again. Her right eye was twitching. Her voice was clear but very soft. , PT Zach and I assisted her back to bed, her legs would buckle some but she continued to bear her own weight. Upon getting her into the bed. NIH completed, score of 8. Her bilat arms effort again gravity, her right leg strong her left would drift, Mouth turned down Notified Dr Guzman. 1400 MRI stat unable to done due to ICD. Dr Singh notified of event, just continue same care, her arteries are clear. 1530: NIH now 0 again. 1700: Pt requested to get out of bed to use bathroom for BM. Discussed with her her previous episode of lip twitching and weakness, did not think it would be a good idea for her to sit on BSC, straining to have bowel Movement as these symptoms might occur again. 1740: Pt propped up in be with her knees up, glasses on, working her puzzle book.
[2023-04-10 18:30] LABS: Glucose Point of Care 118 mg/dL (70-110)
[2023-04-10] MEDS: pantoprazole 40 mg SDV IVP (18:45)
[2023-04-10] MEDS: cefTRIAXone 1,000 MG in sodium chloride 0.9% (plus) 50 ML 100 MG IV (18:46)
--- NOTE | 2023-04-10 18:54 | PM.PN ---
Subjective Subjective: Hospital course, labs appreciated. On examination today morning patient was apparently doing fine and then started having complaining of heaviness of the lips which progressed to her not able to move her whole body and have difficulty in finding words. Patient was evaluated by myself and neurology. Code stroke was called. Evaluated with a stat CT head which is negative for acute abnormality. Patient denies any pain back to her baseline. Patient had a similar episode again later in the afternoon. Patient did receive 1 dose of valproic acid after which she improved. On repeat examination in the evening patient was awake and alert, able to move her limbs but however was having some difficulty in finding words. Family at bedside. Vitals have remained stable on room air. Patient has passed her speech therapy. Vitals/I&O/Wt Last Vital Signs Temp 98.7 F 04/10/23 08:00 Pulse 74 04/10/23 16:00 Resp 21 H 04/10/23 16:00 BP 127/80 04/10/23 16:00 Pulse Ox 98 04/10/23 16:00 O2 Del Method Room Air 04/10/23 16:00 O2 Flow Rate 2 04/10/23 13:00 04/10/23 04/10/23 04/10/23 06:59 14:59 22:59 Intake Total 1050 / 1263.8 105 / 105 1000 / 1105 Output Total 381 / 381 150 / 531 Balance 1047 / 1260.8 -276 / -276 850 / 574 Weight last 48 hrs Weight 77.111 kg Physical Exam Const: COMMON NORMALS: no acute distress and patient oriented x3 GENERAL APPEARANCE: cooperative, well kempt and well developed HENMT: COMMON NORMALS: normocephalic and Normal external nose present HEAD & SCALP: normocephalic NOSE: Normal external nose present Eye: COMMON NORMALS: Equal, round and reactive pupils present, EOMs intact bilaterally, conjunctivae normal and no scleral icterus CONJUNCTIVA: Yes conjunctivae normal PUPIL: Yes Equal, round and reactive pupils present Neck/C-Spine: COMMON NORMALS: full ROM, no lymphadenopathy, no JVD and Thyroid normal THYROID: Thyroid normal Chest: COMMONS NORMALS: normal inspection of the chest Resp: COMMON NORMALS: normal respiratory effort, No retractions, No use of accessory muscles and clear to auscultation bilaterally AUSCULTATION: clear to auscultation bilaterally Cardio: COMMON NORMALS: no JVD, regular rate, regular rhythm, S1 normal heart sound present, S2 normal heart sound present, No murmurs present (Cardio) and Peripheral pulses 2+ throughout RATE: regular rate RHYTHM: regular rhythm HEART SOUNDS: S1 normal heart sound present and S2 normal heart sound present PERIPHERAL PULSES: Peripheral pulses 2+ throughout GI: COMMON NORMALS: Normal to inspection, nondistended, normoactive bowel sounds present, Soft to palpation and non-tender PALPATION: Yes Soft to palpation : COMMON NORMALS: Yes no CVA tenderness BLADDER/KIDNEY EXAM: Yes no CVA tenderness Back/Pelvis: COMMON NORMALS: no CVA tenderness Extremity: COMMON NORMALS: normal to inspection, full ROM, no calf tenderness and no pedal edema Neuro: COMMON NORMALS: patient oriented x3 and CN's II-XII intact bilaterally OTHER: Right facial droop very mild ? Upper extremity strength bilateral upper extremity strength 3-5 bilaterally ? Bilateral lower extremity strength, 3 out of 5 bilaterally ? [id number] bilaterally positive Psych: COMMON NORMALS: mental status grossly normal, Normal thought process present and cooperative APPEARANCE: Yes well kempt THOUGHT PROCESS: Normal thought process present Skin: COMMON NORMALS: turgor normal and no jaundice GENERAL SKIN EXAM: turgor normal Data 04/10/23 05:00 04/10/23 06:37 Micro: Microbiology 04/09/23 12:31 Urine Culture - Preliminary Urine,Clean Catch Gram Negative Rods A&P Assessment and plan (1) Brainstem stroke: (2) Received intravenous tissue plasminogen activator (tPA) in emergency department: (3) Depression with anxiety: (4) Ischemic congestive cardiomyopathy: (5) COPD (chronic obstructive pulmonary disease): Qualifiers: COPD type: unspecified COPD Qualified Code(s): J44.9 - Chronic obstructive pulmonary disease, unspecified (6) Type 2 diabetes mellitus: Qualifiers: Diabetes mellitus director long term care insulin use: with director long term care use Diabetes mellitus complication status: with kidney complications Diabetes mellitus complication detail: with chronic kidney disease Chronic kidney disease stage: stage 3 (moderate) Qualified Code(s): E11.22 - Type 2 diabetes mellitus with diabetic chronic kidney disease; N18.3 - Chronic kidney disease, stage 3 (moderate); 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.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 of 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 (7) LV dysfunction: (8) CHF (congestive heart failure): Qualifiers: Heart failure type: systolic Heart failure chronicity: chronic Qualified Code(s): I50.22 - Chronic systolic (congestive) heart failure (9) History of [place] (myocardial infarction): (10) Smoking greater than 30 pack years: (11) Hypothyroidism: Qualifiers: Hypothyroidism type: acquired Qualified Code(s): E03.9 - Hypothyroidism, unspecified (12) Coronary artery disease due to type 2 diabetes mellitus: (13) Diabetic neuropathy: Qualifiers: Diabetes mellitus type: type 2 Diabetes mellitus complication detail: diabetic polyneuropathy Qualified Code(s): E11.42 - Type 2 diabetes mellitus with diabetic polyneuropathy (14) Stage 3 chronic kidney disease due to diabetes mellitus: (15) Hyperlipidemia: Qualifiers: Hyperlipidemia type: other hyperlipidemia Qualified Code(s): E78.49 - Other hyperlipidemia (16) ICD (implantable cardioverter-defibrillator) in place: (17) Recurrent UTI: Plan Posterior circulation stroke -Status post tPA Appreciate neurology recommendations. Patient more often than not AOx3 without having any difficulty but having occasional episodes of confusion, inability to move her body. Repeat CT head done today negative for stroke or bleed. Unfortunately MRI cannot be done given defibrillator in place. For now not sure organic versus psychosomatic. We will discuss with neurology further if patient needs to be understanding valproic acid versus topiramate. Target blood pressure less than 140/90 mmHg. Blood pressure is at target so we will hold off on antihypertensives for now. Appreciate A1c, lipid panels. Start on aspirin 81 mg daily, continue atorvastatin. Follow-up PT/OT/speech therapy. Repeat echocardiogram. Heparin 5000 every 12 hourly. UTI: Follow-up urine cultures. Continue IV ceftriaxone for now. History of ischemic cardiomyopathy: At baseline. Hold off on starting ARNI, beta-wayne for now. Monitor electrolytes. Maintain potassium around 4, magnesium around 2. Telemetry. Hypertension: Goal pressure less than 140/90 mmHg. Restart medications as per blood pressure goals. -Type 2 diabetes mellitus: Diabetic diet. Insulin sliding scale AC measures. Counseling for smoking cessation. Full code. Diabetic cardiac diet's Protonix for PUD prophylaxis Heparin 5000 every 12 hourly for DVT prophylaxis. Attestations Medical Necessity Statement*: Requires further hospitalization for management of stroke, post tPA with patient having recurrent episodes of neurological changes while further evaluation if done regarding organic versus psychosomatic disorders. Coding Level of Care Code Critical Care >/= 30 minutes Critical care time (in minutes): 60 The high probability of a clinically significant, sudden or life threatening deterioration, as referenced in this documentation, required my full and direct attention, intervention and personal management. The critical care time shown is in addition to time spent performing any reported separately billable procedures and includes the following: [x] Data and vital sign review and interpretation [x] Patient assessment, examination and intervention [x] Medication orders and management [x] Patient/Family updates as able [x] Care Coordination and Documentation. Diagnoses Brainstem stroke I63.9 Received intravenous tissue plasminogen activator (tPA) in emergency department Z92.82 Depression with anxiety F41.8 Ischemic congestive cardiomyopathy I25.5; I42.0 COPD (chronic obstructive pulmonary disease) J44.9 COPD type: unspecified COPD Type 2 diabetes mellitus E11.22; N18.3; Z79.4 Diabetes mellitus director long term care insulin use: with director long term care use Diabetes mellitus complication status: with kidney complications Diabetes mellitus complication detail: with chronic kidney disease Chronic kidney disease stage: stage 3 (moderate) LV dysfunction I51.9 CHF (congestive heart failure) I50.22 Heart failure type: systolic Heart failure chronicity: chronic History of [place] (myocardial infarction) I25.2 Smoking greater than 30 pack years F17.210 Hypothyroidism E03.9 Hypothyroidism type: acquired Coronary artery disease due to type 2 diabetes mellitus E11.59; I25.10 Diabetic neuropathy E11.42 Diabetes mellitus type: type 2 Diabetes mellitus complication detail: diabetic polyneuropathy Stage 3 chronic kidney disease due to diabetes mellitus E11.22; N18.3 Hyperlipidemia E78.49 Hyperlipidemia type: other hyperlipidemia ICD (implantable cardioverter-defibrillator) in place Z95.810 Recurrent UTI N39.0
--- NOTE | 2023-04-10 19:30 | PM.SAN ---
Stroke Alert Activation ED Arrival Date: 04/10/23 Other Last Known Well Infomation: I was called stat to the patient's bedside for recurrent stroke. She was just coming back from CAT scan when I arrived around 10:30 AM. Reportedly all of her neurologic symptoms had resolved and then suddenly she could not move any of her 4 extremities. She was having trouble talking. Stroke Alert Activated by: ICU nurse Stroke Alert Activation Time: 10:15 Stroke MD @ Bedside Time: 10:30 NIH stroke score NIHSS: Level Of Consciousness - 1a: 0 Level Of Consciousness Questions - 1b: Both Correct Level Of Consciousness Commands - 1c: Both Correct Best Gaze - 2: Normal Visual [place] - 3: No Visual Loss Facial Palsy - 4: Minor Paralysis Motor Arm Right - 5: No Effort Against [place] Motor Arm Left - 5: No Effort Against [place] Motor Leg Right - 6: No Effort Against [place] Motor Leg Left - 6: No Effort Against [place] Limb Ataxia - 7: Absent Sensory - 8: Normal Best Language - 9: No Aphasia Dysarthia - 10: Mild/Moderate Dysarthia Extinction And Inattention - 11: 0 Score: Total Score: 14 Stroke Alert Data/Treatment Time to CT of Head: 10:15 CT Results Time: 10:24 CT Impression: Normal CT tPA Contraindication: tPA Contraindication: Treatment not indcated Other Information: I thought that the patient was having a functional neurologic event yesterday but erred on the side of treatment. She was having the same kind of complaints today but had multiple atypical features. She did not open her mouth to speak. She had strong flight control tower operator but could not seem to hold her arms up. I gave her 500 mg of IV Depacon on the theory that she might be having migraine. She had rapid resolution of symptoms followed by waxing and waning later in the afternoon. I think there is little doubt these are functional events. I have quizzed her about whether she is under stress. She had a good response to Depacon. Plan on initiating Topamax 25 mg twice daily. I will be glad to see her as an outpatient. Critical Care Time Critical Care Time: 30 - 74 mins Coding Level of Care Code Acute Code for Chg Fwd Diagnoses
--- NOTE | 2023-04-10 19:59 | PC.NURSE ---
Shift summary: Pt alert and oriented x 4. She has had an eventful day. There has been 2-3 stroke-like symptom events (see previous notes) , Dr Guzman and Dr Singh aware. She did have CT today , it was clear. Heart monitor showed sinus rhythm with occasional PVC, measuring it out shows first degree block also. She has complained of pain ( sorta ) in her chest that coincides with the PVCs. She does have ICD. She has been out of bed without difficulties this afternoon. OT and speech therapy have alos completed evals. VSS. Afebrile. She has used the bedpan multiple times today, output 150-200ml at a t me. She hadalos had a Bm today Family obando been at bedside throughout this shift, multiple questions, al answered.
[2023-04-10 20:57] LABS: Glucose Point of Care 91 mg/dL (70-110)
[2023-04-10] MEDS: gabapentin 300 mg Capsule PO (21:04)
[2023-04-10] MEDS: topiramate 25 mg Tablet PO (21:04)
[2023-04-10] MEDS: heparin 5,000 unit/mL INJ 1 mL 5000 UNIT SUBCUT (21:07)
[2023-04-10 21:57] LABS: Glucose Point of Care 140 mg/dL (70-110)
[2023-04-11] VITALS (16 sets, daily range): BP systolic 116–168; BP diastolic 64–124; PULSE 63–85; RESP 9–19; TEMP 36.3–37.2; O2SAT 95–100; BMI 29.2
[2023-04-11 05:48] LABS: Basophils # 0.1 10^3/uL (0.0-0.1); Basophils % 0.6 %; Eosinophils # 0.3 10^3/uL (0.0-0.8); Eosinophils % 2.9 %; Hematocrit 41.2 % (36-47); Lymphocytes # 2.1 10^3/uL (0.8-4.8); Lymphocytes % 18.6 %; Mean Corpuscular HGB Conc 33.5 g/dL (30-55); Mean Corpuscular Volume 92.6 fl (85-98); Mean Platelet Volume 9.8 fL (7.4-10.4); Monocytes # 0.6 10^3/uL (0.2-0.9); Monocytes % 5.6 %; Neutrophils % 71.7 %; Nucleated Red Blood Cells % 0 %; Platelet Count 236 10^3/cmm (157-399); Red Blood Count 4.45 10^6/uL (3.85-5.65); Red Cell Distribution Width 12.6 % (12.1-15.1); White Blood Count 11.44 10^3/uL (3.29-11.43)
[2023-04-11 06:06] LABS: Alanine Aminotransferase 14 U/L (0-33); Albumin Level 3.6 g/dL (3.5-5.2); Alkaline Phosphatase 80 U/L (35-105); Anion Gap 12.8 (5-19); Aspartate Amino Transferase 12 U/L (0-32); Blood Urea Nitrogen 18 mg/dL (8-23); Calcium 9.1 mg/dL (8.5-10.5); Carbon Dioxide 27 mmol/L (22-29); Chloride 102 mmol/L (98-107); Globulin 2.8 g/dL (1.3-4.6); Glucose 83 mg/dL (65-115); Magnesium 1.8 mg/dL (1.7-2.3); Osmolality Calculated 287 mOsm/kg (285-295); Phosphorus 2.9 mg/dL (2.5-4.5); Potassium 3.8 mmol/L (3.5-5.1); Sodium 138 mmol/L (136-145); Total Bilirubin 0.2 mg/dL (0.15-1.2); Total Protein 6.4 g/dL (6.6-8.7)
[2023-04-11] MEDS: sodium chloride 0.9% 1,000 ML 100 ML IV ×2 (06:14→19:14)
[2023-04-11] MEDS: heparin 5,000 unit/mL INJ 1 mL 5000 UNIT SUBCUT ×2 (07:22→21:32)
[2023-04-11 07:33] LABS: Glucose Point of Care 81 mg/dL (70-110)
[2023-04-11] MEDS: venlafaxine ER (24HR) 150 mg Capsule PO (08:22)
[2023-04-11] MEDS: topiramate 25 mg Tablet PO ×2 (08:23→17:59)
[2023-04-11] MEDS: atorvastatin 40 mg Tablet PO (08:23)
[2023-04-11] MEDS: levothyroxine 137 mcg Tablet PO (08:23)
[2023-04-11] MEDS: gabapentin 300 mg Capsule PO ×3 (08:23→21:32)
--- NOTE | 2023-04-11 11:31 | PC.NURSE ---
Patient up to a chair for about 2 hours, but became tired an requested to go back to bed. No repeat of stroke like symptoms this morning Tony in ICU. Patient transferred to [facility] room 278. Report given to simón.
[2023-04-11 11:34] LABS: Glucose Point of Care 128 mg/dL (70-110)
[2023-04-11] MEDS: acetaminophen 325 mg Tablet 650 MG PO (14:03)
--- NOTE | 2023-04-11 16:23 | P.PN_ITS ---
Subjective Subjective: Reports doing better today. Has not had any further symptoms. Has been able to walk around the room some. Denies any pain. Vitals/I&O/Wt Last Vital Signs Temp 98.0 F 04/11/23 12:00 Pulse 76 04/11/23 12:00 Resp 16 04/11/23 12:00 BP 156/106 04/11/23 12:00 Pulse Ox 98 04/11/23 12:00 O2 Del Method Nasal Cannula 04/11/23 08:00 O2 Flow Rate 2 04/11/23 08:00 04/11/23 04/11/23 04/11/23 06:59 14:59 22:59 Intake Total 1463.333 / 2668.333 640 / 640 Output Total 0 / 684 Balance 1463.333 / 1984.333 640 / 640 Weight last 48 hrs Weight 170 lb Weight 170 lb Physical Exam Narrative: General: Cooperative patient in no apparent distress. Well developed. HEENT: Normocephalic, Atraumatic. External ears normal. Nasal passages patent without drainage. MMM. Heart: RRR. Resp: LCTA. No respiratory distress, no use of accessory muscles. Abd: Soft, non-tender. Non-distended. Extremities: No edema. Skin: No rash or lesions on exposed areas. Neuro: No focal motor or sensory loss. 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 insulin use: with halfway use Diabetes mellitus complication status: with kidney complications Diabetes mellitus complication detail: with chronic kidney disease Chronic kidney disease stage: stage 3 (moderate) Qualified Code(s): E11.22 - Type 2 diabetes mellitus with diabetic chronic kidney disease; N18.3 - Chronic kidney disease, stage 3 (moderate); Z79.4 - assisted (current) use of insulin (7) LV dysfunction: (8) CHF (congestive heart failure): Qualifiers: Heart failure type: systolic Heart failure chronicity: chronic Qualified Code(s): I50.22 - Chronic systolic (congestive) heart failure (9) History of [place] (myocardial infarction): (10) Smoking greater than 30 pack years: (11) Hypothyroidism: Qualifiers: Hypothyroidism type: acquired Qualified Code(s): E03.9 - Hypothyroi dism, unspecified (12) Coronary artery disease due to type 2 diabetes mellitus: (13) Diabetic neuropathy: Qualifiers: Diabetes mellitus type: type 2 Diabetes mellitus complication detail: diabetic polyneuropathy Qualified Code(s): E11.42 - Type 2 diabetes mellitus with diabetic polyneuropathy (14) Stage 3 chronic kidney disease due to diabetes mellitus: (15) Hyperlipidemia: Qualifiers: Hyperlipidemia type: other hyperlipidemia Qualified Code(s): E78.49 - Other hyperlipidemia (16) ICD (implantable cardioverter-defibrillator) in place: (17) Recurrent UTI: Plan 62-year-old female who was admitted with concern for stroke. Continue close inpatient monitoring. Was demonstrating symptoms suspicious for posterior circulation stroke. She did receive tPA. Neurology is consulted and their recommendations are appreciated. Repeat CT head done today negative for stroke or bleed. She has been up in the chair and able to walk around the room more without any further episodes. She denies any loss of vision or unilateral weakness. Feel that her symptoms may be related to functional versus organic. May be a component of UTI and valproic acid. She has been switched to topiramate from valproic acid. Continue on 81 mg aspirin daily and atorvastatin. Continue with follow-up PT/OT/speech therapy. [facility] echocardiogram is complete. Ejection fraction noted to be 44%. There was of note, mild diffuse hypokinesia of the septum, anteroseptum, inferior wall segments. This is similar to her previous echo this past September. Urine culture is growing Klebsiella, sensitive to Rocephin. Will continue tr eatment and can discharge on Cefdinir. Recheck a.m. labs. Continue telemetry. Accu-Cheks, sliding scale insulin, consistent carbohydrate diet for diabetes. Restart home antihypertensives. Code Status: Full IVF: NS at 100ml/hr. DVT PPx: Heparin GI PPx: Protonix ABx: Rocephin Diet: Carb consistent Discharge plan: TBD. Attestations Medical Necessity Statement*: Requires further hospitalization for management of stroke, post tPA with patient having recurrent episodes of neurological changes while further evaluation if done regarding organic versus psychosomatic disorders. Coding Level of Care Code Acute Code for Chg Fwd Diagnoses Brainstem stroke I63.9 Received intravenous tissue plasminogen activator (tPA) in emergency department Z92.82 Depression with anxiety F41.8 Ischemic congestive cardiomyopathy I25.5; I42.0 COPD (chronic obstructive pulmonary disease) J44.9 COPD type: unspecified COPD Type 2 diabetes mellitus E11.22; N18.3; Z79.4 Diabetes mellitus halfway insulin use: with shale planer operator helper use Diabetes mellitus complication status: with kidney complications Diabetes mellitus complication detail: with chronic kidney disease Chronic kidney disease stage: stage 3 (moderate) LV dysfunction I51.9 CHF (congestive heart failure) I50.22 Heart failure type: systolic Heart failure chronicity: chronic History of [place] (myocardial infarction) I25.2 Smoking greater than 30 pack years F17.210 Hypothyroidism E03.9 Hypothyroidism type: acquired Coronary artery disease due to type 2 diabetes mellitus E11.59; I25.10 Diabetic neuropathy E11.42 Diabetes mellitus type: type 2 Diabetes mellitus complication detail: diabetic polyneuropathy Stage 3 chronic kidney disease due to diabetes mellitus E11.22; N18.3 Hyperlipidemia E78.49 Hyperlipidemia type: other hyperlipidemia ICD (implantable cardioverter-defibrillator) in place Z95.810 Recurrent UTI N39.0
[2023-04-11 16:55] LABS: Glucose Point of Care 158 mg/dL (70-110)
[2023-04-11] MEDS: carvedilol 3.125 mg Tablet PO (17:59)
[2023-04-11] MEDS: insulin lispro 100 unit/1 mL SUBCUT (17:59)
[2023-04-11] MEDS: sacubitril/valsartan 24-26 mg Tablet 2 EACH PO (17:59)
[2023-04-11] MEDS: cefTRIAXone 1,000 MG in sodium chloride 0.9% (plus) 50 ML 100 MG IV (19:12)
[2023-04-11] MEDS: pantoprazole 40 mg SDV IVP (19:12)
[2023-04-11 20:55] LABS: Glucose Point of Care 139 mg/dL (70-110)
[2023-04-12] VITALS: BP 141/82; PULSE 81; RESP 15; TEMP 37.2
[2023-04-12 04:00] VITALS: BP 126/72; PULSE 71; RESP 16; TEMP 36.8; O2SAT 97
[2023-04-12] MEDS: sodium chloride 0.9% 1,000 ML 100 ML IV (04:24)
[2023-04-12 05:46] LABS: Basophils # 0.1 10^3/uL (0.0-0.1); Basophils % 0.6 %; Eosinophils # 0.2 10^3/uL (0.0-0.8); Eosinophils % 2.1 %; Hematocrit 36.5 % (36-47); Mean Corpuscular HGB Conc 32.6 g/dL (30-55); Mean Corpuscular Hemoglobin 30.7 pg (27-33); Mean Corpuscular Volume 94.3 fl (85-98); Mean Platelet Volume 10.3 fL (7.4-10.4); Monocytes # 0.7 10^3/uL (0.2-0.9); Monocytes % 6.8 %; Neutrophils # 6.64 10^3/uL (1.8-7.7); Neutrophils % 68.9 %; Nucleated Red Blood Cells % 0 %; Platelet Count 207 10^3/cmm (157-399); Red Blood Count 3.87 10^6/uL (3.85-5.65); Red Cell Distribution Width 12.8 % (12.1-15.1); White Blood Count 9.64 10^3/uL (3.29-11.43)
[2023-04-12 06:00] VITALS: BP 126/72; PULSE 71; RESP 16; TEMP 36.8
[2023-04-12 06:14] LABS: Alanine Aminotransferase 10 U/L (0-33); Albumin Level 3.4 g/dL (3.5-5.2); Alkaline Phosphatase 68 U/L (35-105); Anion Gap 11.7 (5-19); Aspartate Amino Transferase 10 U/L (0-32); Blood Urea Nitrogen 17 mg/dL (8-23); Calcium 8.7 mg/dL (8.5-10.5); Carbon Dioxide 25 mmol/L (22-29); Chloride 102 mmol/L (98-107); Globulin 2.4 g/dL (1.3-4.6); Glomerular Filtration Rate 55.8 mL/min (90-130); Glucose 109 mg/dL (65-115); Magnesium 1.7 mg/dL (1.7-2.3); Osmolality Calculated 282 mOsm/kg (285-295); Phosphorus 3.2 mg/dL (2.5-4.5); Potassium 3.7 mmol/L (3.5-5.1); Sodium 135 mmol/L (136-145); Total Bilirubin 0.2 mg/dL (0.15-1.2); Total Protein 5.8 g/dL (6.6-8.7)
[2023-04-12 06:23] LABS: Glucose Point of Care 113 mg/dL (70-110)
[2023-04-12 08:00] VITALS: BP 138/81; PULSE 78; PULSE 82; RESP 16; RESP 18; TEMP 36.8; O2SAT 98; O2SAT 99
[2023-04-12] MEDS: sacubitril/valsartan 24-26 mg Tablet 2 EACH PO (08:25)
[2023-04-12] MEDS: levothyroxine 137 mcg Tablet PO (08:25)
[2023-04-12] MEDS: carvedilol 3.125 mg Tablet PO (08:25)
[2023-04-12] MEDS: gabapentin 300 mg Capsule PO (08:25)
[2023-04-12] MEDS: atorvastatin 40 mg Tablet PO (08:25)
[2023-04-12] MEDS: heparin 5,000 unit/mL INJ 1 mL 5000 UNIT SUBCUT (08:26)
[2023-04-12] MEDS: venlafaxine ER (24HR) 150 mg Capsule PO (08:26)
[2023-04-12] MEDS: topiramate 25 mg Tablet PO (08:26)
--- NOTE | 2023-04-12 08:55 | PC.SOCIAL ---
Pg 2 IMM Explained to pt Pg 2 IMM. No questions voiced. Provided pt a copy. Initialed, dated, & timed a copy & placed in chart.
[2023-04-12 11:05] LABS: Glucose Point of Care 147 mg/dL (70-110)
[2023-04-12] MEDS: insulin lispro 100 unit/1 mL SUBCUT (11:41)
[2023-04-12 11:51] VITALS: BP 146/68; PULSE 73; RESP 17; TEMP 36.6; O2SAT 93
[2023-04-12 12:20] VITALS: BP 146/68; PULSE 73; RESP 17; TEMP 36.6; O2SAT 93
--- NOTE | 2023-04-12 14:04 | P.DS_ITS ---
Discharge Providers Date of Admission: 04/09/23 15:25 Date of Discharge: April 12, 2023 Attending Provider at Admission: Mitchell Day MD Attending Provider at Discharge: Moe Redmond DO Primary Care Provider: JOSH Montes Diagnoses at Discharge Discharge Diagnosis (1) Brainstem stroke: Status: Acute (2) Received intravenous tissue plasminogen activator (tPA) in emergency department: Status: Acute (3) Depression with anxiety: Status: Acute (4) Ischemic congestive cardiomyopathy: Status: Acute (5) COPD (chronic obstructive pulmonary disease): Status: Acute Qualifiers: COPD type: unspecified COPD Qualified Code(s): J44.9 - Chronic obstructive pulmonary disease, unspecified (6) Type 2 diabetes mellitus: Status: Acute Qualifiers: Diabetes mellitus [employer] insulin use: with [employer] use Diabetes mellitus complication status: with kidney complications Diabetes mellitus complication detail: with chronic kidney disease Chronic kidney disease stage: stage 3 (moderate) Qualified Code(s): E11.22 - Type 2 diabetes mellitus with diabetic chronic kidney disease; N18.3 - Chronic kidney disease, stage 3 (moderate); Z79.4 - [employer] (current) use of insulin (7) LV dysfunction: Status: Acute (8) CHF (congestive heart failure): Status: Acute Qualifiers: Heart failure type: systolic Heart failure chronicity: chronic Qualified Code(s): I50.22 - Chronic systolic (congestive) heart failure (9) History of DC (myocardial infarction): Status: Acute (10) Smoking greater than 30 pack years: Status: Acute (11) Hypothyroidism: Status: Acute Qualifiers: Hypothyroidism type: acquired Qualified Code(s): E03.9 - Hypothyroidism, unspecified (12) Coronary artery disease due to type 2 diabetes mellitus: Status: Acute (13) Diabetic neuropathy: Status: Acute Qualifiers: Diabetes mellitus type: type 2 Diabetes mellitus complication detail: diabetic polyneuropathy Qualified Code(s): E11.42 - Type 2 diabetes mellitus with diabetic polyneuropathy (14) Stage 3 chronic kidney disease due to diabetes mellitus: Status: Acute (15) Hyperlipidemia: Status: Acute Qualifiers: Hyperlipidemia type: other hyperlipidemia Qualified Code(s): E78.49 - Other hyperlipidemia (16) ICD (implantable cardioverter-defibrillator) in place: Status: Acute (17) Recurrent UTI: Status: Acute Reason for Visit Reason for Visit: stroke alert Hospital Course Hospital Course Tiffany Glaser is a 62 year old female with a past medical history of insulin- dependent type 2 diabetes mellitus, history of CVAs in the past status post tPA, history of ischemic cardiomyopathy, history of systolic CHF, history of COPD, current smoker, hypothyroidism, history of recurrent UTIs, history of ICD who presents to [facility] due to productive aphasia, facial droop, bilateral arm paresthesias, bilateral lower extremity weakness.?she started developing productive aphasia, word finding difficulty, right-sided facial droop, bilateral arm paresthesias, bilateral lower extremity weakness, she was brought to the [facility], her NIH stroke scale on admission was 5, stroke code was called, Dr. Singh was consulted, examined patient, patient received tPA. The patient had resolution of her symptoms after receiving tPA. She was admitted to the ICU for further work-up and assessment. She was followed by neurology. Patient had a history of epilepsy and had been on valproic acid for some time. In addition it was noted that she had a UTI at her time of admission. She continued to have intermittent symptoms on day 2 of admission. Neurology had again evaluated and felt that her symptoms could be functional in nature. Her valproic acid was stopped, and she was started on topiramate. Over the course of the next 2 to 3 days, she had resolution and no return of her symptoms. CTA of her head was negative for acute infarct, and did not demonstrate any significant ICA stenosis. Additional work-up was unremarkable. She did receive PT, OT, speech therapy, and appropriate DAPT therapy. She was treated for her UTI with ceftriaxone, and discharged with oral cefdinir. Echocardiogram was significant for mild diffuse hypokinesia of the septum with an ejection fraction of 44%. This is consistent with her previous echo. At time of discharge, patient had not had any further symptoms. She has agreed to see neurology on outpatient basis. She was discharged in stable and improved condition. Physical Exam Narrative: General: Cooperative patient in no apparent distress. Well developed. HEENT: Normocephalic, Atraumatic. External ears normal. Nasal passages patent without drainage. MMM. Heart: RRR. Resp: LCTA. No respiratory distress, no use of accessory muscles. Abd: Soft, non-tender. Non-distended. Extremities: No edema. Skin: No rash or lesions on exposed areas. Discharge Data Studies Completed and Pending Completed Studies During Hospitalization Category Date Time Status CT head thrombolytic [id number] Stat Cat Scan 04/09/23 12:[address] head wo con* [id number] Stat Cat Scan 04/10/23 09:57 Completed CTA head neck [CT angio headneck* [id number]] Stat Cat Scan 04/09/23 13:07 Completed XR chest 1V portable [id number] Stat Exams 04/09/23 12:17 Completed CV. echo complete* [id number] Routine Ultrasound 04/10/23 16:32 Completed Laboratory Results WBC 9.64 10^3/uL (3.29-11.43) 04/12/23 05:24 RBC 3.87 10^6/uL (3.85-5.65) 04/12/23 05:24 Hgb 11.90 g/dL (11.27-16.99) 04/12/23 05:24 Hct 36.5 % (36-47) 04/12/23 05:24 MCV 94.3 fl (85-98) 04/12/23 05:24 MCH 30.7 pg (27-33) 04/12/23 05:24 MCHC 32.6 g/dL (30-55) 04/12/23 05:24 RDW 12.8 % (12.1-15.1) 04/12/23 05:24 Plt Count 207 10^3/cmm (157-399) 04/12/23 05:24 MPV 10.3 fL (7.4-10.4) 04/12/23 05:24 Neut % (Auto) 68.9 % 04/12/23 05:24 Lymph % (Auto) 21.0 % 04/12/23 05:24 [place] % (Auto) 6.8 % 04/12/23 05:24 Eos % (Auto) 2.1 % 04/12/23 05:24 Baso % (Auto) 0.6 % 04/12/23 05:24 Neut # (Auto) 6.64 10^3/uL (1.8-7.7) 04/12/23 05:24 Lymph # (Auto) 2.0 10^3/uL (0.8-4.8) 04/12/23 05:24 [place] # (Auto) 0.7 10^3/uL (0.2-0.9) 04/12/23 05:24 Eos # (Auto) 0.2 10^3/uL (0.0-0.8) 04/12/23 05:24 Baso # (Auto) 0.1 10^3/uL (0.0-0.1) 04/12/23 05:24 Nucleated RBC % (auto) 0 % 04/12/23 05:24 Nucleated RBCs # 0.0 /100WBC 04/12/23 05:24 PT 12.80 SECONDS (12.1-14.9) 04/09/23 12:33 INR 0.93 (0.8-1.2) 04/09/23 12:33 APTT 33.3 SECONDS (23.9-36.7) 04/09/23 12:33 Fibrinogen 215 mg/dL (174-498) 04/10/23 06:37 D-Dimer 4.83 ug/mLFEU (0-0.59) H 04/10/23 06:37 Sodium 135 mmol/L (136-145) L 04/12/23 05:24 Potassium 3.7 mmol/L (3.5-5.1) 04/12/23 05:24 Chloride 102 mmol/L (98-107) 04/12/23 05:24 Carbon Dioxide 25 mmol/L (22-29) 04/12/23 05:24 Anion Gap 11.7 (5-19) 04/12/23 05:24 BUN 17 mg/dL (8-23) 04/12/23 05:24 Creatinine 1.0 mg/dL (0.5-0.9) H 04/12/23 05:24 GFR Calculation 55.8 mL/min (90-130) L 04/12/23 05:24 Glucose 109 mg/dL (65-115) 04/12/23 05:24 POC Glucose 147 mg/dL (70-110) H 04/12/23 11:02 Estimat Average Glucose 174 04/10/23 05:00 Hemoglobin A1c 7.7 % (4.0-6.0) H 04/10/23 05:00 Calculated Osmolality 282 mOsm/kg (285-295) L 04/12/23 05:24 Calcium 8.7 mg/dL (8.5-10.5) 04/12/23 05:24 Phosphorus 3.2 mg/dL (2.5-4.5) 04/12/23 05:24 Magnesium 1.7 mg/dL (1.7-2.3) 04/12/23 05:24 Total Bilirubin 0.2 mg/dL (0.15-1.2) 04/12/23 05:24 AST 10 U/L (0-32) 04/12/23 05:24 ALT 10 U/L (0-33) 04/12/23 05:24 Alkaline Phosphatase 68 U/L (35-105) 04/12/23 05:24 Total Protein 5.8 g/dL (6.6-8.7) L 04/12/23 05:24 Albumin 3.4 g/dL (3.5-5.2) L 04/12/23 05:24 Globulin 2.4 g/dL (1.3-4.6) 04/12/23 05:24 Triglycerides 313 mg/dL (0-150) H 04/10/23 06:37 Cholesterol 146 mg/dL (0-200) 04/10/23 06:37 LDL Cholesterol, Calc 55 mg/dL (50-129) 04/10/23 06:37 HDL Cholesterol 28 mg/dL (60-100) L 04/10/23 06:37 LDL/HDL Ratio 1.96 RATIO (0.00-3.22) 04/10/23 06:37 Cholesterol/HDL Ratio 5.21 mg/dL (0.0-4.40) H 04/10/23 06:37 TSH 0.43 uIU/mL (0.27-4.20) 04/10/23 06:37 Urine Color Yellow (Yellow) 04/09/23 12:31 Urine Appearance Clear (CLEAR) 04/09/23 12:31 Urine pH 5 (5-7) 04/09/23 12:31 Ur Specific [place] 1.015 (1.005-1.030) 04/09/23 12:31 Urine Protein Neg (Negative) 04/09/23 12:31 Urine Glucose (UA) 4+ (Normal) H 04/09/23 12:31 Urine Ketones Negative (Negative) 04/09/23 12:31 Urine Blood Neg (Negative) 04/09/23 12:31 Urine Nitrate Positive (Negative) H 04/09/23 12:31 Urine Bilirubin Neg (Negative) 04/09/23 12:31 Urine Urobilinogen Norm mg/dL (Negative) 04/09/23 12:31 Ur Leukocyte Esterase Negative (Negative) 04/09/23 12:31 Urine RBC 0-4 /hpf (0-2) H 04/09/23 12:31 Urine WBC 0-4 /hpf (0-5) H 04/09/23 12:31 Ur Squamous Epith Cells 0-4 /hpf (0-5) H 04/09/23 12:31 Amorphous Sediment Not Reportable 04/09/23 12:31 Urine Bacteria 4+ /hpf (NONE) H 04/09/23 12:31 Urine Mucus 1+ /hpf 04/09/23 12:31 Urine Opiates Screen Positive ng/mL (Negative) H 04/09/23 12:31 Ur Barbiturates Screen Negative ng/mL (Negative) 04/09/23 12:31 Ur Phencyclidine Scrn Negative ng/mL (Negative) 04/09/23 12:31 Ur Amphetamines Screen Negative ng/mL (Negative) 04/09/23 12:31 U Benzodiazepines Scrn Negative ng/mL (Negative) 04/09/23 12:31 Urine Cocaine Screen Negative ng/mL (Negative) 04/09/23 12:31 U Marijuana (THC) Screen Negative ng/mL (Negative) 04/09/23 12:31 Vitals Last Vital Signs Temp 97.8 F 04/12/23 12:20 Pulse 73 04/12/23 12:20 Resp 17 04/12/23 12:20 BP 146/68 04/12/23 12:20 Pulse Ox 93 04/12/23 12:20 O2 Del Method Nasal Cannula 04/12/23 08:00 O2 Flow Rate 2 04/12/23 08:00 Discharge Plan Discharge Patient Disposition: Home Condition: Stable Prescriptions: New topiramate 25 mg Tablet 25 mg PO BID Qty: 60 1RF cefdinir 300 mg capsule 300 mg PO BID 7 Days Qty: 14 0RF Continued albuterol sulfate 2.5 mg /3 mL (0.083 %) solution for nebulization 2.5 mg INHALATION QID PRN (Reason: Shortness Of Breath) aspirin 81 mg tablet,delayed release (DR/EC) 81 mg PO DAILY furosemide 20 mg tablet 20 mg PO BID (DME) blood sugar diagnostic Strip See Rx Instructions .Route Qty: 100 3RF Rx Instructions: two times daily Ozempic 1 mg/dose (4 mg/3 mL) pen injector 1 mg SUBCUT .weekly Qty: 3 2RF Rx Instructions: ON FRIDAY (DME) pen needle, diabetic [Lite Touch Insulin Pen [employer]] 29 gauge x 1/2 needle See Rx Instructions .Route Qty: 100 0RF Rx Instructions: As directed nitroglycerin 0.4 mg tablet, sublingual 0.4 mg sublingual Q5M PRN (Reason: chest pain) Qty: 30 3RF Rx Instructions: do not exceed 3 doses per episode (DME) OneTouch Ultra Test Strip See Rx Instructions .Route Qty: 100 2RF Rx Instructions: two times daily (DME) FreeStyle Tana 14 Day [place] Misc See Rx Instructions .ROUTE .COMPLEX Qty: 1 0RF Dose Instruction: USE DIRECTED BY DOCTOR Rx Instructions: USE DIRECTED BY DOCTOR potassium chloride 20 mEq tablet extended release 20 meq PO DAILY Qty: 90 3RF carvedilol 6.25 mg tablet 3.125 mg PO BID Qty: 180 3RF hydrocodone-acetaminophen 7.5-325 mg tablet 1 tab PO Q8H PRN (Reason: pain) 30 Days Qty: 90 0RF Hold Instructions: Patient No Longer Taking (DME) FreeStyle Tana 14 Day Sensor Kit See Rx Instructions .ROUTE .COMPLEX Qty: 2 0RF Dose Instruction: USE DIRECTED Rx Instructions: USE DIRECTED Vitamin D3 25 mcg (1,000 unit) Tablet 25 mcg PO DAILY Women's 50 Plus Multivitamin 400 mcg-500 mg calcium-20 mcg Tablet 1 tab PO DAILY atorvastatin 40 mg tablet 40 mg PO DAILY levothyroxine 137 mcg tablet 137 mcg PO DAILY tizanidine 4 mg tablet 4 mg PO Q8H PRN (Reason: Muscle Spasm) venlafaxine 150 mg capsule,extended release 24hr 150 mg PO DAILY clopidogrel 75 mg tablet 75 mg PO DAILY pantoprazole 20 mg tablet,delayed release (DR/EC) 20 mg PO DAILY nortriptyline 75 mg capsule 75 mg PO BEDTIME ferrous sulfate 325 mg (65 mg iron) tablet 325 mg PO EVERY OTHER DAY gabapentin 300 mg capsule 300 mg PO TID montelukast 10 mg tablet 10 mg PO DAILY nitrofurantoin monohyd/m-cryst 100 mg capsule 100 mg PO BID insulin degludec 200 unit/mL (3 mL) insulin pen 50 unit SUBCUT DAILY Rx Instructions: INJECT 50 UNITS SUBCUTANEOUSLY ONCE DAILY FOR 90 DAYS Jardiance 10 mg tablet 10 mg PO DAILY Entresto 49-51 mg tablet 1 tab PO BID Discharge Orders: Discharge Order (Routine); Ordered 04/12/23 Ordered By: Moe Redmond Referrals: Mirta Singh MD [Physician] - 2 weeks (We have notified your physician's clinic of the need for a follow-up appointment to be scheduled. If you have not heard from them within the next 2 business days, please call them directly. You may also reach out to our corporate human resources manager at [phone] and she can assist you.) Yoel Gandhi FNP [Primary Care Provider] - (We have notified your physician's clinic of the need for a follow-up appointment to be scheduled. If you have not heard from them within the next 2 business days, please call them directly. You may also reach out to our corporate human resources manager at [phone] and she can assist you.) Discharge Diet: Usual diet Discharge Activity: Resume usual activity Patient Instructions: Topiramate (By mouth), Cefdinir (By mouth), Ischemic Stroke (DC), Opioid Safety Discharge Attestations Time Spent in Discharge Care*: greater than 30 min Specific Discharge Activities: educating patient, educating and/or supporting family/caregiver, discussing with pcp/other providers, discussing with case resource manager/social workers/dc planners, documenting/other paperwork and evaluating patient/reviewing data Time Spent in Smoking Cessation: 3 to 10 minutes Status at Discharge: Cognitive status at discharge: cognitively intact , Behavioral status at discharge: cooperative , Quality Metrics Clinical Quality Measures [ No reported AMI, CVA or VTE this stay] Coding Level of Care Code Acute Code for Chg Fwd Total time (in minutes) for Discharge: 40 Diagnoses Brainstem stroke I63.9 Received intravenous tissue plasminogen activator (tPA) in emergency department Z92.82 Depression with anxiety F41.8 Ischemic congestive cardiomyopathy I25.5; I42.0 COPD (chronic obstructive pulmonary disease) J44.9 COPD type: unspecified COPD Type 2 diabetes mellitus E11.22; N18.3; Z79.4 Diabetes mellitus chcf insulin use: with [employer] use Diabetes mellitus complication status: with kidney complications Diabetes mellitus complication detail: with chronic kidney disease Chronic kidney disease stage: stage 3 (moderate) LV dysfunction I51.9 CHF (congestive heart failure) I50.22 Heart failure type: systolic Heart failure chronicity: chronic History of DC (myocardial infarction) I25.2 Smoking greater than 30 pack years F17.210 Hypothyroidism E03.9 Hypothyroidism type: acquired Coronary artery disease due to type 2 diabetes mellitus E11.59; I25.10 Diabetic neuropathy E11.42 Diabetes mellitus type: type 2 Diabetes mellitus complication detail: diabetic polyneuropathy Stage 3 chronic kidney disease due to diabetes mellitus E11.22; N18.3 Hyperlipidemia E78.49 Hyperlipidemia type: other hyperlipidemia ICD (implantable cardioverter-defibrillator) in place Z95.810 Recurrent UTI N39.0
== END 2023-04-12 12:22 | disposition home or self-care (01) | DRG 62 ==
LOC: ER 13:52 → ICU 15:25 → MEDSURG 04-11 11:52
PROVIDERS: Student in an Organized Health Care Education/Training Program; Admitting Provider Family Medicine; Emergency Provider Family Medicine; PCP Registered Nurse; Visit Provider Family Medicine
DX: I63.9 Cerebral infarction, unspecified (principal); G81.91 Hemiplegia, unspecified affecting right dominant side; I13.0 Hypertensive heart and chronic kidney disease with heart failure and stage 1 through stage 4 chronic kidney disease, or unspecified chronic kidney disease; I50.22 Chronic systolic (congestive) heart failure; N39.0 Urinary tract infection, site not specified; I42.0 Dilated cardiomyopathy; G81.94 Hemiplegia, unspecified affecting left nondominant side; R47.01 Aphasia; R29.810 Facial weakness; R29.705 NIHSS score 5; Z79.4 Long term (current) use of insulin; Z86.73 Personal history of transient ischemic attack (TIA), and cerebral infarction without residual deficits; I25.5 Ischemic cardiomyopathy; N18.30 Chronic kidney disease, stage 3 unspecified; E11.22 Type 2 diabetes mellitus with diabetic chronic kidney disease; J44.9 Chronic obstructive pulmonary disease, unspecified; F17.210 Nicotine dependence, cigarettes, uncomplicated; E03.9 Hypothyroidism, unspecified; Z87.440 Personal history of urinary (tract) infections; Z95.810 Presence of automatic (implantable) cardiac defibrillator; G40.909 Epilepsy, unspecified, not intractable, without status epilepticus; Z79.51 Long term (current) use of inhaled steroids; Z79.82 Long term (current) use of aspirin; Z79.85 Long-term (current) use of injectable non-insulin antidiabetic drugs; Z79.891 Long term (current) use of opiate analgesic; Z79.02 Long term (current) use of antithrombotics/antiplatelets; E78.49 Other hyperlipidemia; I25.10 Atherosclerotic heart disease of native coronary artery without angina pectoris; Z87.01 Personal history of pneumonia (recurrent); M79.7 Fibromyalgia; F41.8 Other specified anxiety disorders; Z85.3 Personal history of malignant neoplasm of breast; E11.42 Type 2 diabetes mellitus with diabetic polyneuropathy; I25.2 Old myocardial infarction; Z79.84 Long term (current) use of oral hypoglycemic drugs
CPT/HCPCS: 36415; 36416; 70450; 70496; 70498; 71045; 80053; 80061; 80306; 81001; 82962; 83036; 83735; 84100; 84443; 85025; 85378; 85384; 85610; 85730; 87077; 87086; 87186; 92523; 92610; 93005; 93306; 96361; 96372; 96374; 97161; 97165; 97530; 99285; C9113; J0696; J1644; J1815; J2997; J3490; J7030; Q9967

== ENCOUNTER → 2023-04-14 13:22 | Outpatient (BNVA) | payer MEDICARE, SELFPAY | PROVIDERS: PCP Registered Nurse; Visit Provider Registered Nurse | DX: N39.0 Urinary tract infection, site not specified (principal) | CPT/HCPCS: 81000 ==

== ENCOUNTER → 2023-04-17 11:22 | Outpatient (BNVA) | payer MEDICARE, SELFPAY | PROVIDERS: PCP Registered Nurse; Referring Provider Radiology Neuroradiology; Visit Provider Specialist | DX: Z86.73 Personal history of transient ischemic attack (TIA), and cerebral infarction without residual deficits (principal); Z92.82 Status post administration of tPA (rtPA) in a different facility within the last 24 hours prior to admission to current facility; I25.5 Ischemic cardiomyopathy; G45.9 Transient cerebral ischemic attack, unspecified; F17.210 Nicotine dependence, cigarettes, uncomplicated | CPT/HCPCS: 99205; 99406 ==

== ENCOUNTER 2023-05-06 08:07 | Outpatient (CLI) | payer MEDICARE, SELFPAY ==
--- NOTE | 2023-05-06 08:30 | CT_ITS ---
WS: [id number] CT chest wo con [id number] HISTORY: F17.210 - Nicotine dependence, cigarettes, uncomplicated TECHNIQUE: Axial imaging performed through the thorax. Coronal and sagittal reformats are submitted. All CT scans at [facility] use at least one of these dose optimization techniques: automated exposure control; mA and/or kV adjustment per patient size (includes targeted exams where dose is mat ched to clinical indication); or iterative reconstruction. CONTRAST: None DLP: 450.69 mGy COMPARISON: 04/27/2020 Lungs and central airway: Mild pulmonary hyperexpansion. Diffuse centrilobular emphysema. Interstitiu m is thickened throughout both lungs but similar to prior studies. There are few benign scattered juan cifications. A few scattered micronodules. Pleura: Normal. No pleural effusion. Heart and pericardium: Mild cardiomegaly. Mediastinum and manav: Partially calcified lymph nodes in the mediastinum and hilum. These are probabl y benign. Without IV contrast is difficult to evaluate for any interval change. Majority of these lym ph nodes do contain at least some calcification. Vessels: Mild atherosclerosis aorta. Normal size pulmonary artery. Chest wall and lower neck: No soft tissue masses. Upper abdomen: Small hiatal hernia. Prior cholecystectomy. No adrenal mass. Splenic granulomata. Mild pancreatic atrophy is visualized. The entire pancreas is not seen. Osseous structures: No destructive process. IMPRESSION: 1. Advanced centrilobular emphysema. 2. No pneumonia. 3. Prior granulomatous disease. There are pulmonary calcifications and numerous mediastinal and hilar lymph nodes which contain some calcification. No obvious progression of mediastinal or hilar lymph n ode burden. The lack of IV contrast limits evaluation for subtle changes. 4. LEFT subclavian pacer. 5. Prior cholecystectomy.
== END 2023-05-06 08:08 | disposition home or self-care (01) ==
PROVIDERS: PCP Registered Nurse; Visit Provider Registered Nurse
DX: J43.2 Centrilobular emphysema (principal); F17.210 Nicotine dependence, cigarettes, uncomplicated; J98.4 Other disorders of lung; Z90.49 Acquired absence of other specified parts of digestive tract
CPT/HCPCS: 71250

== ENCOUNTER → 2023-06-03 09:14 | Outpatient (BNVA) | payer MEDICARE, SELFPAY | PROVIDERS: PCP Registered Nurse; Visit Provider Registered Nurse | DX: E11.22 Type 2 diabetes mellitus with diabetic chronic kidney disease; N18.30 Chronic kidney disease, stage 3 unspecified; N39.0 Urinary tract infection, site not specified | CPT/HCPCS: 81000; 87077; 87086; 87184 ==

== ENCOUNTER 2023-06-06 13:26 | Outpatient (CLI) | payer MEDICARE, SELFPAY ==
--- NOTE | 2023-06-06 13:42 | XR_ITS ---
WS: [id number] Left knee, 3 views, 06/06/2023 Clinical Data: M25.369 - Other instability, unspecified knee Comparison: Left knee, 07/20/2007. Findings: The left knee arthroplasty remains in good position. No periprosthetic fractures or loosening is seen . The soft tissues are normal. Impression: Left knee arthroplasty.
== END 2023-06-06 13:27 | disposition home or self-care (01) ==
PROVIDERS: PCP Registered Nurse; Visit Provider Registered Nurse
DX: M25.362 Other instability, left knee (principal)
CPT/HCPCS: 73562

== ENCOUNTER → 2023-06-12 11:05 | Outpatient (BNVA) | payer MEDICARE, SELFPAY | PROVIDERS: PCP Registered Nurse; Visit Provider Registered Nurse | DX: N39.0 Urinary tract infection, site not specified (principal) | CPT/HCPCS: 87086 ==

== ENCOUNTER → 2023-07-15 10:56 | Outpatient (BNVA) | payer MEDICARE, SELFPAY | PROVIDERS: PCP Registered Nurse; Visit Provider Registered Nurse | DX: N39.0 Urinary tract infection, site not specified; E11.22 Type 2 diabetes mellitus with diabetic chronic kidney disease; Z79.4 Long term (current) use of insulin; J01.40 Acute pansinusitis, unspecified | CPT/HCPCS: 80053; 80061; 81000; 83036; 85025; 87086 ==

== ENCOUNTER → 2023-07-21 08:06 | Outpatient (BNVA) | payer MEDICARE, SELFPAY | PROVIDERS: PCP Registered Nurse; Visit Provider Registered Nurse | DX: N39.0 Urinary tract infection, site not specified (principal); E11.22 Type 2 diabetes mellitus with diabetic chronic kidney disease | CPT/HCPCS: 80053; 81000; 87086 ==

== ENCOUNTER → 2023-08-06 11:58 | Outpatient (BNVA) | payer MEDICARE, SELFPAY | PROVIDERS: PCP Registered Nurse; Visit Provider Specialist | DX: G43.711 Chronic migraine without aura, intractable, with status migrainosus (principal); I42.9 Cardiomyopathy, unspecified; J44.9 Chronic obstructive pulmonary disease, unspecified; F17.210 Nicotine dependence, cigarettes, uncomplicated | CPT/HCPCS: 99214 ==

== ENCOUNTER → 2023-08-07 14:49 | Outpatient (BNVA) | payer MEDICARE, SELFPAY | PROVIDERS: PCP Registered Nurse; Visit Provider Internal Medicine Cardiovascular Disease | DX: I42.0 Dilated cardiomyopathy (principal); I25.10 Atherosclerotic heart disease of native coronary artery without angina pectoris; E78.49 Other hyperlipidemia; Z95.810 Presence of automatic (implantable) cardiac defibrillator; F17.210 Nicotine dependence, cigarettes, uncomplicated; I11.0 Hypertensive heart disease with heart failure; I50.9 Heart failure, unspecified | CPT/HCPCS: 99214 ==

== ENCOUNTER → 2023-09-11 13:05 | Outpatient (BNVA) | payer MEDICARE, SELFPAY | PROVIDERS: PCP Registered Nurse; Visit Provider Registered Nurse | DX: N39.0 Urinary tract infection, site not specified (principal); E11.65 Type 2 diabetes mellitus with hyperglycemia | CPT/HCPCS: 81000 ==

== ENCOUNTER → 2023-10-14 13:58 | Outpatient (BNVA) | payer MEDICARE, SELFPAY | PROVIDERS: PCP Registered Nurse; Visit Provider Registered Nurse | DX: N39.0 Urinary tract infection, site not specified (principal); E11.22 Type 2 diabetes mellitus with diabetic chronic kidney disease; Z79.4 Long term (current) use of insulin | CPT/HCPCS: 80053; 81000; 83036; 87086; 87106 ==

== ENCOUNTER → 2023-12-03 10:37 | Outpatient (BNVA) | payer MEDICARE, SELFPAY | PROVIDERS: PCP Registered Nurse; Visit Provider Registered Nurse | DX: I25.10 Atherosclerotic heart disease of native coronary artery without angina pectoris (principal); E11.22 Type 2 diabetes mellitus with diabetic chronic kidney disease; Z79.4 Long term (current) use of insulin; I51.9 Heart disease, unspecified; M79.7 Fibromyalgia; Z79.899 Other long term (current) drug therapy | CPT/HCPCS: 81003; 82306; 82310; 82570; 82728; 83550; 83735; 83970; 84075; 84156; 84550; 85007; 85027; 87077; 87086; 87184 ==

== ENCOUNTER → 2023-12-15 15:21 | Outpatient (BNVA) | payer MEDICARE, SELFPAY | PROVIDERS: PCP Registered Nurse; Visit Provider Registered Nurse | DX: N39.0 Urinary tract infection, site not specified (principal); G89.29 Other chronic pain; M47.812 Spondylosis without myelopathy or radiculopathy, cervical region; E11.22 Type 2 diabetes mellitus with diabetic chronic kidney disease; Z79.4 Long term (current) use of insulin | CPT/HCPCS: 81000; 87086 ==

== ENCOUNTER → 2024-01-07 09:50 | Outpatient (BNVA) | payer MEDICARE, SELFPAY | PROVIDERS: PCP Registered Nurse; Visit Provider Registered Nurse | DX: E11.22 Type 2 diabetes mellitus with diabetic chronic kidney disease (principal); Z79.4 Long term (current) use of insulin | CPT/HCPCS: 80053; 83036 ==

== ENCOUNTER → 2024-02-26 09:10 | Outpatient (BNVA) | payer MEDICARE, SELFPAY | PROVIDERS: PCP Registered Nurse; Visit Provider Nurse Practitioner Family | DX: I25.10 Atherosclerotic heart disease of native coronary artery without angina pectoris (principal); E11.59 Type 2 diabetes mellitus with other circulatory complications; Z79.85 Long-term (current) use of injectable non-insulin antidiabetic drugs; Z95.810 Presence of automatic (implantable) cardiac defibrillator; I11.0 Hypertensive heart disease with heart failure; I50.22 Chronic systolic (congestive) heart failure; Z72.0 Tobacco use | CPT/HCPCS: 99214 ==

== ENCOUNTER → 2024-04-15 15:59 | Outpatient (BNVA) | payer MEDICARE, SELFPAY | PROVIDERS: PCP Registered Nurse; Visit Provider Registered Nurse | DX: Z79.4 Long term (current) use of insulin (principal); E11.22 Type 2 diabetes mellitus with diabetic chronic kidney disease; N39.0 Urinary tract infection, site not specified; H65.192 Other acute nonsuppurative otitis media, left ear | CPT/HCPCS: 80053; 81000; 83036; 85025; 87086 ==

== ENCOUNTER → 2024-04-26 09:59 | Outpatient (BNVA) | payer MEDICARE, SELFPAY | PROVIDERS: PCP Registered Nurse; Visit Provider Registered Nurse | DX: N39.0 Urinary tract infection, site not specified (principal) | CPT/HCPCS: 81000; 87086 ==

== ENCOUNTER → 2024-05-04 11:24 | Outpatient (BNVA) | payer MEDICARE, SELFPAY | PROVIDERS: PCP Registered Nurse; Visit Provider Registered Nurse | DX: N39.0 Urinary tract infection, site not specified (principal) | CPT/HCPCS: 87086 ==

== ENCOUNTER 2024-05-25 14:12 | Outpatient (CLI) | payer MEDICARE, SELFPAY ==
--- NOTE | 2024-05-25 14:17 | XR_ITS ---
WS: [id number] XR shoulder RT min 2V* [id number] REASON FOR EXAM: M19.011 - Primary osteoarthritis, right shoulder FINDINGS: Mild to moderate narrowing of the acromioclavicular joint with mild subchondral sclerosis and moderat e osteophytosis directed inferiorly. Mild downward slant of the acromial process with narrowing of th e humeral acromial interval. The glenohumeral joint space is not well demonstrated. There may be some narrowing inferiorly. There is mild to moderate subchondral sclerosis in the glenoid. Subchondral sclerosis is seen in the subart icular humeral head and there is humeral head osteophytosis. There is significant sclerosis and cystic change within the greater biceps tuberosity. XR/XR shoulder RT min 2V* [id number] IMPRESSION: Moderate osteoarthritis of the acromioclavicular joint. Moderate osteoarthritis of the glenohumeral joint. Significant rotator cuff tendon arthropathy associated with an acromial configu ration and osteophytosis of the clavicle noting significant potential for anter ior rotator cuff tendon impingement. The decreased humeral acromial interval ma y indicate a rotator cuff tendon tear.
== END 2024-05-25 14:13 | disposition home or self-care (01) ==
LOC: RAD 14:14
PROVIDERS: PCP Registered Nurse; Visit Provider Registered Nurse
DX: M19.011 Primary osteoarthritis, right shoulder (principal)
CPT/HCPCS: 73030

== ENCOUNTER → 2024-06-03 11:40 | Outpatient (BNVA) | payer MEDICARE, SELFPAY | PROVIDERS: PCP Registered Nurse; Visit Provider Registered Nurse | DX: E11.22 Type 2 diabetes mellitus with diabetic chronic kidney disease (principal); Z79.4 Long term (current) use of insulin; I10 Essential (primary) hypertension; N39.0 Urinary tract infection, site not specified; N18.30 Chronic kidney disease, stage 3 unspecified | CPT/HCPCS: 80048; 81003; 82043; 82310; 82570; 83970; 84100; 84156; 85025 ==

== ENCOUNTER → 2024-07-08 08:51 | Outpatient (BNVA) | payer MEDICARE, SELFPAY | PROVIDERS: PCP Registered Nurse; Visit Provider Student in an Organized Health Care Education/Training Program | DX: M67.911 Unspecified disorder of synovium and tendon, right shoulder (principal); M75.41 Impingement syndrome of right shoulder | CPT/HCPCS: 20610; 99204; J3301 ==

== ENCOUNTER → 2024-08-03 14:42 | Outpatient (BNVA) | payer MEDICARE, SELFPAY | PROVIDERS: PCP Registered Nurse; Visit Provider Registered Nurse | DX: Z23 Encounter for immunization (principal); E11.9 Type 2 diabetes mellitus without complications; E03.9 Hypothyroidism, unspecified | CPT/HCPCS: 83036; 84443 ==

== ENCOUNTER → 2024-08-04 12:06 | Outpatient (BNVA) | payer MEDICARE, SELFPAY | PROVIDERS: PCP Registered Nurse; Visit Provider Specialist | DX: G43.711 Chronic migraine without aura, intractable, with status migrainosus (principal); F41.8 Other specified anxiety disorders; I42.9 Cardiomyopathy, unspecified; E11.22 Type 2 diabetes mellitus with diabetic chronic kidney disease; Z79.4 Long term (current) use of insulin; F17.200 Nicotine dependence, unspecified, uncomplicated | CPT/HCPCS: 99214 ==

== ENCOUNTER → 2024-09-07 10:50 | Outpatient (BNVA) | payer MEDICARE, SELFPAY | PROVIDERS: PCP Registered Nurse; Visit Provider Internal Medicine Cardiovascular Disease | DX: I11.0 Hypertensive heart disease with heart failure (principal); I50.22 Chronic systolic (congestive) heart failure; I42.9 Cardiomyopathy, unspecified; I25.5 Ischemic cardiomyopathy; Z95.810 Presence of automatic (implantable) cardiac defibrillator; I95.89 Other hypotension; F17.210 Nicotine dependence, cigarettes, uncomplicated | CPT/HCPCS: 99214 ==

== ENCOUNTER 2024-09-11 18:15 | Emergency (ER) | payer MEDICARE, SELFPAY ==
[2024-09-11 18:25] VITALS: BP 117/77; PULSE 89; RESP 16; TEMP 36.4; O2SAT 98
--- NOTE | 2024-09-11 18:32 | USR_ITS ---
PROCEDURE INFORMATION: Exam: US Duplex Right Upper Extremity Veins, Limited Exam date and time: 09/11/2024 6:44 PM Age: 64 years old Clinical indication: Pain; Arm, upper; Right; Patient HX: Patient reports she had a kranthi horse in her arm and a very large bruise appeared. She is on blood thinner. ; Additional info: Pain/ecchymosis TECHNIQUE: Imaging protocol: Real-time duplex ultrasound of the right Upper Extremity with 2-D vega scale, color Doppler flow and spectral waveform analysis with image documentation. Limited exam focused on the right upper extremity veins. COMPARISON: No relevant prior studies available. FINDINGS: Right deep veins: The right axillary and brachial veins are patent without evidence of thrombus.Doppler waveforms are unremarkable. The visualized right internal jugular and subclavian veins are patent. Superficial veins: The visualized right cephalic and basilic veins are patent without thrombus. Soft tissues: Complex fluid collection most suggestive of hematoma in the anterior upper arm measuring approximately 4 x 1.3 cm. US/[place] [id number] IMPRESSION: 1. No sonographic evidence of deep venous thrombosis in the right upper extremity. 2. Right upper arm hematoma. Consider follow-up ultrasound in 4-6 weeks to assess for resolution.
--- NOTE | 2024-09-11 19:53 | W.ED.EXTPRO ---
HPI - Extremity Problem General: Chief complaint: General Medical Stated complaint: right arm large bruise, worried blood clot Time Seen by Provider: 09/11/24 18:47 Source: patient and family Mode of arrival: ambulatory Limitations: no limitations History of Present Illness: Patient is a nice 58 presents to ED today along with her significant other for evaluation of ecchymosis involving the right upper arm. Patient states she noticed the bruising yesterday. She does remember several days ago she got a charley horse cramp in her right shoulder. She has not had any further discomforts. She states she has chronic right shoulder pain and is seeing Dr. Henson for rotator cuff arthropathy. She did receive an intra-articular injection 2 months ago to the right shoulder. She states she is not having any new or worsening symptoms to the shoulder joint. She states she is only here because the bruising worried her that she might have a blood clot. MD Complaint: other (ecchymosis to the R upper arm) Onset (ago): day(s) (noticed yesterday) Location: right and upper extremity Radiation: none Relieving factors: nothing Exacerbating factors: nothing Associated symptoms: Reports no associated symptoms; Deny chest pain or fever(s) Related Data Home Medications Medication Instructions Recorded Confirmed albuterol sulfate 2.5 mg/3 mL 2.5 mg inhalation QID PRN 08/30/19 09/07/24 (0.083 %) solution for nebulization Shortness Of Breath aspirin 81 mg tablet,delayed 81 mg PO DAILY 08/30/19 09/07/24 release cholecalciferol (vitamin D3) 25 25 mcg PO DAILY 04/09/23 09/07/24 mcg (1,000 unit) tablet (Vitamin D3) ferrous sulfate 325 mg (65 mg 325 mg PO EVERY OTHER DAY 04/09/23 09/07/24 iron) tablet aosoyprt-hvl-lrksu ac 400 1 tab PO DAILY 04/09/23 09/07/24 mcg-calcium carb 500 mg-vit K1 20 mcg tablet (Women's 50 Plus Multivitamin) pen needle, diabetic 31 gauge x #1,200 ea 08/06/23 09/07/24 5/16 (BD Ultra-Fine Short Pen Needle) nitrofurantoin PO 05/04/24 09/07/24 monohydrate/macrocrystals 100 mg capsule fluticasone propionate 50 1 spray intranasal DAILY PRN 09/07/24 mcg/actuation nasal spray,suspension (Flonase Allergy Relief) Previous Rx's Medication Instructions Recorded nitroglycerin 0.4 mg sublingual 0.4 mg sublingual Q5M PRN chest 09/06/20 tablet pain #30 tabs blood sugar diagnostic #100 ea 08/28/21 pen needle, diabetic 29 gauge x #100 ea 02/27/23 1/2 (Lite Touch Insulin Pen [place]) budesonide-formoterol HFA 160 2 inh inhalation BID 30 days #10.2 05/14/23 mcg-4.5 mcg/actuation aerosol grams inhaler (Symbicort) pantoprazole 40 mg tablet,delayed See Rx Instructions .Route 07/22/23 release .COMPLEX #90 tabs flash glucose scanning reader #1 ea 09/11/23 (Primordial GeneticsStyle Tana 14 Day [place]) carvedilol 6.25 mg tablet See Rx Instructions .Route 04/27/24 .COMPLEX #90 tabs pen needle, diabetic 31 gauge x #100 ea 04/29/24 3/16 (BD Ultra-Fine Mini Pen Needle) cetirizine 10 mg tablet (Zyrtec) 10 mg PO DAILY PRN allergy 05/04/24 symptoms 30 days #30 tabs clopidogrel 75 mg tablet See Rx Instructions .Route 07/01/24 .COMPLEX #90 tabs sacubitril 49 mg-valsartan 51 mg See Rx Instructions .Route 07/08/24 tablet (Entresto) .COMPLEX #180 tabs montelukast 10 mg tablet See Rx Instructions .Route 07/09/24 .COMPLEX #90 tabs topiramate 25 mg tablet 25 mg PO BID 3 months #180 tabs 08/04/24 nortriptyline 75 mg capsule See Rx Instructions .Route 08/13/24 .COMPLEX #90 caps hydrocodone 5 mg-acetaminophen 325 1 tab PO DAILY PRN pain 30 days 08/16/24 mg tablet #30 tabs levothyroxine 137 mcg tablet See Rx Instructions .Route 08/16/24 .COMPLEX #90 tabs tizanidine 4 mg tablet See Rx Instructions .Route 08/16/24 .COMPLEX #90 tabs flash glucose sensor (FreeStyle #2 ea 08/30/24 Tana 14 Day Sensor kit) atorvastatin 40 mg tablet See Rx Instructions .Route 09/01/24 .COMPLEX #30 tabs venlafaxine 150 mg See Rx Instructions .Route 09/01/24 capsule,extended release 24 hr .COMPLEX #30 caps potassium chloride 20 mEq See Rx Instructions .Route 09/06/24 tablet,extended release(part/cryst) .COMPLEX #90 tabs furosemide 20 mg tablet See Rx Instructions .Route 09/07/24 .COMPLEX PRN edema #30 tabs Allergies Allergy/AdvReac Type Severity Reaction Status Date / Time No Known Allergies Allergy Verified 09/11/24 18:31 Review of Systems Const: Denies: fever(s), chills, body aches, fatigue or malaise Card: Denies: chest pain Resp: Denies: dyspnea GI: Denies: abdominal pain Musc: Reports: joint pain (chronic pain R shoulder joint); Denies: neck pain, back pain, extremity pain, extremity swelling, joint swelling or joint redness Skin/Breast: Reports: other (ecchymosis R upper arm) Neuro: Denies: headache(s) or dizziness PFSH ED PFSH: Medical History Received intravenous tissue plasminogen activator (tPA) in emergency department Brainstem stroke Depression with anxiety Ischemic congestive cardiomyopathy Nocturnal hypoxia ICD (implantable cardioverter-defibrillator) in place Recurrent falls Hypotension Current smoker Smoking greater than 30 pack years History of [place] (myocardial infarction) CHF (congestive heart failure) Pneumonia Breast cancer History of CVA (cerebrovascular accident) Hypertension Congestive heart failure -severe cardiomyopathy, EF=25% COPD (chronic obstructive pulmonary disease) Type 2 diabetes mellitus Hypothyroidism (acquired) Cough Dysphonia Spondylosis without myelopathy or radiculopathy, cervical region Chronic bilateral low back pain Neck pain Fibromyalgia Other spondylosis, lumbosacral region Surgical History Status post internal cardiac defibrillator procedure -done on 04/19/[address] Arguello S/P hernia surgery S/P knee surgery Bilateral S/P hysterectomy S/P cholecystectomy H/O mastectomy Family History Mother , AT AGE 56 CAD (coronary artery disease) Grandfather CAD (coronary artery disease) Grandmother CAD (coronary artery disease) Father , IN HIS 60'S Diabetes Other Heart disease Denies family history of Clotting disorder Dementia Chronic kidney disease (CKD) Suicide Anesthesia complication Bleeding disorder Lung disease Cancer Stroke Social History Smoking and tobacco/nicotine status: current every day tobacco/nicotine user cigarettes Packs smoked per day: 1 Years cigarettes smoked: 30 Alcohol intake: never Substance/Drug Use: never Household members: spouse Housing: House Marital status: Current occupational status: disabled Physical Exam Const: COMMON NORMALS: no acute distress, average body habitus, patient oriented x3, no limitations, healthy appearing, alert and well nourished Neck/C-Spine: COMMON NORMALS: full ROM GENERAL: Yes normal visual inspection CERVICAL SPINE: Yes cervical ROM normal Chest: COMMONS NORMALS: normal inspection of the chest and normal palpation of entire chest wall Resp: COMMON NORMALS: normal respiratory effort and clear to auscultation bilaterally AUSCULTATION: clear to auscultation bilaterally Cardio: COMMON NORMALS: regular rate and regular rhythm RATE: regular rate RHYTHM: regular rhythm Extremity: COMMON NORMALS: capillary refill normal GENERAL: Yes normal exam except as noted RIGHT UPPER EXTREMITY: Yes upper arm EXTREMITY IMAGE (FRONT): 1. large area of old appearing ecchymosis-already has green/yellowing coloration; there is no edema present/no palpable underlying hematomas; forearm is normal; pulses/cap refill/sensation all normal Neuro: COMMON NORMALS: patient oriented x3, moves all extremities, no focal motor deficits and no sensory deficits noted SENSORIUM/ORIENTATION: Yes alert Skin: NARRATIVE SKIN EXAM: see above Course Vital Signs: Vital signs: Vital Signs Temperature 97.5 F L 09/11/24 18:25 Pulse Rate 89 09/11/24 18:25 Respiratory Rate 16 09/11/24 18:25 Blood Pressure 117/77 09/11/24 18:25 Pulse Oximetry 98 09/11/24 18:25 Oxygen Delivery Me thod Room Air 09/11/24 18:25 MDM - Extremity (Nontraumatic) Medical Decision Making No DVT on ultrasound. She does have her right upper arm hematoma. This can be follow-up with primary care in 4 to 6 weeks to assess for resolution. Lab Data Radiology Impressions Venous Duplex 09/11/24 18:32 IMPRESSION: 1. No sonographic evidence of deep venous thrombosis in the right upper extremity. 2. Right upper arm hematoma. Consider follow-up ultrasound in 4-6 weeks to assess for resolution. All radiology interpretation(s) finalized by discharge Discharge Plan Discharge Patient Disposition: Home Clinical Impression: Superficial bruising of arm Qualifiers: Encounter type: initial encounter Laterality: right Qualified Code(s): S40.021A - Contusion of right upper arm, initial encounter Condition: Stable Prescriptions: No Action albuterol sulfate 2.5 mg /3 mL (0.083 %) solution for nebulization 2.5 mg INHALATION QID PRN (Reason: Shortness Of Breath) aspirin 81 mg tablet,delayed release (DR/EC) 81 mg PO DAILY (DME) blood sugar diagnostic Strip See Rx Instructions .Route Qty: 100 3RF Rx Instructions: two times daily (DME) pen needle, diabetic [Lite Touch Insulin Pen [place]] 29 gauge x 1/2 needle See Rx Instructions .Route Qty: 100 0RF Rx Instructions: As directed topiramate 25 mg tablet 25 mg PO BID 90 Days Qty: 180 3RF (DME) pen needle, diabetic [BD Ultra-Fine Short Pen Needle] 31 gauge x 5/16 needle See Rx Instructions .ROUTE .MEDSUPPLY Qty: 1200 Rx Instructions: As directed budesonide-formoterol [Symbicort] 160-4.5 mcg/actuation HFA aerosol inhaler 2 inh inhalation BID 30 Days Qty: 10.2 0RF (DME) FreeStyle Tana 14 Day [place] [facility] See Rx Instructions .ROUTE .COMPLEX Qty: 1 0RF Dose Instruction: USE DIRECTED BY DOCTOR Rx Instructions: USE DIRECTED BY DOCTOR fluticasone propionate [Flonase Allergy Relief] 50 mcg/actuation spray,suspension 1 spray intranasal DAILY PRN Rx Instructions: administer into each nostril furosemide 20 mg tablet See Rx Instructions .ROUTE .COMPLEX PRN (Reason: edema) Qty: 30 0RF Dose Instruction: Take 1 tablet by mouth once daily Rx Instructions: Take 1 tablet by mouth once daily PRN; nitrofurantoin monohyd/m-cryst 100 mg capsule PO cetirizine [Zyrtec] 10 mg tablet 10 mg PO DAILY PRN (Reason: allergy symptoms) 30 Days Qty: 30 0RF nitroglycerin 0.4 mg tablet, sublingual 0.4 mg sublingual Q5M PRN (Reason: chest pain) Qty: 30 3RF Rx Instructions: do not exceed 3 doses per episode pantoprazole 40 mg tablet,delayed release (DR/EC) See Rx Instructions .ROUTE .COMPLEX Qty: 90 0RF Dose Instruction: Take 1 tablet by mouth once daily for 90 days Rx Instructions: Take 1 tablet by mouth once daily for 90 days carvedilol 6.25 mg tablet See Rx Instructions .ROUTE .COMPLEX Qty: 90 3RF Dose Instruction: Take 1/2 (one-half) tablet by mouth twice daily Rx Instructions: Take 1/2 (one-half) tablet by mouth twice daily (DME) pen needle, diabetic [BD Ultra-Fine Mini Pen Needle] 31 gauge x 3/16 needle See Rx Instructions .ROUTE .COMPLEX Qty: 100 0RF Dose Instruction: USE DIRECTED . DAILY MAX 2 TIMES PER DAY Rx Instructions: USE DIRECTED . DAILY MAX 2 TIMES PER DAY clopidogrel 75 mg tablet See Rx Instructions .ROUTE .COMPLEX Qty: 90 0RF Dose Instruction: Take 1 tablet by mouth once daily Rx Instructions: Take 1 tablet by mouth once daily Entresto 49-51 mg tablet See Rx Instructions .ROUTE .COMPLEX Qty: 180 0RF Dose Instruction: Take 1 tablet by mouth twice daily Rx Instructions: Take 1 tablet by mouth twice daily montelukast 10 mg tablet See Rx Instructions .ROUTE .COMPLEX Qty: 90 0RF Dose Instruction: Take 1 tablet by mouth once daily Rx Instructions: Take 1 tablet by mouth once daily nortriptyline 75 mg capsule See Rx Instructions .ROUTE .COMPLEX Qty: 90 0RF Dose Instruction: TAKE 1 CAPSULE BY MOUTH AT BEDTIME FOR INSOMNIA Rx Instructions: TAKE 1 CAPSULE BY MOUTH AT BEDTIME FOR INSOMNIA levothyroxine 137 mcg tablet See Rx Instructions .ROUTE .COMPLEX Qty: 90 0RF Dose Instruction: Take 1 tablet by mouth once daily Rx Instructions: Take 1 tablet by mouth once daily tizanidine 4 mg tablet See Rx Instructions .ROUTE .COMPLEX Qty: 90 0RF Dose Instruction: TAKE 1 TABLET BY MOUTH EVERY 8 HOURS NEEDED FOR MUSCLE SPASM Rx Instructions: TAKE 1 TABLET BY MOUTH EVERY 8 HOURS NEEDED FOR MUSCLE SPASM hydrocodone-acetaminophen 5-325 mg tablet 1 tab PO DAILY PRN (Reason: pain) 30 Days Qty: 30 0RF (DME) FreeStyle Tana 14 Day Sensor Kit See Rx Instructions .ROUTE .COMPLEX Qty: 2 0RF Dose Instruction: USE DIRECTED Rx Instructions: USE DIRECTED atorvastatin 40 mg tablet See Rx Instructions .ROUTE .COMPLEX Qty: 30 0RF Dose Instruction: Take 1 tablet by mouth once daily Rx Instructions: Take 1 tablet by mouth once daily venlafaxine 150 mg capsule,extended release 24hr See Rx Instructions .ROUTE .COMPLEX Qty: 30 0RF Dose Instruction: Take 1 capsule by mouth once daily Rx Instructions: Take 1 capsule by mouth once daily potassium chloride 20 mEq tablet,ER particles/crystals See Rx Instructions .ROUTE .COMPLEX Qty: 90 0RF Dose Instruction: TAKE 1 BY MOUTH ONCE DAILY Rx Instructions: TAKE 1 BY MOUTH ONCE DAILY Vitamin D3 25 mcg (1,000 unit) Tablet 25 mcg PO DAILY Women's 50 Plus Multivitamin 400 mcg-500 mg calcium-20 mcg Tablet 1 tab PO DAILY ferrous sulfate 325 mg (65 mg iron) tablet 325 mg PO EVERY OTHER DAY Discharge Orders: Discharge ED (Routine); Ordered 09/11/24 Ordered By: Eloise Dahl Referrals: Yoel Gandhi FNP [Primary Care Provider] - Patient Instructions: Ecchymosis (ED) Activity Restrictions/Additional Instructions: As we discussed, your ultrasound did not show a blood clot. They did see a small hematoma present. Recommend follow-up with primary care to have this re-evaluated in 4 to 6 weeks. Coding Level of Care Code ED Computer Scientist for Zaki Mares
[2024-09-11 21:02] VITALS: BP 119/83; PULSE 77; RESP 16; O2SAT 100
[2024-09-11 21:44] VITALS: BP 123/79; PULSE 80; RESP 16; O2SAT 100
== END 2024-09-11 21:45 | disposition home or self-care (01) ==
PROVIDERS: Emergency Provider Physician Assistant; PCP Registered Nurse
DX: S40.021A Contusion of right upper arm, initial encounter (principal); Z79.82 Long term (current) use of aspirin; Z79.02 Long term (current) use of antithrombotics/antiplatelets; F17.210 Nicotine dependence, cigarettes, uncomplicated; E11.9 Type 2 diabetes mellitus without complications; J44.9 Chronic obstructive pulmonary disease, unspecified; Z86.73 Personal history of transient ischemic attack (TIA), and cerebral infarction without residual deficits; I11.0 Hypertensive heart disease with heart failure; I50.9 Heart failure, unspecified; X58.XXXA Exposure to other specified factors, initial encounter
CPT/HCPCS: 93971; 99284

== ENCOUNTER → 2024-09-22 13:07 | Outpatient (BNVA) | payer MEDICARE, SELFPAY | PROVIDERS: PCP Registered Nurse; Visit Provider Registered Nurse | DX: R30.0 Dysuria (principal) | CPT/HCPCS: 81000; 87086 ==

== ENCOUNTER → 2024-09-30 15:50 | Outpatient (BNVA) | payer MEDICARE, SELFPAY | PROVIDERS: PCP Registered Nurse; Visit Provider Registered Nurse | DX: N39.0 Urinary tract infection, site not specified (principal) | CPT/HCPCS: 87086 ==

== ENCOUNTER → 2024-10-07 08:12 | Outpatient (BNVA) | payer MEDICARE, SELFPAY | PROVIDERS: PCP Registered Nurse; Visit Provider Student in an Organized Health Care Education/Training Program | DX: K61.0 Anal abscess (principal) | CPT/HCPCS: 99204 ==

== ENCOUNTER 2024-10-11 10:00 | Outpatient (CLI) | payer MEDICARE, SELFPAY ==
--- NOTE | 2024-10-11 10:00 | USCV_ITS ---
Tiffany Glaser Age: 64 Gender: F : 1960 Exam Date: 10/11/2024 10:14 Ordering Phys: Milla Rodrigues MD ([email or web address]) Technologist: CT [place] [facility] [place]: chf BP: 80 / 50 HR: 72 Rhythm: Sinus Technical Quality: Adequate MEASUREMENTS (Male / Female) Normal Values 2D ECHO LVOT Diameter 2.0 cm LV Ejection Fraction MOD 4C 53.3 % LV Ejection Fraction MOD 2C 52.0 % LV Ejection Fraction 2C AL 51.9 % LA Diameter 2.9 cm RA Systolic Volume 4C AL 44.5 ml RA Systolic Volume 4C MOD 42.7 ml LA Sys Volume AL 42.6 cm cubed LA Sys Volume Index AL 23.8 cm cubed/m squared Aorta at Sinotubular Diameter 2.0 cm M-MODE LA Ao Ratio MM 1.6 AV Cusp Separation MM 1.6 cm DOPPLER AV Peak Velocity 122.0 cm/s LVOT Peak Velocity 74.0 cm/s AV Area Cont Eq vti 2.1 cm squared AV Area Cont Eq pk 1.9 cm squared MV Peak Velocity 77.0 cm/s MV Area PHT 3.7 cm squared Mitral E to A Ratio 0.7 TR Peak Velocity 266.0 cm/s TR Peak Gradient 28.3 mmHg TR Mean Velocity 162.0 cm/s TR Mean Gradient 13.0 mmHg TR Velocity Time Integral 53.9 cm TV Peak E Velocity 83.0 cm/s PV Peak Velocity 94.0 cm/s FINDINGS Left Ventricle Left ventricle is normal size. LV systolic function is normal with EF of 50 to 55%. No regional wall motion normalities are seen. Grade 1 diastolic dysfunction Right Ventricle Normal in size and function Right Atrium Normal in size Left Atrium Normal in size Mitral Valve Structurally normal mitral valve. Mild mitral regurgitation. Aortic Valve Structurally normal aortic valve. No significant stenosis or regurgitation. Tricuspid Valve Mild tricuspid regurgitation. Pulmonary artery systolic pressure is normal. Pulmonic Valve Not well visualized Pericardium Normal Aorta Normal in size IVC Not well visualized CONCLUSIONS LV systolic function is normal with EF of 50-55% Grade 1 diastolic dysfunction Mild mitral regurgitation Mild tricuspid regurgitation Compared to prior echocardiogram from 2022, LV systolic function appears to have improved. Ke Torres MD (Electronically Signed) Final Date: 23 October 2024 13:25 S
== END 2024-10-11 10:01 | disposition home or self-care (01) ==
LOC: RAD 10:01
PROVIDERS: PCP Registered Nurse; Visit Provider Internal Medicine Cardiovascular Disease
DX: I50.22 Chronic systolic (congestive) heart failure (principal); I42.9 Cardiomyopathy, unspecified; R93.1 Abnormal findings on diagnostic imaging of heart and coronary circulation; I34.0 Nonrheumatic mitral (valve) insufficiency; I07.1 Rheumatic tricuspid insufficiency
CPT/HCPCS: 93306

== ENCOUNTER 2024-10-20 08:20 | Day surgery (SDC) | payer MEDICARE, SELFPAY ==
[2024-10-20] VITALS (10 sets, daily range): BP systolic 112–147; BP diastolic 67–85; PULSE 72–85; RESP 16–21; TEMP 36.2–36.4; O2SAT 92–98; BMI 26.9
--- NOTE | 2024-10-20 08:55 | ANES.PREANE2 ---
Pre-Anesthetic Assessment Height/Weight: Height 5 ft 4 in Preop Diagnosis: Perineal abscess Operation Date: 10/20/24 10:00 Proposed Procedures p Exam under Anesthesia paraneum rectum 28331, 97631, 05722, 86158, K61.0(Not Applicable) - Ziggy Mohamud MD s possibleIncision And Drainage I&D(Not Applicable) - Ziggy Mohamud MD s Possible Seton Placement(Not Applicable) - Ziggy Mohamud MD s Possible Fistulotomy Anal(Not Applicable) - Ziggy Mohamud MD Was Beta Graciela taken within 24 hours: Yes Was Clonidine taken within 24 hours: N/A Social Tobacco and No alcohol Exam alert, oriented x 3, clear to auscultation bilaterally and regular rate & rhythm Airway Submandibular: within normal limits Cervical ROM: within normal limits Mallampati: Class III Dentition: false Anesthetic Plan ASA status: 3 Anesthesia: General Other: No prior issues with anesthesia NPO since yesterday evening Patient has a significant CAD history with CHF. Most recent echo showing EF 44% Patient follows with cardiology, saw them in August. On carvedilol and sacubitril?valsartan ICD in place Current smoker Prior CVAs, denies any residual symptoms. Insulin-dependent diabetes, Dexcom in place on right upper extremity Stage III CKD Chronic hydrocodone use Plan for GETA Medications/Allergies Home Medications ?Medication ?Instructions ?Recorded ?Confirmed ?Last Taken ?Type albuterol sulfate 2.5 mg/3 mL 2.5 mg inhalation QID PRN 08/30/19 10/19/24 12/26/19 09:00 History (0.083 %) solution for nebulization Shortness Of Breath aspirin 81 mg tablet,delayed 81 mg PO DAILY 08/30/19 10/19/24 10/19/24 History release nitroglycerin 0.4 mg sublingual 0.4 mg sublingual Q5M PRN chest 09/06/20 10/19/24 Unknown Rx tablet pain #30 tabs blood sugar diagnostic #100 ea 08/28/21 10/07/24 Unknown Rx pen needle, diabetic 29 gauge x #100 ea 02/27/23 10/07/24 Unknown Rx 1/2 (Lite Touch Insulin Pen [place]) cholecalciferol (vitamin D3) 25 25 mcg PO DAILY 08/10/19/24 10/19/24 History mcg (1,000 unit) tablet (Vitamin D3) ferrous sulfate 325 mg (65 mg 325 mg PO EVERY OTHER DAY 04/09/23 10/19/24 10/19/24 History iron) tablet gbnazwnc-ahp-gyfyf ac 400 1 tab PO DAILY 04/09/23 10/19/24 10/19/24 History mcg-calcium carb 500 mg-vit K1 20 mcg tablet (Women's 50 Plus Multivitamin) budesonide-formoterol HFA 160 2 inh inhalation BID 30 days #10.2 05/14/23 10/19/24 Unknown Rx mcg-4.5 mcg/actuation aerosol grams inhaler (Symbicort) pen needle, diabetic 31 gauge x #1,200 ea 08/06/23 10/07/24 Unknown History 5/16 (BD Ultra-Fine Short Pen Needle) flash glucose scanning reader #1 ea 09/11/23 10/07/24 Unknown Rx (FreeStyle Tana 14 Day [place]) pen needle, diabetic 31 gauge x #100 ea 04/29/24 10/07/24 Unknown Rx 3/16 (BD Ultra-Fine Mini Pen Needle) cetirizine 10 mg tablet (Zyrtec) 10 mg PO DAILY PRN allergy 05/04/24 10/19/24 10/19/24 Rx symptoms 30 days #30 tabs topiramate 25 mg tablet 25 mg PO BID 3 months #180 tabs 08/04/24 10/19/24 10/19/24 Rx hydrocodone 5 mg-acetaminophen 325 1 tab PO DAILY PRN pain 30 days 08/16/24 10/19/24 10/19/24 Rx mg tablet #30 tabs levothyroxine 137 mcg tablet See Rx Instructions .Route 08/16/24 10/19/24 10/19/24 Rx .COMPLEX #90 tabs fluticasone propionate 50 1 spray intranasal DAILY PRN 09/07/24 10/19/24 10/19/24 History mcg/actuation nasal allegies spray,suspension (Flonase Allergy Relief) flash glucose sensor (FreeStyle #2 ea 09/28/24 10/07/24 Unknown Rx Tana 14 Day Sensor kit) cephalexin 500 mg capsule 500 mg PO BID 7 days #14 caps 10/05/24 10/19/24 10/19/24 Rx atorvastatin 40 mg tablet 40 mg PO DAILY 10/19/24 10/19/24 10/19/24 History carvedilol 6.25 mg tablet 3.12 mg PO BID 10/19/24 10/19/24 10/19/24 History clopidogrel 75 mg tablet 75 mg PO DAILY 10/19/24 10/19/24 10/12/24 History furosemide 20 mg tablet 20 mg PO DAILY 10/19/24 10/19/24 10/19/24 History montelukast 10 mg tablet 10 mg PO DAILY 10/19/24 10/19/24 10/19/24 History nortriptyline 75 mg capsule 75 mg PO DAILY 10/19/24 10/19/24 10/19/24 History pantoprazole 40 mg tablet,delayed 40 mg PO DAILY 10/19/24 10/19/24 10/19/24 History release potassium chloride 20 mEq 20 meq PO DAILY 10/19/24 10/19/24 10/19/24 History tablet,extended release(part/cryst) sacubitril 49 mg-valsartan 51 mg 49 - 51 tab PO BID 10/19/24 10/19/24 10/19/24 History tablet (Entresto) tizanidine 4 mg tablet 4 mg PO BID PRN Spasms 10/19/24 10/19/24 Unknown History venlafaxine 150 mg 150 mg PO DAILY 10/19/24 10/19/24 10/19/24 History capsule,extended release 24 hr Allergies Allergy/AdvReac Type Severity Reaction Status Date / Time No Known Allergies Allergy Verified 10/19/24 11:41 [facility] Anesthesia Medical History Received intravenous tissue plasminogen activator (tPA) in emergency department Brainstem stroke Depression with anxiety Ischemic congestive cardiomyopathy Nocturnal hypoxia ICD (implantable cardioverter-defibrillator) in place Recurrent falls Hypotension Current smoker Smoking greater than 30 pack years History of [place] (myocardial infarction) CHF (congestive heart failure) Pneumonia Breast cancer History of CVA (cerebrovascular accident) Hypertension Congestive heart failure -severe cardiomyopathy, EF=25% COPD (chronic obstructive pulmonary disease) Type 2 diabetes mellitus Hypothyroidism (acquired) Cough Dysphonia Spondylosis without myelopathy or radiculopathy, cervical region Chronic bilateral low back pain Neck pain Fibromyalgia Other spondylosis, lumbosacral region Surgical History Status post internal cardiac defibrillator procedure -done on 04/19/[address] Arguello S/P hernia surgery S/P knee surgery Bilateral S/P hysterectomy S/P cholecystectomy H/O mastectomy Family History Mother , AT AGE 56 CAD (coronary artery disease) Grandfather CAD (coronary artery disease) Grandmother CAD (coronary artery disease) Father , IN HIS 60'S Diabetes Other Heart disease Denies family history of Clotting disorder Dementia Chronic kidney disease (CKD) Suicide Anesthesia complication Bleeding disorder Lung disease Cancer Stroke Social History Smoking and tobacco/nicotine status: current every day tobacco/nicotine user cigarettes Packs smoked per day: 1 Years cigarettes smoked: 30 Alcohol intake: never Substance/Drug Use: never Household members: spouse Housing: House Marital status: Current occupational status: disabled Data Anesthesia Cardiac Studies: Echocardiogram 04/10/23 Echocardiogram Limited Views 09/24/22 Echocardiogram Ultrasound 03/06/20
--- NOTE | 2024-10-20 08:55 | W.PM.OPSUD ---
Surgery/Procedure H&P Update DATE OF PROCEDURE: October 20, 2024 DATE H&P PERFORMED: 03/30/20 H&P UPDATE INFORMATION: I have reviewed H&P completed within last 30 days, I have examined patient prior to procedure and No changes to prior documentation PLANNED PROCEDURE: Operation Date: 10/20/24 10:00 Proposed Procedures p Exam under Anesthesia paraneum rectum 35067, 02997, 03444, 29343, K61.0(Not Applicable) - Ziggy Mohamud MD s possibleIncision And Drainage I&D(Not Applicable) - Ziggy Mohamud MD s Possible Seton Placement(Not Applicable) - Ziggy Mohamud MD s Possible Fistulotomy Anal(Not Applicable) - Ziggy Mohamud MD
[2024-10-20 09:21] LABS: Glucose Point of Care 257 mg/dL (70-110)
[2024-10-20] MEDS: sodium chloride 0.9% 1,000 ML 30 ML IV (09:31)
--- NOTE | 2024-10-20 10:27 | P.OP_ITS ---
Operative Report Date of procedure: October 20, 2024 Pre-op diagnosis: Perianal abscess x 2 Post-op diagnosis: same Post-op findings: Two residual perianal abscesses incised. Resected abscess cavity from larger one. Sent tissue to pathology. Procedure done: Exam under anesthesia of the rectum. Incision and drainage of 2 perianal abscesses. Implants: N/A Specimens removed/disposition: Larger abscess cavity sent to pathology Pathology: Abscess cavity Surgeon: Ziggy Mohamud MD Bench Boring Machine Operator: N/A Anesthesia: General Estimated blood loss (mL): 5 Complications: N/A Findings: Two small residual perianal abscesses incised. Excised cavity from larger abscess 1x2cm. Smaller abscess 1x1cm. Packed both sites using 1/4 inch iodophore. Exam of the rectum did not reveal a fistula or any other abnormality. Disposition: same day Brief History: 64-year-old female who presented with a residual perianal abscess. Initially incised by primary care. Discussed risks and benefits and patient agreed to proceed with exam under anesthesia of the rectum, possible incision and drainage of abscess, possible seton placement, possible fistulotomy. Procedure: After obtaining consent patient was brought into the operating room. SCDs were on and functioning. Antibiotics were administered. General anesthesia was induced. Patient was laid prone. Extremities were properly padded. The perineum was prepped and draped using Betadine. A Nielsen retractor was used to examine the rectum. I used a small probe to look for fistulous tract. No fistula was found. Patient have 2 packs of prominent hemorrhoids as well as an anal tag. In addition I did find what appeared to be two small residual perianal abscesses (1x1cm 11 o'clock, 1x2cm 1 o'clock). I proceeded to incise these. The larger cavity at 1 o'clock was excised. Adequate hemostasis was achieved using electrocautery. Both cavities were packed using 1/4 inch iodophore. Gauze padding was applied at the site as well as mesh panties. Patient woke up from anesthesia without any complications and transferred to PACU.
[2024-10-20 11:34] LABS: Glucose Point of Care 222 mg/dL (70-110)
--- NOTE | 2024-10-20 12:05 | ANE.PACU2 ---
Inpatient post-anesthesia follow up: Airway intact: Yes Vital signs: Temperature 97.1 F Pulse Rate 76 Respiratory Rate 16 Blood Pressure 143/80 Pulse Oximetry 94 Oxygen Delivery Me thod Room Air Oxygen Flow Rate 6 Fraction of Inspir ed Oxygen Hydration adequate: Yes Nausea and vomiting: No Pain level: 1 Mental status: Baseline
== END 2024-10-20 12:05 | disposition home or self-care (01) ==
PROVIDERS: PCP Registered Nurse; Visit Provider Student in an Organized Health Care Education/Training Program
PROC: (CPT 46050; principal; 2024-10-20 10:00)
PROC: (CPT 46050; 2024-10-20 10:00)
DX: K61.0 Anal abscess (principal); L72.0 Epidermal cyst; K62.89 Other specified diseases of anus and rectum; K64.9 Unspecified hemorrhoids; K64.4 Residual hemorrhoidal skin tags; I25.10 Atherosclerotic heart disease of native coronary artery without angina pectoris; I50.9 Heart failure, unspecified; E11.22 Type 2 diabetes mellitus with diabetic chronic kidney disease; N18.30 Chronic kidney disease, stage 3 unspecified; I25.2 Old myocardial infarction; I13.0 Hypertensive heart and chronic kidney disease with heart failure and stage 1 through stage 4 chronic kidney disease, or unspecified chronic kidney disease; E03.9 Hypothyroidism, unspecified; J44.9 Chronic obstructive pulmonary disease, unspecified; F17.210 Nicotine dependence, cigarettes, uncomplicated; Z79.899 Other long term (current) drug therapy; Z86.73 Personal history of transient ischemic attack (TIA), and cerebral infarction without residual deficits; Z79.4 Long term (current) use of insulin; Z96.41 Presence of insulin pump (external) (internal); Z79.82 Long term (current) use of aspirin; Z79.890 Hormone replacement therapy; Z95.810 Presence of automatic (implantable) cardiac defibrillator
CPT/HCPCS: 46050; 36416; 82962; 88304; J1100; J2405; J2704; J3010; J3490; J7030

== ENCOUNTER → 2024-11-01 08:28 | Outpatient (BNVA) | payer MEDICARE, SELFPAY | PROVIDERS: PCP Registered Nurse; Visit Provider Student in an Organized Health Care Education/Training Program | DX: K61.0 Anal abscess (principal) | CPT/HCPCS: 99024 ==

== ENCOUNTER → 2025-01-11 08:48 | Outpatient (BNVA) | payer MEDICARE, SELFPAY | PROVIDERS: PCP Registered Nurse; Visit Provider Student in an Organized Health Care Education/Training Program | DX: M75.41 Impingement syndrome of right shoulder (principal); M67.911 Unspecified disorder of synovium and tendon, right shoulder | CPT/HCPCS: 99213 ==

== ENCOUNTER → 2025-01-28 08:00 | Outpatient (BNVA) | payer MEDICARE, SELFPAY | PROVIDERS: PCP Registered Nurse; Visit Provider Student in an Organized Health Care Education/Training Program | DX: K61.0 Anal abscess (principal) | CPT/HCPCS: 99213 ==

== ENCOUNTER → 2025-01-31 14:05 | Outpatient (BNVA) | payer MEDICARE, SELFPAY | PROVIDERS: PCP Registered Nurse; Visit Provider Registered Nurse | DX: E11.9 Type 2 diabetes mellitus without complications (principal); E11.22 Type 2 diabetes mellitus with diabetic chronic kidney disease; Z79.4 Long term (current) use of insulin; N39.0 Urinary tract infection, site not specified | CPT/HCPCS: 80048; 81000; 83036 ==

== ENCOUNTER → 2025-02-08 11:30 | Outpatient (BNVA) | payer MEDICARE, SELFPAY | PROVIDERS: PCP Registered Nurse; Visit Provider Registered Nurse | DX: E87.6 Hypokalemia (principal) | CPT/HCPCS: 80048 ==

== ENCOUNTER → 2025-03-08 15:41 | Outpatient (BNVA) | payer MEDICARE, SELFPAY | PROVIDERS: PCP Registered Nurse; Visit Provider Internal Medicine Cardiovascular Disease | DX: I11.0 Hypertensive heart disease with heart failure (principal); I50.20 Unspecified systolic (congestive) heart failure; E11.59 Type 2 diabetes mellitus with other circulatory complications; I25.10 Atherosclerotic heart disease of native coronary artery without angina pectoris; E87.6 Hypokalemia; F17.210 Nicotine dependence, cigarettes, uncomplicated; Z95.810 Presence of automatic (implantable) cardiac defibrillator | CPT/HCPCS: 99214 ==

== ENCOUNTER → 2025-04-28 11:41 | Outpatient (BNVA) | payer MEDICARE, SELFPAY | PROVIDERS: PCP Registered Nurse; Visit Provider Registered Nurse | DX: M79.7 Fibromyalgia (principal); E03.9 Hypothyroidism, unspecified; E11.22 Type 2 diabetes mellitus with diabetic chronic kidney disease; N18.30 Chronic kidney disease, stage 3 unspecified; Z79.4 Long term (current) use of insulin; E11.9 Type 2 diabetes mellitus without complications | CPT/HCPCS: 80053; 82306; 83036; 84443; 85025 ==

== ENCOUNTER → 2025-05-03 10:56 | Outpatient (BNVA) | payer MEDICARE, SELFPAY | PROVIDERS: PCP Registered Nurse; Visit Provider Registered Nurse | DX: N39.0 Urinary tract infection, site not specified (principal) | CPT/HCPCS: 87086 ==

== ENCOUNTER → 2025-05-18 10:09 | Outpatient (BNVA) | payer MEDICARE, SELFPAY | PROVIDERS: PCP Registered Nurse; Visit Provider Student in an Organized Health Care Education/Training Program | DX: M75.101 Unspecified rotator cuff tear or rupture of right shoulder, not specified as traumatic (principal); M75.41 Impingement syndrome of right shoulder; M19.011 Primary osteoarthritis, right shoulder | CPT/HCPCS: 99214 ==

== ENCOUNTER 2025-05-27 14:58 | Outpatient (CLI) | payer MEDICARE, SELFPAY ==
[2025-05-27 15:52] LABS: Hematocrit 42.3 % (36-47); Hemoglobin 13.80 g/dL (11.27-16.99); Mean Corpuscular HGB Conc 32.6 g/dL (30-55); Mean Corpuscular Hemoglobin 29.8 pg (27-33); Mean Corpuscular Volume 91.4 fl (85-98); Nucleated Red Blood Cells % 0 %; Platelet Count 333 10^3/cmm (157-399); Red Blood Count 4.63 10^6/uL (3.85-5.65); White Blood Count 13.32 10^3/uL (3.29-11.43)
[2025-05-27 15:57] LABS: Glucose Urine UA 3+ (Normal); Nitrate Urine Negative (Negative); Specific Gravity, Urine 1.019 (1.005-1.030)
[2025-05-27 16:15] LABS: Anion Gap 16.2 (5-19); Blood Urea Nitrogen 20 mg/dL (8-23); Calcium 9.6 mg/dL (8.5-10.5); Carbon Dioxide 23 mmol/L (22-29); Chloride 103 mmol/L (98-107); Glucose 146 mg/dL (65-115); Osmolality Calculated 291 mOsm/kg (285-295); Potassium 4.2 mmol/L (3.5-5.1); Sodium 138 mmol/L (136-145)
[2025-05-27 16:16] LABS: Calcium 9.6 mg/dL (8.5-10.5)
[2025-05-27 16:24] LABS: Creatinine Urine, Random 74 mg/dL (28-217)
[2025-05-27 16:31] LABS: Microalbum Creatinine Ratio Ur 297 mg/dL (0-20)
[2025-05-27 16:36] LABS: UA Manual Slide Review YES
== END 2025-05-27 14:59 | disposition home or self-care (01) ==
LOC: LAB 14:58
PROVIDERS: PCP Registered Nurse; Visit Provider Nurse Practitioner
DX: N18.30 Chronic kidney disease, stage 3 unspecified (principal)
CPT/HCPCS: 36415; 80048; 81001; 82044; 82310; 83970; 84100; 85025

== ENCOUNTER → 2025-07-27 12:18 | Outpatient (BNVA) | payer MEDICARE, SELFPAY | PROVIDERS: PCP Registered Nurse; Visit Provider Specialist | DX: G43.711 Chronic migraine without aura, intractable, with status migrainosus (principal); F41.8 Other specified anxiety disorders; I42.9 Cardiomyopathy, unspecified; E11.22 Type 2 diabetes mellitus with diabetic chronic kidney disease; Z79.4 Long term (current) use of insulin; F17.210 Nicotine dependence, cigarettes, uncomplicated | CPT/HCPCS: 99213 ==

== ENCOUNTER → 2025-07-28 11:09 | Outpatient (BNVA) | payer MEDICARE, SELFPAY | PROVIDERS: PCP Registered Nurse; Visit Provider Registered Nurse | DX: N89.8 Other specified noninflammatory disorders of vagina (principal) | CPT/HCPCS: 81000; 87070; 87106; 87205 ==

== ENCOUNTER → 2025-08-15 08:30 | Outpatient (BNVA) | payer MEDICARE, SELFPAY | PROVIDERS: PCP Registered Nurse; Visit Provider Registered Nurse | DX: E11.9 Type 2 diabetes mellitus without complications (principal); E11.22 Type 2 diabetes mellitus with diabetic chronic kidney disease; N18.2 Chronic kidney disease, stage 2 (mild); Z79.4 Long term (current) use of insulin; N39.0 Urinary tract infection, site not specified | CPT/HCPCS: 80053; 81000; 83036 ==